=== PATIENT | female | born 1930 | race Hispanic/Latino ===

== ENCOUNTER 2018-02-14 07:47 | Day surgery (SDC) | payer MEDICARE ==
[2018-02-06 13:10] VITALS: BMI 28.3
[2018-02-14 08:25] LABS: BASO # 0.02 K/mm3 (0.0-2.0); BASO % 0.6 % (0.0-3.0); EOS # 0.2 (0.0-0.7); EOS % 5.2 % (1.5-5.0); GRAN # 2.18 (1.4-6.5); GRAN % 63.6 % (50.0-68.0); HEMOGLOBIN 11.8 g/dL (12.0-16.0); LYMPH # 0.7 (1.2-3.4); MEAN CELL VOLUME 95.7 fl (80.0-105.0); MEAN CORPUSCULAR HEMOGLOBIN 31.8 pg (25.0-35.0); MEAN CORPUSCULAR HGB CONC 33.2 g/dl (31.0-37.0); MEAN PLATELET VOLUME 8.2 fl (7.0-11.0); MONO # 0.3 (0.1-0.6); MONO % 9.6 % (1.0-6.0); RBC 3.71 10^6/uL (3.5-6.1); RED CELL DISTRIBUTION WIDTH 14.2 % (11.5-14.5); WHITE BLOOD COUNT 3.4 10^3/ul (4.5-11.0)
[2018-02-14 08:34] LABS: INR 1.09 (0.93-1.08); PARTIAL THROMBOPLASTIN TIME 28.1 Seconds (25.1-36.5); PROTHROMBIN TIME 12.5 SECONDS (9.4-12.5)
[2018-02-14] MEDS ORDERED: Propofol 10 mg/ml Inj (20 ML) ONE (09:11)
[2018-02-14] MEDS ORDERED: Sodium Chloride 0.9% 1,000 ML IV SCH (10:15)
[2018-02-14 10:50] VITALS: RESP 16
[2018-02-14 11:50] VITALS: BP 145/96; PULSE 65; TEMP 97.3; O2SAT 99
== END 2018-02-14 11:46 | disposition home or self-care (01) ==
LOC: ENDO 07:47
PROVIDERS: ATTEND Internal Medicine Gastroenterology
DX: C15.3 Malignant neoplasm of upper third of esophagus (principal); T18.128A Food in esophagus causing other injury, initial encounter; K29.70 Gastritis, unspecified, without bleeding; K22.8 Other specified diseases of esophagus
CPT/HCPCS: 36415; 43239; 43247; 85025; 85610; 85730; 88305; 88312; J2704; J7030; J7040

== ENCOUNTER 2018-03-28 10:16 | Day surgery (SDC) | payer MEDICARE ==
[2018-03-26 10:56] VITALS: BMI 24.7
[2018-03-28 11:03] LABS: BASO # 0.02 K/mm3 (0.0-2.0); BASO % 0.4 % (0.0-3.0); EOS # 0.1 (0.0-0.7); EOS % 2.2 % (1.5-5.0); GRAN # 3.75 (1.4-6.5); GRAN % 74.3 % (50.0-68.0); HEMOGLOBIN 12.8 g/dL (12.0-16.0); LYMPH # 0.8 (1.2-3.4); LYMPH % 15.8 % (22.0-35.0); MEAN CELL VOLUME 93.5 fl (80.0-105.0); MEAN CORPUSCULAR HEMOGLOBIN 31.8 pg (25.0-35.0); MEAN PLATELET VOLUME 8.2 fl (7.0-11.0); MONO # 0.4 (0.1-0.6); MONO % 7.3 % (1.0-6.0); RBC 4.03 10^6/uL (3.5-6.1); RED CELL DISTRIBUTION WIDTH 13.8 % (11.5-14.5); WHITE BLOOD COUNT 5.1 10^3/ul (4.5-11.0)
[2018-03-28 11:20] LABS: INR 1.48; PROTHROMBIN TIME 17.2 SECONDS (9.4-12.5)
[2018-03-28 11:23] LABS: PARTIAL THROMBOPLASTIN TIME 30.6 Seconds (25.1-36.5)
[2018-03-28] MEDS ORDERED: Propofol 10 mg/ml Inj (20 ML) ONE (13:00)
[2018-03-28] MEDS ORDERED: Phenylephrine 10 mg/ml Inj ONE (13:43)
[2018-03-28] MEDS ORDERED: ePHEDrine 50 mg/ml Inj ONE (14:00)
[2018-03-28] MEDS ORDERED: Sodium Chloride 0.9% 1,000 ML IV SCH (14:30)
[2018-03-28 14:32] VITALS: RESP 16; TEMP 98
[2018-03-28 14:40] VITALS: PULSE 97; O2SAT 95
[2018-03-28 15:34] VITALS: BP 160/97
== END 2018-03-28 15:50 | disposition home or self-care (01) ==
LOC: ENDO 10:16
PROVIDERS: ATTEND Internal Medicine Gastroenterology
DX: C15.4 Malignant neoplasm of middle third of esophagus (principal); K22.70 Barrett's esophagus without dysplasia; K22.8 Other specified diseases of esophagus; K22.2 Esophageal obstruction; T18.128A Food in esophagus causing other injury, initial encounter; K29.70 Gastritis, unspecified, without bleeding; R13.10 Dysphagia, unspecified; I48.91 Unspecified atrial fibrillation; D50.9 Iron deficiency anemia, unspecified; I11.0 Hypertensive heart disease with heart failure; I50.9 Heart failure, unspecified; K22.0 Achalasia of cardia; Z80.41 Family history of malignant neoplasm of ovary
CPT/HCPCS: 36415; 43235; 85025; 85610; 85730; J2001; J2370; J2704; J3010; J7030

== ENCOUNTER 2018-04-04 08:32 | Day surgery (SDC) | payer MEDICARE ==
[2018-04-03 10:53] VITALS: BMI 28.3
[2018-04-04 09:23] LABS: BASO # 0.03 K/mm3 (0.0-2.0); BASO % 0.6 % (0.0-3.0); EOS # 0.1 (0.0-0.7); EOS % 2.2 % (1.5-5.0); GRAN # 3.72 (1.4-6.5); GRAN % 74.8 % (50.0-68.0); LYMPH # 0.6 (1.2-3.4); LYMPH % 12.4 % (22.0-35.0); MEAN CELL VOLUME 92.9 fl (80.0-105.0); MEAN CORPUSCULAR HEMOGLOBIN 31.6 pg (25.0-35.0); MEAN PLATELET VOLUME 8.3 fl (7.0-11.0); MONO # 0.5 (0.1-0.6); RBC 3.8 10^6/uL (3.5-6.1); RED CELL DISTRIBUTION WIDTH 13.9 % (11.5-14.5)
[2018-04-04 09:28] LABS: INR 1.47
[2018-04-04] MEDS ORDERED: Sodium Chloride 0.9% 1,000 ML IV SCH (10:00)
[2018-04-04] MEDS ORDERED: Propofol 10 mg/ml Inj (20 ML) ONE ×2 (10:46→11:58)
[2018-04-04] MEDS ORDERED: Etomidate 20 mg/10ml Inj IV ONE (10:54)
[2018-04-04] MEDS ORDERED: Phenylephrine 10 mg/ml Inj ONE (10:57)
[2018-04-04] MEDS ORDERED: CeFAZolin 1 gm in NS 100ml IVPB ONE (11:49)
[2018-04-05 08:18] VITALS: BP 115/77; PULSE 77; RESP 19; TEMP 97.5; O2SAT 96
--- NOTE | 2018-04-05 14:56 | CP.PCM.CON ---
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 Pt's PEG placement was for palliative reasons and potential need in the future. Past Patient History - Infectious Disease Hx of Infectious Diseases: None - Tetanus Immunizations Tetanus Immunization: Unknown - Past Social History Smoking Status: Former Smoker - CARDIAC Hx Pacemaker: No - PULMONARY Hx Chronic Obstructive Pulmonary Disease (COPD): Yes - NEUROLOGICAL Hx Neurological Disorder: No - HEENT Hx HEENT Problems: No - RENAL Hx Chronic Kidney Disease: No - ENDOCRINE/METABOLIC Hx Diabetes Mellitus Type 2: Yes - HEMATOLOGICAL/ONCOLOGICAL Hx Blood Disorders: Yes Other/Comment: PE - INTEGUMENTARY Hx Dermatological Problems: Yes (psoriasis) - MUSCULOSKELETAL/RHEUMATOLOGICAL Hx Musculoskeletal Disorders: Yes - GASTROINTESTINAL Hx Gastrointestinal Disorders: Yes HX Swallowing Problems: Yes Other/Comment: isabelle esophagus, echalasia - GENITOURINARY/GYNECOLOGICAL Hx Genitourinary Disorders: No - PSYCHIATRIC Hx Emotional Abuse: No Hx Physical Abuse: No - SURGICAL HISTORY Hx Surgeries: No - ANESTHESIA Hx Anesthesia Reactions: No Hx Malignant Hyperthermia: No Meds Allergies/Adverse Reactions: Allergies Allergy/AdvReac Type Severity Reaction Status Date / Time No Known Allergies Allergy Verified 08/15/16 02:07 - Medications Medications: Current Medications Acetaminophen (Tylenol 325mg Tab) 650 mg PO Q4H PRN PRN Reason: Pain, moderate (4-7) Last Admin: 04/05/18 12:55 Dose: 650 mg Results - Vital Signs Recent Vital Signs: Last Vital Signs Temp 97.5 F L 04/05/18 08:17 Pulse 77 04/05/18 08:17 Resp 19 04/05/18 08:17 BP 115/77 04/05/18 08:17 Pulse Ox 96 04/05/18 08:17 - Labs Result Diagrams: 04/04/18 09:00
== END 2018-04-05 15:50 | disposition home or self-care (01) ==
LOC: ENDO 08:32 → 3RSO 15:40 → ENDO 04-05 15:50
PROVIDERS: ATTEND Internal Medicine Gastroenterology
DX: C15.9 Malignant neoplasm of esophagus, unspecified (principal); K21.9 Gastro-esophageal reflux disease without esophagitis; I11.0 Hypertensive heart disease with heart failure; I50.9 Heart failure, unspecified; I48.91 Unspecified atrial fibrillation
CPT/HCPCS: 36415; 43246; 85025; 85610; 91030; J0690; J2370; J2704; J3010; J7040

== ENCOUNTER 2018-05-26 03:39 | Inpatient (IN) | payer MEDICARE ==
[2018-05-26 03:40] VITALS: BMI 28.3
--- NOTE | 2018-05-26 04:25 | ED PDOC ---
Arrival/HPI - General Chief Complaint: GI Problem Time Seen by Provider: 05/26/18 03:41 Historian: Patient, Family - Critical Care Critical Care Minutes: 60 minutes - History of Present Illness Narrative History of Present Illness (Text): 05/26/18 04:21 88 year old female, whose past medical history includes A-fib on Coumadin, CHF, diabetes, hypothyroidism, hypertension, achalasia, malignant neoplasma of esophagus on chemotherapy and radiation, presents to the emergency department complaining of vomiting blood for the past 1.5 hours. Patient denies any fever, chills, chest pain, shortness of breath, abdominal pain, diarrhea, urinary symptoms, back pain, neck pain, headache, dizziness, or any other complaints. PMD: Dr. Vincent Lindsay Oncologist: Dr. Coello GI: Dr. Brown Time/Duration: Other (1.5 hours) Symptom Onset: Sudden Symptom Course: Unchanged Activities at Onset: Light Context: Home Past Medical History - Provider Review Nursing Documentation Reviewed: Yes - Infectious Disease Hx of Infectious Diseases: None - Tetanus Immunization Tetanus Immunization: Unknown - Cardiac Hx Cardiac Disorders: Yes Hx Congestive Heart Failure: Yes Hx Pacemaker: No - Pulmonary Hx Respiratory Disorders: Yes Hx Chronic Obstructive Pulmonary Disease (COPD): Yes - Neurological Hx Neurological Disorder: No - HEENT Hx HEENT Disorder: No - Renal Hx Renal Disorder: No - Endocrine/Metabolic Hx Endocrine Disorders: Yes Hx Diabetes Mellitus Type 2: Yes - Hematological/Oncological Hx Blood Disorders: Yes Other/Comment: PE - Integumentary Hx Dermatological Disorder: Yes (psoriasis) - Musculoskeletal/Rheumatological Hx Musculoskeletal Disorders: Yes - Gastrointestinal Hx Gastrointestinal Disorders: Yes HX Swallowing Problems: Yes Other/Comment: isabelle esophagus, echalasia - Genitourinary/Gynecological Hx Genitourinary Disorders: No - Psychiatric Hx Emotional Abuse: No Hx Physical Abuse: No Hx Substance Use: No - Surgical History Hx Cholecystectomy: Yes Hx Musculoskeletal Surgery: Yes (hip replacement) Hx Orthopedic Surgery: Yes (Left Hip) Other/Comment: left hip surgery 2005 - Anesthesia Hx Anesthesia Reactions: No Hx Malignant Hyperthermia: No - Suicidal Assessment Feels Threatened In Home Enviroment: No Family/Social History - Physician Review Nursing Documentation Reviewed: Yes Family/Social History: No Known Family HX Smoking Status: Former Smoker Hx Alcohol Use: Yes (GLASS OF WINE DAILY) Hx Substance Use: No Hx Substance Use Treatment: No Allergies/Home Meds Allergies/Adverse Reactions: Allergies No Known Allergies Allergy (Verified 08/15/16 02:07) Home Medications: Home Meds Medication Instructions Recorded Confirmed Warfarin [Coumadin] 5 mg PO DAILY 05/10/13 05/26/18 Metoprolol Tartrate [Lopressor] 12.5 mg PO DAILY 10/12/15 05/26/18 Furosemide [Lasix] 20 mg PO MWF 08/10/16 05/26/18 Ergocalciferol (Vitamin D2) 50,000 unit PO QWK 05/26/18 05/26/18 [Drisdol] Pyridoxine HCl (Vitamin B6) 100 mg PO BID 05/26/18 05/26/18 [Vitamin B-6] Review of Systems - Physician Review All systems were reviewed & negative as marked: Yes - Review of Systems Constitutional: absent: Fevers, Other (Chills) Respiratory: absent: SOB Cardiovascular: absent: Chest Pain Gastrointestinal: Nausea, Vomiting, Hematemesis. absent: Abdominal Pain, Diarrhea Genitourinary Female: absent: Dysuria, Frequency, Hematuria Musculoskeletal: absent: Back Pain, Neck Pain Neurological: absent: Headache, Dizziness Physical Exam - Physical Exam Narrative Physical Exam (Text): Gen: VS reviewed, alert, well developed, well nourished, nontoxic, mild distress. Patient currently intermittently vomiting small amounts of bright red blood. ENT: normal pharynx. Eye: EOMI, PERRL. Neck: no JVD, supple, no adenopathy. CV: Rapid heart rate, irregular irregular rhythm, no rubs, no murmur, no mary ps, S1, S2, pulses equal and strong. Pulm: no distress, clear to auscultation, no wheeze, no rhonchi, breath sounds equal, no rales. Abd: soft, nontender, no guarding, no rebound, no rigidity, normal bowel sounds. Ext: no edema. Skin: good color, no rash, no cyanosis. Psych: responds appropriately to questions, normal affect. Neuro: oriented x 3, CN2-12 intact grossly, motor intact, sensation intact. Vital Signs Reviewed: Yes Vital Signs Temp Pulse Resp BP 05/26/18 03:50 97.5 F L 83 24 105/42 L Temperature: Afebrile Blood Pressure: Hypotensive Pulse: Regular Respiratory Rate: Normal Medical Decision Making ED Course and Treatment: 05/26/18 04:30 Impression: 88 year old female presents complaining of vomiting bleed for the past 1.5 hours. Plan: -- Labs -- VBG -- EKG -- Chest X-ray -- Protonix Inj, IV Fluids, Zofran Inj -- Reassess and disposition Prior Visits: Notes and results from previous visits were reviewed. Patient was last seen in the emergency department on Progress Notes: 05/26/18 05:19 Patient witnessed to have a large bloody bowel movement. 05/26/18 05:[address] Lindsay, patient to be admitted for acute bleeding with Coumadin coagulopathy. Patient has hematemasis and now has bloody stools. With the life threatening bleeding I feel it is best to reverse coagulopathy. 05/26/18 05:33 icu admission accepted by Dr. Mariusz Nixon, at this time I am awaiting call back from Dr. Brown, patient's GI. Admit resident is also aware of the case at as requested by Dr. Nixon. 05/26/18 05:40 05/26/18 06:[address] brown, GI, knows the patient very well and states that at this time there is no role for endoscopy or NGT as the patieint has a large gastric lesion/ulcer and recommends surgical consult. Case discussed with surgical garment fitter (Dr. Tracy as per Dr. Lindsay), will see patient in consultation. - Critical Care Critical Care Minutes: 60 minutes - Lab Interpretations I have reviewed the lab results: Yes - RAD Interpretation Narrative RAD Interpretations (Text): 05/26/18 05:39 cxr my reea: cardiomegaly, no focal infiltrate, no tpx Radiology Orders: 05/26/18 04:16 CHEST PORTABLE [RAD] Stat - EKG Interpretation EKG Interpretation (Text): 05/26/18 05:05 0502: atrial fibrillation at 95 bpm, nml qrs, nml axis, nonspecific t wave abn Interpreted by ED Physician: Yes Type: 12 lead EKG - Medication Orders Current Medication Orders: Pantoprazole Sodium (Protonix 40mg Ivpb) 40 mg in 100 mls @ 20 mls/hr IVPB .Q5H [facility] Ondansetron HCl (Zofran Inj) 4 mg IVP STAT STA Stop: 05/26/18 04:17 Pantoprazole Sodium (Protonix Inj) 80 mg IVP STAT STA Stop: 05/26/18 04:17 - Scribe Statement The provider has reviewed the documentation as recorded by the Jose Guadalupe Quesada Provider Scribe Attestation: All medical record entries made by the Vandanaibvibha were at my direction and personally dictated by me. I have reviewed the chart and agree that the record accurately reflects my personal performance of the history, physical exam, medical decision making, and the department course for this patient. I have also personally directed, reviewed, and agree with the discharge instructions and disposition. Disposition/Present on Arrival - Present on Arrival Any Indicators Present on Arrival: No History of DVT/PE: No History of Uncontrolled Diabetes: No Urinary Catheter: No History of Decub. Ulcer: No History Surgical Site Infection Following: None - Disposition Have Diagnosis and Disposition been Completed?: Yes Diagnosis: GI bleed, Bleeding on Coumadin Disposition: HOSPITALIZED Disposition Time: 05:40 Patient Plan: ICU Patient Problems: Current Active Problems Problem Status Onset Bleeding on Coumadin Acute GI bleed Acute Condition: GUARDED
[2018-05-26] MEDS: Pantoprazole 40mg/100mL NS 40 MG/100 ML BAG IVPB SCH ×4 (04:40→20:30)
[2018-05-26] MEDS: Sodium Chloride 0.9% 1,000 ML IV SCH ×2 (04:43→18:53)
[2018-05-26 04:44] LABS: VENOUS BLOOD GAS BASE EXCESS -0.2 mmol/L (0.0-2.0); VENOUS BLOOD GAS PO2 48 mm/Hg (30-55); VENOUS BLOOD PH 7.33 (7.32-7.43)
[2018-05-26 04:55] LABS: BASO # 0.02 K/mm3 (0.0-2.0); BASO % 0.3 % (0.0-3.0); EOS # 0.1 (0.0-0.7); EOS % 1.4 % (1.5-5.0); GRAN # 5.37 (1.4-6.5); GRAN % 80.7 % (50.0-68.0); LYMPH # 0.3 (1.2-3.4); MEAN CELL VOLUME 93.4 fl (80.0-105.0); MEAN CORPUSCULAR HEMOGLOBIN 31.3 pg (25.0-35.0); MEAN CORPUSCULAR HGB CONC 33.5 g/dl (31.0-37.0); MEAN PLATELET VOLUME 8.3 fl (7.0-11.0); MONO # 0.8 (0.1-0.6); MONO % 12.6 % (1.0-6.0); PLATELET COUNT 246 10^3/uL (120.0-450.0); RBC 3.51 10^6/uL (3.5-6.1); RED CELL DISTRIBUTION WIDTH 16.7 % (11.5-14.5); WHITE BLOOD COUNT 6.7 10^3/ul (4.5-11.0)
[2018-05-26 05:15] LABS: PARTIAL THROMBOPLASTIN TIME 42.9 Seconds (25.1-36.5)
[2018-05-26] MEDS ORDERED: Phytonadione 10 MG in Sodium Chloride 0.9% 50 ML IV ONE (05:19)
[2018-05-26 05:23] LABS: INR 6.02; PROTHROMBIN TIME 71.2 SECONDS (9.4-12.5)
--- NOTE | 2018-05-26 06:27 | CP.PCM.CON ---
History of Present Illness - History of Present Illness History of Present Illness: Gera Woods PGY2 ICU Consult Note for Dr. Nixon Ms. Shearer is an 88-year-old female with a PMH of recently diagnosed squamous cell carcinoma of the esophagus (03/2018), CHF, achalasia and A. fib on Coumadin who presents with coughing up blood for 4 hours. In the ED, the patient was noted to have a bloody bowel movement. The daughter is bedside and provides a majority of the history since the patient is uncomfortable when she speaks due to the persistent coughing of blood. The patient was diagnosed with esophageal squamous cell carcinoma in 03/2018 and was started on chemotherapy w/ Dr. Coello and radiation therapy w/ Dr. Shah. She also used to see Dr. Bryson for her afib management but hasn't seen him in > 1 yr. She is now presenting with supratherapeutic INR and active coughing up of blood. She denies any history of gi bleeding. Patient denies any recent illness, chest pain, shortness of pain or recent changes in her coumadin dosage. She only admits to fatigue. 12-pt ROS was reviewed and is otherwise unremarkable. PMD: Angélica PMH: as above PSH: cholecystectomy, L hip ORIF Meds: as per MAR, reviewed Allergies: NKDA SHx: former tobacco user, occasional ETOH, denies drug use FHx: sister: ovarian CA Review of Systems - Review of Systems All systems: reviewed and no additional remarkable complaints except (as per HPI) Past Patient History - Infectious Disease Hx of Infectious Diseases: None - Tetanus Immunizations Tetanus Immunization: Unknown - Past Medical History & Family History Past Medical History?: Yes - Past Social History Smoking Status: Former Smoker Alcohol: Occasional Drugs: Denies - CARDIAC Hx Cardiac Disorders: Yes Hx Congestive Heart Failure: Yes Hx Pacemaker: No - PULMONARY Hx Respiratory Disorders: Yes Hx Chronic Obstructive Pulmonary Disease (COPD): Yes - NEUROLOGICAL Hx Neurological Disorder: No - HEENT Hx HEENT Problems: No - RENAL Hx Chronic Kidney Disease: No - ENDOCRINE/METABOLIC Hx Endocrine Disorders: Yes Hx Diabetes Mellitus Type 2: Yes - HEMATOLOGICAL/ONCOLOGICAL Hx Blood Disorders: Yes Other/Comment: PE - INTEGUMENTARY Hx Dermatological Problems: Yes (psoriasis) - MUSCULOSKELETAL/RHEUMATOLOGICAL Hx Musculoskeletal Disorders: Yes - GASTROINTESTINAL Hx Gastrointestinal Disorders: Yes HX Swallowing Problems: Yes Other/Comment: isabelle esophagus, echalasia - GENITOURINARY/GYNECOLOGICAL Hx Genitourinary Disorders: No - PSYCHIATRIC Hx Emotional Abuse: No Hx Physical Abuse: No Hx Substance Use: No - SURGICAL HISTORY Hx Cholecystectomy: Yes Hx Musculoskeletal Surgery: Yes (hip replacement) Hx Orthopedic Surgery: Yes (Left Hip) Other/Comment: left hip surgery 2005 - ANESTHESIA Hx Anesthesia Reactions: No Hx Malignant Hyperthermia: No Meds Allergies/Adverse Reactions: Allergies Allergy/AdvReac Type Severity Reaction Status Date / Time No Known Allergies Allergy Verified 08/15/16 02:07 - Medications Medications: Current Medications Pantoprazole Sodium (Protonix 40mg Ivpb) 40 mg in 100 mls @ 20 mls/hr IVPB .Q5H [facility] Last Admin: 05/26/18 04:40 Dose: 20 mls/hr Sodium Chloride (Sodium Chloride 0.9%) 1,000 mls @ 75 mls/hr IV .[id number] [facility] Last Admin: 05/26/18 04:43 Dose: 75 mls/hr Metoprolol Tartrate (Lopressor) 12.5 mg PO DAILY [facility] Physical Exam - Constitutional Appears: Well, Non-toxic, No Acute Distress - Head Exam Head Exam: NORMAL INSPECTION - Eye Exam Eye Exam: Normal appearance Additional comments: pale conjuctivitis - ENT Exam Additional comments: coughing up fresh red blood - Neck Exam Neck exam: Positive for: Normal Inspection - Respiratory Exam Respiratory Exam: NORMAL BREATHING PATTERN. absent: Rales, Rhonchi, Wheezes - Cardiovascular Exam Cardiovascular Exam: Irregular Rhythm, +S1, +S2, Systolic Murmur (severe) - GI/Abdominal Exam GI & Abdominal Exam: Normal Bowel Sounds, Soft, Tenderness (epigastroc). absent: Distended - Rectal Exam Rectal Exam: Bloody Stool - Extremities Exam Extremities exam: Positive for: full ROM. Negative for: pedal edema - Neurological Exam Neurological exam: Alert, CN II-XII Intact, Oriented x3 - Psychiatric Exam Psychiatric exam: Normal Mood - Skin Skin Exam: Pallor Results - Vital Signs Recent Vital Signs: Last Vital Signs Temp 97.5 F L 05/26/18 03:50 Pulse 110 H 05/26/18 05:23 Resp 24 05/26/18 05:23 BP 114/89 05/26/18 05:23 Pulse Ox 94 L 05/26/18 05:23 - Labs Result Diagrams: 05/26/18 04:35 Labs: Laboratory Results - last 24 hr 05/26/18 05/26/18 05/26/18 04:35 04:35 04:35 WBC 6.7 D RBC 3.51 Hgb 11.0 L Hct 32.8 L MCV 93.4 MCH 31.3 MCHC 33.5 RDW 16.7 H Plt Count 246 MPV 8.3 Gran % 80.7 H Lymph % (Auto) 5.0 L [place] % (Auto) 12.6 H Eos % (Auto) 1.4 L Baso % (Auto) 0.3 Gran # 5.37 Lymph # (Auto) 0.3 L [place] # (Auto) 0.8 H Eos # (Auto) 0.1 Baso # (Auto) 0.02 PT 71.2 H INR 6.02 H* APTT 42.9 H pO2 48 VBG pH 7.33 VBG pCO2 50.0 VBG HCO3 26.4 VBG Total CO2 27.9 VBG O2 Sat (Calc) 83.9 H VBG Base Excess -0.2 L VBG Potassium 3.8 Sodium 133.0 Chloride 99.0 Glucose 122 H Lactate 1.6 FiO2 21.0 Venous Blood Potassium 3.8 Assessment & Plan - Assessment and Plan (Free Text) Assessment: 88-year-old female with a PMH of recently diagnosed squamous cell carcinoma of the esophagus (03/2018), CHF, achalasia and A. fib on Coumadin who presents with coughing up blood and had a large bloody bowel movement. INR is supratherap eutic. She was started on PTX gtt, and given vitamin K. She was then consented for FFP. Patient is hemodynamically stable. Will be monitored in ICU. Plan: 1. Acute GI bleed, in setting of malignancy - NPO - PTX gtt - vit K to reverse supratherapeutic INR - transfuse FFP per EM - GI consulted - transfer to ICU for close monitoring 2. Hx Squamous cell carcinoma of esophagus - Heme/Onc consulted, recs appreciated 3. Hx Afib - holding Coumadin - cont lopressor via g tube - currently rate controlled, cont to monitor 4. PPX - PTX - holding all blood thinners Case was reviewed and discusse with attending, Dr. Tiffani Woods PGY2
[2018-05-26 06:38] LABS: BAND 8 % (0-2); NEUTROPHIL 71 % (50.0-70.0)
[2018-05-26 06:39] LABS: ANISOCYTOSIS SLIGHT; BASOPHIL 2 % (0.0-1.0); EOSINOPHIL 2 % (0.0-3.0); LYMPHOCYTE 6 % (22.0-35.0); MONOCYTE 11 % (1.0-6.0); PLATELET ESTIMATE NORMAL (NORMAL)
[2018-05-26 07:31] LABS: ALBUMIN 3.2 g/dL (3.0-4.8); CALCIUM 8.4 mg/dL (8.4-10.5)
[2018-05-26 08:40] LABS: HEMOGLOBIN 9.3 g/dL (12.0-16.0); MEAN CELL VOLUME 92.8 fl (80.0-105.0); MEAN CORPUSCULAR HEMOGLOBIN 31.7 pg (25.0-35.0); MEAN CORPUSCULAR HGB CONC 34.2 g/dl (31.0-37.0); MEAN PLATELET VOLUME 7.7 fl (7.0-11.0); RBC 2.93 10^6/uL (3.5-6.1); RED CELL DISTRIBUTION WIDTH 16.3 % (11.5-14.5); WHITE BLOOD COUNT 6.1 10^3/ul (4.5-11.0)
--- NOTE | 2018-05-26 09:21 | RAD ---
Date of service: 05/26/2018 HISTORY: chf COMPARISON: 08/22/2016 FINDINGS: LUNGS: No active pulmonary disease. PLEURA: No pleural effusion or pneumothorax. Abnormal contour of left hemidiaphragm may reflect a small hernia but is unchanged compared to prior examination. CARDIOVASCULAR: Normal. OSSEOUS STRUCTURES: No significant abnormalities. VISUALIZED UPPER ABDOMEN: Normal. OTHER FINDINGS: None. IMPRESSION: No active disease.
--- NOTE | 2018-05-26 11:03 | CP.PCM.CON ---
History of Present Illness - History of Present Illness History of Present Illness: General Surgery Consult Note for Dr. Tracy Patient is an 88 year old female with a PMH of recently diagnosed squamous cell carcinoma of the esophagus (03/2018), CHF, achalasia, and atrial fibrillation (on Coumadin) presenting with hemoptysis that started last night. Patient was also noted to have a bloody bowel movement in the ED this morning. Patient was diagnosed with esophageal squamous cell carcinoma in 03/2018 is currently on chemotherapy and radiation therapy. She is also presenting with supra-thera peutic INR level. She denies any history of GI bleeding. Patient further denies any recent illness, fevers, chills, chest pain, shortness of breath, abdominal pain, or recent changes in her Coumadin dosage. 12-pt ROS was reviewed and is otherwise unremarkable. PMD: Dr. Lindsay Oncologist: Dr. Coello, Dr. Shah PMH: squamous cell carcinoma of the esophagus (03/2018), CHF, achalasia, and atrial fibrillation on Coumadin PSH: cholecystectomy, L hip ORIF Allergies: NKDA SHx: former tobacco user, occasional ETOH, denies drug use FHx: sister: ovarian CA Past Patient History - Infectious Disease Hx of Infectious Diseases: None - Tetanus Immunizations Tetanus Immunization: Unknown - Past Medical History & Family History Past Medical History?: Yes - Past Social History Smoking Status: Former Smoker Alcohol: Occasional Drugs: Denies - CARDIAC Hx Cardiac Disorders: Yes Hx Congestive Heart Failure: Yes Hx Pacemaker: No - PULMONARY Hx Respiratory Disorders: Yes Hx Chronic Obstructive Pulmonary Disease (COPD): Yes - NEUROLOGICAL Hx Neurological Disorder: No - HEENT Hx HEENT Problems: No - RENAL Hx Chronic Kidney Disease: No - ENDOCRINE/METABOLIC Hx Endocrine Disorders: Yes Hx Diabetes Mellitus Type 2: Yes - HEMATOLOGICAL/ONCOLOGICAL Hx Blood Disorders: Yes Other/Comment: PE - INTEGUMENTARY Hx Dermatological Problems: Yes (psoriasis) - MUSCULOSKELETAL/RHEUMATOLOGICAL Hx Musculoskeletal Disorders: Yes - GASTROINTESTINAL Hx Gastrointestinal Disorders: Yes HX Swallowing Problems: Yes Other/Comment: isabelle esophagus, echalasia - GENITOURINARY/GYNECOLOGICAL Hx Genitourinary Disorders: No - PSYCHIATRIC Hx Emotional Abuse: No Hx Physical Abuse: No Hx Substance Use: No - SURGICAL HISTORY Hx Cholecystectomy: Yes Hx Musculoskeletal Surgery: Yes (hip replacement) Hx Orthopedic Surgery: Yes (Left Hip) Other/Comment: left hip surgery 2005 - ANESTHESIA Hx Anesthesia Reactions: No Hx Malignant Hyperthermia: No Meds Allergies/Adverse Reactions: Allergies Allergy/AdvReac Type Severity Reaction Status Date / Time No Known Allergies Allergy Verified 08/15/16 02:07 - Medications Medications: Current Medications Pantoprazole Sodium (Protonix 40mg Ivpb) 40 mg in 100 mls @ 20 mls/hr IVPB .Q5H [facility] Last Admin: 05/26/18 04:40 Dose: 20 mls/hr Sodium Chloride (Sodium Chloride 0.9%) 1,000 mls @ 75 mls/hr IV .[id number] [facility] Last Admin: 05/26/18 04:43 Dose: 75 mls/hr Physical Exam - Constitutional Appears: Well, Non-toxic, No Acute Distress - Head Exam Head Exam: ATRAUMATIC, NORMOCEPHALIC - ENT Exam ENT Exam: Mucous Membranes Dry - Neck Exam Neck exam: Positive for: Normal Inspection - Respiratory Exam Respiratory Exam: NORMAL BREATHING PATTERN. absent: Accessory Muscle Use, Respiratory Distress - Cardiovascular Exam Cardiovascular Exam: RRR - GI/Abdominal Exam GI & Abdominal Exam: Soft. absent: Distended, Guarding, Tenderness - Extremities Exam Extremities exam: Positive for: normal inspection. Negative for: calf tenderness, pedal edema - Neurological Exam Neurological exam: Alert, CN II-XII Intact, Oriented x3 - Psychiatric Exam Psychiatric exam: Normal Affect, Normal Mood - Skin Skin Exam: Dry, Intact, Pallor Results - Vital Signs Recent Vital Signs: Last Vital Signs Temp 98 F 05/26/18 09:45 Pulse 106 H 05/26/18 09:45 Resp 18 05/26/18 09:45 BP 102/63 05/26/18 09:45 Pulse Ox 99 05/26/18 09:45 - Labs Result Diagrams: 05/26/18 08:36 05/26/18 06:40 Labs: Laboratory Results - last 24 hr 05/26/18 05/26/18 05/26/18 04:35 04:35 04:35 WBC 6.7 D RBC 3.51 Hgb 11.0 L Hct 32.8 L MCV 93.4 MCH 31.3 MCHC 33.5 RDW 16.7 H Plt Count 246 MPV 8.3 Gran % 80.7 H Lymph % (Auto) 5.0 L [place] % (Auto) 12.6 H Eos % (Auto) 1.4 L Baso % (Auto) 0.3 Gran # 5.37 Lymph # (Auto) 0.3 L [place] # (Auto) 0.8 H Eos # (Auto) 0.1 Baso # (Auto) 0.02 Neutrophils % (Manual) 71 H Band Neutrophils % 8 H Lymphocytes % (Manual) 6 L Monocytes % (Manual) 11 H Eosinophils % (Manual) 2 Basophils % (Manual) 2 H Platelet Evaluation Normal Anisocytosis (manual) Slight PT 71.2 H INR 6.02 H* APTT 42.9 H pO2 48 VBG pH 7.33 VBG pCO2 50.0 VBG HCO3 26.4 VBG Total CO2 27.9 VBG O2 Sat (Calc) 83.9 H VBG Base Excess -0.2 L VBG Potassium 3.8 Sodium 133.0 Chloride 99.0 Glucose 122 H Lactate 1.6 FiO2 21.0 Potassium Carbon Dioxide Anion Gap BUN Creatinine Est GFR ( Amer) Est GFR (Non-Af Amer) Random Glucose Calcium Phosphorus Magnesium Total Bilirubin AST ALT Alkaline Phosphatase Total Protein Albumin Globulin Albumin/Globulin Ratio Venous Blood Potassium 3.8 Blood Type Antibody Screen Crossmatch BBK History Checked 05/26/18 05/26/18 05/26/18 06:40 06:40 08:36 WBC 6.1 RBC 2.93 L Hgb 9.3 L Hct 27.2 L MCV 92.8 MCH 31.7 MCHC 34.2 RDW 16.3 H Plt Count 210 MPV 7.7 Gran % Lymph % (Auto) [place] % (Auto) Eos % (Auto) Baso % (Auto) Gran # Lymph # (Auto) [place] # (Auto) Eos # (Auto) Baso # (Auto) Neutrophils % (Manual) Band Neutrophils % Lymphocytes % (Manual) Monocytes % (Manual) Eosinophils % (Manual) Basophils % (Manual) Platelet Evaluation Anisocytosis (manual) PT INR APTT pO2 VBG pH VBG pCO2 VBG HCO3 VBG Total CO2 VBG O2 Sat (Calc) VBG Base Excess VBG Potassium Sodium 134 Chloride 100 Glucose Lactate FiO2 Potassium 3.9 Carbon Dioxide 26 Anion Gap 12 BUN 33 H Creatinine 1.2 Est GFR ( Amer) 51 Est GFR (Non-Af Amer) 42 Random Glucose 134 H Calcium 8.4 Phosphorus 2.8 Magnesium 1.7 Total Bilirubin 0.5 AST 24 ALT 17 Alkaline Phosphatase 73 Total Protein 6.3 Albumin 3.2 Globulin 3.1 Albumin/Globulin Ratio 1.0 L Venous Blood Potassium Blood Type Antibody Screen Crossmatch BBK History Checked 05/26/18 09:15 WBC RBC Hgb Hct MCV MCH MCHC RDW Plt Count MPV Gran % Lymph % (Auto) [place] % (Auto) Eos % (Auto) Baso % (Auto) Gran # Lymph # (Auto) [place] # (Auto) Eos # (Auto) Baso # (Auto) Neutrophils % (Manual) Band Neutrophils % Lymphocytes % (Manual) Monocytes % (Manual) Eosinophils % (Manual) Basophils % (Manual) Platelet Evaluation Anisocytosis (manual) PT INR APTT pO2 VBG pH VBG pCO2 VBG HCO3 VBG Total CO2 VBG O2 Sat (Calc) VBG Base Excess VBG Potassium Sodium Chloride Glucose Lactate FiO2 Potassium Carbon Dioxide Anion Gap BUN Creatinine Est GFR ( Amer) Est GFR (Non-Af Amer) Random Glucose Calcium Phosphorus Magnesium Total Bilirubin AST ALT Alkaline Phosphatase Total Protein Albumin Globulin Albumin/Globulin Ratio Venous Blood Potassium Blood Type A POSITIVE Antibody Screen Negative Crossmatch See Detail BBK History Checked Patient has bt Assessment & Plan - Assessment and Plan (Free Text) Assessment: Patient is an 88 year old female with newly diagnosed squamous cell carcinoma of the esophagus on chemotherapy and radiation therapy presenting with hemoptysis. She was also found to have supra-therapeutic INR level. Plan: - No acute surgical management at this time - Continue medical management as per primary and ICU teams - Will continue to follow Case discussed with Dr. Tracy. Barrie Avina DO PGY-1
--- NOTE | 2018-05-26 11:08 | CARD ---
APPROVED REPORT Date of service: 05/26/2018 EKG Measurement Heart [id number] <Conclusion> Atrial fibrillation with premature ventricular or aberrantly conducted complexes prolonged QT Cannot rule out septal infarct, age undetermined NSTT wave abnormality Abnormal ECG
--- NOTE | 2018-05-26 12:43 | CP.PCM.CON ---
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 She states shortly after midnight she began to throw up bright red blood. She also noticed a burning sensation around her midsternal area. She states that her last BM a day prior was brown, but since being in the ED, she reports have 1 dark red bowel movement. She denies any EtOH or NSAID use. She last took coumadin on 05/25/18. On ROS, she admitted to feeling fatigue and light headed. She denied any melena, abd pain, fevers or chills. 12 point ROS negative other than stated above MHx: See above SurgHx: cholecystectomy, L hip ORIF Endo: EGD 04/04/18 with Barrets C0M1, 2 cm Ulcer in upper esoph, Dilated Esophagus, s/p PEG Meds: Reviewed in MAR FamHx: sister with ovarian CA SocHx: Denied EtOH, former tob All: NKDA Past Patient History - Infectious Disease Hx of Infectious Diseases: None - Tetanus Immunizations Tetanus Immunization: Unknown - Past Medical History & Family History Past Medical History?: Yes - Past Social History Smoking Status: Former Smoker Alcohol: Occasional Drugs: Denies - CARDIAC Hx Cardiac Disorders: Yes Hx Congestive Heart Failure: Yes Hx Pacemaker: No - PULMONARY Hx Respiratory Disorders: Yes Hx Chronic Obstructive Pulmonary Disease (COPD): Yes - NEUROLOGICAL Hx Neurological Disorder: No - HEENT Hx HEENT Problems: No - RENAL Hx Chronic Kidney Disease: No - ENDOCRINE/METABOLIC Hx Endocrine Disorders: Yes Hx Diabetes Mellitus Type 2: Yes - HEMATOLOGICAL/ONCOLOGICAL Hx Blood Disorders: Yes Other/Comment: PE - INTEGUMENTARY Hx Dermatological Problems: Yes (psoriasis) - MUSCULOSKELETAL/RHEUMATOLOGICAL Hx Musculoskeletal Disorders: Yes - GASTROINTESTINAL Hx Gastrointestinal Disorders: Yes HX Swallowing Problems: Yes Other/Comment: isabelle esophagus, echalasia - GENITOURINARY/GYNECOLOGICAL Hx Genitourinary Disorders: No - PSYCHIATRIC Hx Emotional Abuse: No Hx Physical Abuse: No Hx Substance Use: No - SURGICAL HISTORY Hx Cholecystectomy: Yes Hx Musculoskeletal Surgery: Yes (hip replacement) Hx Orthopedic Surgery: Yes (Left Hip) Other/Comment: left hip surgery 2005 - ANESTHESIA Hx Anesthesia Reactions: No Hx Malignant Hyperthermia: No Meds Allergies/Adverse Reactions: Allergies Allergy/AdvReac Type Severity Reaction Status Date / Time No Known Allergies Allergy Verified 08/15/16 02:07 - Medications Medications: Current Medications Pantoprazole Sodium (Protonix 40mg Ivpb) 40 mg in 100 mls @ 20 mls/hr IVPB .Q5H [facility] Last Admin: 05/26/18 10:58 Dose: 20 mls/hr Sodium Chloride (Sodium Chloride 0.9%) 1,000 mls @ 75 mls/hr IV .[id number] [facility] Last Admin: 05/26/18 04:43 Dose: 75 mls/hr Physical Exam - Constitutional Appears: Non-toxic, No Acute Distress - Head Exam Head Exam: ATRAUMATIC, NORMAL INSPECTION - Eye Exam Eye Exam: EOMI. absent: Conjunctival injection, Scleral icterus - ENT Exam ENT Exam: Mucous Membranes Moist, Normal Exam. absent: Mucous Membranes Dry Additional comments: spitting up bright red blood - Respiratory Exam Respiratory Exam: Clear to Auscultation Bilateral, NORMAL BREATHING PATTERN - Cardiovascular Exam Cardiovascular Exam: Tachycardia, REGULAR RHYTHM - GI/Abdominal Exam GI & Abdominal Exam: Normal Bowel Sounds, Soft. absent: Bruit, Diminished Bowel Sounds, Distended, Firm, Guarding, Hernia, Mass, Organomegaly, Pulsatile Mass, Rebound, Rigid, Tenderness Additional comments: +PEG in place w/o signs of erythema nor drainage - Rectal Exam Rectal Exam: Deferred - Neurological Exam Neurological exam: Alert, Oriented x3 - Psychiatric Exam Psychiatric exam: Normal Affect, Normal Mood - Skin Skin Exam: Dry, Warm Results - Vital Signs Recent Vital Signs: Last Vital Signs Temp 98 F 05/26/18 09:45 Pulse 106 H 05/26/18 09:45 Resp 18 05/26/18 09:45 BP 102/63 05/26/18 09:45 Pulse Ox 99 05/26/18 09:45 - Labs Result Diagrams: 05/26/18 08:36 05/26/18 06:40 Labs: Laboratory Results - last 24 hr 05/26/18 05/26/18 05/26/18 04:35 04:35 04:35 WBC 6.7 D RBC 3.51 Hgb 11.0 L Hct 32.8 L MCV 93.4 MCH 31.3 MCHC 33.5 RDW 16.7 H Plt Count 246 MPV 8.3 Gran % 80.7 H Lymph % (Auto) 5.0 L [place] % (Auto) 12.6 H Eos % (Auto) 1.4 L Baso % (Auto) 0.3 Gran # 5.37 Lymph # (Auto) 0.3 L [place] # (Auto) 0.8 H Eos # (Auto) 0.1 Baso # (Auto) 0.02 Neutrophils % (Manual) 71 H Band Neutrophils % 8 H Lymphocytes % (Manual) 6 L Monocytes % (Manual) 11 H Eosinophils % (Manual) 2 Basophils % (Manual) 2 H Platelet Evaluation Normal Anisocytosis (manual) Slight PT 71.2 H INR 6.02 H* APTT 42.9 H pO2 48 VBG pH 7.33 VBG pCO2 50.0 VBG HCO3 26.4 VBG Total CO2 27.9 VBG O2 Sat (Calc) 83.9 H VBG Base Excess -0.2 L VBG Potassium 3.8 Sodium 133.0 Chloride 99.0 Glucose 122 H Lactate 1.6 FiO2 21.0 Potassium Carbon Dioxide Anion Gap BUN Creatinine Est GFR ( Amer) Est GFR (Non-Af Amer) Random Glucose Calcium Phosphorus Magnesium Total Bilirubin AST ALT Alkaline Phosphatase Total Protein Albumin Globulin Albumin/Globulin Ratio Venous Blood Potassium 3.8 Blood Type Antibody Screen Crossmatch BBK History Checked 05/26/18 05/26/18 05/26/18 06:40 06:40 08:36 WBC 6.1 RBC 2.93 L Hgb 9.3 L Hct 27.2 L MCV 92.8 MCH 31.7 MCHC 34.2 RDW 16.3 H Plt Count 210 MPV 7.7 Gran % Lymph % (Auto) [place] % (Auto) Eos % (Auto) Baso % (Auto) Gran # Lymph # (Auto) [place] # (Auto) Eos # (Auto) Baso # (Auto) Neutrophils % (Manual) Band Neutrophils % Lymphocytes % (Manual) Monocytes % (Manual) Eosinophils % (Manual) Basophils % (Manual) Platelet Evaluation Anisocytosis (manual) PT INR APTT pO2 VBG pH VBG pCO2 VBG HCO3 VBG Total CO2 VBG O2 Sat (Calc) VBG Base Excess VBG Potassium Sodium 134 Chloride 100 Glucose Lactate FiO2 Potassium 3.9 Carbon Dioxide 26 Anion Gap 12 BUN 33 H Creatinine 1.2 Est GFR ( Amer) 51 Est GFR (Non-Af Amer) 42 Random Glucose 134 H Calcium 8.4 Phosphorus 2.8 Magnesium 1.7 Total Bilirubin 0.5 AST 24 ALT 17 Alkaline Phosphatase 73 Total Protein 6.3 Albumin 3.2 Globulin 3.1 Albumin/Globulin Ratio 1.0 L Venous Blood Potassium Blood Type Antibody Screen Crossmatch BBK History Checked 05/26/18 09:15 WBC RBC Hgb Hct MCV MCH MCHC RDW Plt Count MPV Gran % Lymph % (Auto) [place] % (Auto) Eos % (Auto) Baso % (Auto) Gran # Lymph # (Auto) [place] # (Auto) Eos # (Auto) Baso # (Auto) Neutrophils % (Manual) Band Neutrophils % Lymphocytes % (Manual) Monocytes % (Manual) Eosinophils % (Manual) Basophils % (Manual) Platelet Evaluation Anisocytosis (manual) PT INR APTT pO2 VBG pH VBG pCO2 VBG HCO3 VBG Total CO2 VBG O2 Sat (Calc) VBG Base Excess VBG Potassium Sodium Chloride Glucose Lactate FiO2 Potassium Carbon Dioxide Anion Gap BUN Creatinine Est GFR ( Amer) Est GFR (Non-Af Amer) Random Glucose Calcium Phosphorus Magnesium Total Bilirubin AST ALT Alkaline Phosphatase Total Protein Albumin Globulin Albumin/Globulin Ratio Venous Blood Potassium Blood Type A POSITIVE Antibody Screen Negative Crossmatch See Detail BBK History Checked Patient has bt Assessment & Plan - Assessment and Plan (Free Text) Assessment: 88 yo WF with SCC on chemo + XRT, Afib on AC presenting with hematemesis. # Hematemesis: Most likely related to known underlying SCC currently on XRT predispositing to irritation and injury to the area along with supratherapeutic INR. 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 # Supratherapeutic INR: 6 on presentation. On medication due to pAF. In setting of active GI bleed. Plan: - PPI gtt - Correct coagulopathy with FFP, IV Vit K - Hold coumadin - Monitor H&H and INR - 2 large bore IVs - Volume resuscitate - Type and screen - Recommend Onc and Cardiology consults --- Risk of AC > benefits given GI malignancy undergoing treatment? - NPO - Hold off on endoscopy at this time as likely cause of bleed not amenable to intervention Thank you for the consult. Will cont to follow. Pt seen and examined with Dr. Brown <Elba Brown V - Last Filed: 05/26/18 22:47> Meds - Medications Medications: Current Medications Pantoprazole Sodium (Protonix 40mg Ivpb) 40 mg in 100 mls @ 20 mls/hr IVPB .Q5H [facility] Last Admin: 05/26/18 20:30 Dose: 20 mls/hr Sodium Chloride (Sodium Chloride 0.9%) 1,000 mls @ 75 mls/hr IV .[id number] [facility] Last Admin: 05/26/18 18:53 Dose: 75 mls/hr Results - Vital Signs Recent Vital Signs: Last Vital Signs Temp 98.7 F 05/26/18 19:00 Pulse 82 05/26/18 20:30 Resp 25 H 05/26/18 20:30 BP 100/67 05/26/18 20:00 Pulse Ox 100 05/26/18 20:30 - Labs Result Diagrams: 05/26/18 21:35 05/26/18 06:40 Labs: Laboratory Results - last 24 hr 05/26/18 05/26/18 05/26/18 04:35 04:35 04:35 WBC 6.7 D RBC 3.51 Hgb 11.0 L Hct 32.8 L MCV 93.4 MCH 31.3 MCHC 33.5 RDW 16.7 H Plt Count 246 MPV 8.3 Gran % 80.7 H Lymph % (Auto) 5.0 L [place] % (Auto) 12.6 H Eos % (Auto) 1.4 L Baso % (Auto) 0.3 Gran # 5.37 Lymph # (Auto) 0.3 L [place] # (Auto) 0.8 H Eos # (Auto) 0.1 Baso # (Auto) 0.02 Neutrophils % (Manual) 71 H Band Neutrophils % 8 H Lymphocytes % (Manual) 6 L Monocytes % (Manual) 11 H Eosinophils % (Manual) 2 Basophils % (Manual) 2 H Platelet Evaluation Normal Anisocytosis (manual) Slight PT 71.2 H INR 6.02 H* APTT 42.9 H pO2 48 VBG pH 7.33 VBG pCO2 50.0 VBG HCO3 26.4 VBG Total CO2 27.9 VBG O2 Sat (Calc) 83.9 H VBG Base Excess -0.2 L VBG Potassium 3.8 Sodium 133.0 Chloride 99.0 Glucose 122 H Lactate 1.6 FiO2 21.0 Potassium Carbon Dioxide Anion Gap BUN Creatinine Est GFR ( Amer) Est GFR (Non-Af Amer) Random Glucose Calcium Phosphorus Magnesium Total Bilirubin AST ALT Alkaline Phosphatase Total Protein Albumin Globulin Albumin/Globulin Ratio Venous Blood Potassium 3.8 Blood Type Antibody Screen Crossmatch Tx React Basic Work-up Clerical Work Check Pre-Trans Blood Type Pre-Trans Vis Hemolysis Pre-Trans Antibody Scrn Post-Trans Blood Type Post-Tx Visible Hemolys Post-Trans Antibody Scrn Post-Trans LULA Poly BBK History Checked 05/26/18 05/26/18 05/26/18 06:40 06:40 08:36 WBC 6.1 RBC 2.93 L Hgb 9.3 L Hct 27.2 L MCV 92.8 MCH 31.7 MCHC 34.2 RDW 16.3 H Plt Count 210 MPV 7.7 Gran % Lymph % (Auto) [place] % (Auto) Eos % (Auto) Baso % (Auto) Gran # Lymph # (Auto) [place] # (Auto) Eos # (Auto) Baso # (Auto) Neutrophils % (Manual) Band Neutrophils % Lymphocytes % (Manual) Monocytes % (Manual) Eosinophils % (Manual) Basophils % (Manual) Platelet Evaluation Anisocytosis (manual) PT INR APTT pO2 VBG pH VBG pCO2 VBG HCO3 VBG Total CO2 VBG O2 Sat (Calc) VBG Base Excess VBG Potassium Sodium 134 Chloride 100 Glucose Lactate FiO2 Potassium 3.9 Carbon Dioxide 26 Anion Gap 12 BUN 33 H Creatinine 1.2 Est GFR ( Amer) 51 Est GFR (Non-Af Amer) 42 Random Glucose 134 H Calcium 8.4 Phosphorus 2.8 Magnesium 1.7 Total Bilirubin 0.5 AST 24 ALT 17 Alkaline Phosphatase 73 Total Protein 6.3 Albumin 3.2 Globulin 3.1 Albumin/Globulin Ratio 1.0 L Venous Blood Potassium Blood Type Antibody Screen Crossmatch Tx React Basic Work-up Clerical Work Check Pre-Trans Blood Type Pre-Trans Vis Hemolysis Pre-Trans Antibody Scrn Post-Trans Blood Type Post-Tx Visible Hemolys Post-Trans Antibody Scrn Post-Trans LULA Poly BBK History Checked 05/26/18 05/26/18 05/26/18 09:15 13:00 16:55 WBC 4.0 L D 4.3 L RBC 2.94 L 3.29 L Hgb 9.2 L 10.3 L Hct 27.3 L 30.3 L MCV 92.9 92.1 MCH 31.3 31.3 MCHC 33.7 34.0 RDW 16.5 H 16.1 H Plt Count 199 189 MPV 8.0 8.0 Gran % Lymph % (Auto) [place] % (Auto) Eos % (Auto) Baso % (Auto) Gran # Lymph # (Auto) [place] # (Auto) Eos # (Auto) Baso # (Auto) Neutrophils % (Manual) Band Neutrophils % Lymphocytes % (Manual) Monocytes % (Manual) Eosinophils % (Manual) Basophils % (Manual) Platelet Evaluation Anisocytosis (manual) PT INR APTT pO2 VBG pH VBG pCO2 VBG HCO3 VBG Total CO2 VBG O2 Sat (Calc) VBG Base Excess VBG Potassium Sodium Chloride Glucose Lactate FiO2 Potassium Carbon Dioxide Anion Gap BUN Creatinine Est GFR ( Amer) Est GFR (Non-Af Amer) Random Glucose Calcium Phosphorus Magnesium Total Bilirubin AST ALT Alkaline Phosphatase Total Protein Albumin Globulin Albumin/Globulin Ratio Venous Blood Potassium Blood Type A POSITIVE Antibody Screen Negative Crossmatch See Detail Tx React Basic Work-up Clerical Work Check Pre-Trans Blood Type Pre-Trans Vis Hemolysis Pre-Trans Antibody Scrn Post-Trans Blood Type Post-Tx Visible Hemolys Post-Trans Antibody Scrn Post-Trans LULA Poly BBK History Checked Patient has bt 05/26/18 05/26/18 05/26/18 16:55 16:55 21:35 WBC 3.5 L RBC 3.18 L Hgb 10.0 L Hct 29.3 L MCV 92.1 MCH 31.4 MCHC 34.1 RDW 16.3 H Plt Count 189 MPV 7.8 Gran % Lymph % (Auto) [place] % (Auto) Eos % (Auto) Baso % (Auto) Gran # Lymph # (Auto) [place] # (Auto) Eos # (Auto) Baso # (Auto) Neutrophils % (Manual) Band Neutrophils % Lymphocytes % (Manual) Monocytes % (Manual) Eosinophils % (Manual) Basophils % (Manual) Platelet Evaluation Anisocytosis (manual) PT 16.5 H INR 1.44 APTT 28.7 pO2 VBG pH VBG pCO2 VBG HCO3 VBG Total CO2 VBG O2 Sat (Calc) VBG Base Excess VBG Potassium Sodium Chloride Glucose Lactate FiO2 Potassium Carbon Dioxide Anion Gap BUN Creatinine Est GFR ( Amer) Est GFR (Non-Af Amer) Random Glucose Calcium Phosphorus Magnesium Total Bilirubin AST ALT Alkaline Phosphatase Total Protein Albumin Globulin Albumin/Globulin Ratio Venous Blood Potassium Blood Type Antibody Screen Crossmatch Tx React Basic Work-up Compatible Clerical Work Check No discrepancy Pre-Trans Blood Type A POSITIVE Pre-Trans Vis Hemolysis No hemolysis Pre-Trans Antibody Scrn Negative Post-Trans Blood Type A POSITIVE Post-Tx Visible Hemolys No hemolysis Post-Trans Antibody Scrn Negative Post-Trans LULA Poly Negative BBK History Checked 05/26/18 21:35 WBC RBC Hgb Hct MCV MCH MCHC RDW Plt Count MPV Gran % Lymph % (Auto) [place] % (Auto) Eos % (Auto) Baso % (Auto) Gran # Lymph # (Auto) [place] # (Auto) Eos # (Auto) Baso # (Auto) Neutrophils % (Manual) Band Neutrophils % Lymphocytes % (Manual) Monocytes % (Manual) Eosinophils % (Manual) Basophils % (Manual) Platelet Evaluation Anisocytosis (manual) PT 15.7 H INR 1.37 APTT 27.1 pO2 VBG pH VBG pCO2 VBG HCO3 VBG Total CO2 VBG O2 Sat (Calc) VBG Base Excess VBG Potassium Sodium Chloride Glucose Lactate FiO2 Potassium Carbon Dioxide Anion Gap BUN Creatinine Est GFR ( Amer) Est GFR (Non-Af Amer) Random Glucose Calcium Phosphorus Magnesium Total Bilirubin AST ALT Alkaline Phosphatase Total Protein Albumin Globulin Albumin/Globulin Ratio Venous Blood Potassium Blood Type Antibody Screen Crossmatch Tx React Basic Work-up Clerical Work Check Pre-Trans Blood Type Pre-Trans Vis Hemolysis Pre-Trans Antibody Scrn Post-Trans Blood Type Post-Tx Visible Hemolys Post-Trans Antibody Scrn Post-Trans LULA Poly BBK History Checked Attending/Attestation - Attestation I have personally seen and examined this patient.: Yes I have fully participated in the care of the patient.: Yes I have reviewed all pertinent clinical information: Yes Notes (Text): This is an addendum to GI consult report dictated by the GI Fellow.The patient was seen and examined earlier. Medical records, lab studies, imagings were reviewed. Last 24 hours events reviewed. 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
[2018-05-26 13:05] LABS: HEMOGLOBIN 9.2 g/dL (12.0-16.0); MEAN CELL VOLUME 92.9 fl (80.0-105.0); MEAN CORPUSCULAR HEMOGLOBIN 31.3 pg (25.0-35.0); MEAN CORPUSCULAR HGB CONC 33.7 g/dl (31.0-37.0); RBC 2.94 10^6/uL (3.5-6.1); RED CELL DISTRIBUTION WIDTH 16.5 % (11.5-14.5)
--- NOTE | 2018-05-26 14:00 | CP.PCM.PN ---
Subjective - Date & Time of Evaluation Date of Evaluation: 05/26/18 Time of Evaluation: 11:55 - Subjective Subjective: Ms Shearer is known to our department. 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 She was admitted today with hematemesis that began around 2am. She stated that she had been coughing quite a bit overnight. She also reported one episode of dark stool. On admission to [facility], she was found to have a supratherapeutic INR. When we saw her and her family, she stated that the hemoptysis was subsiding. In light of the INR levels and hemoptysis, we have held her radiation today. We will check in on her daily to ascertain the optimal time to resume treatment.. Objective - Vital Signs/Intake and Output Vital Signs (last 24 hours): Temp Pulse Resp BP Pulse Ox 98.6 F 97 H 28 H 112/66 99 05/26/18 13:53 05/26/18 13:53 05/26/18 13:53 05/26/18 13:53 05/26/18 09:45 Intake and Output: 05/26/18 05/26/18 06:59 18:59 Intake Total 0 Balance 0 - Medications Medications: Current Medications Pantoprazole Sodium (Protonix 40mg Ivpb) 40 mg in 100 mls @ 20 mls/hr IVPB .Q5H [facility] Last Admin: 05/26/18 10:58 Dose: 20 mls/hr Sodium Chloride (Sodium Chloride 0.9%) 1,000 mls @ 75 mls/hr IV .[id number] [facility] Last Admin: 05/26/18 04:43 Dose: 75 mls/hr - Labs Labs: 05/26/18 13:00 05/26/18 06:40 PT 71.2 SECONDS (9.4-12.5) H 05/26/18 04:35 INR 6.02 H* 05/26/18 04:35 APTT 42.9 Seconds (25.1-36.5) H 05/26/18 04:35
--- NOTE | 2018-05-26 15:19 | CP.CCUPN ---
<Jim Turner - Last Filed: 05/26/18 15:11> CCU Subjective - Physician Review Subjective (Free Text): 05/26/18 15:11 Jim Turner DO PGY1 - Internal medicine Reservation Sales Agent - ICU Progress Note Patient seen and examined this morning shortly after transfer into ICU. Daughter was at bedside. Patient voiced she had previously been dizzy however denies any chest pain, shortness of breath, abd pain, n/v/d/c Remainder of 12 system ROS was negative at this time. Consent for transfusion was obtained. CCU Objective - Vital Signs / Intake & Output Vital Signs (Last 4 hours): Vital Signs Temp Pulse Resp BP 05/26/18 14:38 98.7 F 89 20 130/84 05/26/18 13:53 98.6 F 97 H 28 H 112/66 05/26/18 13:31 98.4 F 93 H 23 113/73 Intake and Output (Last 8hrs): Intake & Output 05/26/18 05/26/18 05/26/18 06:59 14:59 22:59 Intake Total 0 Balance 0 Weight 63.503 kg Intake: Blood Product 0 Red Blood Cells Cp2d As3 0 Lr Unit [id number] - Physical Exam Head: Positive for: Atraumatic, Normocephalic Extroacular Muscles: Positive for: EOMI Conjunctiva: Positive for: Normal Mouth: Positive for: Moist Mucous Membranes Respiratory/Chest: Positive for: Wheezes (LLL, RLL) Cardiovascular: Positive for: Murmurs (Systolic Grade 4 aortic ), Other (Irregular Rate, Irregular Rhythm ) Abdomen: Positive for: Tenderness, Distention, Normal Bowel Sounds Upper Extremity: Negative for: Cyanosis, Edema Lower Extremity: Positive for: Normal Inspection. Negative for: Edema Neurological: Positive for: GCS=15, CN II-XII Intact Skin: Positive for: Warm, Dry, Rashes - Medications Active Medications: Active Medications Generic Name Dose Route Start Last Admin Trade Name Freq PRN Reason Stop Dose Admin Pantoprazole Sodium 40 mg in 100 mls @ 20 mls/hr 05/26/18 04:30 05/26/18 10:58 Protonix 40mg Ivpb IVPB 20 mls/hr .Q5H SUNNY Administration Sodium Chloride 1,000 mls @ 75 mls/hr 05/26/18 04:30 05/26/18 04:43 Sodium Chloride 0.9% IV 75 mls/hr .[id number] SUNNY Administration - Patient Studies Lab Studies: Lab Studies 05/26/18 05/26/18 05/26/18 Range/Units 13:00 09:15 08:36 WBC 4.0 L D 6.1 (4.5-11.0) 10^3/ul RBC 2.94 L 2.93 L (3.5-6.1) 10^6/uL Hgb 9.2 L 9.3 L (12.0-16.0) g/dL Hct 27.3 L 27.2 L (36.0-48.0) % MCV 92.9 92.8 (80.0-105.0) fl MCH 31.3 31.7 (25.0-35.0) pg MCHC 33.7 34.2 (31.0-37.0) g/dl RDW 16.5 H 16.3 H (11.5-14.5) % Plt Count 199 210 (120.0-450.0) 10^3/uL MPV 8.0 7.7 (7.0-11.0) fl Gran % (50.0-68.0) % Lymph % (Auto) (22.0-35.0) % Mclennan % (Auto) (1.0-6.0) % Eos % (Auto) (1.5-5.0) % Baso % (Auto) (0.0-3.0) % Gran # (1.4-6.5) Lymph # (Auto) (1.2-3.4) Mclennan # (Auto) (0.1-0.6) Eos # (Auto) (0.0-0.7) Baso # (Auto) (0.0-2.0) K/mm3 Neutrophils % (Manual) (50.0-70.0) % Band Neutrophils % (0-2) % Lymphocytes % (Manual) (22.0-35.0) % Monocytes % (Manual) (1.0-6.0) % Eosinophils % (Manual) (0.0-3.0) % Basophils % (Manual) (0.0-1.0) % Platelet Evaluation (NORMAL) Anisocytosis (manual) PT (9.4-12.5) SECONDS INR APTT (25.1-36.5) Seconds pO2 (30-55) mm/Hg VBG pH (7.32-7.43) VBG pCO2 (40-60) VBG HCO3 (21-28) mmol/l VBG Total CO2 (22-28) mmol.L VBG O2 Sat (Calc) (40-65) % VBG Base Excess (0.0-2.0) mmol/L VBG Potassium (3.6-5.2) mmol/L Sodium (132-148) mmol/L Chloride (98-107) mmol/L Glucose (65-105) mg/dl Lactate (0.7-2.1) mmol/L FiO2 % Potassium (3.6-5.0) mmol/L Carbon Dioxide (21-33) mmol/L Anion Gap (10-20) BUN (7-21) mg/dL Creatinine (0.7-1.2) mg/dl Est GFR ( Amer) Est GFR (Non-Af Amer) Random Glucose (70-110) mg/dL Calcium (8.4-10.5) mg/dL Phosphorus (2.5-4.5) mg/dL Magnesium (1.7-2.2) mg/dL Total Bilirubin (0.2-1.3) mg/dL AST (14-36) U/L ALT (7-56) U/L Alkaline Phosphatase (38-126) U/L Total Protein (5.8-8.3) g/dL Albumin (3.0-4.8) g/dL Globulin gm/dL Albumin/Globulin Ratio (1.1-1.8) Venous Blood Potassium (3.6-5.2) mmol/L Blood Type A POSITIVE Antibody Screen Negative Crossmatch See Detail BBK History Checked Patient has bt 05/26/18 05/26/18 05/26/18 Range/Units 06:40 06:40 04:35 WBC (4.5-11.0) 10^3/ul RBC (3.5-6.1) 10^6/uL Hgb (12.0-16.0) g/dL Hct (36.0-48.0) % MCV (80.0-105.0) fl MCH (25.0-35.0) pg MCHC (31.0-37.0) g/dl RDW (11.5-14.5) % Plt Count (120.0-450.0) 10^3/uL MPV (7.0-11.0) fl Gran % (50.0-68.0) % Lymph % (Auto) (22.0-35.0) % Mclennan % (Auto) (1.0-6.0) % Eos % (Auto) (1.5-5.0) % Baso % (Auto) (0.0-3.0) % Gran # (1.4-6.5) Lymph # (Auto) (1.2-3.4) Mclennan # (Auto) (0.1-0.6) Eos # (Auto) (0.0-0.7) Baso # (Auto) (0.0-2.0) K/mm3 Neutrophils % (Manual) (50.0-70.0) % Band Neutrophils % (0-2) % Lymphocytes % (Manual) (22.0-35.0) % Monocytes % (Manual) (1.0-6.0) % Eosinophils % (Manual) (0.0-3.0) % Basophils % (Manual) (0.0-1.0) % Platelet Evaluation (NORMAL) Anisocytosis (manual) PT (9.4-12.5) SECONDS INR APTT (25.1-36.5) Seconds pO2 48 (30-55) mm/Hg VBG pH 7.33 (7.32-7.43) VBG pCO2 50.0 (40-60) VBG HCO3 26.4 (21-28) mmol/l VBG Total CO2 27.9 (22-28) mmol.L VBG O2 Sat (Calc) 83.9 H (40-65) % VBG Base Excess -0.2 L (0.0-2.0) mmol/L VBG Potassium 3.8 (3.6-5.2) mmol/L Sodium 134 133.0 (132-148) mmol/L Chloride 100 99.0 (98-107) mmol/L Glucose 122 H (65-105) mg/dl Lactate 1.6 (0.7-2.1) mmol/L FiO2 21.0 % Potassium 3.9 (3.6-5.0) mmol/L Carbon Dioxide 26 (21-33) mmol/L Anion Gap 12 (10-20) BUN 33 H (7-21) mg/dL Creatinine 1.2 (0.7-1.2) mg/dl Est GFR ( Amer) 51 Est GFR (Non-Af Amer) 42 Random Glucose 134 H (70-110) mg/dL Calcium 8.4 (8.4-10.5) mg/dL Phosphorus 2.8 (2.5-4.5) mg/dL Magnesium 1.7 (1.7-2.2) mg/dL Total Bilirubin 0.5 (0.2-1.3) mg/dL AST 24 (14-36) U/L ALT 17 (7-56) U/L Alkaline Phosphatase 73 (38-126) U/L Total Protein 6.3 (5.8-8.3) g/dL Albumin 3.2 (3.0-4.8) g/dL Globulin 3.1 gm/dL Albumin/Globulin Ratio 1.0 L (1.1-1.8) Venous Blood Potassium 3.8 (3.6-5.2) mmol/L Blood Type Antibody Screen Crossmatch BBK History Checked 05/26/18 05/26/18 Range/Units 04:35 04:35 WBC 6.7 D (4.5-11.0) 10^3/ul RBC 3.51 (3.5-6.1) 10^6/uL Hgb 11.0 L (12.0-16.0) g/dL Hct 32.8 L (36.0-48.0) % MCV 93.4 (80.0-105.0) fl MCH 31.3 (25.0-35.0) pg MCHC 33.5 (31.0-37.0) g/dl RDW 16.7 H (11.5-14.5) % Plt Count 246 (120.0-450.0) 10^3/uL MPV 8.3 (7.0-11.0) fl Gran % 80.7 H (50.0-68.0) % Lymph % (Auto) 5.0 L (22.0-35.0) % Mclennan % (Auto) 12.6 H (1.0-6.0) % Eos % (Auto) 1.4 L (1.5-5.0) % Baso % (Auto) 0.3 (0.0-3.0) % Gran # 5.37 (1.4-6.5) Lymph # (Auto) 0.3 L (1.2-3.4) Mclennan # (Auto) 0.8 H (0.1-0.6) Eos # (Auto) 0.1 (0.0-0.7) Baso # (Auto) 0.02 (0.0-2.0) K/mm3 Neutrophils % (Manual) 71 H (50.0-70.0) % Band Neutrophils % 8 H (0-2) % Lymphocytes % (Manual) 6 L (22.0-35.0) % Monocytes % (Manual) 11 H (1.0-6.0) % Eosinophils % (Manual) 2 (0.0-3.0) % Basophils % (Manual) 2 H (0.0-1.0) % Platelet Evaluation Normal (NORMAL) Anisocytosis (manual) Slight PT 71.2 H (9.4-12.5) SECONDS INR 6.02 H* APTT 42.9 H (25.1-36.5) Seconds pO2 (30-55) mm/Hg VBG pH (7.32-7.43) VBG pCO2 (40-60) VBG HCO3 (21-28) mmol/l VBG Total CO2 (22-28) mmol.L VBG O2 Sat (Calc) (40-65) % VBG Base Excess (0.0-2.0) mmol/L VBG Potassium (3.6-5.2) mmol/L Sodium (132-148) mmol/L Chloride (98-107) mmol/L Glucose (65-105) mg/dl Lactate (0.7-2.1) mmol/L FiO2 % Potassium (3.6-5.0) mmol/L Carbon Dioxide (21-33) mmol/L Anion Gap (10-20) BUN (7-21) mg/dL Creatinine (0.7-1.2) mg/dl Est GFR ( Amer) Est GFR (Non-Af Amer) Random Glucose (70-110) mg/dL Calcium (8.4-10.5) mg/dL Phosphorus (2.5-4.5) mg/dL Magnesium (1.7-2.2) mg/dL Total Bilirubin (0.2-1.3) mg/dL AST (14-36) U/L ALT (7-56) U/L Alkaline Phosphatase (38-126) U/L Total Protein (5.8-8.3) g/dL Albumin (3.0-4.8) g/dL Globulin gm/dL Albumin/Globulin Ratio (1.1-1.8) Venous Blood Potassium (3.6-5.2) mmol/L Blood Type Antibody Screen Crossmatch BBK History Checked Laboratory Results - last 24 hr 05/26/18 05/26/18 05/26/18 04:35 04:35 04:35 WBC 6.7 D RBC 3.51 Hgb 11.0 L Hct 32.8 L MCV 93.4 MCH 31.3 MCHC 33.5 RDW 16.7 H Plt Count 246 MPV 8.3 Gran % 80.7 H Lymph % (Auto) 5.0 L Mclennan % (Auto) 12.6 H Eos % (Auto) 1.4 L Baso % (Auto) 0.3 Gran # 5.37 Lymph # (Auto) 0.3 L Mclennan # (Auto) 0.8 H Eos # (Auto) 0.1 Baso # (Auto) 0.02 Neutrophils % (Manual) 71 H Band Neutrophils % 8 H Lymphocytes % (Manual) 6 L Monocytes % (Manual) 11 H Eosinophils % (Manual) 2 Basophils % (Manual) 2 H Platelet Evaluation Normal Anisocytosis (manual) Slight PT 71.2 H INR 6.02 H* APTT 42.9 H pO2 48 VBG pH 7.33 VBG pCO2 50.0 VBG HCO3 26.4 VBG Total CO2 27.9 VBG O2 Sat (Calc) 83.9 H VBG Base Excess -0.2 L VBG Potassium 3.8 Sodium 133.0 Chloride 99.0 Glucose 122 H Lactate 1.6 FiO2 21.0 Potassium Carbon Dioxide Anion Gap BUN Creatinine Est GFR ( Amer) Est GFR (Non-Af Amer) Random Glucose Calcium Phosphorus Magnesium Total Bilirubin AST ALT Alkaline Phosphatase Total Protein Albumin Globulin Albumin/Globulin Ratio Venous Blood Potassium 3.8 Blood Type Antibody Screen Crossmatch BBK History Checked 05/26/18 05/26/18 05/26/18 06:40 06:40 08:36 WBC 6.1 RBC 2.93 L Hgb 9.3 L Hct 27.2 L MCV 92.8 MCH 31.7 MCHC 34.2 RDW 16.3 H Plt Count 210 MPV 7.7 Gran % Lymph % (Auto) Mclennan % (Auto) Eos % (Auto) Baso % (Auto) Gran # Lymph # (Auto) Mclennan # (Auto) Eos # (Auto) Baso # (Auto) Neutrophils % (Manual) Band Neutrophils % Lymphocytes % (Manual) Monocytes % (Manual) Eosinophils % (Manual) Basophils % (Manual) Platelet Evaluation Anisocytosis (manual) PT INR APTT pO2 VBG pH VBG pCO2 VBG HCO3 VBG Total CO2 VBG O2 Sat (Calc) VBG Base Excess VBG Potassium Sodium 134 Chloride 100 Glucose Lactate FiO2 Potassium 3.9 Carbon Dioxide 26 Anion Gap 12 BUN 33 H Creatinine 1.2 Est GFR ( Amer) 51 Est GFR (Non-Af Amer) 42 Random Glucose 134 H Calcium 8.4 Phosphorus 2.8 Magnesium 1.7 Total Bilirubin 0.5 AST 24 ALT 17 Alkaline Phosphatase 73 Total Protein 6.3 Albumin 3.2 Globulin 3.1 Albumin/Globulin Ratio 1.0 L Venous Blood Potassium Blood Type Antibody Screen Crossmatch BBK History Checked 05/26/18 05/26/18 09:15 13:00 WBC 4.0 L D RBC 2.94 L Hgb 9.2 L Hct 27.3 L MCV 92.9 MCH 31.3 MCHC 33.7 RDW 16.5 H Plt Count 199 MPV 8.0 Gran % Lymph % (Auto) Mclennan % (Auto) Eos % (Auto) Baso % (Auto) Gran # Lymph # (Auto) Mclennan # (Auto) Eos # (Auto) Baso # (Auto) Neutrophils % (Manual) Band Neutrophils % Lymphocytes % (Manual) Monocytes % (Manual) Eosinophils % (Manual) Basophils % (Manual) Platelet Evaluation Anisocytosis (manual) PT INR APTT pO2 VBG pH VBG pCO2 VBG HCO3 VBG Total CO2 VBG O2 Sat (Calc) VBG Base Excess VBG Potassium Sodium Chloride Glucose Lactate FiO2 Potassium Carbon Dioxide Anion Gap BUN Creatinine Est GFR ( Amer) Est GFR (Non-Af Amer) Random Glucose Calcium Phosphorus Magnesium Total Bilirubin AST ALT Alkaline Phosphatase Total Protein Albumin Globulin Albumin/Globulin Ratio Venous Blood Potassium Blood Type A POSITIVE Antibody Screen Negative Crossmatch See Detail BBK History Checked Patient has bt EKG/Cardiology Studies: Cardiology / EKG Studies 05/26/18 04:15 EKG [ELECTROCARDIOGRAM] Stat Comment: Reason For Exam: chest pain Review of Systems - Review of Systems All systems: reviewed and no additional remarkable complaints except Review of Systems: As per HPI Critical Care Progress Note - Nutrition Nutrition: Nutrition Category Date Time Status NPO Diet [DIET] Diets 05/26/18 Breakfast Ordered Assessment/Plan - Assessment and Plan (Free Text) Assessment: 88F w/ PMH 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 Patient was found to have a Hb of 11 on admission followed by a 2 point Hb drop within 4 hours. PLAN: Neuro: AAO3 No FND Moving all extremities past midline Reorient as needed Pulmonary: Satting well on room air O2 NC PRN Maintain Sat >95% Cardio: Hx Afib on coumadin Irreg rate; Irreg rhythm Will hold coumadin at this time Will hold home lopressor at this time Judacious fluid use given possible hx of CHF; Echo 01/2018 EF Maintain Map >65 HR 93; Maintain below 120 GI: Most likely GI bleed given bloody vomitus and feeling of "something stuck in thr oat" Will have to rule out ulceration BUN elevated NPO at this time C/w Protonix drip C/w IVF @ 75CC hour Monitor for s/s fluid overload Heme: Hb dropped from 11 to 9 in four hours; however has remained at 9 since early this morning Patient will received 2U PRBC, 2U FFP Currently s/p Vit K Maintain 2 large bore IV CBC Q4 PT/PTT Q4 *During transfuion patient developed fever w/ Tmax 101.4 We will hold transfusion; complete transfusion reaction lab set at this time. /Nephro: Cr 1.2 Monitor urine out put [facility] BUN/Cr No dysuria/hematuria voiced at this time Patient was seen examined discussed w/ attending Dr. Tiffani Turner DO PGY1 Internal medicine Reservation Sales Agent - Date & Time Date: 05/26/18 Time: 16:30 <Yuri Nixon - Last Filed: 05/26/18 18:18> CCU Objective - Vital Signs / Intake & Output Vital Signs (Last 4 hours): Vital Signs Temp Pulse Resp BP 05/26/18 14:38 98.7 F 89 20 130/84 Intake and Output (Last 8hrs): Intake & Output 05/26/18 05/26/18 05/26/18 06:59 14:59 22:59 Intake Total 0 225 Balance 0 225 Weight 63.503 kg 63.503 kg Intake: Blood Product 0 225 Red Blood Cells Cp2d As3 0 225 Lr Unit [id number] - Medications Active Medications: Active Medications Generic Name Dose Route Start Last Admin Trade Name Freq PRN Reason Stop Dose Admin Pantoprazole Sodium 40 mg in 100 mls @ 20 mls/hr 05/26/18 04:30 05/26/18 15:42 Protonix 40mg Ivpb IVPB 20 mls/hr .Q5H SUNNY Administration Sodium Chloride 1,000 mls @ 75 mls/hr 05/26/18 04:30 05/26/18 04:43 Sodium Chloride 0.9% IV 75 mls/hr .[id number] SUNNY Administration - Patient Studies Lab Studies: Lab Studies 05/26/18 05/26/18 05/26/18 Range/Units 16:55 16:55 16:55 WBC 4.3 L (4.5-11.0) 10^3/ul RBC 3.29 L (3.5-6.1) 10^6/uL Hgb 10.3 L (12.0-16.0) g/dL Hct 30.3 L (36.0-48.0) % MCV 92.1 (80.0-105.0) fl MCH 31.3 (25.0-35.0) pg MCHC 34.0 (31.0-37.0) g/dl RDW 16.1 H (11.5-14.5) % Plt Count 189 (120.0-450.0) 10^3/uL MPV 8.0 (7.0-11.0) fl Gran % (50.0-68.0) % Lymph % (Auto) (22.0-35.0) % Mclennan % (Auto) (1.0-6.0) % Eos % (Auto) (1.5-5.0) % Baso % (Auto) (0.0-3.0) % Gran # (1.4-6.5) Lymph # (Auto) (1.2-3.4) Mclennan # (Auto) (0.1-0.6) Eos # (Auto) (0.0-0.7) Baso # (Auto) (0.0-2.0) K/mm3 Neutrophils % (Manual) (50.0-70.0) % Band Neutrophils % (0-2) % Lymphocytes % (Manual) (22.0-35.0) % Monocytes % (Manual) (1.0-6.0) % Eosinophils % (Manual) (0.0-3.0) % Basophils % (Manual) (0.0-1.0) % Platelet Evaluation (NORMAL) Anisocytosis (manual) PT 16.5 H (9.4-12.5) SECONDS INR 1.44 APTT 28.7 (25.1-36.5) Seconds pO2 (30-55) mm/Hg VBG pH (7.32-7.43) VBG pCO2 (40-60) VBG HCO3 (21-28) mmol/l VBG Total CO2 (22-28) mmol.L VBG O2 Sat (Calc) (40-65) % VBG Base Excess (0.0-2.0) mmol/L VBG Potassium (3.6-5.2) mmol/L Sodium (132-148) mmol/L Chloride (98-107) mmol/L Glucose (65-105) mg/dl Lactate (0.7-2.1) mmol/L FiO2 % Potassium (3.6-5.0) mmol/L Carbon Dioxide (21-33) mmol/L Anion Gap (10-20) BUN (7-21) mg/dL Creatinine (0.7-1.2) mg/dl Est GFR ( Amer) Est GFR (Non-Af Amer) Random Glucose (70-110) mg/dL Calcium (8.4-10.5) mg/dL Phosphorus (2.5-4.5) mg/dL Magnesium (1.7-2.2) mg/dL Total Bilirubin (0.2-1.3) mg/dL AST (14-36) U/L ALT (7-56) U/L Alkaline Phosphatase (38-126) U/L Total Protein (5.8-8.3) g/dL Albumin (3.0-4.8) g/dL Globulin gm/dL Albumin/Globulin Ratio (1.1-1.8) Venous Blood Potassium (3.6-5.2) mmol/L Blood Type Antibody Screen Crossmatch Tx React Basic Work-up Compatible (COMPATIBLE) Clerical Work Check No discrepancy Pre-Trans Blood Type A POSITIVE Pre-Trans Vis Hemolysis No hemolysis Pre-Trans Antibody Scrn Negative Post-Trans Blood Type A POSITIVE Post-Tx Visible Hemolys No hemolysis Post-Trans Antibody Scrn Negative Post-Trans LULA Poly Negative (NEGATIVE) BBK History Checked 05/26/18 05/26/18 05/26/18 Range/Units 13:00 09:15 08:36 WBC 4.0 L D 6.1 (4.5-11.0) 10^3/ul RBC 2.94 L 2.93 L (3.5-6.1) 10^6/uL Hgb 9.2 L 9.3 L (12.0-16.0) g/dL Hct 27.3 L 27.2 L (36.0-48.0) % MCV 92.9 92.8 (80.0-105.0) fl MCH 31.3 31.7 (25.0-35.0) pg MCHC 33.7 34.2 (31.0-37.0) g/dl RDW 16.5 H 16.3 H (11.5-14.5) % Plt Count 199 210 (120.0-450.0) 10^3/uL MPV 8.0 7.7 (7.0-11.0) fl Gran % (50.0-68.0) % Lymph % (Auto) (22.0-35.0) % Mclennan % (Auto) (1.0-6.0) % Eos % (Auto) (1.5-5.0) % Baso % (Auto) (0.0-3.0) % Gran # (1.4-6.5) Lymph # (Auto) (1.2-3.4) Mclennan # (Auto) (0.1-0.6) Eos # (Auto) (0.0-0.7) Baso # (Auto) (0.0-2.0) K/mm3 Neutrophils % (Manual) (50.0-70.0) % Band Neutrophils % (0-2) % Lymphocytes % (Manual) (22.0-35.0) % Monocytes % (Manual) (1.0-6.0) % Eosinophils % (Manual) (0.0-3.0) % Basophils % (Manual) (0.0-1.0) % Platelet Evaluation (NORMAL) Anisocytosis (manual) PT (9.4-12.5) SECONDS INR APTT (25.1-36.5) Seconds pO2 (30-55) mm/Hg VBG pH (7.32-7.43) VBG pCO2 (40-60) VBG HCO3 (21-28) mmol/l VBG Total CO2 (22-28) mmol.L VBG O2 Sat (Calc) (40-65) % VBG Base Excess (0.0-2.0) mmol/L VBG Potassium (3.6-5.2) mmol/L Sodium (132-148) mmol/L Chloride (98-107) mmol/L Glucose (65-105) mg/dl Lactate (0.7-2.1) mmol/L FiO2 % Potassium (3.6-5.0) mmol/L Carbon Dioxide (21-33) mmol/L Anion Gap (10-20) BUN (7-21) mg/dL Creatinine (0.7-1.2) mg/dl Est GFR ( Amer) Est GFR (Non-Af Amer) Random Glucose (70-110) mg/dL Calcium (8.4-10.5) mg/dL Phosphorus (2.5-4.5) mg/dL Magnesium (1.7-2.2) mg/dL Total Bilirubin (0.2-1.3) mg/dL AST (14-36) U/L ALT (7-56) U/L Alkaline Phosphatase (38-126) U/L Total Protein (5.8-8.3) g/dL Albumin (3.0-4.8) g/dL Globulin gm/dL Albumin/Globulin Ratio (1.1-1.8) Venous Blood Potassium (3.6-5.2) mmol/L Blood Type A POSITIVE Antibody Screen Negative Crossmatch See Detail Tx React Basic Work-up (COMPATIBLE) Clerical Work Check Pre-Trans Blood Type Pre-Trans Vis Hemolysis Pre-Trans Antibody Scrn Post-Trans Blood Type Post-Tx Visible Hemolys Post-Trans Antibody Scrn Post-Trans LULA Poly (NEGATIVE) BBK History Checked Patient has bt 05/26/18 05/26/18 05/26/18 Range/Units 06:40 06:40 04:35 WBC (4.5-11.0) 10^3/ul RBC (3.5-6.1) 10^6/uL Hgb (12.0-16.0) g/dL Hct (36.0-48.0) % MCV (80.0-105.0) fl MCH (25.0-35.0) pg MCHC (31.0-37.0) g/dl RDW (11.5-14.5) % Plt Count (120.0-450.0) 10^3/uL MPV (7.0-11.0) fl Gran % (50.0-68.0) % Lymph % (Auto) (22.0-35.0) % Mclennan % (Auto) (1.0-6.0) % Eos % (Auto) (1.5-5.0) % Baso % (Auto) (0.0-3.0) % Gran # (1.4-6.5) Lymph # (Auto) (1.2-3.4) Mclennan # (Auto) (0.1-0.6) Eos # (Auto) (0.0-0.7) Baso # (Auto) (0.0-2.0) K/mm3 Neutrophils % (Manual) (50.0-70.0) % Band Neutrophils % (0-2) % Lymphocytes % (Manual) (22.0-35.0) % Monocytes % (Manual) (1.0-6.0) % Eosinophils % (Manual) (0.0-3.0) % Basophils % (Manual) (0.0-1.0) % Platelet Evaluation (NORMAL) Anisocytosis (manual) PT (9.4-12.5) SECONDS INR APTT (25.1-36.5) Seconds pO2 48 (30-55) mm/Hg VBG pH 7.33 (7.32-7.43) VBG pCO2 50.0 (40-60) VBG HCO3 26.4 (21-28) mmol/l VBG Total CO2 27.9 (22-28) mmol.L VBG O2 Sat (Calc) 83.9 H (40-65) % VBG Base Excess -0.2 L (0.0-2.0) mmol/L VBG Potassium 3.8 (3.6-5.2) mmol/L Sodium 134 133.0 (132-148) mmol/L Chloride 100 99.0 (98-107) mmol/L Glucose 122 H (65-105) mg/dl Lactate 1.6 (0.7-2.1) mmol/L FiO2 21.0 % Potassium 3.9 (3.6-5.0) mmol/L Carbon Dioxide 26 (21-33) mmol/L Anion Gap 12 (10-20) BUN 33 H (7-21) mg/dL Creatinine 1.2 (0.7-1.2) mg/dl Est GFR ( Amer) 51 Est GFR (Non-Af Amer) 42 Random Glucose 134 H (70-110) mg/dL Calcium 8.4 (8.4-10.5) mg/dL Phosphorus 2.8 (2.5-4.5) mg/dL Magnesium 1.7 (1.7-2.2) mg/dL Total Bilirubin 0.5 (0.2-1.3) mg/dL AST 24 (14-36) U/L ALT 17 (7-56) U/L Alkaline Phosphatase 73 (38-126) U/L Total Protein 6.3 (5.8-8.3) g/dL Albumin 3.2 (3.0-4.8) g/dL Globulin 3.1 gm/dL Albumin/Globulin Ratio 1.0 L (1.1-1.8) Venous Blood Potassium 3.8 (3.6-5.2) mmol/L Blood Type Antibody Screen Crossmatch Tx React Basic Work-up (COMPATIBLE) Clerical Work Check Pre-Trans Blood Type Pre-Trans Vis Hemolysis Pre-Trans Antibody Scrn Post-Trans Blood Type Post-Tx Visible Hemolys Post-Trans Antibody Scrn Post-Trans LULA Poly (NEGATIVE) BBK History Checked 05/26/18 05/26/18 Range/Units 04:35 04:35 WBC 6.7 D (4.5-11.0) 10^3/ul RBC 3.51 (3.5-6.1) 10^6/uL Hgb 11.0 L (12.0-16.0) g/dL Hct 32.8 L (36.0-48.0) % MCV 93.4 (80.0-105.0) fl MCH 31.3 (25.0-35.0) pg MCHC 33.5 (31.0-37.0) g/dl RDW 16.7 H (11.5-14.5) % Plt Count 246 (120.0-450.0) 10^3/uL MPV 8.3 (7.0-11.0) fl Gran % 80.7 H (50.0-68.0) % Lymph % (Auto) 5.0 L (22.0-35.0) % Mclennan % (Auto) 12.6 H (1.0-6.0) % Eos % (Auto) 1.4 L (1.5-5.0) % Baso % (Auto) 0.3 (0.0-3.0) % Gran # 5.37 (1.4-6.5) Lymph # (Auto) 0.3 L (1.2-3.4) Mclennan # (Auto) 0.8 H (0.1-0.6) Eos # (Auto) 0.1 (0.0-0.7) Baso # (Auto) 0.02 (0.0-2.0) K/mm3 Neutrophils % (Manual) 71 H (50.0-70.0) % Band Neutrophils % 8 H (0-2) % Lymphocytes % (Manual) 6 L (22.0-35.0) % Monocytes % (Manual) 11 H (1.0-6.0) % Eosinophils % (Manual) 2 (0.0-3.0) % Basophils % (Manual) 2 H (0.0-1.0) % Platelet Evaluation Normal (NORMAL) Anisocytosis (manual) Slight PT 71.2 H (9.4-12.5) SECONDS INR 6.02 H* APTT 42.9 H (25.1-36.5) Seconds pO2 (30-55) mm/Hg VBG pH (7.32-7.43) VBG pCO2 (40-60) VBG HCO3 (21-28) mmol/l VBG Total CO2 (22-28) mmol.L VBG O2 Sat (Calc) (40-65) % VBG Base Excess (0.0-2.0) mmol/L VBG Potassium (3.6-5.2) mmol/L Sodium (132-148) mmol/L Chloride (98-107) mmol/L Glucose (65-105) mg/dl Lactate (0.7-2.1) mmol/L FiO2 % Potassium (3.6-5.0) mmol/L Carbon Dioxide (21-33) mmol/L Anion Gap (10-20) BUN (7-21) mg/dL Creatinine (0.7-1.2) mg/dl Est GFR ( Amer) Est GFR (Non-Af Amer) Random Glucose (70-110) mg/dL Calcium (8.4-10.5) mg/dL Phosphorus (2.5-4.5) mg/dL Magnesium (1.7-2.2) mg/dL Total Bilirubin (0.2-1.3) mg/dL AST (14-36) U/L ALT (7-56) U/L Alkaline Phosphatase (38-126) U/L Total Protein (5.8-8.3) g/dL Albumin (3.0-4.8) g/dL Globulin gm/dL Albumin/Globulin Ratio (1.1-1.8) Venous Blood Potassium (3.6-5.2) mmol/L Blood Type Antibody Screen Crossmatch Tx React Basic Work-up (COMPATIBLE) Clerical Work Check Pre-Trans Blood Type Pre-Trans Vis Hemolysis Pre-Trans Antibody Scrn Post-Trans Blood Type Post-Tx Visible Hemolys Post-Trans Antibody Scrn Post-Trans LULA Poly (NEGATIVE) BBK History Checked Laboratory Results - last 24 hr 05/26/18 05/26/18 05/26/18 04:35 04:35 04:35 WBC 6.7 D RBC 3.51 Hgb 11.0 L Hct 32.8 L MCV 93.4 MCH 31.3 MCHC 33.5 RDW 16.7 H Plt Count 246 MPV 8.3 Gran % 80.7 H Lymph % (Auto) 5.0 L Mclennan % (Auto) 12.6 H Eos % (Auto) 1.4 L Baso % (Auto) 0.3 Gran # 5.37 Lymph # (Auto) 0.3 L Mclennan # (Auto) 0.8 H Eos # (Auto) 0.1 Baso # (Auto) 0.02 Neutrophils % (Manual) 71 H Band Neutrophils % 8 H Lymphocytes % (Manual) 6 L Monocytes % (Manual) 11 H Eosinophils % (Manual) 2 Basophils % (Manual) 2 H Platelet Evaluation Normal Anisocytosis (manual) Slight PT 71.2 H INR 6.02 H* APTT 42.9 H pO2 48 VBG pH 7.33 VBG pCO2 50.0 VBG HCO3 26.4 VBG Total CO2 27.9 VBG O2 Sat (Calc) 83.9 H VBG Base Excess -0.2 L VBG Potassium 3.8 Sodium 133.0 Chloride 99.0 Glucose 122 H Lactate 1.6 FiO2 21.0 Potassium Carbon Dioxide Anion Gap BUN Creatinine Est GFR ( Amer) Est GFR (Non-Af Amer) Random Glucose Calcium Phosphorus Magnesium Total Bilirubin AST ALT Alkaline Phosphatase Total Protein Albumin Globulin Albumin/Globulin Ratio Venous Blood Potassium 3.8 Blood Type Antibody Screen Crossmatch Tx React Basic Work-up Clerical Work Check Pre-Trans Blood Type Pre-Trans Vis Hemolysis Pre-Trans Antibody Scrn Post-Trans Blood Type Post-Tx Visible Hemolys Post-Trans Antibody Scrn Post-Trans LULA Poly BBK History Checked 05/26/18 05/26/18 05/26/18 06:40 06:40 08:36 WBC 6.1 RBC 2.93 L Hgb 9.3 L Hct 27.2 L MCV 92.8 MCH 31.7 MCHC 34.2 RDW 16.3 H Plt Count 210 MPV 7.7 Gran % Lymph % (Auto) Mclennan % (Auto) Eos % (Auto) Baso % (Auto) Gran # Lymph # (Auto) Mclennan # (Auto) Eos # (Auto) Baso # (Auto) Neutrophils % (Manual) Band Neutrophils % Lymphocytes % (Manual) Monocytes % (Manual) Eosinophils % (Manual) Basophils % (Manual) Platelet Evaluation Anisocytosis (manual) PT INR APTT pO2 VBG pH VBG pCO2 VBG HCO3 VBG Total CO2 VBG O2 Sat (Calc) VBG Base Excess VBG Potassium Sodium 134 Chloride 100 Glucose Lactate FiO2 Potassium 3.9 Carbon Dioxide 26 Anion Gap 12 BUN 33 H Creatinine 1.2 Est GFR ( Amer) 51 Est GFR (Non-Af Amer) 42 Random Glucose 134 H Calcium 8.4 Phosphorus 2.8 Magnesium 1.7 Total Bilirubin 0.5 AST 24 ALT 17 Alkaline Phosphatase 73 Total Protein 6.3 Albumin 3.2 Globulin 3.1 Albumin/Globulin Ratio 1.0 L Venous Blood Potassium Blood Type Antibody Screen Crossmatch Tx React Basic Work-up Clerical Work Check Pre-Trans Blood Type Pre-Trans Vis Hemolysis Pre-Trans Antibody Scrn Post-Trans Blood Type Post-Tx Visible Hemolys Post-Trans Antibody Scrn Post-Trans LULA Poly BBK History Checked 05/26/18 05/26/18 05/26/18 09:15 13:00 16:55 WBC 4.0 L D 4.3 L RBC 2.94 L 3.29 L Hgb 9.2 L 10.3 L Hct 27.3 L 30.3 L MCV 92.9 92.1 MCH 31.3 31.3 MCHC 33.7 34.0 RDW 16.5 H 16.1 H Plt Count 199 189 MPV 8.0 8.0 Gran % Lymph % (Auto) Mclennan % (Auto) Eos % (Auto) Baso % (Auto) Gran # Lymph # (Auto) Mclennan # (Auto) Eos # (Auto) Baso # (Auto) Neutrophils % (Manual) Band Neutrophils % Lymphocytes % (Manual) Monocytes % (Manual) Eosinophils % (Manual) Basophils % (Manual) Platelet Evaluation Anisocytosis (manual) PT INR APTT pO2 VBG pH VBG pCO2 VBG HCO3 VBG Total CO2 VBG O2 Sat (Calc) VBG Base Excess VBG Potassium Sodium Chloride Glucose Lactate FiO2 Potassium Carbon Dioxide Anion Gap BUN Creatinine Est GFR ( Amer) Est GFR (Non-Af Amer) Random Glucose Calcium Phosphorus Magnesium Total Bilirubin AST ALT Alkaline Phosphatase Total Protein Albumin Globulin Albumin/Globulin Ratio Venous Blood Potassium Blood Type A POSITIVE Antibody Screen Negative Crossmatch See Detail Tx React Basic Work-up Clerical Work Check Pre-Trans Blood Type Pre-Trans Vis Hemolysis Pre-Trans Antibody Scrn Post-Trans Blood Type Post-Tx Visible Hemolys Post-Trans Antibody Scrn Post-Trans LULA Poly BBK History Checked Patient has bt 05/26/18 05/26/18 16:55 16:55 WBC RBC Hgb Hct MCV MCH MCHC RDW Plt Count MPV Gran % Lymph % (Auto) Mclennan % (Auto) Eos % (Auto) Baso % (Auto) Gran # Lymph # (Auto) Mclennan # (Auto) Eos # (Auto) Baso # (Auto) Neutrophils % (Manual) Band Neutrophils % Lymphocytes % (Manual) Monocytes % (Manual) Eosinophils % (Manual) Basophils % (Manual) Platelet Evaluation Anisocytosis (manual) PT 16.5 H INR 1.44 APTT 28.7 pO2 VBG pH VBG pCO2 VBG HCO3 VBG Total CO2 VBG O2 Sat (Calc) VBG Base Excess VBG Potassium Sodium Chloride Glucose Lactate FiO2 Potassium Carbon Dioxide Anion Gap BUN Creatinine Est GFR ( Amer) Est GFR (Non-Af Amer) Random Glucose Calcium Phosphorus Magnesium Total Bilirubin AST ALT Alkaline Phosphatase Total Protein Albumin Globulin Albumin/Globulin Ratio Venous Blood Potassium Blood Type Antibody Screen Crossmatch Tx React Basic Work-up Compatible Clerical Work Check No discrepancy Pre-Trans Blood Type A POSITIVE Pre-Trans Vis Hemolysis No hemolysis Pre-Trans Antibody Scrn Negative Post-Trans Blood Type A POSITIVE Post-Tx Visible Hemolys No hemolysis Post-Trans Antibody Scrn Negative Post-Trans LULA Poly Negative BBK History Checked EKG/Cardiology Studies: Cardiology / EKG Studies 05/26/18 04:15 EKG [ELECTROCARDIOGRAM] Stat Comment: Reason For Exam: chest pain Critical Care Progress Note - Nutrition Nutrition: Nutrition Category Date Time Status NPO Diet [DIET] Diets 05/26/18 Breakfast Ordered Addendum Addendum: 05/26/18 18:18 ICU Attending Addendum: Patient seen and examined. Case reviewed on round with housestaff. 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
[2018-05-26] MEDS ORDERED: Acetaminophen 160 mg/5 ml UD PO STA ×2 (16:26→16:40)
[2018-05-26 16:57] LABS: HEMOGLOBIN 10.3 g/dL (12.0-16.0); MEAN CELL VOLUME 92.1 fl (80.0-105.0); MEAN CORPUSCULAR HEMOGLOBIN 31.3 pg (25.0-35.0); RBC 3.29 10^6/uL (3.5-6.1); RED CELL DISTRIBUTION WIDTH 16.1 % (11.5-14.5); WHITE BLOOD COUNT 4.3 10^3/ul (4.5-11.0)
[2018-05-26 17:08] LABS: INR 1.44; PARTIAL THROMBOPLASTIN TIME 28.7 Seconds (25.1-36.5); PROTHROMBIN TIME 16.5 SECONDS (9.4-12.5)
[2018-05-26 21:43] LABS: MEAN CELL VOLUME 92.1 fl (80.0-105.0); MEAN CORPUSCULAR HEMOGLOBIN 31.4 pg (25.0-35.0); MEAN CORPUSCULAR HGB CONC 34.1 g/dl (31.0-37.0); MEAN PLATELET VOLUME 7.8 fl (7.0-11.0); RBC 3.18 10^6/uL (3.5-6.1); RED CELL DISTRIBUTION WIDTH 16.3 % (11.5-14.5); WHITE BLOOD COUNT 3.5 10^3/ul (4.5-11.0)
[2018-05-26 21:52] LABS: INR 1.37; PARTIAL THROMBOPLASTIN TIME 27.1 Seconds (25.1-36.5); PROTHROMBIN TIME 15.7 SECONDS (9.4-12.5)
--- NOTE | 2018-05-27 00:52 | CON ---
DATE: 05/26/2018 LOCATION: Patient is in CCU 129, bed 6. REASON FOR CONSULTATION: Atrial fibrillation, GI bleeding, Coumadin toxicity, hypertension. 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 She was getting Coumadin for atrial fibrillation. She is also known case of diabetes mellitus, hypothyroidism, hypertension, achalasia, COPD, aortic stenosis, nonobstructive coronary artery disease, thrombophlebitis, pulmonary embolism, admitted with the history that she was vomiting blood early a.m. at home and also she had black stools this morning and patient felt nausea and she felt also weak. Denies chest pain, palpitation or shortness of breath. PAST MEDICAL HISTORY: Positive for thrombophlebitis, pulmonary embolism, atrial fibrillation, nonobstructive coronary artery disease, cardiac catheterization, atrial fibrillation, CA of esophagus, getting chemo and radiation therapy, COPD, she was also treated for CHF in the past, diabetes mellitus, hypothyroidism, hypertension, achalasia, aortic stenosis. Patient also put on PEG tube but was never used. Patient is able to take by mouth pureed food. PAST SURGICAL HISTORY: Cholecystectomy, left hip replacement in 2004. 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 Patient also had cardiac catheterization in the past. PERSONAL HISTORY: Denies smoking. Denies drinking. ALLERGIES: PATIENT DENIES ANY ALLERGIES. MEDICATIONS: Patient's medication at home consisted of vitamin B6, vitamin D2 50,000 units per week, Lasix 20 Saturday, Saturday and Saturday, warfarin 5 mg daily, Lopressor 12.5 mg daily. REVIEW OF SYSTEMS: All the systems reviewed, positive mentioned in the history, others were negative. PHYSICAL EXAMINATION: VITAL SIGNS: Blood pressure 102/63, respirations 18, pulse 106, temperature 98. HEENT: Head is normocephalic. Eyes: Pupils normal. Conjunctivae slightly pale. NECK: JVP low. LUNGS: Clear. CARDIOVASCULAR: S1, S2. Grade 3/6 ejection systolic murmur. No rub. ABDOMEN: Soft. No tenderness. No organomegaly. Patient has feeding tube, which has been never used. EXTREMITIES: No clubbing, no cyanosis. LABORATORY DATA: WBC 4, hemoglobin 9.2, hematocrit 27.3, platelet 199. Sodium 134, potassium 3.9, BUN 33, creatinine 1.2. Random glucose 134. Phosphorous 2.8, magnesium 1.7. Total protein 6.3, albumin 3.2, ALT 17, alkaline phosphatase 73. Prothrombin time on admission 71.2 with the INR 6.02 and PTT 42.9. Chest x-ray, abnormal contour of left hemidiaphragm and it has not changed as compared to previous x-rays. So there is no active disease. EKG showed atrial fibrillation with premature ventricular or aberrantly conducted complexes, possible old septal infarct, nonspecific ST-T changes. DIAGNOSES: Gastrointestinal bleeding due to Coumadin toxicity with prolonged INR, history of atrial fibrillation, aortic stenosis, history of deep thrombophlebitis and history of pulmonary embolism, history of chronic obstructive pulmonary disease, cancer of the esophagus, getting chemotherapy and radiation therapy, history of congestive heart failure in the past, diabetes mellitus, hypothyroidism, hypertension, achalasia, status post feeding tube but was never used. Patient had echocardiogram on 02/11/2018, which showed left ventricle normal size, mild concentric left ventricular hypertrophy, ejection fraction 55% to 60%, right ventricle [id number] dilated, right ventricle systolic function is normal, moderate aortic regurgitation,. There is [id number] valvular aortic stenosis. Mitral regurgitation is mild. There is moderate tricuspid regurgitation with right ventricular systolic pressure of 46 mmHg, suggestive of mild pulmonary hypertension, [id number] pulmonary valvular regurgitation. PLAN: Patient got 10 mg of IV vitamin K in the emergency room and now 2 units of red blood cells and one unit of FFP has been ordered to be given. Patient is getting IV fluid therapy. Patient getting IV Protonix 40 mg in 100 mL IVP given at 20 mL per hour. Patient will have PT/INR repeat later on in tomorrow morning. At present, patient is n.p.o., so we will continue to monitor the patient for atrial fibrillation, heart rate is stable. If patient need from GI point of view any endoscopy or any procedures, from cardiac point of view, patient can go for it as a moderate risk and we will follow with you. Nicolette Bryson MD [facility] # [id number]
[2018-05-27 01:55] LABS: BASO # 0.01 K/mm3 (0.0-2.0); BASO % 0.4 % (0.0-3.0); EOS # 0.1 (0.0-0.7); EOS % 2.8 % (1.5-5.0); GRAN # 1.92 (1.4-6.5); GRAN % 67.3 % (50.0-68.0); LYMPH # 0.4 (1.2-3.4); LYMPH % 13.7 % (22.0-35.0); MEAN CELL VOLUME 92.7 fl (80.0-105.0); MEAN CORPUSCULAR HEMOGLOBIN 31.7 pg (25.0-35.0); MEAN CORPUSCULAR HGB CONC 34.2 g/dl (31.0-37.0); MONO # 0.5 (0.1-0.6); MONO % 15.8 % (1.0-6.0); RBC 3.15 10^6/uL (3.5-6.1); RED CELL DISTRIBUTION WIDTH 16.5 % (11.5-14.5)
[2018-05-27 02:06] LABS: INR 1.34; PROTHROMBIN TIME 15.4 SECONDS (9.4-12.5)
[2018-05-27 02:07] LABS: WHITE BLOOD COUNT 2.9 10^3/ul (4.5-11.0)
[2018-05-27] MEDS: Pantoprazole 40mg/100mL NS 40 MG/100 ML BAG IVPB SCH ×2 (03:30→09:57)
[2018-05-27 05:56] LABS: BASO # 0.01 K/mm3 (0.0-2.0); BASO % 0.4 % (0.0-3.0); EOS # 0.1 (0.0-0.7); EOS % 2.9 % (1.5-5.0); GRAN # 1.94 (1.4-6.5); GRAN % 69.5 % (50.0-68.0); HEMOGLOBIN 10.1 g/dL (12.0-16.0); LYMPH # 0.5 (1.2-3.4); LYMPH % 18.6 % (22.0-35.0); MEAN CELL VOLUME 92.2 fl (80.0-105.0); MEAN CORPUSCULAR HEMOGLOBIN 31.4 pg (25.0-35.0); MONO # 0.2 (0.1-0.6); MONO % 8.6 % (1.0-6.0); RBC 3.22 10^6/uL (3.5-6.1); RED CELL DISTRIBUTION WIDTH 16.5 % (11.5-14.5)
[2018-05-27 06:00] LABS: INR 1.26; PARTIAL THROMBOPLASTIN TIME 26.5 Seconds (25.1-36.5); PROTHROMBIN TIME 14.6 SECONDS (9.4-12.5)
[2018-05-27 06:02] LABS: ALB/GLOB RATIO 0.9 (1.1-1.8); ALBUMIN 2.6 g/dL (3.0-4.8); ALT/SGPT 18 U/L (7-56); AST/SGOT 25 U/L (14-36); BLOOD UREA NITROGEN 35 mg/dL (7-21); CALCIUM 8.1 mg/dL (8.4-10.5); GFR NON-AFRICAN AMERICAN 59; HDL CHOLESTEROL 41 mg/dL (29-60)
[2018-05-27 06:13] LABS: LDL CHOLESTEROL 46 mg/dL (0-129)
[2018-05-27 06:15] LABS: WHITE BLOOD COUNT 2.8 10^3/ul (4.5-11.0)
[2018-05-27 07:10] LABS: URINE BILIRUBIN NEGATIVE (NEGATIVE); URINE BLOOD LARGE (NEGATIVE); URINE GLUCOSE (UA) NEGATIVE (NEGATIVE); URINE LEUKOCYTE ESTERASE NEGATIVE Leu/uL (NEGATIVE); URINE PROTEIN TRACE mg/dL (<30 mg/dL)
[2018-05-27 07:22] LABS: URINE APPEARANCE CLEAR (CLEAR); URINE COLOR YELLOW (YELLOW)
[2018-05-27 07:27] LABS: URINE BACTERIA MOD (NEG); URINE WBC 0 - 2 /hpf (0-6)
--- NOTE | 2018-05-27 07:52 | CP.CCUPN ---
<Jim Turner - Last Filed: 05/27/18 11:05> CCU Subjective - Physician Review Subjective (Free Text): Jim Turner DO PGY1 - Internal medicine [employer] - ICU Progress Note Patient was seen and examined this morning at bedside; no issues were voiced overnight. No complaints of hematemesis this AM. Patient does report BM however did not clarify if it was bloody. Remainder of 12 system ROS is negative at this time 05/27/18 11:05 CCU Objective - Vital Signs / Intake & Output Vital Signs (Last 4 hours): Vital Signs Pulse Resp BP Pulse Ox 05/27/18 06:20 80 19 99 05/27/18 06:10 83 22 98 05/27/18 06:00 88 20 139/90 100 05/27/18 05:50 86 19 100 05/27/18 05:40 84 21 96 05/27/18 05:30 85 26 H 97 05/27/18 05:20 79 19 100 05/27/18 05:10 85 16 100 05/27/18 05:00 81 27 H 109/63 100 05/27/18 04:50 87 16 100 05/27/18 04:40 88 20 100 05/27/18 04:30 83 20 100 05/27/18 04:20 81 20 100 05/27/18 04:10 74 20 100 05/27/18 04:00 78 19 96/63 L 100 Intake and Output (Last 8hrs): Intake & Output 05/26/18 05/27/18 05/27/18 22:59 06:59 14:59 Intake Total 975 1240 Output Total 300 Balance 975 940 Weight 61.859 kg Intake: IV 750 1140 Right Forearm 750 1140 Oral 0 100 Blood Product 225 Red Blood Cells Cp2d As3 225 Lr Unit [id number] Output: Urine 100 Urine, Voided 100 Urine/Stool Mix 200 Other: # Bowel Movements 3 - Physical Exam Head: Positive for: Atraumatic, Normocephalic Extroacular Muscles: Positive for: EOMI Conjunctiva: Positive for: Normal Mouth: Positive for: Moist Mucous Membranes Respiratory/Chest: Positive for: Wheezes (LLL, RLL) Cardiovascular: Positive for: Murmurs (Sytolic Grade 4 murmur at Aortic + Mitral Posts ), Other (Irregular Rate, Irregular Rhythm ) Abdomen: Positive for: Tenderness, Distention, Normal Bowel Sounds Upper Extremity: Negative for: Cyanosis, Edema Lower Extremity: Positive for: Normal Inspection. Negative for: Edema Neurological: Positive for: GCS=15, CN II-XII Intact Skin: Positive for: Warm, Dry, Rashes Psychiatric: Positive for: Alert, Oriented x 3 - Medications Active Medications: Active Medications Generic Name Dose Route Start Last Admin Trade Name Freq PRN Reason Stop Dose Admin Pantoprazole Sodium 40 mg in 100 mls @ 20 mls/hr 05/26/18 04:30 05/27/18 03:30 Protonix 40mg Ivpb IVPB 20 mls/hr .Q5H SUNNY Administration Sodium Chloride 1,000 mls @ 75 mls/hr 05/26/18 04:30 05/26/18 18:53 Sodium Chloride 0.9% IV 75 mls/hr .[id number] SUNNY Administration Metoprolol Tartrate 12.5 mg 05/27/18 10:00 Lopressor PO DAILY SUNNY - Patient Studies Lab Studies: Lab Studies 05/27/18 05/27/18 05/27/18 Range/Units 06:30 05:10 05:10 WBC 2.8 L* (4.5-11.0) 10^3/ul RBC 3.22 L (3.5-6.1) 10^6/uL Hgb 10.1 L (12.0-16.0) g/dL Hct 29.7 L (36.0-48.0) % MCV 92.2 (80.0-105.0) fl MCH 31.4 (25.0-35.0) pg MCHC 34.0 (31.0-37.0) g/dl RDW 16.5 H (11.5-14.5) % Plt Count 192 (120.0-450.0) 10^3/uL MPV 8.0 (7.0-11.0) fl Gran % 69.5 H (50.0-68.0) % Lymph % (Auto) 18.6 L (22.0-35.0) % [place] % (Auto) 8.6 H (1.0-6.0) % Eos % (Auto) 2.9 (1.5-5.0) % Baso % (Auto) 0.4 (0.0-3.0) % Gran # 1.94 (1.4-6.5) Lymph # (Auto) 0.5 L (1.2-3.4) [place] # (Auto) 0.2 (0.1-0.6) Eos # (Auto) 0.1 (0.0-0.7) Baso # (Auto) 0.01 (0.0-2.0) K/mm3 PT 14.6 H (9.4-12.5) SECONDS INR 1.26 APTT 26.5 (25.1-36.5) Seconds Sodium (132-148) mmol/L Potassium (3.6-5.0) mmol/L Chloride (98-107) mmol/L Carbon Dioxide (21-33) mmol/L Anion Gap (10-20) BUN (7-21) mg/dL Creatinine (0.7-1.2) mg/dl Est GFR ( Amer) Est GFR (Non-Af Amer) Random Glucose (70-110) mg/dL Calcium (8.4-10.5) mg/dL Phosphorus (2.5-4.5) mg/dL Magnesium (1.7-2.2) mg/dL Total Bilirubin (0.2-1.3) mg/dL Pre-Trans Tot Bilirubin (0.2-1.3) mg/dL Post-Trans Total Bili mg/dL AST (14-36) U/L ALT (7-56) U/L Alkaline Phosphatase (38-126) U/L Total Protein (5.8-8.3) g/dL Albumin (3.0-4.8) g/dL Globulin gm/dL Albumin/Globulin Ratio (1.1-1.8) Triglycerides (35-160) mg/dL Cholesterol (130-200) mg/dL LDL Cholesterol Direct (0-129) mg/dL HDL Cholesterol (29-60) mg/dL TSH 3rd Generation (0.46-4.68) mIU/mL Urine Color Yellow (YELLOW) Urine Appearance Clear (CLEAR) Urine pH 6.0 (4.7-8.0) Ur Specific [place] 1.010 (1.005-1.035) Urine Protein Trace H (<30 mg/dL) mg/dL Urine Glucose (UA) Negative (NEGATIVE) mg/dL Urine Ketones Negative (NEGATIVE) mg/dL Urine Blood Large H (NEGATIVE) Urine Nitrate Negative (NEGATIVE) Urine Bilirubin Negative (NEGATIVE) Urine Urobilinogen 1.0 H (<1 E.U./dL) E.U./dL Ur Leukocyte Esterase Negative (NEGATIVE) Marlene/uL Urine RBC 10 - 15 (0-2) /hpf Urine WBC 0 - 2 (0-6) /hpf Ur Epithelial Cells 4 - 5 (0-5) /hpf Urine Bacteria Mod (NEG) Blood Type Antibody Screen Crossmatch Tx React Basic Work-up (COMPATIBLE) Clerical Work Check Pre-Trans Blood Type Pre-Trans Vis Hemolysis Pre-Trans Antibody Scrn Post-Trans Blood Type Post-Tx Visible Hemolys Post-Trans Antibody Scrn Post-Trans LULA Poly (NEGATIVE) BBK History Checked 05/27/18 05/27/18 05/27/18 Range/Units 05:10 05:10 01:45 WBC (4.5-11.0) 10^3/ul RBC (3.5-6.1) 10^6/uL Hgb (12.0-16.0) g/dL Hct (36.0-48.0) % MCV (80.0-105.0) fl MCH (25.0-35.0) pg MCHC (31.0-37.0) g/dl RDW (11.5-14.5) % Plt Count (120.0-450.0) 10^3/uL MPV (7.0-11.0) fl Gran % (50.0-68.0) % Lymph % (Auto) (22.0-35.0) % [place] % (Auto) (1.0-6.0) % Eos % (Auto) (1.5-5.0) % Baso % (Auto) (0.0-3.0) % Gran # (1.4-6.5) Lymph # (Auto) (1.2-3.4) [place] # (Auto) (0.1-0.6) Eos # (Auto) (0.0-0.7) Baso # (Auto) (0.0-2.0) K/mm3 PT (9.4-12.5) SECONDS INR APTT (25.1-36.5) Seconds Sodium 136 (132-148) mmol/L Potassium 4.0 (3.6-5.0) mmol/L Chloride 107 (98-107) mmol/L Carbon Dioxide 25 (21-33) mmol/L Anion Gap 8 L (10-20) BUN 35 H (7-21) mg/dL Creatinine 0.9 (0.7-1.2) mg/dl Est GFR ( Amer) > 60 Est GFR (Non-Af Amer) 59 Random Glucose 89 (70-110) mg/dL Calcium 8.1 L (8.4-10.5) mg/dL Phosphorus 2.5 (2.5-4.5) mg/dL Magnesium 1.8 (1.7-2.2) mg/dL Total Bilirubin 0.8 (0.2-1.3) mg/dL Pre-Trans Tot Bilirubin (0.2-1.3) mg/dL Post-Trans Total Bili 0.8 mg/dL AST 25 (14-36) U/L ALT 18 (7-56) U/L Alkaline Phosphatase 60 (38-126) U/L Total Protein 5.4 L (5.8-8.3) g/dL Albumin 2.6 L (3.0-4.8) g/dL Globulin 2.9 gm/dL Albumin/Globulin Ratio 0.9 L (1.1-1.8) Triglycerides 65 (35-160) mg/dL Cholesterol 119 L (130-200) mg/dL LDL Cholesterol Direct 46 (0-129) mg/dL HDL Cholesterol 41 (29-60) mg/dL TSH 3rd Generation 1.77 (0.46-4.68) mIU/mL Urine Color (YELLOW) Urine Appearance (CLEAR) Urine pH (4.7-8.0) Ur Specific [place] (1.005-1.035) Urine Protein (<30 mg/dL) mg/dL Urine Glucose (UA) (NEGATIVE) mg/dL Urine Ketones (NEGATIVE) mg/dL Urine Blood (NEGATIVE) Urine Nitrate (NEGATIVE) Urine Bilirubin (NEGATIVE) Urine Urobilinogen (<1 E.U./dL) E.U./dL Ur Leukocyte Esterase (NEGATIVE) Marlene/uL Urine RBC (0-2) /hpf Urine WBC (0-6) /hpf Ur Epithelial Cells (0-5) /hpf Urine Bacteria (NEG) Blood Type Antibody Screen Crossmatch Tx React Basic Work-up (COMPATIBLE) Clerical Work Check Pre-Trans Blood Type Pre-Trans Vis Hemolysis Pre-Trans Antibody Scrn Post-Trans Blood Type Post-Tx Visible Hemolys Post-Trans Antibody Scrn Post-Trans LUAL Poly (NEGATIVE) BBK History Checked 05/27/18 05/27/18 05/26/18 Range/Units 01:45 01:45 21:35 WBC 2.9 L* (4.5-11.0) 10^3/ul RBC 3.15 L (3.5-6.1) 10^6/uL Hgb 10.0 L (12.0-16.0) g/dL Hct 29.2 L (36.0-48.0) % MCV 92.7 (80.0-105.0) fl MCH 31.7 (25.0-35.0) pg MCHC 34.2 (31.0-37.0) g/dl RDW 16.5 H (11.5-14.5) % Plt Count 175 (120.0-450.0) 10^3/uL MPV 8.0 (7.0-11.0) fl Gran % 67.3 (50.0-68.0) % Lymph % (Auto) 13.7 L (22.0-35.0) % [place] % (Auto) 15.8 H (1.0-6.0) % Eos % (Auto) 2.8 (1.5-5.0) % Baso % (Auto) 0.4 (0.0-3.0) % Gran # 1.92 (1.4-6.5) Lymph # (Auto) 0.4 L (1.2-3.4) [place] # (Auto) 0.5 (0.1-0.6) Eos # (Auto) 0.1 (0.0-0.7) Baso # (Auto) 0.01 (0.0-2.0) K/mm3 PT 15.4 H 15.7 H (9.4-12.5) SECONDS INR 1.34 1.37 APTT 26.0 27.1 (25.1-36.5) Seconds Sodium (132-148) mmol/L Potassium (3.6-5.0) mmol/L Chloride (98-107) mmol/L Carbon Dioxide (21-33) mmol/L Anion Gap (10-20) BUN (7-21) mg/dL Creatinine (0.7-1.2) mg/dl Est GFR ( Amer) Est GFR (Non-Af Amer) Random Glucose (70-110) mg/dL Calcium (8.4-10.5) mg/dL Phosphorus (2.5-4.5) mg/dL Magnesium (1.7-2.2) mg/dL Total Bilirubin (0.2-1.3) mg/dL Pre-Trans Tot Bilirubin (0.2-1.3) mg/dL Post-Trans Total Bili mg/dL AST (14-36) U/L ALT (7-56) U/L Alkaline Phosphatase (38-126) U/L Total Protein (5.8-8.3) g/dL Albumin (3.0-4.8) g/dL Globulin gm/dL Albumin/Globulin Ratio (1.1-1.8) Triglycerides (35-160) mg/dL Cholesterol (130-200) mg/dL LDL Cholesterol Direct (0-129) mg/dL HDL Cholesterol (29-60) mg/dL TSH 3rd Generation (0.46-4.68) mIU/mL Urine Color (YELLOW) Urine Appearance (CLEAR) Urine pH (4.7-8.0) Ur Specific [place] (1.005-1.035) Urine Protein (<30 mg/dL) mg/dL Urine Glucose (UA) (NEGATIVE) mg/dL Urine Ketones (NEGATIVE) mg/dL Urine Blood (NEGATIVE) Urine Nitrate (NEGATIVE) Urine Bilirubin (NEGATIVE) Urine Urobilinogen (<1 E.U./dL) E.U./dL Ur Leukocyte Esterase (NEGATIVE) Marlene/uL Urine RBC (0-2) /hpf Urine WBC (0-6) /hpf Ur Epithelial Cells (0-5) /hpf Urine Bacteria (NEG) Blood Type Antibody Screen Crossmatch Tx React Basic Work-up (COMPATIBLE) Clerical Work Check Pre-Trans Blood Type Pre-Trans Vis Hemolysis Pre-Trans Antibody Scrn Post-Trans Blood Type Post-Tx Visible Hemolys Post-Trans Antibody Scrn Post-Trans LULA Poly (NEGATIVE) BBK History Checked 05/26/18 05/26/18 05/26/18 Range/Units 21:35 16:55 16:55 WBC 3.5 L (4.5-11.0) 10^3/ul RBC 3.18 L (3.5-6.1) 10^6/uL Hgb 10.0 L (12.0-16.0) g/dL Hct 29.3 L (36.0-48.0) % MCV 92.1 (80.0-105.0) fl MCH 31.4 (25.0-35.0) pg MCHC 34.1 (31.0-37.0) g/dl RDW 16.3 H (11.5-14.5) % Plt Count 189 (120.0-450.0) 10^3/uL MPV 7.8 (7.0-11.0) fl Gran % (50.0-68.0) % Lymph % (Auto) (22.0-35.0) % [place] % (Auto) (1.0-6.0) % Eos % (Auto) (1.5-5.0) % Baso % (Auto) (0.0-3.0) % Gran # (1.4-6.5) Lymph # (Auto) (1.2-3.4) [place] # (Auto) (0.1-0.6) Eos # (Auto) (0.0-0.7) Baso # (Auto) (0.0-2.0) K/mm3 PT (9.4-12.5) SECONDS INR APTT (25.1-36.5) Seconds Sodium (132-148) mmol/L Potassium (3.6-5.0) mmol/L Chloride (98-107) mmol/L Carbon Dioxide (21-33) mmol/L Anion Gap (10-20) BUN (7-21) mg/dL Creatinine (0.7-1.2) mg/dl Est GFR ( Amer) Est GFR (Non-Af Amer) Random Glucose (70-110) mg/dL Calcium (8.4-10.5) mg/dL Phosphorus (2.5-4.5) mg/dL Magnesium (1.7-2.2) mg/dL Total Bilirubin (0.2-1.3) mg/dL Pre-Trans Tot Bilirubin 0.9 (0.2-1.3) mg/dL Post-Trans Total Bili mg/dL AST (14-36) U/L ALT (7-56) U/L Alkaline Phosphatase (38-126) U/L Total Protein (5.8-8.3) g/dL Albumin (3.0-4.8) g/dL Globulin gm/dL Albumin/Globulin Ratio (1.1-1.8) Triglycerides (35-160) mg/dL Cholesterol (130-200) mg/dL LDL Cholesterol Direct (0-129) mg/dL HDL Cholesterol (29-60) mg/dL TSH 3rd Generation (0.46-4.68) mIU/mL Urine Color (YELLOW) Urine Appearance (CLEAR) Urine pH (4.7-8.0) Ur Specific [place] (1.005-1.035) Urine Protein (<30 mg/dL) mg/dL Urine Glucose (UA) (NEGATIVE) mg/dL Urine Ketones (NEGATIVE) mg/dL Urine Blood (NEGATIVE) Urine Nitrate (NEGATIVE) Urine Bilirubin (NEGATIVE) Urine Urobilinogen (<1 E.U./dL) E.U./dL Ur Leukocyte Esterase (NEGATIVE) Marlene/uL Urine RBC (0-2) /hpf Urine WBC (0-6) /hpf Ur Epithelial Cells (0-5) /hpf Urine Bacteria (NEG) Blood Type Antibody Screen Crossmatch Tx React Basic Work-up Compatible (COMPATIBLE) Clerical Work Check No discrepancy Pre-Trans Blood Type A POSITIVE Pre-Trans Vis Hemolysis No hemolysis Pre-Trans Antibody Scrn Negative Post-Trans Blood Type A POSITIVE Post-Tx Visible Hemolys No hemolysis Post-Trans Antibody Scrn Negative Post-Trans LULA Poly Negative (NEGATIVE) BBK History Checked 05/26/18 05/26/18 05/26/18 Range/Units 16:55 16:55 13:00 WBC 4.3 L 4.0 L D (4.5-11.0) 10^3/ul RBC 3.29 L 2.94 L (3.5-6.1) 10^6/uL Hgb 10.3 L 9.2 L (12.0-16.0) g/dL Hct 30.3 L 27.3 L (36.0-48.0) % MCV 92.1 92.9 (80.0-105.0) fl MCH 31.3 31.3 (25.0-35.0) pg MCHC 34.0 33.7 (31.0-37.0) g/dl RDW 16.1 H 16.5 H (11.5-14.5) % Plt Count 189 199 (120.0-450.0) 10^3/uL MPV 8.0 8.0 (7.0-11.0) fl Gran % (50.0-68.0) % Lymph % (Auto) (22.0-35.0) % [place] % (Auto) (1.0-6.0) % Eos % (Auto) (1.5-5.0) % Baso % (Auto) (0.0-3.0) % Gran # (1.4-6.5) Lymph # (Auto) (1.2-3.4) [place] # (Auto) (0.1-0.6) Eos # (Auto) (0.0-0.7) Baso # (Auto) (0.0-2.0) K/mm3 PT 16.5 H (9.4-12.5) SECONDS INR 1.44 APTT 28.7 (25.1-36.5) Seconds Sodium (132-148) mmol/L Potassium (3.6-5.0) mmol/L Chloride (98-107) mmol/L Carbon Dioxide (21-33) mmol/L Anion Gap (10-20) BUN (7-21) mg/dL Creatinine (0.7-1.2) mg/dl Est GFR ( Amer) Est GFR (Non-Af Amer) Random Glucose (70-110) mg/dL Calcium (8.4-10.5) mg/dL Phosphorus (2.5-4.5) mg/dL Magnesium (1.7-2.2) mg/dL Total Bilirubin (0.2-1.3) mg/dL Pre-Trans Tot Bilirubin (0.2-1.3) mg/dL Post-Trans Total Bili mg/dL AST (14-36) U/L ALT (7-56) U/L Alkaline Phosphatase (38-126) U/L Total Protein (5.8-8.3) g/dL Albumin (3.0-4.8) g/dL Globulin gm/dL Albumin/Globulin Ratio (1.1-1.8) Triglycerides (35-160) mg/dL Cholesterol (130-200) mg/dL LDL Cholesterol Direct (0-129) mg/dL HDL Cholesterol (29-60) mg/dL TSH 3rd Generation (0.46-4.68) mIU/mL Urine Color (YELLOW) Urine Appearance (CLEAR) Urine pH (4.7-8.0) Ur Specific [place] (1.005-1.035) Urine Protein (<30 mg/dL) mg/dL Urine Glucose (UA) (NEGATIVE) mg/dL Urine Ketones (NEGATIVE) mg/dL Urine Blood (NEGATIVE) Urine Nitrate (NEGATIVE) Urine Bilirubin (NEGATIVE) Urine Urobilinogen (<1 E.U./dL) E.U./dL Ur Leukocyte Esterase (NEGATIVE) Marlene/uL Urine RBC (0-2) /hpf Urine WBC (0-6) /hpf Ur Epithelial Cells (0-5) /hpf Urine Bacteria (NEG) Blood Type Antibody Screen Crossmatch Tx React Basic Work-up (COMPATIBLE) Clerical Work Check Pre-Trans Blood Type Pre-Trans Vis Hemolysis Pre-Trans Antibody Scrn Post-Trans Blood Type Post-Tx Visible Hemolys Post-Trans Antibody Scrn Post-Trans LULA Poly (NEGATIVE) BBK History Checked 05/26/18 05/26/18 Range/Units 09:15 08:36 WBC 6.1 (4.5-11.0) 10^3/ul RBC 2.93 L (3.5-6.1) 10^6/uL Hgb 9.3 L (12.0-16.0) g/dL Hct 27.2 L (36.0-48.0) % MCV 92.8 (80.0-105.0) fl MCH 31.7 (25.0-35.0) pg MCHC 34.2 (31.0-37.0) g/dl RDW 16.3 H (11.5-14.5) % Plt Count 210 (120.0-450.0) 10^3/uL MPV 7.7 (7.0-11.0) fl Gran % (50.0-68.0) % Lymph % (Auto) (22.0-35.0) % [place] % (Auto) (1.0-6.0) % Eos % (Auto) (1.5-5.0) % Baso % (Auto) (0.0-3.0) % Gran # (1.4-6.5) Lymph # (Auto) (1.2-3.4) [place] # (Auto) (0.1-0.6) Eos # (Auto) (0.0-0.7) Baso # (Auto) (0.0-2.0) K/mm3 PT (9.4-12.5) SECONDS INR APTT (25.1-36.5) Seconds Sodium (132-148) mmol/L Potassium (3.6-5.0) mmol/L Chloride (98-107) mmol/L Carbon Dioxide (21-33) mmol/L Anion Gap (10-20) BUN (7-21) mg/dL Creatinine (0.7-1.2) mg/dl Est GFR ( Amer) Est GFR (Non-Af Amer) Random Glucose (70-110) mg/dL Calcium (8.4-10.5) mg/dL Phosphorus (2.5-4.5) mg/dL Magnesium (1.7-2.2) mg/dL Total Bilirubin (0.2-1.3) mg/dL Pre-Trans Tot Bilirubin (0.2-1.3) mg/dL Post-Trans Total Bili mg/dL AST (14-36) U/L ALT (7-56) U/L Alkaline Phosphatase (38-126) U/L Total Protein (5.8-8.3) g/dL Albumin (3.0-4.8) g/dL Globulin gm/dL Albumin/Globulin Ratio (1.1-1.8) Triglycerides (35-160) mg/dL Cholesterol (130-200) mg/dL LDL Cholesterol Direct (0-129) mg/dL HDL Cholesterol (29-60) mg/dL TSH 3rd Generation (0.46-4.68) mIU/mL Urine Color (YELLOW) Urine Appearance (CLEAR) Urine pH (4.7-8.0) Ur Specific [place] (1.005-1.035) Urine Protein (<30 mg/dL) mg/dL Urine Glucose (UA) (NEGATIVE) mg/dL Urine Ketones (NEGATIVE) mg/dL Urine Blood (NEGATIVE) Urine Nitrate (NEGATIVE) Urine Bilirubin (NEGATIVE) Urine Urobilinogen (<1 E.U./dL) E.U./dL Ur Leukocyte Esterase (NEGATIVE) Marlene/uL Urine RBC (0-2) /hpf Urine WBC (0-6) /hpf Ur Epithelial Cells (0-5) /hpf Urine Bacteria (NEG) Blood Type A POSITIVE Antibody Screen Negative Crossmatch See Detail Tx React Basic Work-up (COMPATIBLE) Clerical Work Check Pre-Trans Blood Type Pre-Trans Vis Hemolysis Pre-Trans Antibody Scrn Post-Trans Blood Type Post-Tx Visible Hemolys Post-Trans Antibody Scrn Post-Trans LULA Poly (NEGATIVE) BBK History Checked Patient has bt Laboratory Results - last 24 hr 05/26/18 05/26/18 05/26/18 08:36 09:15 13:00 WBC 6.1 4.0 L D RBC 2.93 L 2.94 L Hgb 9.3 L 9.2 L Hct 27.2 L 27.3 L MCV 92.8 92.9 MCH 31.7 31.3 MCHC 34.2 33.7 RDW 16.3 H 16.5 H Plt Count 210 199 MPV 7.7 8.0 Gran % Lymph % (Auto) [place] % (Auto) Eos % (Auto) Baso % (Auto) Gran # Lymph # (Auto) [place] # (Auto) Eos # (Auto) Baso # (Auto) PT INR APTT Sodium Potassium Chloride Carbon Dioxide Anion Gap BUN Creatinine Est GFR ( Amer) Est GFR (Non-Af Amer) Random Glucose Calcium Phosphorus Magnesium Total Bilirubin Pre-Trans Tot Bilirubin Post-Trans Total Bili AST ALT Alkaline Phosphatase Total Protein Albumin Globulin Albumin/Globulin Ratio Triglycerides Cholesterol LDL Cholesterol Direct HDL Cholesterol TSH 3rd Generation Urine Color Urine Appearance Urine pH Ur Specific [place] Urine Protein Urine Glucose (UA) Urine Ketones Urine Blood Urine Nitrate Urine Bilirubin Urine Urobilinogen Ur Leukocyte Esterase Urine RBC Urine WBC Ur Epithelial Cells Urine Bacteria Blood Type A POSITIVE Antibody Screen Negative Crossmatch See Detail Tx React Basic Work-up Clerical Work Check Pre-Trans Blood Type Pre-Trans Vis Hemolysis Pre-Trans Antibody Scrn Post-Trans Blood Type Post-Tx Visible Hemolys Post-Trans Antibody Scrn Post-Trans LULA Poly BBK History Checked Patient has bt 05/26/18 05/26/1805/26/18 16:55 16:55 16:55 WBC 4.3 L RBC 3.29 L Hgb 10.3 L Hct 30.3 L MCV 92.1 MCH 31.3 MCHC 34.0 RDW 16.1 H Plt Count 189 MPV 8.0 Gran % Lymph % (Auto) [place] % (Auto) Eos % (Auto) Baso % (Auto) Gran # Lymph # (Auto) [place] # (Auto) Eos # (Auto) Baso # (Auto) PT 16.5 H INR 1.44 APTT 28.7 Sodium Potassium Chloride Carbon Dioxide Anion Gap BUN Creatinine Est GFR ( Amer) Est GFR (Non-Af Amer) Random Glucose Calcium Phosphorus Magnesium Total Bilirubin Pre-Trans Tot Bilirubin Post-Trans Total Bili AST ALT Alkaline Phosphatase Total Protein Albumin Globulin Albumin/Globulin Ratio Triglycerides Cholesterol LDL Cholesterol Direct HDL Cholesterol TSH 3rd Generation Urine Color Urine Appearance Urine pH Ur Specific [place] Urine Protein Urine Glucose (UA) Urine Ketones Urine Blood Urine Nitrate Urine Bilirubin Urine Urobilinogen Ur Leukocyte Esterase Urine RBC Urine WBC Ur Epithelial Cells Urine Bacteria Blood Type Antibody Screen Crossmatch Tx React Basic Work-up Compatible Clerical Work Check No discrepancy Pre-Trans Blood Type A POSITIVE Pre-Trans Vis Hemolysis No hemolysis Pre-Trans Antibody Scrn Negative Post-Trans Blood Type A POSITIVE Post-Tx Visible Hemolys No hemolysis Post-Trans Antibody Scrn Negative Post-Trans LULA Poly Negative BBK History Checked 05/26/18 05/26/18 05/26/18 16:55 21:35 21:35 WBC 3.5 L RBC 3.18 L Hgb 10.0 L Hct 29.3 L MCV 92.1 MCH 31.4 MCHC 34.1 RDW 16.3 H Plt Count 189 MPV 7.8 Gran % Lymph % (Auto) [place] % (Auto) Eos % (Auto) Baso % (Auto) Gran # Lymph # (Auto) [place] # (Auto) Eos # (Auto) Baso # (Auto) PT 15.7 H INR 1.37 APTT 27.1 Sodium Potassium Chloride Carbon Dioxide Anion Gap BUN Creatinine Est GFR ( Amer) Est GFR (Non-Af Amer) Random Glucose Calcium Phosphorus Magnesium Total Bilirubin Pre-Trans Tot Bilirubin 0.9 Post-Trans Total Bili AST ALT Alkaline Phosphatase Total Protein Albumin Globulin Albumin/Globulin Ratio Triglycerides Cholesterol LDL Cholesterol Direct HDL Cholesterol TSH 3rd Generation Urine Color Urine Appearance Urine pH Ur Specific [place] Urine Protein Urine Glucose (UA) Urine Ketones Urine Blood Urine Nitrate Urine Bilirubin Urine Urobilinogen Ur Leukocyte Esterase Urine RBC Urine WBC Ur Epithelial Cells Urine Bacteria Blood Type Antibody Screen Crossmatch Tx React Basic Work-up Clerical Work Check Pre-Trans Blood Type Pre-Trans Vis Hemolysis Pre-Trans Antibody Scrn Post-Trans Blood Type Post-Tx Visible Hemolys Post-Trans Antibody Scrn Post-Trans LULA Poly BBK History Checked 05/27/18 05/27/18 05/27/18 01:45 01:45 01:45 WBC 2.9 L* RBC 3.15 L Hgb 10.0 L Hct 29.2 L MCV 92.7 MCH 31.7 MCHC 34.2 RDW 16.5 H Plt Count 175 MPV 8.0 Gran % 67.3 Lymph % (Auto) 13.7 L Winston % (Auto) 15.8 H Eos % (Auto) 2.8 Baso % (Auto) 0.4 Gran # 1.92 Lymph # (Auto) 0.4 L Winston # (Auto) 0.5 Eos # (Auto) 0.1 Baso # (Auto) 0.01 PT 15.4 H INR 1.34 APTT 26.0 Sodium Potassium Chloride Carbon Dioxide Anion Gap BUN Creatinine Est GFR ( Amer) Est GFR (Non-Af Amer) Random Glucose Calcium Phosphorus Magnesium Total Bilirubin Pre-Trans Tot Bilirubin Post-Trans Total Bili 0.8 AST ALT Alkaline Phosphatase Total Protein Albumin Globulin Albumin/Globulin Ratio Triglycerides Cholesterol LDL Cholesterol Direct HDL Cholesterol TSH 3rd Generation Urine Color Urine Appearance Urine pH Ur Specific [place] Urine Protein Urine Glucose (UA) Urine Ketones Urine Blood Urine Nitrate Urine Bilirubin Urine Urobilinogen Ur Leukocyte Esterase Urine RBC Urine WBC Ur Epithelial Cells Urine Bacteria Blood Type Antibody Screen Crossmatch Tx React Basic Work-up Clerical Work Check Pre-Trans Blood Type Pre-Trans Vis Hemolysis Pre-Trans Antibody Scrn Post-Trans Blood Type Post-Tx Visible Hemolys Post-Trans Antibody Scrn Post-Trans LULA Poly BBK History Checked 05/27/18 05/27/18 05/27/18 05:10 05:10 05:10 WBC 2.8 L* RBC 3.22 L Hgb 10.1 L Hct 29.7 L MCV 92.2 MCH 31.4 MCHC 34.0 RDW 16.5 H Plt Count 192 MPV 8.0 Gran % 69.5 H Lymph % (Auto) 18.6 L Winston % (Auto) 8.6 H Eos % (Auto) 2.9 Baso % (Auto) 0.4 Gran # 1.94 Lymph # (Auto) 0.5 L Winston # (Auto) 0.2 Eos # (Auto) 0.1 Baso # (Auto) 0.01 PT INR APTT Sodium 136 Potassium 4.0 Chloride 107 Carbon Dioxide 25 Anion Gap 8 L BUN 35 H Creatinine 0.9 Est GFR ( Amer) > 60 Est GFR (Non-Af Amer) 59 Random Glucose 89 Calcium 8.1 L Phosphorus 2.5 Magnesium 1.8 Total Bilirubin 0.8 Pre-Trans Tot Bilirubin Post-Trans Total Bili AST 25 ALT 18 Alkaline Phosphatase 60 Total Protein 5.4 L Albumin 2.6 L Globulin 2.9 Albumin/Globulin Ratio 0.9 L Triglycerides 65 Cholesterol 119 L LDL Cholesterol Direct 46 HDL Cholesterol 41 TSH 3rd Generation 1.77 Urine Color Urine Appearance Urine pH Ur Specific [place] Urine Protein Urine Glucose (UA) Urine Ketones Urine Blood Urine Nitrate Urine Bilirubin Urine Urobilinogen Ur Leukocyte Esterase Urine RBC Urine WBC Ur Epithelial Cells Urine Bacteria Blood Type Antibody Screen Crossmatch Tx React Basic Work-up Clerical Work Check Pre-Trans Blood Type Pre-Trans Vis Hemolysis Pre-Trans Antibody Scrn Post-Trans Blood Type Post-Tx Visible Hemolys Post-Trans Antibody Scrn Post-Trans LULA Poly BBK History Checked 05/27/18 05/27/18 05:10 06:30 WBC RBC Hgb Hct MCV MCH MCHC RDW Plt Count MPV Gran % Lymph % (Auto) [place] % (Auto) Eos % (Auto) Baso % (Auto) Gran # Lymph # (Auto) Winston # (Auto) Eos # (Auto) Baso # (Auto) PT 14.6 H INR 1.26 APTT 26.5 Sodium Potassium Chloride Carbon Dioxide Anion Gap BUN Creatinine Est GFR ( Amer) Est GFR (Non-Af Amer) Random Glucose Calcium Phosphorus Magnesium Total Bilirubin Pre-Trans Tot Bilirubin Post-Trans Total Bili AST ALT Alkaline Phosphatase Total Protein Albumin Globulin Albumin/Globulin Ratio Triglycerides Cholesterol LDL Cholesterol Direct HDL Cholesterol TSH 3rd Generation Urine Color Yellow Urine Appearance Clear Urine pH 6.0 Ur Specific [place] 1.010 Urine Protein Trace H Urine Glucose (UA) Negative Urine Ketones Negative Urine Blood Large H Urine Nitrate Negative Urine Bilirubin Negative Urine Urobilinogen 1.0 H Ur Leukocyte Esterase Negative Urine RBC 10 - 15 Urine WBC 0 - 2 Ur Epithelial Cells 4 - 5 Urine Bacteria Mod Blood Type Antibody Screen Crossmatch Tx React Basic Work-up Clerical Work Check Pre-Trans Blood Type Pre-Trans Vis Hemolysis Pre-Trans Antibody Scrn Post-Trans Blood Type Post-Tx Visible Hemolys Post-Trans Antibody Scrn Post-Trans LULA Poly BBK History Checked Review of Systems - Review of Systems All systems: reviewed and no additional remarkable complaints except Review of Systems: As per HPI Critical Care Progress Note - Nutrition Nutrition: Nutrition Category Date Time Status NPO Diet [DIET] Diets 05/26/18 Breakfast Ordered Assessment/Plan - Assessment and Plan (Free Text) Assessment: 88F w/ PMH Most significant for 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 Patient was found to have a Hb of 11 on admission followed by a 2 point Hb drop within 4 hours. Patient had minor transfusion reaction in which she became febrile on 05/26 however has been relatively stable since. PLAN: Neuro: AAO3 No FND Moving all extremities past midline Reorient as needed Pulmonary: Satting well on room air O2 NC PRN Maintain Sat >95% Cardio: Hx Afib on coumadin Irreg rate; Irreg rhythm Continue to hold coumadin at thsi time Can resume Lopressor Judacious fluid use given possible hx of CHF; Echo 01/2018 EF 56% Maintain Map >65 GI: Most likely GI bleed given bloody vomitus and feeling of "something stuck in throat" No longer complaining of hemetemesis; did have bloody bowel movement yesterday, Did not comment on quality of BM today C/w NPO at this time C/w Protonix drip C/w IVF @ 75CC hour Monitor for s/s fluid overload GI following appreciate reccs Heme: Hb dropped from 11 to 9 in four hours; on admission Patient received approximately 200cc of PRBC yesterday however developed transfusion reaction (fever) during process. Reaction workup was initiated and resulted negative; however H/H improved to 10. No further complaints of bleed at this time; H/H has remained at 10 since yesterday afternoon Patient has remained HD stable; w/ INR to sub therapeutic levels at this time (1.25) 1U pRBC and 2U FFP continue to remain on standby Maintain 2 large bore IV /Nephro: Cr 0.9 Monitor urine out put Monitor BUN/Cr No dysuria/hematuria voiced at this time Patient was seen examined discussed w/ attending Dr. Tiffani Turner DO PGY1 Internal medicine [employer] - Date & Time Date: 05/27/18 Time: 11:32 <Yuri Nixon - Last Filed: 05/27/18 14:42> CCU Objective - Vital Signs / Intake & Output Intake and Output (Last 8hrs): Intake & Output 05/26/18 05/27/18 05/27/18 22:59 06:59 14:59 Intake Total 975 1240 Output Total 300 Balance 975 940 Weight 61.859 kg Intake: IV 750 1140 Right Forearm 750 1140 Oral 0 100 Blood Product 225 Red Blood Cells Cp2d As3 225 Lr Unit [id number] Output: Urine 100 Urine, Voided 100 Urine/Stool Mix 200 Other: # Bowel Movements 3 - Medications Active Medications: Active Medications Generic Name Dose Route Start Last Admin Trade Name Freq PRN Reason Stop Dose Admin Pantoprazole Sodium 40 mg in 100 mls @ 20 mls/hr 05/26/18 04:30 05/27/18 09:57 Protonix 40mg Ivpb IVPB 20 mls/hr .Q5H SUNNY Administration Sodium Chloride 1,000 mls @ 75 mls/hr 05/26/18 04:30 05/27/18 10:00 Sodium Chloride 0.9% IV 75 mls/hr .[id number] SUNNY Administration - Patient Studies Lab Studies: Lab Studies 05/27/18 05/27/18 05/27/18 Range/Units 11:40 06:30 05:10 WBC 3.3 L (4.5-11.0) 10^3/ul RBC 3.18 L (3.5-6.1) 10^6/uL Hgb 10.0 L (12.0-16.0) g/dL Hct 29.5 L (36.0-48.0) % MCV 92.8 (80.0-105.0) fl MCH 31.4 (25.0-35.0) pg MCHC 33.9 (31.0-37.0) g/dl RDW 16.5 H (11.5-14.5) % Plt Count 196 (120.0-450.0) 10^3/uL MPV 8.0 (7.0-11.0) fl Gran % 75.7 H (50.0-68.0) % Lymph % (Auto) 9.8 L (22.0-35.0) % [place] % (Auto) 11.1 H (1.0-6.0) % Eos % (Auto) 3.1 (1.5-5.0) % Baso % (Auto) 0.3 (0.0-3.0) % Gran # 2.46 (1.4-6.5) Lymph # (Auto) 0.3 L (1.2-3.4) [place] # (Auto) 0.4 (0.1-0.6) Eos # (Auto) 0.1 (0.0-0.7) Baso # (Auto) 0.01 (0.0-2.0) K/mm3 PT 14.6 H (9.4-12.5) SECONDS INR 1.26 APTT 26.5 (25.1-36.5) Seconds Sodium (132-148) mmol/L Potassium (3.6-5.0) mmol/L Chloride (98-107) mmol/L Carbon Dioxide (21-33) mmol/L Anion Gap (10-20) BUN (7-21) mg/dL Creatinine (0.7-1.2) mg/dl Est GFR ( Amer) Est GFR (Non-Af Amer) Random Glucose (70-110) mg/dL Calcium (8.4-10.5) mg/dL Phosphorus (2.5-4.5) mg/dL Magnesium (1.7-2.2) mg/dL Total Bilirubin (0.2-1.3) mg/dL Pre-Trans Tot Bilirubin (0.2-1.3) mg/dL Post-Trans Total Bili mg/dL AST (14-36) U/L ALT (7-56) U/L Alkaline Phosphatase (38-126) U/L Total Protein (5.8-8.3) g/dL Albumin (3.0-4.8) g/dL Globulin gm/dL Albumin/Globulin Ratio (1.1-1.8) Triglycerides (35-160) mg/dL Cholesterol (130-200) mg/dL LDL Cholesterol Direct (0-129) mg/dL HDL Cholesterol (29-60) mg/dL TSH 3rd Generation (0.46-4.68) mIU/mL Urine Color Yellow (YELLOW) Urine Appearance Clear (CLEAR) Urine pH 6.0 (4.7-8.0) Ur Specific [place] 1.010 (1.005-1.035) Urine Protein Trace H (<30 mg/dL) mg/dL Urine Glucose (UA) Negative (NEGATIVE) mg/dL Urine Ketones Negative (NEGATIVE) mg/dL Urine Blood Large H (NEGATIVE) Urine Nitrate Negative (NEGATIVE) Urine Bilirubin Negative (NEGATIVE) Urine Urobilinogen 1.0 H (<1 E.U./dL) E.U./dL Ur Leukocyte Esterase Negative (NEGATIVE) Marlene/uL Urine RBC 10 - 15 (0-2) /hpf Urine WBC 0 - 2 (0-6) /hpf Ur Epithelial Cells 4 - 5 (0-5) /hpf Urine Bacteria Mod (NEG) Crossmatch Tx React Basic Work-up (COMPATIBLE) Clerical Work Check Pre-Trans Blood Type Pre-Trans Vis Hemolysis Pre-Trans Antibody Scrn Post-Trans Blood Type Post-Tx Visible Hemolys Post-Trans Antibody Scrn Post-Trans LULA Poly (NEGATIVE) 05/27/18 05/27/18 05/27/18 Range/Units 05:10 05:10 05:10 WBC 2.8 L* (4.5-11.0) 10^3/ul RBC 3.22 L (3.5-6.1) 10^6/uL Hgb 10.1 L (12.0-16.0) g/dL Hct 29.7 L (36.0-48.0) % MCV 92.2 (80.0-105.0) fl MCH 31.4 (25.0-35.0) pg MCHC 34.0 (31.0-37.0) g/dl RDW 16.5 H (11.5-14.5) % Plt Count 192 (120.0-450.0) 10^3/uL MPV 8.0 (7.0-11.0) fl Gran % 69.5 H (50.0-68.0) % Lymph % (Auto) 18.6 L (22.0-35.0) % [place] % (Auto) 8.6 H (1.0-6.0) % Eos % (Auto) 2.9 (1.5-5.0) % Baso % (Auto) 0.4 (0.0-3.0) % Gran # 1.94 (1.4-6.5) Lymph # (Auto) 0.5 L (1.2-3.4) [place] # (Auto) 0.2 (0.1-0.6) Eos # (Auto) 0.1 (0.0-0.7) Baso # (Auto) 0.01 (0.0-2.0) K/mm3 PT (9.4-12.5) SECONDS INR APTT (25.1-36.5) Seconds Sodium 136 (132-148) mmol/L Potassium 4.0 (3.6-5.0) mmol/L Chloride 107 (98-107) mmol/L Carbon Dioxide 25 (21-33) mmol/L Anion Gap 8 L (10-20) BUN 35 H (7-21) mg/dL Creatinine 0.9 (0.7-1.2) mg/dl Est GFR ( Amer) > 60 Est GFR (Non-Af Amer) 59 Random Glucose 89 (70-110) mg/dL Calcium 8.1 L (8.4-10.5) mg/dL Phosphorus 2.5 (2.5-4.5) mg/dL Magnesium 1.8 (1.7-2.2) mg/dL Total Bilirubin 0.8 (0.2-1.3) mg/dL Pre-Trans Tot Bilirubin (0.2-1.3) mg/dL Post-Trans Total Bili mg/dL AST 25 (14-36) U/L ALT 18 (7-56) U/L Alkaline Phosphatase 60 (38-126) U/L Total Protein 5.4 L (5.8-8.3) g/dL Albumin 2.6 L (3.0-4.8) g/dL Globulin 2.9 gm/dL Albumin/Globulin Ratio 0.9 L (1.1-1.8) Triglycerides 65 (35-160) mg/dL Cholesterol 119 L (130-200) mg/dL LDL Cholesterol Direct 46 (0-129) mg/dL HDL Cholesterol 41 (29-60) mg/dL TSH 3rd Generation 1.77 (0.46-4.68) mIU/mL Urine Color (YELLOW) Urine Appearance (CLEAR) Urine pH (4.7-8.0) Ur Specific [place] (1.005-1.035) Urine Protein (<30 mg/dL) mg/dL Urine Glucose (UA) (NEGATIVE) mg/dL Urine Ketones (NEGATIVE) mg/dL Urine Blood (NEGATIVE) Urine Nitrate (NEGATIVE) Urine Bilirubin (NEGATIVE) Urine Urobilinogen (<1 E.U./dL) E.U./dL Ur Leukocyte Esterase (NEGATIVE) Marlene/uL Urine RBC (0-2) /hpf Urine WBC (0-6) /hpf Ur Epithelial Cells (0-5) /hpf Urine Bacteria (NEG) Crossmatch Tx React Basic Work-up (COMPATIBLE) Clerical Work Check Pre-Trans Blood Type Pre-Trans Vis Hemolysis Pre-Trans Antibody Scrn Post-Trans Blood Type Post-Tx Visible Hemolys Post-Trans Antibody Scrn Post-Trans LULA Poly (NEGATIVE) 05/27/18 05/27/18 05/27/18 Range/Units 01:45 01:45 01:45 WBC 2.9 L* (4.5-11.0) 10^3/ul RBC 3.15 L (3.5-6.1) 10^6/uL Hgb 10.0 L (12.0-16.0) g/dL Hct 29.2 L (36.0-48.0) % MCV 92.7 (80.0-105.0) fl MCH 31.7 (25.0-35.0) pg MCHC 34.2 (31.0-37.0) g/dl RDW 16.5 H (11.5-14.5) % Plt Count 175 (120.0-450.0) 10^3/uL MPV 8.0 (7.0-11.0) fl Gran % 67.3 (50.0-68.0) % Lymph % (Auto) 13.7 L (22.0-35.0) % [place] % (Auto) 15.8 H (1.0-6.0) % Eos % (Auto) 2.8 (1.5-5.0) % Baso % (Auto) 0.4 (0.0-3.0) % Gran # 1.92 (1.4-6.5) Lymph # (Auto) 0.4 L (1.2-3.4) [place] # (Auto) 0.5 (0.1-0.6) Eos # (Auto) 0.1 (0.0-0.7) Baso # (Auto) 0.01 (0.0-2.0) K/mm3 PT 15.4 H (9.4-12.5) SECONDS INR 1.34 APTT 26.0 (25.1-36.5) Seconds Sodium (132-148) mmol/L Potassium (3.6-5.0) mmol/L Chloride (98-107) mmol/L Carbon Dioxide (21-33) mmol/L Anion Gap (10-20) BUN (7-21) mg/dL Creatinine (0.7-1.2) mg/dl Est GFR ( Amer) Est GFR (Non-Af Amer) Random Glucose (70-110) mg/dL Calcium (8.4-10.5) mg/dL Phosphorus (2.5-4.5) mg/dL Magnesium (1.7-2.2) mg/dL Total Bilirubin (0.2-1.3) mg/dL Pre-Trans Tot Bilirubin (0.2-1.3) mg/dL Post-Trans Total Bili 0.8 mg/dL AST (14-36) U/L ALT (7-56) U/L Alkaline Phosphatase (38-126) U/L Total Protein (5.8-8.3) g/dL Albumin (3.0-4.8) g/dL Globulin gm/dL Albumin/Globulin Ratio (1.1-1.8) Triglycerides (35-160) mg/dL Cholesterol (130-200) mg/dL LDL Cholesterol Direct (0-129) mg/dL HDL Cholesterol (29-60) mg/dL TSH 3rd Generation (0.46-4.68) mIU/mL Urine Color (YELLOW) Urine Appearance (CLEAR) Urine pH (4.7-8.0) Ur Specific [place] (1.005-1.035) Urine Protein (<30 mg/dL) mg/dL Urine Glucose (UA) (NEGATIVE) mg/dL Urine Ketones (NEGATIVE) mg/dL Urine Blood (NEGATIVE) Urine Nitrate (NEGATIVE) Urine Bilirubin (NEGATIVE) Urine Urobilinogen (<1 E.U./dL) E.U./dL Ur Leukocyte Esterase (NEGATIVE) Marlene/uL Urine RBC (0-2) /hpf Urine WBC (0-6) /hpf Ur Epithelial Cells (0-5) /hpf Urine Bacteria (NEG) Crossmatch Tx React Basic Work-up (COMPATIBLE) Clerical Work Check Pre-Trans Blood Type Pre-Trans Vis Hemolysis Pre-Trans Antibody Scrn Post-Trans Blood Type Post-Tx Visible Hemolys Post-Trans Antibody Scrn Post-Trans LULA Poly (NEGATIVE) 05/26/18 05/26/18 05/26/18 Range/Units 21:35 21:35 16:55 WBC 3.5 L (4.5-11.0) 10^3/ul RBC 3.18 L (3.5-6.1) 10^6/uL Hgb 10.0 L (12.0-16.0) g/dL Hct 29.3 L (36.0-48.0) % MCV 92.1 (80.0-105.0) fl MCH 31.4 (25.0-35.0) pg MCHC 34.1 (31.0-37.0) g/dl RDW 16.3 H (11.5-14.5) % Plt Count 189 (120.0-450.0) 10^3/uL MPV 7.8 (7.0-11.0) fl Gran % (50.0-68.0) % Lymph % (Auto) (22.0-35.0) % [place] % (Auto) (1.0-6.0) % Eos % (Auto) (1.5-5.0) % Baso % (Auto) (0.0-3.0) % Gran # (1.4-6.5) Lymph # (Auto) (1.2-3.4) [place] # (Auto) (0.1-0.6) Eos # (Auto) (0.0-0.7) Baso # (Auto) (0.0-2.0) K/mm3 PT 15.7 H (9.4-12.5) SECONDS INR 1.37 APTT 27.1 (25.1-36.5) Seconds Sodium (132-148) mmol/L Potassium (3.6-5.0) mmol/L Chloride (98-107) mmol/L Carbon Dioxide (21-33) mmol/L Anion Gap (10-20) BUN (7-21) mg/dL Creatinine (0.7-1.2) mg/dl Est GFR ( Amer) Est GFR (Non-Af Amer) Random Glucose (70-110) mg/dL Calcium (8.4-10.5) mg/dL Phosphorus (2.5-4.5) mg/dL Magnesium (1.7-2.2) mg/dL Total Bilirubin (0.2-1.3) mg/dL Pre-Trans Tot Bilirubin 0.9 (0.2-1.3) mg/dL Post-Trans Total Bili mg/dL AST (14-36) U/L ALT (7-56) U/L Alkaline Phosphatase (38-126) U/L Total Protein (5.8-8.3) g/dL Albumin (3.0-4.8) g/dL Globulin gm/dL Albumin/Globulin Ratio (1.1-1.8) Triglycerides (35-160) mg/dL Cholesterol (130-200) mg/dL LDL Cholesterol Direct (0-129) mg/dL HDL Cholesterol (29-60) mg/dL TSH 3rd Generation (0.46-4.68) mIU/mL Urine Color (YELLOW) Urine Appearance (CLEAR) Urine pH (4.7-8.0) Ur Specific [place] (1.005-1.035) Urine Protein (<30 mg/dL) mg/dL Urine Glucose (UA) (NEGATIVE) mg/dL Urine Ketones (NEGATIVE) mg/dL Urine Blood (NEGATIVE) Urine Nitrate (NEGATIVE) Urine Bilirubin (NEGATIVE) Urine Urobilinogen (<1 E.U./dL) E.U./dL Ur Leukocyte Esterase (NEGATIVE) Marlene/uL Urine RBC (0-2) /hpf Urine WBC (0-6) /hpf Ur Epithelial Cells (0-5) /hpf Urine Bacteria (NEG) Crossmatch Tx React Basic Work-up (COMPATIBLE) Clerical Work Check Pre-Trans Blood Type Pre-Trans Vis Hemolysis Pre-Trans Antibody Scrn Post-Trans Blood Type Post-Tx Visible Hemolys Post-Trans Antibody Scrn Post-Trans LULA Poly (NEGATIVE) 05/26/18 05/26/18 05/26/18 Range/Units 16:55 16:55 16:55 WBC 4.3 L (4.5-11.0) 10^3/ul RBC 3.29 L (3.5-6.1) 10^6/uL Hgb 10.3 L (12.0-16.0) g/dL Hct 30.3 L (36.0-48.0) % MCV 92.1 (80.0-105.0) fl MCH 31.3 (25.0-35.0) pg MCHC 34.0 (31.0-37.0) g/dl RDW 16.1 H (11.5-14.5) % Plt Count 189 (120.0-450.0) 10^3/uL MPV 8.0 (7.0-11.0) fl Gran % (50.0-68.0) % Lymph % (Auto) (22.0-35.0) % [place] % (Auto) (1.0-6.0) % Eos % (Auto) (1.5-5.0) % Baso % (Auto) (0.0-3.0) % Gran # (1.4-6.5) Lymph # (Auto) (1.2-3.4) [place] # (Auto) (0.1-0.6) Eos # (Auto) (0.0-0.7) Baso # (Auto) (0.0-2.0) K/mm3 PT 16.5 H (9.4-12.5) SECONDS INR 1.44 APTT 28.7 (25.1-36.5) Seconds Sodium (132-148) mmol/L Potassium (3.6-5.0) mmol/L Chloride (98-107) mmol/L Carbon Dioxide (21-33) mmol/L Anion Gap (10-20) BUN (7-21) mg/dL Creatinine (0.7-1.2) mg/dl Est GFR ( Amer) Est GFR (Non-Af Amer) Random Glucose (70-110) mg/dL Calcium (8.4-10.5) mg/dL Phosphorus (2.5-4.5) mg/dL Magnesium (1.7-2.2) mg/dL Total Bilirubin (0.2-1.3) mg/dL Pre-Trans Tot Bilirubin (0.2-1.3) mg/dL Post-Trans Total Bili mg/dL AST (14-36) U/L ALT (7-56) U/L Alkaline Phosphatase (38-126) U/L Total Protein (5.8-8.3) g/dL Albumin (3.0-4.8) g/dL Globulin gm/dL Albumin/Globulin Ratio (1.1-1.8) Triglycerides (35-160) mg/dL Cholesterol (130-200) mg/dL LDL Cholesterol Direct (0-129) mg/dL HDL Cholesterol (29-60) mg/dL TSH 3rd Generation (0.46-4.68) mIU/mL Urine Color (YELLOW) Urine Appearance (CLEAR) Urine pH (4.7-8.0) Ur Specific [place] (1.005-1.035) Urine Protein (<30 mg/dL) mg/dL Urine Glucose (UA) (NEGATIVE) mg/dL Urine Ketones (NEGATIVE) mg/dL Urine Blood (NEGATIVE) Urine Nitrate (NEGATIVE) Urine Bilirubin (NEGATIVE) Urine Urobilinogen (<1 E.U./dL) E.U./dL Ur Leukocyte Esterase (NEGATIVE) Marlene/uL Urine RBC (0-2) /hpf Urine WBC (0-6) /hpf Ur Epithelial Cells (0-5) /hpf Urine Bacteria (NEG) Crossmatch Tx React Basic Work-up Compatible (COMPATIBLE) Clerical Work Check No discrepancy Pre-Trans Blood Type A POSITIVE Pre-Trans Vis Hemolysis No hemolysis Pre-Trans Antibody Scrn Negative Post-Trans Blood Type A POSITIVE Post-Tx Visible Hemolys No hemolysis Post-Trans Antibody Scrn Negative Post-Trans LULA Poly Negative (NEGATIVE) 05/26/18 Range/Units 09:15 WBC (4.5-11.0) 10^3/ul RBC (3.5-6.1) 10^6/uL Hgb (12.0-16.0) g/dL Hct (36.0-48.0) % MCV (80.0-105.0) fl MCH (25.0-35.0) pg MCHC (31.0-37.0) g/dl RDW (11.5-14.5) % Plt Count (120.0-450.0) 10^3/uL MPV (7.0-11.0) fl Gran % (50.0-68.0) % Lymph % (Auto) (22.0-35.0) % [place] % (Auto) (1.0-6.0) % Eos % (Auto) (1.5-5.0) % Baso % (Auto) (0.0-3.0) % Gran # (1.4-6.5) Lymph # (Auto) (1.2-3.4) [place] # (Auto) (0.1-0.6) Eos # (Auto) (0.0-0.7) Baso # (Auto) (0.0-2.0) K/mm3 PT (9.4-12.5) SECONDS INR APTT (25.1-36.5) Seconds Sodium (132-148) mmol/L Potassium (3.6-5.0) mmol/L Chloride (98-107) mmol/L Carbon Dioxide (21-33) mmol/L Anion Gap (10-20) BUN (7-21) mg/dL Creatinine (0.7-1.2) mg/dl Est GFR ( Amer) Est GFR (Non-Af Amer) Random Glucose (70-110) mg/dL Calcium (8.4-10.5) mg/dL Phosphorus (2.5-4.5) mg/dL Magnesium (1.7-2.2) mg/dL Total Bilirubin (0.2-1.3) mg/dL Pre-Trans Tot Bilirubin (0.2-1.3) mg/dL Post-Trans Total Bili mg/dL AST (14-36) U/L ALT (7-56) U/L Alkaline Phosphatase (38-126) U/L Total Protein (5.8-8.3) g/dL Albumin (3.0-4.8) g/dL Globulin gm/dL Albumin/Globulin Ratio (1.1-1.8) Triglycerides (35-160) mg/dL Cholesterol (130-200) mg/dL LDL Cholesterol Direct (0-129) mg/dL HDL Cholesterol (29-60) mg/dL TSH 3rd Generation (0.46-4.68) mIU/mL Urine Color (YELLOW) Urine Appearance (CLEAR) Urine pH (4.7-8.0) Ur Specific [place] (1.005-1.035) Urine Protein (<30 mg/dL) mg/dL Urine Glucose (UA) (NEGATIVE) mg/dL Urine Ketones (NEGATIVE) mg/dL Urine Blood (NEGATIVE) Urine Nitrate (NEGATIVE) Urine Bilirubin (NEGATIVE) Urine Urobilinogen (<1 E.U./dL) E.U./dL Ur Leukocyte Esterase (NEGATIVE) Marlene/uL Urine RBC (0-2) /hpf Urine WBC (0-6) /hpf Ur Epithelial Cells (0-5) /hpf Urine Bacteria (NEG) Crossmatch See Detail Tx React Basic Work-up (COMPATIBLE) Clerical Work Check Pre-Trans Blood Type Pre-Trans Vis Hemolysis Pre-Trans Antibody Scrn Post-Trans Blood Type Post-Tx Visible Hemolys Post-Trans Antibody Scrn Post-Trans LULA Poly (NEGATIVE) Laboratory Results - last 24 hr 05/26/18 05/26/18 05/26/18 09:15 16:55 16:55 WBC 4.3 L RBC 3.29 L Hgb 10.3 L Hct 30.3 L MCV 92.1 MCH 31.3 MCHC 34.0 RDW 16.1 H Plt Count 189 MPV 8.0 Gran % Lymph % (Auto) [place] % (Auto) Eos % (Auto) Baso % (Auto) Gran # Lymph # (Auto) [place] # (Auto) Eos # (Auto) Baso # (Auto) PT 16.5 H INR 1.44 APTT 28.7 Sodium Potassium Chloride Carbon Dioxide Anion Gap BUN Creatinine Est GFR ( Amer) Est GFR (Non-Af Amer) Random Glucose Calcium Phosphorus Magnesium Total Bilirubin Pre-Trans Tot Bilirubin Post-Trans Total Bili AST ALT Alkaline Phosphatase Total Protein Albumin Globulin Albumin/Globulin Ratio Triglycerides Cholesterol LDL Cholesterol Direct HDL Cholesterol TSH 3rd Generation Urine Color Urine Appearance Urine pH Ur Specific [place] Urine Protein Urine Glucose (UA) Urine Ketones Urine Blood Urine Nitrate Urine Bilirubin Urine Urobilinogen Ur Leukocyte Esterase Urine RBC Urine WBC Ur Epithelial Cells Urine Bacteria Crossmatch See Detail Tx React Basic Work-up Clerical Work Check Pre-Trans Blood Type Pre-Trans Vis Hemolysis Pre-Trans Antibody Scrn Post-Trans Blood Type Post-Tx Visible Hemolys Post-Trans Antibody Scrn Post-Trans LULA Poly 05/26/18 05/26/18 05/26/18 16:55 16:55 21:35 WBC 3.5 L RBC 3.18 L Hgb 10.0 L Hct 29.3 L MCV 92.1 MCH 31.4 MCHC 34.1 RDW 16.3 H Plt Count 189 MPV 7.8 Gran % Lymph % (Auto) [place] % (Auto) Eos % (Auto) Baso % (Auto) Gran # Lymph # (Auto) [place] # (Auto) Eos # (Auto) Baso # (Auto) PT INR APTT Sodium Potassium Chloride Carbon Dioxide Anion Gap BUN Creatinine Est GFR ( Amer) Est GFR (Non-Af Amer) Random Glucose Calcium Phosphorus Magnesium Total Bilirubin Pre-Trans Tot Bilirubin 0.9 Post-Trans Total Bili AST ALT Alkaline Phosphatase Total Protein Albumin Globulin Albumin/Globulin Ratio Triglycerides Cholesterol LDL Cholesterol Direct HDL Cholesterol TSH 3rd Generation Urine Color Urine Appearance Urine pH Ur Specific [place] Urine Protein Urine Glucose (UA) Urine Ketones Urine Blood Urine Nitrate Urine Bilirubin Urine Urobilinogen Ur Leukocyte Esterase Urine RBC Urine WBC Ur Epithelial Cells Urine Bacteria Crossmatch Tx React Basic Work-up Compatible Clerical Work Check No discrepancy Pre-Trans Blood Type A POSITIVE Pre-Trans Vis Hemolysis No hemolysis Pre-Trans Antibody Scrn Negative Post-Trans Blood Type A POSITIVE Post-Tx Visible Hemolys No hemolysis Post-Trans Antibody Scrn Negative Post-Trans LULA Poly Negative 05/26/18 05/27/18 05/27/18 21:35 01:45 01:45 WBC 2.9 L* RBC 3.15 L Hgb 10.0 L Hct 29.2 L MCV 92.7 MCH 31.7 MCHC 34.2 RDW 16.5 H Plt Count 175 MPV 8.0 Gran % 67.3 Lymph % (Auto) 13.7 L [place] % (Auto) 15.8 H Eos % (Auto) 2.8 Baso % (Auto) 0.4 Gran # 1.92 Lymph # (Auto) 0.4 L [place] # (Auto) 0.5 Eos # (Auto) 0.1 Baso # (Auto) 0.01 PT 15.7 H 15.4 H INR 1.37 1.34 APTT 27.1 26.0 Sodium Potassium Chloride Carbon Dioxide Anion Gap BUN Creatinine Est GFR ( Amer) Est GFR (Non-Af Amer) Random Glucose Calcium Phosphorus Magnesium Total Bilirubin Pre-Trans Tot Bilirubin Post-Trans Total Bili AST ALT Alkaline Phosphatase Total Protein Albumin Globulin Albumin/Globulin Ratio Triglycerides Cholesterol LDL Cholesterol Direct HDL Cholesterol TSH 3rd Generation Urine Color Urine Appearance Urine pH Ur Specific [place] Urine Protein Urine Glucose (UA) Urine Ketones Urine Blood Urine Nitrate Urine Bilirubin Urine Urobilinogen Ur Leukocyte Esterase Urine RBC Urine WBC Ur Epithelial Cells Urine Bacteria Crossmatch Tx React Basic Work-up Clerical Work Check Pre-Trans Blood Type Pre-Trans Vis Hemolysis Pre-Trans Antibody Scrn Post-Trans Blood Type Post-Tx Visible Hemolys Post-Trans Antibody Scrn Post-Trans LULA Poly 05/27/18 05/27/18 05/27/18 01:45 05:10 05:10 WBC RBC Hgb Hct MCV MCH MCHC RDW Plt Count MPV Gran % Lymph % (Auto) [place] % (Auto) Eos % (Auto) Baso % (Auto) Gran # Lymph # (Auto) [place] # (Auto) Eos # (Auto) Baso # (Auto) PT INR APTT Sodium 136 Potassium 4.0 Chloride 107 Carbon Dioxide 25 Anion Gap 8 L BUN 35 H Creatinine 0.9 Est GFR ( Amer) > 60 Est GFR (Non-Af Amer) 59 Random Glucose 89 Calcium 8.1 L Phosphorus 2.5 Magnesium 1.8 Total Bilirubin 0.8 Pre-Trans Tot Bilirubin Post-Trans Total Bili 0.8 AST 25 ALT 18 Alkaline Phosphatase 60 Total Protein 5.4 L Albumin 2.6 L Globulin 2.9 Albumin/Globulin Ratio 0.9 L Triglycerides 65 Cholesterol 119 L LDL Cholesterol Direct 46 HDL Cholesterol 41 TSH 3rd Generation 1.77 Urine Color Urine Appearance Urine pH Ur Specific [place] Urine Protein Urine Glucose (UA) Urine Ketones Urine Blood Urine Nitrate Urine Bilirubin Urine Urobilinogen Ur Leukocyte Esterase Urine RBC Urine WBC Ur Epithelial Cells Urine Bacteria Crossmatch Tx React Basic Work-up Clerical Work Check Pre-Trans Blood Type Pre-Trans Vis Hemolysis Pre-Trans Antibody Scrn Post-Trans Blood Type Post-Tx Visible Hemolys Post-Trans Antibody Scrn Post-Trans LULA Poly 05/27/18 05/27/18 05/27/18 05:10 05:10 06:30 WBC 2.8 L* RBC 3.22 L Hgb 10.1 L Hct 29.7 L MCV 92.2 MCH 31.4 MCHC 34.0 RDW 16.5 H Plt Count 192 MPV 8.0 Gran % 69.5 H Lymph % (Auto) 18.6 L [place] % (Auto) 8.6 H Eos % (Auto) 2.9 Baso % (Auto) 0.4 Gran # 1.94 Lymph # (Auto) 0.5 L [place] # (Auto) 0.2 Eos # (Auto) 0.1 Baso # (Auto) 0.01 PT 14.6 H INR 1.26 APTT 26.5 Sodium Potassium Chloride Carbon Dioxide Anion Gap BUN Creatinine Est GFR ( Amer) Est GFR (Non-Af Amer) Random Glucose Calcium Phosphorus Magnesium Total Bilirubin Pre-Trans Tot Bilirubin Post-Trans Total Bili AST ALT Alkaline Phosphatase Total Protein Albumin Globulin Albumin/Globulin Ratio Triglycerides Cholesterol LDL Cholesterol Direct HDL Cholesterol TSH 3rd Generation Urine Color Yellow Urine Appearance Clear Urine pH 6.0 Ur Specific [place] 1.010 Urine Protein Trace H Urine Glucose (UA) Negative Urine Ketones Negative Urine Blood Large H Urine Nitrate Negative Urine Bilirubin Negative Urine Urobilinogen 1.0 H Ur Leukocyte Esterase Negative Urine RBC 10 - 15 Urine WBC 0 - 2 Ur Epithelial Cells 4 - 5 Urine Bacteria Mod Crossmatch Tx React Basic Work-up Clerical Work Check Pre-Trans Blood Type Pre-Trans Vis Hemolysis Pre-Trans Antibody Scrn Post-Trans Blood Type Post-Tx Visible Hemolys Post-Trans Antibody Scrn Post-Trans LULA Poly 05/27/18 11:40 WBC 3.3 L RBC 3.18 L Hgb 10.0 L Hct 29.5 L MCV 92.8 MCH 31.4 MCHC 33.9 RDW 16.5 H Plt Count 196 MPV 8.0 Gran % 75.7 H Lymph % (Auto) 9.8 L Winston % (Auto) 11.1 H Eos % (Auto) 3.1 Baso % (Auto) 0.3 Gran # 2.46 Lymph # (Auto) 0.3 L [place] # (Auto) 0.4 Eos # (Auto) 0.1 Baso # (Auto) 0.01 PT INR APTT Sodium Potassium Chloride Carbon Dioxide Anion Gap BUN Creatinine Est GFR ( Amer) Est GFR (Non-Af Amer) Random Glucose Calcium Phosphorus Magnesium Total Bilirubin Pre-Trans Tot Bilirubin Post-Trans Total Bili AST ALT Alkaline Phosphatase Total Protein Albumin Globulin Albumin/Globulin Ratio Triglycerides Cholesterol LDL Cholesterol Direct HDL Cholesterol TSH 3rd Generation Urine Color Urine Appearance Urine pH Ur Specific [place] Urine Protein Urine Glucose (UA) Urine Ketones Urine Blood Urine Nitrate Urine Bilirubin Urine Urobilinogen Ur Leukocyte Esterase Urine RBC Urine WBC Ur Epithelial Cells Urine Bacteria Crossmatch Tx React Basic Work-up Clerical Work Check Pre-Trans Blood Type Pre-Trans Vis Hemolysis Pre-Trans Antibody Scrn Post-Trans Blood Type Post-Tx Visible Hemolys Post-Trans Antibody Scrn Post-Trans LULA Poly Critical Care Progress Note - Nutrition Nutrition: Nutrition Category Date Time Status Liquid Diet [DIET] Diets 05/27/18 Breakfast Ordered Addendum Addendum: 05/27/18 14:40 ICU Attending Addendum: Patient seen and examined. Case reviewed on round with housestaff. 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
--- NOTE | 2018-05-27 08:11 | HP ---
HISTORY OF PRESENT ILLNESS: The patient is an 88-year-old female, who presents to the emergency room of the [facility] complaining of emesis x2. The patient says this was of a rather sudden onset. She denies any frequent belching, nausea, diarrhea, chest pain or diaphoresis. PAST MEDICAL HISTORY: The patient's past medical history is positive for achalasia. 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 Coello. She also has a history of atrial fibrillation, congestive heart failure. She is status post cholecystectomy, status post left hip replacement in 2004, a history of congestive heart failure, noninsulin-dependent diabetes mellitus and psoriasis. SOCIAL HISTORY: She is a former smoker. She drinks a glass of wine a day. ALLERGIES: SHE HAS NO KNOWN MEDICAL ALLERGIES. MEDICATIONS AT THE TIME OF ADMISSION: Included warfarin 5 mg daily; metoprolol 12.5 mg daily; Lasix 20 mg Saturday, Saturday and Saturday; ergocalciferol 50,000 units once a week and vitamin B complex twice a day. REVIEW OF SYSTEMS: Otherwise unremarkable. PHYSICAL EXAMINATION: GENERAL: The patient is awake, alert and oriented. HEENT: Examination of the head, eyes, ears, nose and throat and unremarkable. NECK: Supple with no lymphadenopathy. No goiter. LUNGS: Clear to auscultation and percussion. HEART: Irregularly irregular. Systolic murmur is appreciated. ABDOMEN: Soft and nontender with no organomegaly. EXTREMITIES: Free of cyanosis, clubbing or edema. NEUROLOGICAL: She is awake, alert and oriented with no focal neurological signs. VITAL SIGNS: She is afebrile at 97.5 degrees Fahrenheit, blood pressure is 105/42, heart rate is 83. LABORATORY DATA: Her white blood cell count is 6.7, hemoglobin and hematocrit are 11 and 32.8 respectively, platelet count is 246. Sodium is 134, potassium 3.9, blood urea nitrogen 33, creatinine is 1.2, nonfasting glucose is 134. PT/INR is markedly elevated at 6.02. IMPRESSION: The patient is admitted to the Intensive Care Unit with and acute gastrointestinal bleed, hematemesis. Dr. Brown, from gastroenterology is called. He suggested we also call a surgical consult, so therefore a consultation with Dr. Vincent Tracy was requested. We are also consulting Dr. Coello, her oncologist. The patient will be reevaluated in the morning. She is to receive fresh frozen plasma and vitamin K to reverse her coagulopathy. Jaiden Lindsay MD [place]
--- NOTE | 2018-05-27 09:59 | CP.PCM.CON ---
History of Present Illness - History of Present Illness History of Present Illness: Gera Woods PGY2 Heme/Onc Consult Note for Dr. Coello Ms. Shearer is an 88-year-old female with a PMH of recently diagnosed squamous cell carcinoma of the esophagus (03/2018), CHF, achalasia and A. fib on Coumadin who presents with coughing up blood for 4 hours. The patient was diagnosed with esophageal squamous cell carcinoma in 03/2018 and was started on chemotherapy (5- FU) w/ Dr. Coello and radiation therapy w/ Dr. Shah. She presented with supratherapeutic INR and active coughing up of blood; In the ED, the patient was noted to have a bloody bowel movement. Patient was seen and examined at bedside in ICU. There were no acute overnight events. The patient has not had any episodes of bleeding since the time of admission. Per patient, she had a bowel movement yesterday that was nonbloody. Per ICU note, the patient developed fever when transfusing pRBC yesterday and transfusion reaction order set was ordered. She denies abdominal pain, chest pain, shortness of breath and is comfortable. Patient remains NPO, and I discussed with GI concerning advancing her diet to liquid diet if tolerated. 12-pt ROS was reviewed and is otherwise unremarkable. PMD: Angélica PMH: as above PSH: cholecystectomy, L hip ORIF Meds: as per MAR, reviewed Allergies: NKDA SHx: former tobacco user, occasional ETOH, denies drug use FHx: sister: ovarian CA Review of Systems - Review of Systems All systems: reviewed and no additional remarkable complaints except (as per HPI) Past Patient History - Infectious Disease Hx of Infectious Diseases: None - Tetanus Immunizations Tetanus Immunization: Unknown - Past Medical History & Family History Past Medical History?: Yes - Past Social History Smoking Status: Former Smoker Alcohol: Occasional Drugs: Denies - CARDIAC Hx Cardiac Disorders: Yes Hx Congestive Heart Failure: Yes Hx Pacemaker: No - PULMONARY Hx Respiratory Disorders: Yes Hx Chronic Obstructive Pulmonary Disease (COPD): Yes - NEUROLOGICAL Hx Neurological Disorder: No - HEENT Hx HEENT Problems: No - RENAL Hx Chronic Kidney Disease: No - ENDOCRINE/METABOLIC Hx Endocrine Disorders: Yes Hx Diabetes Mellitus Type 2: Yes - HEMATOLOGICAL/ONCOLOGICAL Hx Blood Disorders: Yes Other/Comment: PE - INTEGUMENTARY Hx Dermatological Problems: Yes (psoriasis) - MUSCULOSKELETAL/RHEUMATOLOGICAL Hx Musculoskeletal Disorders: Yes - GASTROINTESTINAL Hx Gastrointestinal Disorders: Yes HX Swallowing Problems: Yes Other/Comment: isabelle esophagus, echalasia - GENITOURINARY/GYNECOLOGICAL Hx Genitourinary Disorders: No - PSYCHIATRIC Hx Emotional Abuse: No Hx Physical Abuse: No Hx Substance Use: No - SURGICAL HISTORY Hx Cholecystectomy: Yes Hx Musculoskeletal Surgery: Yes (hip replacement) Hx Orthopedic Surgery: Yes (Left Hip) Other/Comment: left hip surgery 2005 - ANESTHESIA Hx Anesthesia Reactions: No Hx Malignant Hyperthermia: No Meds Allergies/Adverse Reactions: Allergies Allergy/AdvReac Type Severity Reaction Status Date / Time No Known Allergies Allergy Verified 08/15/16 02:07 - Medications Medications: Current Medications Pantoprazole Sodium (Protonix 40mg Ivpb) 40 mg in 100 mls @ 20 mls/hr IVPB .Q5H [facility] Last Admin: 05/27/18 03:30 Dose: 20 mls/hr Sodium Chloride (Sodium Chloride 0.9%) 1,000 mls @ 75 mls/hr IV .[id number] [facility] Last Admin: 05/26/18 18:53 Dose: 75 mls/hr Metoprolol Tartrate (Lopressor) 12.5 mg PO DAILY [facility] Physical Exam - Constitutional Appears: Well, Non-toxic, No Acute Distress - Head Exam Head Exam: NORMAL INSPECTION - Eye Exam Eye Exam: EOMI, Normal appearance, PERRL - ENT Exam ENT Exam: Mucous Membranes Moist - Respiratory Exam Respiratory Exam: NORMAL BREATHING PATTERN - Cardiovascular Exam Cardiovascular Exam: Irregular Rhythm, Systolic Murmur. absent: Tachycardia, REGULAR RHYTHM - GI/Abdominal Exam GI & Abdominal Exam: Soft. absent: Distended, Tenderness Additional comments: g-tube in place - Extremities Exam Extremities exam: Positive for: full ROM. Negative for: pedal edema - Neurological Exam Neurological exam: Alert, CN II-XII Intact, Oriented x3 - Psychiatric Exam Psychiatric exam: Normal Mood - Skin Skin Exam: Normal Color Results - Vital Signs Recent Vital Signs: Last Vital Signs Temp 98.7 F 05/26/18 19:00 Pulse 80 05/27/18 06:20 Resp 19 05/27/18 06:20 BP 139/90 05/27/18 06:00 Pulse Ox 99 05/27/18 06:20 - Labs Result Diagrams: 05/27/18 11:40 05/27/18 05:10 Labs: Laboratory Results - last 24 hr 05/26/18 05/26/18 05/26/18 09:15 13:00 16:55 WBC 4.0 L D 4.3 L RBC 2.94 L 3.29 L Hgb 9.2 L 10.3 L Hct 27.3 L 30.3 L MCV 92.9 92.1 MCH 31.3 31.3 MCHC 33.7 34.0 RDW 16.5 H 16.1 H Plt Count 199 189 MPV 8.0 8.0 Gran % Lymph % (Auto) Treasure % (Auto) Eos % (Auto) Baso % (Auto) Gran # Lymph # (Auto) Treasure # (Auto) Eos # (Auto) Baso # (Auto) PT INR APTT Sodium Potassium Chloride Carbon Dioxide Anion Gap BUN Creatinine Est GFR ( Amer) Est GFR (Non-Af Amer) Random Glucose Calcium Phosphorus Magnesium Total Bilirubin Pre-Trans Tot Bilirubin Post-Trans Total Bili AST ALT Alkaline Phosphatase Total Protein Albumin Globulin Albumin/Globulin Ratio Triglycerides Cholesterol LDL Cholesterol Direct HDL Cholesterol TSH 3rd Generation Urine Color Urine Appearance Urine pH Ur Specific Roby Urine Protein Urine Glucose (UA) Urine Ketones Urine Blood Urine Nitrate Urine Bilirubin Urine Urobilinogen Ur Leukocyte Esterase Urine RBC Urine WBC Ur Epithelial Cells Urine Bacteria Blood Type A POSITIVE Antibody Screen Negative Crossmatch See Detail Tx React Basic Work-up Clerical Work Check Pre-Trans Blood Type Pre-Trans Vis Hemolysis Pre-Trans Antibody Scrn Post-Trans Blood Type Post-Tx Visible Hemolys Post-Trans Antibody Scrn Post-Trans LULA Poly BBK History Checked Patient has bt 05/26/18 05/26/18 05/26/18 16:55 16:55 16:55 WBC RBC Hgb Hct MCV MCH MCHC RDW Plt Count MPV Gran % Lymph % (Auto) Treasure % (Auto) Eos % (Auto) Baso % (Auto) Gran # Lymph # (Auto) Treasure # (Auto) Eos # (Auto) Baso # (Auto) PT 16.5 H INR 1.44 APTT 28.7 Sodium Potassium Chloride Carbon Dioxide Anion Gap BUN Creatinine Est GFR ( Amer) Est GFR (Non-Af Amer) Random Glucose Calcium Phosphorus Magnesium Total Bilirubin Pre-Trans Tot Bilirubin 0.9 Post-Trans Total Bili AST ALT Alkaline Phosphatase Total Protein Albumin Globulin Albumin/Globulin Ratio Triglycerides Cholesterol LDL Cholesterol Direct HDL Cholesterol TSH 3rd Generation Urine Color Urine Appearance Urine pH Ur Specific Roby Urine Protein Urine Glucose (UA) Urine Ketones Urine Blood Urine Nitrate Urine Bilirubin Urine Urobilinogen Ur Leukocyte Esterase Urine RBC Urine WBC Ur Epithelial Cells Urine Bacteria Blood Type Antibody Screen Crossmatch Tx React Basic Work-up Compatible Clerical Work Check No discrepancy Pre-Trans Blood Type A POSITIVE Pre-Trans Vis Hemolysis No hemolysis Pre-Trans Antibody Scrn Negative Post-Trans Blood Type A POSITIVE Post-Tx Visible Hemolys No hemolysis Post-Trans Antibody Scrn Negative Post-Trans LULA Poly Negative BBK History Checked 05/26/18 05/26/18 05/27/18 21:35 21:35 01:45 WBC 3.5 L 2.9 L* RBC 3.18 L 3.15 L Hgb 10.0 L 10.0 L Hct 29.3 L 29.2 L MCV 92.1 92.7 MCH 31.4 31.7 MCHC 34.1 34.2 RDW 16.3 H 16.5 H Plt Count 189 175 MPV 7.8 8.0 Gran % 67.3 Lymph % (Auto) 13.7 L Treasure % (Auto) 15.8 H Eos % (Auto) 2.8 Baso % (Auto) 0.4 Gran # 1.92 Lymph # (Auto) 0.4 L Treasure # (Auto) 0.5 Eos # (Auto) 0.1 Baso # (Auto) 0.01 PT 15.7 H INR 1.37 APTT 27.1 Sodium Potassium Chloride Carbon Dioxide Anion Gap BUN Creatinine Est GFR ( Amer) Est GFR (Non-Af Amer) Random Glucose Calcium Phosphorus Magnesium Total Bilirubin Pre-Trans Tot Bilirubin Post-Trans Total Bili AST ALT Alkaline Phosphatase Total Protein Albumin Globulin Albumin/Globulin Ratio Triglycerides Cholesterol LDL Cholesterol Direct HDL Cholesterol TSH 3rd Generation Urine Color Urine Appearance Urine pH Ur Specific Roby Urine Protein Urine Glucose (UA) Urine Ketones Urine Blood Urine Nitrate Urine Bilirubin Urine Urobilinogen Ur Leukocyte Esterase Urine RBC Urine WBC Ur Epithelial Cells Urine Bacteria Blood Type Antibody Screen Crossmatch Tx React Basic Work-up Clerical Work Check Pre-Trans Blood Type Pre-Trans Vis Hemolysis Pre-Trans Antibody Scrn Post-Trans Blood Type Post-Tx Visible Hemolys Post-Trans Antibody Scrn Post-Trans LULA Poly BBK History Checked 05/27/18 05/27/18 05/27/18 01:45 01:45 05:10 WBC RBC Hgb Hct MCV MCH MCHC RDW Plt Count MPV Gran % Lymph % (Auto) Treasure % (Auto) Eos % (Auto) Baso % (Auto) Gran # Lymph # (Auto) Treasure # (Auto) Eos # (Auto) Baso # (Auto) PT 15.4 H INR 1.34 APTT 26.0 Sodium 136 Potassium 4.0 Chloride 107 Carbon Dioxide 25 Anion Gap 8 L BUN 35 H Creatinine 0.9 Est GFR ( Amer) > 60 Est GFR (Non-Af Amer) 59 Random Glucose 89 Calcium 8.1 L Phosphorus 2.5 Magnesium 1.8 Total Bilirubin 0.8 Pre-Trans Tot Bilirubin Post-Trans Total Bili 0.8 AST 25 ALT 18 Alkaline Phosphatase 60 Total Protein 5.4 L Albumin 2.6 L Globulin 2.9 Albumin/Globulin Ratio 0.9 L Triglycerides 65 Cholesterol 119 L LDL Cholesterol Direct 46 HDL Cholesterol 41 TSH 3rd Generation Urine Color Urine Appearance Urine pH Ur Specific Roby Urine Protein Urine Glucose (UA) Urine Ketones Urine Blood Urine Nitrate Urine Bilirubin Urine Urobilinogen Ur Leukocyte Esterase Urine RBC Urine WBC Ur Epithelial Cells Urine Bacteria Blood Type Antibody Screen Crossmatch Tx React Basic Work-up Clerical Work Check Pre-Trans Blood Type Pre-Trans Vis Hemolysis Pre-Trans Antibody Scrn Post-Trans Blood Type Post-Tx Visible Hemolys Post-Trans Antibody Scrn Post-Trans LULA Poly BBK History Checked 05/27/18 05/27/18 05/27/18 05:10 05:10 05:10 WBC 2.8 L* RBC 3.22 L Hgb 10.1 L Hct 29.7 L MCV 92.2 MCH 31.4 MCHC 34.0 RDW 16.5 H Plt Count 192 MPV 8.0 Gran % 69.5 H Lymph % (Auto) 18.6 L Treasure % (Auto) 8.6 H Eos % (Auto) 2.9 Baso % (Auto) 0.4 Gran # 1.94 Lymph # (Auto) 0.5 L Treasure # (Auto) 0.2 Eos # (Auto) 0.1 Baso # (Auto) 0.01 PT 14.6 H INR 1.26 APTT 26.5 Sodium Potassium Chloride Carbon Dioxide Anion Gap BUN Creatinine Est GFR ( Amer) Est GFR (Non-Af Amer) Random Glucose Calcium Phosphorus Magnesium Total Bilirubin Pre-Trans Tot Bilirubin Post-Trans Total Bili AST ALT Alkaline Phosphatase Total Protein Albumin Globulin Albumin/Globulin Ratio Triglycerides Cholesterol LDL Cholesterol Direct HDL Cholesterol TSH 3rd Generation 1.77 Urine Color Urine Appearance Urine pH Ur Specific Roby Urine Protein Urine Glucose (UA) Urine Ketones Urine Blood Urine Nitrate Urine Bilirubin Urine Urobilinogen Ur Leukocyte Esterase Urine RBC Urine WBC Ur Epithelial Cells Urine Bacteria Blood Type Antibody Screen Crossmatch Tx React Basic Work-up Clerical Work Check Pre-Trans Blood Type Pre-Trans Vis Hemolysis Pre-Trans Antibody Scrn Post-Trans Blood Type Post-Tx Visible Hemolys Post-Trans Antibody Scrn Post-Trans LULA Poly BBK History Checked 05/27/18 06:30 WBC RBC Hgb Hct MCV MCH MCHC RDW Plt Count MPV Gran % Lymph % (Auto) Treasure % (Auto) Eos % (Auto) Baso % (Auto) Gran # Lymph # (Auto) Treasure # (Auto) Eos # (Auto) Baso # (Auto) PT INR APTT Sodium Potassium Chloride Carbon Dioxide Anion Gap BUN Creatinine Est GFR ( Amer) Est GFR (Non-Af Amer) Random Glucose Calcium Phosphorus Magnesium Total Bilirubin Pre-Trans Tot Bilirubin Post-Trans Total Bili AST ALT Alkaline Phosphatase Total Protein Albumin Globulin Albumin/Globulin Ratio Triglycerides Cholesterol LDL Cholesterol Direct HDL Cholesterol TSH 3rd Generation Urine Color Yellow Urine Appearance Clear Urine pH 6.0 Ur Specific Roby 1.010 Urine Protein Trace H Urine Glucose (UA) Negative Urine Ketones Negative Urine Blood Large H Urine Nitrate Negative Urine Bilirubin Negative Urine Urobilinogen 1.0 H Ur Leukocyte Esterase Negative Urine RBC 10 - 15 Urine WBC 0 - 2 Ur Epithelial Cells 4 - 5 Urine Bacteria Mod Blood Type Antibody Screen Crossmatch Tx React Basic Work-up Clerical Work Check Pre-Trans Blood Type Pre-Trans Vis Hemolysis Pre-Trans Antibody Scrn Post-Trans Blood Type Post-Tx Visible Hemolys Post-Trans Antibody Scrn Post-Trans LULA Poly BBK History Checked Assessment & Plan - Assessment and Plan (Free Text) Assessment: 88-year-old female with a PMH of recently diagnosed squamous cell carcinoma of the esophagus (03/2018), CHF, achalasia and A. fib on Coumadin who presents with GI bleed, likely due to her malignancy, found to have supratherapeutic INR. Patient was started on PTX gtt and given vitamin K and responded well, and has not had episodes of bleeding and INR level decreased. Her Coumadin has been held. Plan: cont PTX gtt GI following, recs appreciated NPO, advance diet as tolerated (pt is on pureed diet at home) per GI If transfusing blood products, please pre-medicate with Benadryl 25mg PO, Tylenol 650mg PO, and Solu-corted 50mg IVP will cont chemo ever other week to avoid medication interaction with Coumadin Coumadin should be dosed for goal INR 1.6-1.8 to avoid bleeding XRT per Dr. Shah Further recs per Dr. Coello Case was reviewed and discussed with attending, Dr. Oumou Woods PGY2
[2018-05-27] MEDS: Sodium Chloride 0.9% 1,000 ML IV SCH ×2 (10:00→21:40)
--- NOTE | 2018-05-27 10:07 | CP.PCM.PN ---
<Lenard Fischer - Last Filed: 05/27/18 17:36> Subjective - Date & Time of Evaluation Date of Evaluation: 05/27/18 Time of Evaluation: 07:25 - Subjective Subjective: PGY-4 GI Fellow Prog Note Pt lying in bed when seen this AM. States no further hematemesis since yesterday AM. States she is having BMs but is not sure what they look like. Denies abd pain and is eager to eat. 5 point ROS negative other than stated above Objective - Vital Signs/Intake and Output Vital Signs (last 24 hours): Temp Pulse Resp BP Pulse Ox 98.7 F 86 19 139/84 99 05/26/18 19:00 05/27/18 09:56 05/27/18 06:20 05/27/18 09:56 05/27/18 06:20 Intake and Output: 05/27/18 05/27/18 06:59 18:59 Intake Total 1240 Output Total 300 Balance 940 - Medications Medications: Current Medications Pantoprazole Sodium (Protonix 40mg Ivpb) 40 mg in 100 mls @ 20 mls/hr IVPB .Q5H [facility] Last Admin: 05/27/18 09:57 Dose: 20 mls/hr Sodium Chloride (Sodium Chloride 0.9%) 1,000 mls @ 75 mls/hr IV .[id number] [facility] Last Admin: 05/27/18 10:00 Dose: 75 mls/hr Metoprolol Tartrate (Lopressor) 12.5 mg PO DAILY [facility] Last Admin: 05/27/18 09:56 Dose: 12.5 mg - Labs Labs: 05/27/18 05:10 05/27/18 05:10 PT 14.6 SECONDS (9.4-12.5) H 05/27/18 05:10 INR 1.26 05/27/18 05:10 APTT 26.5 Seconds (25.1-36.5) 05/27/18 05:10 - Constitutional Appears: Well, Non-toxic, No Acute Distress - Head Exam Head Exam: ATRAUMATIC, NORMAL INSPECTION - Eye Exam Eye Exam: EOMI. absent: Conjunctival injection, Scleral icterus - ENT Exam ENT Exam: Mucous Membranes Dry, Normal External Ear Exam. absent: Mucous M embranes Moist - Respiratory Exam Respiratory Exam: NORMAL BREATHING PATTERN. absent: Accessory Muscle Use - Cardiovascular Exam Cardiovascular Exam: REGULAR RHYTHM, RRR - GI/Abdominal Exam GI & Abdominal Exam: Normal Bowel Sounds. absent: Bruit, Distended, Firm, Guarding, Rigid, Soft, Tenderness, Hernia, Hyperactive Bowel Sounds, Hypoactive Bowel Sounds, Mass, Organomegaly, Pulsatile Mass, Rebound Additional comments: +PEG in place Assessment and Plan - Assessment and Plan (Free Text) Assessment: 88 yo WF with SCC on chemo + XRT, Afib on AC presenting with hematemesis. # Hematemesis: Improved. Most likely related to known underlying SCC currently on XRT predispositing to irritation and injury to the area along with supratherapeutic INR. 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 # Supratherapeutic INR: Resolved. 6 on presentation. On coumadin due to pAF. Active GI bleed upon presentation. Plan: - PPI gtt -> IV BID - Coagulopathy improved with FFP, IV Vit K - Monitor H&H and INR - 2 large bore IVs - Type and screen - Appreciate Onc and Cardiology consults --- Risk of AC > benefits given GI malignancy undergoing treatment? - Clear Liq diet today, puree tomorrow if no signs of bleeding - Hold off on endoscopy at this time Thank you for the consult. Will cont to follow. Pt seen and examined with Dr. Brown <Elba Brown V - Last Filed: 05/28/18 00:18> Objective - Vital Signs/Intake and Output Vital Signs (last 24 hours): Temp Pulse Resp BP Pulse Ox 98.7 F 89 32 H 99/65 L 99 05/26/18 19:00 05/27/18 16:52 05/27/18 16:46 05/27/18 16:00 05/27/18 06:20 Intake and Output: 05/27/18 05/28/18 18:59 06:59 Intake Total 2100 Output Total 1150 Balance 950 - Medications Medications: Current Medications Sodium Chloride (Sodium Chloride 0.9%) 1,000 mls @ 75 mls/hr IV .[id number] [facility] Last Admin: 05/27/18 21:40 Dose: 75 mls/hr Pantoprazole Sodium (Protonix Inj) 40 mg IVP Q12 SUNNY - Labs Labs: 05/27/18 11:40 10/02/18 05:10 PT 14.6 SECONDS (9.4-12.5) H 05/27/18 05:10 INR 1.26 05/27/18 05:10 APTT 26.5 Seconds (25.1-36.5) 05/27/18 05:10 Attending/Attestation - Attestation I have personally seen and examined this patient.: Yes I have fully participated in the care of the patient.: Yes I have reviewed all pertinent clinical information, including history, physical exam and plan: Yes Notes (Text): This is an addendum to GI progress report dictated by the GI Fellow.The patient was seen and examined earlier. Medical records, lab studies, imagings were reviewed. Last 24 hours events reviewed. Agreed with the above treatment plan as outlined in GI Fellow 's notes with the addition of the following No further episodes of bleeding HCT remains stable History of esophageal squamous cell carcinoma On chemo radiation therapy Coagulopathy Family prefers conservative management at present time Discussed with PCP 05/28/18 00:18
[2018-05-27 11:55] LABS: BASO # 0.01 K/mm3 (0.0-2.0); BASO % 0.3 % (0.0-3.0); EOS # 0.1 (0.0-0.7); EOS % 3.1 % (1.5-5.0); GRAN # 2.46 (1.4-6.5); GRAN % 75.7 % (50.0-68.0); LYMPH # 0.3 (1.2-3.4); LYMPH % 9.8 % (22.0-35.0); MEAN CELL VOLUME 92.8 fl (80.0-105.0); MEAN CORPUSCULAR HEMOGLOBIN 31.4 pg (25.0-35.0); MEAN CORPUSCULAR HGB CONC 33.9 g/dl (31.0-37.0); MONO # 0.4 (0.1-0.6); MONO % 11.1 % (1.0-6.0); RBC 3.18 10^6/uL (3.5-6.1); RED CELL DISTRIBUTION WIDTH 16.5 % (11.5-14.5); WHITE BLOOD COUNT 3.3 10^3/ul (4.5-11.0)
--- NOTE | 2018-05-27 13:35 | PN ---
DATE: 05/27/2018 REASON FOR THE CONSULTATION AND FOLLOWYUP: Atrial fibrillation, GI bleed, Coumadin toxicity, admitting INR 6.02, cardiac evaluation. SUBJECTIVE: The patient denies any chest pain, shortness of breath or any palpitations. No further episode of vomiting blood noted. PHYSICAL EXAMINATION: VITAL SIGNS: Temperature afebrile, heart rate 80, blood pressure 139/90. HEENT: PERRLA. Extraocular muscles intact. NECK: Supple. No carotid bruit or thyromegaly. CHEST: Clear to auscultation. HEART: S1, S2 regular. ABDOMEN: Soft. EXTREMITIES: Clubbing and cyanosis negative. LABORATORY DATA: Blood workup as follows: WBC 2.8, hemoglobin 10.1, hematocrit 29.7, platelet count 197. Chemistry shows sodium 139, potassium 4, chloride 107, carbon dioxide 25, anion gap of 8, BUN 35, creatinine 0.9, calcium 8.5, phosphorus 2.5, magnesium 1.8, total protein 5.4, albumin 2.6, TSH 1.77. IMPRESSION: An 88-year-old female with past medical history significant for atrial fibrillation, history of cancer of esophagus, getting chemo, chronic obstructive pulmonary disease, history of congestive heart failure, history of aortic stenosis, past history significant for chronic atrial fibrillation, admitted yesterday with gastrointestinal bleed as well as Coumadin toxicity, admitting iron was 6.02, now the patient is fairly stable. No further episode of bleeding noted. History of deep venous thrombosis, history of pulmonary embolism in the past, history of past diabetes mellitus, hypothyroidism, hypertension. The patient's last echo date 02/11/2018 shows the left ventricle size is normal, mild concentric left ventricular hypertrophy, ejection fraction 55 to 60%, right ventricle mild to moderately dilated, right ventricular systolic function is normal, moderate aortic regurgitation, [id number] valvular aortic stenosis, mild mitral regurgitation, moderate tricuspid regurgitation, [id number] pulmonary insufficiency, right ventricular systolic pressure of 45 consistent with mild pulmonary hypertension. RECOMMENDATIONS: The patient can go to endoscopy if needed, a colonoscopy if needed. Repeat INR was 1.26, once it is done endoscopy and the patient found to be no active bleeding, we will resume back Coumadin if no active bleeding. For the time being, continue low-dose beta tripp, continue gentle diuretics, on hold because the patient is getting IV fluids. Further recommendations will be made as the patient's condition and hospital course. We will follow with you. Nicolette Cox MD
--- NOTE | 2018-05-27 23:12 | PN ---
DATE: 05/27/2018 SUBJECTIVE: The patient was seen this Saturday in the intensive care, coronary care bed 6. She is sitting out of bed in a chair comfortable and in good spirits. Happy that her diet has just been increased to clear liquids. There was no plan for endoscopy to be performed. There has been no further bleeding or hematemesis. The patient's questions revolve around her continued radiation therapy and/or chemotherapy due next Saturday, 8 days from today. PHYSICAL EXAMINATION GENERAL: The patient appears well and in good spirits. LUNGS: Show good aeration right and left. HEART: Regular, not tachycardic. EXTREMITIES: Show no edema. PLAN: We will check with Oncology and Radiation Therapy. The patient will be able to leave the unit. Advance to a clear liquid diet and then further as tolerated. Later in the day, the case was discussed with GI, Dr. Brown. We will increase the diet and watch for further signs of bleeding. Follow serial H and H. Vincent Lindsay MD
[2018-05-28 07:07] LABS: BASO # 0.01 K/mm3 (0.0-2.0); BASO % 0.4 % (0.0-3.0); EOS # 0.1 (0.0-0.7); GRAN # 1.78 (1.4-6.5); GRAN % 66.6 % (50.0-68.0); HEMOGLOBIN 9.5 g/dL (12.0-16.0); LYMPH # 0.4 (1.2-3.4); LYMPH % 13.5 % (22.0-35.0); MEAN CELL VOLUME 93.8 fl (80.0-105.0); MEAN CORPUSCULAR HGB CONC 33.1 g/dl (31.0-37.0); MEAN PLATELET VOLUME 7.9 fl (7.0-11.0); MONO # 0.4 (0.1-0.6); MONO % 16.5 % (1.0-6.0); RBC 3.06 10^6/uL (3.5-6.1); RED CELL DISTRIBUTION WIDTH 16.7 % (11.5-14.5)
--- NOTE | 2018-05-28 07:22 | CP.PCM.PN ---
<Lenard Fischer - Last Filed: 05/28/18 09:53> Subjective - Date & Time of Evaluation Date of Evaluation: 05/28/18 Time of Evaluation: 06:50 - Subjective Subjective: PGY-4 GI Fellow Prog Note Pt lying in bed when seen this AM. States feels tired but no further hematemesis nor any abd pain. States she is moving bowels has not seen them. 5 point ROS negative other than stated above Objective - Vital Signs/Intake and Output Vital Signs (last 24 hours): Temp Pulse Resp BP Pulse Ox 98.7 F 89 32 H 99/65 L 99 05/26/18 19:00 05/27/18 16:52 05/27/18 16:46 05/27/18 16:00 05/27/18 06:20 Intake and Output: 05/28/18 05/28/18 06:59 18:59 Intake Total 900 Output Total 650 Balance 250 - Medications Medications: Current Medications Sodium Chloride (Sodium Chloride 0.9%) 1,000 mls @ 75 mls/hr IV .[id number] [facility] Last Admin: 05/27/18 21:40 Dose: 75 mls/hr Pantoprazole Sodium (Protonix Inj) 40 mg IVP Q12 [facility] - Labs Labs: 05/27/18 11:40 05/27/18 05:10 PT 14.6 SECONDS (9.4-12.5) H 05/27/18 05:10 INR 1.26 05/27/18 05:10 APTT 26.5 Seconds (25.1-36.5) 05/27/18 05:10 - Constitutional Appears: Well, Non-toxic - Head Exam Head Exam: ATRAUMATIC, NORMAL INSPECTION - Eye Exam Eye Exam: EOMI. absent: Conjunctival injection, Scleral icterus - ENT Exam ENT Exam: Mucous Membranes Moist. absent: Mucous Membranes Dry, Normal External Ear Exam - Respiratory Exam Respiratory Exam: Clear to Ausculation Bilateral, NORMAL BREATHING PATTERN. absent: Accessory Muscle Use - Cardiovascular Exam Cardiovascular Exam: REGULAR RHYTHM, RRR - GI/Abdominal Exam GI & Abdominal Exam: Soft, Normal Bowel Sounds. 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 # Hematemesis: Resolved. Most likely related to known underlying SCC currently on XRT predisposing to irritation and injury to the area along with supratherapeutic INR. 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 # Supratherapeutic INR: Resolved. 6 on presentation. On coumadin due to pAF. Active GI bleed upon presentation. Coagulopathy improved with FFP, IV Vit K. Plan: - PPI IV BID to PO or via PEG - Monitor H&H and INR - Appreciate Onc and Cardiology consults --- Risk of AC > benefits given GI malignancy undergoing treatment? - Puree diet today - Hold off on endoscopy at this time Thank you for the consult. Will cont to follow. Pt seen and examined with Dr. Brown <Elba Brown V - Last Filed: 05/28/18 23:34> Objective - Vital Signs/Intake and Output Vital Signs (last 24 hours): Temp Pulse Resp BP Pulse Ox 98.2 F 84 18 141/93 H 93 L 05/28/18 06:00 05/28/18 12:19 05/28/18 12:19 05/28/18 12:19 05/28/18 12:19 Intake and Output: 05/28/18 05/29/18 18:59 06:59 Intake Total 1600 Output Total 200 Balance 1400 - Medications Medications: Current Medications Atorvastatin Calcium (Lipitor) 40 mg PO DIN [facility] Last Admin: 05/28/18 17:17 Dose: 40 mg Sodium Chloride (Sodium Chloride 0.9%) 1,000 mls @ 75 mls/hr IV .[id number] [facility] Last Admin: 05/28/18 12:47 Dose: 75 mls/hr Levetiracetam 250 mg/ Sodium (Chloride) 102.5 mls @ 460 mls/hr IV Q12 [facility] Pantoprazole Sodium (Protonix Inj) 40 mg IVP Q12 [facility] Last Admin: 05/28/18 10:00 Dose: Not Given - Labs Labs: 05/28/18 06:15 05/28/18 06:15 PT 14.6 SECONDS (9.4-12.5) H 05/27/18 05:10 INR 1.26 10/02/18 05:10 APTT 26.5 Seconds (25.1-36.5) 05/27/18 05:10 Attending/Attestation - Attestation I have personally seen and examined this patient.: Yes I have fully participated in the care of the patient.: Yes I have reviewed all pertinent clinical information, including history, physical exam and plan: Yes Notes (Text): This is an addendum to GI progress report dictated by the GI Fellow.The patient was seen and examined earlier. Medical records, lab studies, imagings were reviewed. Last 24 hours events reviewed. Agreed with the above treatment plan as outlined in GI Fellow 's notes with the addition of the following Patient was started on pured diet no further episodes of bleeding Unfortunately patient developed acute CVA Follow-up closely clinical status Discussed with PCP earlier 05/28/18 23:33
[2018-05-28 07:23] LABS: ALB/GLOB RATIO 0.9 (1.1-1.8); ALBUMIN 2.3 g/dL (3.0-4.8); ALT/SGPT 23 U/L (7-56); AST/SGOT 24 U/L (14-36); BLOOD UREA NITROGEN 23 mg/dL (7-21); CALCIUM 7.7 mg/dL (8.4-10.5); GFR NON-AFRICAN AMERICAN > 60
[2018-05-28 07:26] LABS: WHITE BLOOD COUNT 2.7 10^3/ul (4.5-11.0)
--- NOTE | 2018-05-28 07:28 | CP.PCM.PN ---
Subjective - Date & Time of Evaluation Date of Evaluation: 05/28/18 Time of Evaluation: 06:25 - Subjective Subjective: Awake, lying in bed,no distress,denies chest pain Reason for consultation and follow up: Cardiac evaluation of atrial fibrillation,coumadin toxicity, admitting INR 6.02, admitted for hematemesis Seen and examined by me and Objective - Vital Signs/Intake and Output Vital Signs (last 24 hours): Temp Pulse Resp BP Pulse Ox 98.7 F 89 32 H 99/65 L 99 05/26/18 19:00 05/27/18 16:52 05/27/18 16:46 05/27/18 16:00 05/27/18 06:20 Intake and Output: 05/28/18 05/28/18 06:59 18:59 Intake Total 900 Output Total 650 Balance 250 - Medications Medications: Current Medications Sodium Chloride (Sodium Chloride 0.9%) 1,000 mls @ 75 mls/hr IV .[id number] [facility] Last Admin: 05/27/18 21:40 Dose: 75 mls/hr Pantoprazole Sodium (Protonix Inj) 40 mg IVP Q12 [facility] - Labs Labs: 05/27/18 11:40 05/28/18 06:15 PT 14.6 SECONDS (9.4-12.5) H 05/27/18 05:10 INR 1.26 05/27/18 05:10 APTT 26.5 Seconds (25.1-36.5) 05/27/18 05:10 - Constitutional Appears: Non-toxic, No Acute Distress - Head Exam Head Exam: NORMAL INSPECTION, NORMOCEPHALIC - Eye Exam Eye Exam: Normal appearance - ENT Exam ENT Exam: Mucous Membranes Moist - Respiratory Exam Respiratory Exam: Decreased Breath Sounds, Clear to Ausculation Bilateral, NORMAL BREATHING PATTERN - Cardiovascular Exam Cardiovascular Exam: Irregular Rhythm, +S1, +S2 Additional comments: 80'-90's/min - GI/Abdominal Exam GI & Abdominal Exam: Soft, Normal Bowel Sounds - Extremities Exam Extremities Exam: Normal Capillary Refill, Normal Inspection - Neurological Exam Neurological Exam: Alert, Awake, Oriented x3 - Psychiatric Exam Psychiatric exam: Normal Affect, Normal Mood - Skin Skin Exam: Intact, Normal Color, Warm Assessment and Plan - Assessment and Plan (Free Text) Assessment: A 88 year old female who came in to the ER due to GI bleeding and Coumadin tox icity (INR 6.02). history of chronic atrial fibrillation, COPD, CHF, aortic stenosis, cancer of esophagus having chemotherapy, history of DVT and pulmonary embolism,diabetes mellitus, hypertension, hypothyroisdism, She was given FFP and PRBC. stabilized. Coumadin on hold. GI on consult. Plan: Denies chest pain Heart rate controlled Blood pressure controlled Stable cardiac status H/H 9.5/28.7, no signs of bleeding GI on consult Continue IV hydration Continue current treatment Continue current medications Chart reviewed Will follow up Plan and treatment discussed with Dr. Cox
--- NOTE | 2018-05-28 11:29 | CP.PCM.PN ---
Subjective - Date & Time of Evaluation Date of Evaluation: 05/28/18 Time of Evaluation: 09:45 - Subjective Subjective: Gera Woods PGY2 Heme/Onc Progress Note for Dr. Coello Patient was seen and examined at bedside. She states that she is tolerating her diet and had not had episodes of hematemesis or episodes of bloody stools since time of admission. She is stable and tolerating her liquid diet. She denies fevers/chills, nausea/vomiting, chest pain. Objective - Vital Signs/Intake and Output Vital Signs (last 24 hours): Temp Pulse Resp BP Pulse Ox 98.2 F 77 20 127/83 99 05/28/18 06:00 05/28/18 06:00 05/28/18 06:00 05/28/18 06:00 05/28/18 06:00 Intake and Output: 05/28/18 05/28/18 06:59 18:59 Intake Total 900 Output Total 650 Balance 250 - Medications Medications: Current Medications Sodium Chloride (Sodium Chloride 0.9%) 1,000 mls @ 75 mls/hr IV .[id number] [facility] Last Admin: 05/27/18 21:40 Dose: 75 mls/hr Pantoprazole Sodium (Protonix Inj) 40 mg IVP Q12 [facility] Last Admin: 05/28/18 09:20 Dose: 40 mg - Labs Labs: 05/28/18 06:15 05/28/18 06:15 PT 14.6 SECONDS (9.4-12.5) H 05/27/18 05:10 INR 1.26 05/27/18 05:10 APTT 26.5 Seconds (25.1-36.5) 05/27/18 05:10 - Additional Findings Additional findings: - Constitutional Appears: Well, Non-toxic, No Acute Distress - Head Exam Head Exam: NORMAL INSPECTION - Eye Exam Eye Exam: EOMI, Normal appearance, PERRL - ENT Exam ENT Exam: Mucous Membranes Moist - Respiratory Exam Respiratory Exam: NORMAL BREATHING PATTERN - Cardiovascular Exam Cardiovascular Exam: Irregular Rhythm, Systolic Murmur. absent: Tachycardia, REGULAR RHYTHM - GI/Abdominal Exam GI & Abdominal Exam: Soft. absent: Distended, Tenderness Additional comments: g-tube in place - Extremities Exam Extremities exam: Positive for: full ROM. 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 fib on Coumadin who presents with GI bleed, likely due to her malignancy, found to have supratherapeutic INR. Patient was started on PTX gtt and given vitamin K and responded well, and has not had episodes of bleeding and INR level decreased. Her Coumadin has been held. Plan: cont PTX gtt GI following, recs appreciated Advanced diet to pureed If transfusing blood products, please pre-medicate with Benadryl 25mg PO, Tylenol 650mg PO, and Solu-corted 100mg IVP will cont chemo every other week to avoid medication interaction with Coumadin Consider starting DOAC vs Coumadin per cardio recs Coumadin should be dosed for goal INR 1.6-1.8 to avoid bleeding XRT per Dr. Shah Further recs per Dr. Coello Case was reviewed and discussed with attending, Dr. Oumou Woods PGY2
--- NOTE | 2018-05-28 12:03 | CP.PCM.CON ---
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 Patient was found to have supratherapeutic INR 6.02, given Vitamin K, bleeding controlled. Patient was doing better, until now, when patient was noted to be aphasic. Patient was last seen normal 5 minutes ago. Patient alert, awake, follows simple commands with left arm. Unable to respond to questions. NIHSS score 26. ROS limited due to patient's acute condition. PMH: as above PSH: cholecystectomy, L hip ORIF Meds: as per OCT, reviewed Allergies: NKDA SHx: former tobacco user, occasional ETOH, denies drug use FHx: sister: ovarian CA PMD: Angélica Oncologist: Dr. Coello Radiation Oncology: Dr Shah GI: Dr. Brown Review of Systems - Review of Systems Systems not reviewed;Unavailable: Acuity of Condition Past Patient History - Infectious Disease Hx of Infectious Diseases: None - Tetanus Immunizations Tetanus Immunization: Unknown - Past Medical History & Family History Past Medical History?: Yes - Past Social History Smoking Status: Former Smoker Alcohol: Occasional Drugs: Denies - CARDIAC Hx Cardiac Disorders: Yes Hx Congestive Heart Failure: Yes Hx Pacemaker: No - PULMONARY Hx Respiratory Disorders: Yes Hx Chronic Obstructive Pulmonary Disease (COPD): Yes - NEUROLOGICAL Hx Neurological Disorder: No - HEENT Hx HEENT Problems: No - RENAL Hx Chronic Kidney Disease: No - ENDOCRINE/METABOLIC Hx Endocrine Disorders: Yes Hx Diabetes Mellitus Type 2: Yes - HEMATOLOGICAL/ONCOLOGICAL Hx Blood Disorders: Yes Other/Comment: PE - INTEGUMENTARY Hx Dermatological Problems: Yes (psoriasis) - MUSCULOSKELETAL/RHEUMATOLOGICAL Hx Musculoskeletal Disorders: Yes - GASTROINTESTINAL Hx Gastrointestinal Disorders: Yes HX Swallowing Problems: Yes Other/Comment: isabelle esophagus, echalasia - GENITOURINARY/GYNECOLOGICAL Hx Genitourinary Disorders: No - PSYCHIATRIC Hx Emotional Abuse: No Hx Physical Abuse: No Hx Substance Use: No - SURGICAL HISTORY Hx Cholecystectomy: Yes Hx Musculoskeletal Surgery: Yes (hip replacement) Hx Orthopedic Surgery: Yes (Left Hip) Other/Comment: left hip surgery 2005 - ANESTHESIA Hx Anesthesia Reactions: No Hx Malignant Hyperthermia: No Meds Allergies/Adverse Reactions: Allergies Allergy/AdvReac Type Severity Reaction Status Date / Time No Known Allergies Allergy Verified 08/15/16 02:07 - Medications Medications: Current Medications Sodium Chloride (Sodium Chloride 0.9%) 1,000 mls @ 75 mls/hr IV .[id number] [facility] Last Admin: 05/27/18 21:40 Dose: 75 mls/hr Pantoprazole Sodium (Protonix Inj) 40 mg IVP Q12 [facility] Last Admin: 05/28/18 09:20 Dose: 40 mg Physical Exam - Constitutional Appears: Non-toxic, Chronically Ill - Head Exam Head Exam: ATRAUMATIC, NORMOCEPHALIC - Eye Exam Eye Exam: PERRL. absent: EOMI, Periorbital swelling, Scleral icterus Pupil Exam: PERRL. absent: Fixed, Irregular, Miosis, Unequal - ENT Exam ENT Exam: Mucous Membranes Moist - Respiratory Exam Respiratory Exam: Clear to Auscultation Bilateral, NORMAL BREATHING PATTERN. absent: Rales, Rhonchi, Wheezes - Cardiovascular Exam Cardiovascular Exam: +S1, +S2. absent: Systolic Murmur - GI/Abdominal Exam GI & Abdominal Exam: Normal Bowel Sounds, Soft. absent: Mass, Rebound, Tenderness - Extremities Exam Extremities exam: Positive for: normal inspection. Negative for: calf tenderness, pedal edema - Neurological Exam Neurological exam: Altered Additional comments: NIHSS score 26. Patient awake, follows simple command with left arm like lifts it up, + mechanical technologist. No movement of right arm, right leg, left leg. right sided neglect. - Skin Skin Exam: Normal Color, Warm Results - Vital Signs Recent Vital Signs: Last Vital Signs Temp 98.2 F 05/28/18 06:00 Pulse 77 05/28/18 06:00 Resp 20 05/28/18 06:00 BP 127/83 05/28/18 06:00 Pulse Ox 99 05/28/18 06:00 - Labs Result Diagrams: 05/28/18 06:15 05/28/18 06:15 Labs: Laboratory Results - last 24 hr 05/26/18 05/26/18 05/28/18 16:25 16:55 06:15 WBC RBC Hgb Hct MCV MCH MCHC RDW Plt Count MPV Gran % Lymph % (Auto) [place] % (Auto) Eos % (Auto) Baso % (Auto) Gran # Lymph # (Auto) [place] # (Auto) Eos # (Auto) Baso # (Auto) Sodium 135 Potassium 4.1 Chloride 107 Carbon Dioxide 24 Anion Gap 9 L BUN 23 H Creatinine 0.8 Est GFR ( Amer) > 60 Est GFR (Non-Af Amer) > 60 Random Glucose 86 Calcium 7.7 L Phosphorus 2.6 Magnesium 1.8 Total Bilirubin 0.5 AST 24 ALT 23 Alkaline Phosphatase 58 Total Protein 4.9 L Albumin 2.3 L Globulin 2.6 Albumin/Globulin Ratio 0.9 L Tx React Basic Work-up Cancelled Reaction Clerical Check No discrepancy Clerical Work Check Cancelled Pre-Trans Blood Type A POSITIVE Cancelled Pre-Trans Bld Appearanc No hemolysis Pre-Trans Vis Hemolysis Cancelled Pre-Trans Antibody Scrn Cancelled Pre-Trans LULA Negative Post-Trans Blood Type A POSITIVE Cancelled Post-Trans Spec Appear No hemolysis Post-Tx Visible Hemolys Cancelled Post-Trans Antibody Scrn Cancelled Post-Trans LULA Negative Post-Trans LULA Poly Cancelled Pathologist Comment BBK Cancelled 05/28/18 06:15 WBC 2.7 L* RBC 3.06 L Hgb 9.5 L Hct 28.7 L MCV 93.8 MCH 31.0 MCHC 33.1 RDW 16.7 H Plt Count 184 MPV 7.9 Gran % 66.6 Lymph % (Auto) 13.5 L [place] % (Auto) 16.5 H Eos % (Auto) 3.0 Baso % (Auto) 0.4 Gran # 1.78 Lymph # (Auto) 0.4 L [place] # (Auto) 0.4 Eos # (Auto) 0.1 Baso # (Auto) 0.01 Sodium Potassium Chloride Carbon Dioxide Anion Gap BUN Creatinine Est GFR ( Amer) Est GFR (Non-Af Amer) Random Glucose Calcium Phosphorus Magnesium Total Bilirubin AST ALT Alkaline Phosphatase Total Protein Albumin Globulin Albumin/Globulin Ratio Tx React Basic Work-up Reaction Clerical Check Clerical Work Check Pre-Trans Blood Type Pre-Trans Bld Appearanc Pre-Trans Vis Hemolysis Pre-Trans Antibody Scrn Pre-Trans LULA Post-Trans Blood Type Post-Trans Spec Appear Post-Tx Visible Hemolys Post-Trans Antibody Scrn Post-Trans LULA Post-Trans LULA Poly Pathologist Comment BBK Assessment & Plan - Assessment and Plan (Free Text) Assessment: 88 year old female with PMH afib (on Coumadin at home), 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 Bleeding controlled with Vitamin K. Her Coumadin was being held currently. 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 - will start Keppra 250 mg IV BID - Head CT negative. - MRI brain, CTA head/neck f/u results - EEG ordered. - Neuro checks, aspiration precautions Case discussed with Dr Teague. NIHSS Scale ([place]) Time Performed: 11:46 - How Severe is the Stoke Baseline Level of Consciousness: 0=Alert LOC to Questions: 2=Neither correct LOC to commands: 1=Obeys one correctly Best Gaze: 0=Normal Visual: 1=Partial hemianopia Facial: 1=Minor asymmetry Motor Arm - Left: 0=No drift Motor Arm - Right: 4=No movement Motor Leg - Left: 4=No movement Motor Leg - Right: 4=No movement Limb Ataxia: 2=Present both Sensory: 1=Mild to moderate loss Best Language: 3=Mute Dysarthia: 2=Severe, near unintelligible or worse Extinction & Inattention (Neglect): 1=Partial neglect (mild rafael-attention) Score: 26 Risk Level: Severe Stroke Risk <Ruben Teague - Last Filed: 05/29/18 13:54> Meds - Medications Medications: Current Medications Atorvastatin Calcium (Lipitor) 40 mg PO DIN [facility] Last Admin: 05/28/18 17:17 Dose: 40 mg Hydralazine HCl (Apresoline) 10 mg IVP Q6 PRN PRN Reason: hypertension Last Admin: 05/29/18 12:24 Dose: 10 mg Levetiracetam 250 mg/ Sodium (Chloride) 102.5 mls @ 460 mls/hr IV Q12 [facility] Last Admin: 05/29/18 10:45 Dose: 460 mls/hr Pantoprazole Sodium (Protonix Inj) 40 mg IVP Q12 [facility] Last Admin: 05/29/18 09:14 Dose: 40 mg Results - Vital Signs Recent Vital Signs: Last Vital Signs Temp 97.8 F 05/29/18 06:00 Pulse 95 H 05/29/18 12:24 Resp 20 05/29/18 06:00 BP 150/103 H 05/29/18 12:24 Pulse Ox 100 05/29/18 06:00 - Labs Result Diagrams: 05/29/18 08:30 05/29/18 07:30 Labs: Laboratory Results - last 24 hr 05/26/18 05/28/18 05/28/18 09:15 06:15 11:43 WBC RBC Hgb Hct MCV MCH MCHC RDW Plt Count MPV Gran % Lymph % (Auto) [place] % (Auto) Eos % (Auto) Baso % (Auto) Gran # Lymph # (Auto) [place] # (Auto) Eos # (Auto) Baso # (Auto) Sodium Potassium Chloride Carbon Dioxide Anion Gap BUN Creatinine Est GFR ( Amer) Est GFR (Non-Af Amer) POC Glucose (mg/dL) 95 Random Glucose Calcium Phosphorus Magnesium Total Bilirubin AST ALT Alkaline Phosphatase Total Protein Albumin Globulin Albumin/Globulin Ratio Triglycerides 60 Cholesterol 113 L LDL Cholesterol Direct 52 HDL Cholesterol 35 Crossmatch See Detail 05/29/18 05/29/18 07:30 08:30 WBC 3.9 L D RBC 3.17 L Hgb 9.8 L Hct 29.7 L MCV 93.7 MCH 30.9 MCHC 33.0 RDW 16.5 H Plt Count 166 MPV 8.1 Gran % 72.7 H Lymph % (Auto) 16.2 L [place] % (Auto) 10.3 H Eos % (Auto) 0.5 L Baso % (Auto) 0.3 Gran # 2.84 Lymph # (Auto) 0.6 L [place] # (Auto) 0.4 Eos # (Auto) 0.0 Baso # (Auto) 0.01 Sodium 133 Potassium 3.8 Chloride 110 H Carbon Dioxide 16 L Anion Gap 11 BUN 15 Creatinine 0.7 Est GFR ( Amer) > 60 Est GFR (Non-Af Amer) > 60 POC Glucose (mg/dL) Random Glucose 98 Calcium 7.8 L Phosphorus 2.8 Magnesium 1.8 Total Bilirubin 0.5 AST 23 ALT 19 Alkaline Phosphatase 58 Total Protein 5.0 L Albumin 2.3 L Globulin 2.7 Albumin/Globulin Ratio 0.9 L Triglycerides Cholesterol LDL Cholesterol Direct HDL Cholesterol Crossmatch Assessment & Plan - Assessment and Plan (Free Text) Plan: All medical record entries made by the Resident were at my direction and personally dictated by me. I have reviewed the chart and agree that the record accurately reflects my personal performance of the history, physical exam, medical decision making, and the department course for this patient. I have also personally directed, reviewed, and agree with the discharge instructions and disposition. Patient seen and examined with resident. Agree with assessment, examination and plan. In brief, Miss Shearer was seen at bedside. NIHSS: 26/30 and she had an acute stroke left mca. She was not a TPA candidate, and we gave her aspirin rectally. Thank you Dr. teague Neurology
--- NOTE | 2018-05-28 12:04 | PN ---
DATE: 05/28/2018 REASON FOR THE CONSULTATION AND FOLLOWUP: Atrial fibrillation, GI bleed, Coumadin toxicity, admitting INR was 6.02, status post PEG and nonfunctioning esophagus. SUBJECTIVE: The patient admitted with GI bleed, INR 6.02. The patient did not go for endoscopy, so far the H and H remained stable after initial drop. We will monitor H and H. If H and H remains stable, then we can consider restarting Coumadin if it cleared from the GI. For now, we will leave it as it is. Discussed with the patient or if the patient is high risk for bleed, then we will hold off Coumadin. Initially the patient came with the Coumadin toxicity, history of DVT, history of PE, history of atrial fibrillation, status post packed RBC transfusion, so far the Coumadin is on hold, monitor H and H. We will repeat the blood workup tomorrow. Nicolette Cox MD
[2018-05-28] MEDS ORDERED: levETIRAcetam 1000mg/100ml NS 100 ML IV ONE (12:07)
--- NOTE | 2018-05-28 12:15 | CT ---
Date of service: 05/28/2018 PROCEDURE: CT HEAD WITHOUT CONTRAST. HISTORY: Right-sided weakness and difficulty speaking COMPARISON: 06/11/2014 TECHNIQUE: Axial computed tomography images were obtained through the head/brain without intravenous contrast. Supplemental Coronal and Sagittal projections created and reviewed. Radiation dose: Total exam DLP = 842.59 mGy-cm. This CT exam was performed using one or more of the following dose reduction techniques: Automated exposure control, adjustment of the mA and/or kV according to patient size, and/or use of iterative reconstruction technique. FINDINGS: HEMORRHAGE: No intracranial hemorrhage. BRAIN: No mass effect or edema. Cortical and cerebellar atrophy, periventricular small vessel disease. VENTRICLES: Unremarkable. No hydrocephalus. CALVARIUM: Unremarkable. PARANASAL SINUSES: Unremarkable as visualized. No significant inflammatory changes. MASTOID AIR CELLS: Unremarkable as visualized. No inflammatory changes. OTHER FINDINGS: None. IMPRESSION: No acute intracranial abnormalities. No significant findings to account for the clinical presentation. No significant interval change compared to the prior examination(s). Code stroke protocol: Study completed 12:02 Radiologist notified 12:07 Results conveyed verbally at 12:11 Interpretation finalized and available for review 12:13.
[2018-05-28] MEDS: Sodium Chloride 0.9% 1,000 ML IV SCH (12:47)
--- NOTE | 2018-05-28 13:09 | PN ---
DATE: 05/28/2018 SUBJECTIVE: The patient is an 88-year-old female with a history of achalasia recently diagnosed with squamous cell carcinoma of the esophagus. She also has a history of atrial fibrillation and congestive heart failure. She is status post cholecystectomy, status post left hip replacement, history of congestive heart failure, try-uvirrqg-rgukscoiw diabetes mellitus and psoriasis. She was admitted to the [facility] on 05/26/2018 after suffering a few bouts of hematemesis. During the hospital stay, she is evaluated by Dr. Brown, her textile conversion manager, Dr. Vincent Tracy, the general surgeon as well as Dr. Coello, her oncologist. Today, the patient is receiving radiation therapy. Her morning labs show the white blood cell count to be depressed at 2.7, hemoglobin and hematocrit are 9.5 and 28.7 respectively, platelet count is 184. PT/INR was markedly elevated at 6 when the patient was admitted. She received vitamin K and fresh frozen plasma. This morning her PT/INR is 1.26. Her sodium is 135, potassium 4.1, blood urea nitrogen 23, creatinine is 0.8. She was found to have A+ve type of blood. At this time, we are continuing to follow the patient closely to be reevaluated in the morning. She has had no further hematemesis since she was hospitalized. Jaiden Lindsay MD
--- NOTE | 2018-05-28 13:27 | PCM.RRT ---
<Nolan Mcguire - Last Filed: 05/28/18 13:29> SHIPFITTER Nurse Assessment - Situation Date: 05/28/18 Time SHIPFITTER was called: 11:40 SHIPFITTER Responder Arrival Time: 11:43 SHIPFITTER Location:: [address] [place] [address] Room Number: 370-1 SHIPFITTER Reason for Call: Change in Mental Status SHIPFITTER Called By: RN - IV IV Inserted during SHIPFITTER?: No - Respiratory Oxygen Delivery Method: Nasal Cannula @L/min Oxygen Flow Rate: 2 Received Nebulizer Treatments:: No Was the Patient Ventilated with Bag/Mask 100% O2?: No Secretions Suctioned?: No Was the Patient Intubated?: No Was the Patient Placed on a Ventilator?: No - Diagnostic Test Ordered EKG: Yes Chest X-Ray: No CT Scan: Yes Other Diagnostic Test Ordered: CODE STROKE AT 1145 CALLED - Stat Labs Ordered SHIPFITTER Stat Labs Ordered: TROPONIN CPR started during SHIPFITTER?: No - Vital Signs Vital Sign: Rapid Response Vital Sign Blood Pressure 170/103 Pulse Rate 107 Respiratory Rate 20 Temperature 98.7 F Oxygen Saturation 92 - Finger Stick Blood Glucose Finger Stick Blood Glucose: 95 - Time SHIPFITTER Ended Time SHIPFITTER Ended: 11:52 - Vital Signs at end of SHIPFITTER Vital Signs at end of SHIPFITTER: Rapid Response End Vital Sign Blood Pressure 162/102 Pulse Rate 68 Respiratory Rate 20 Temperature 98.7 F O2 Sat by Pulse Oximetry 96 - Recommendations Notifications: Attending Physician, Consultations, Family or Designated Caregiver - Respiratory Oxygen Delivery Method: Nasal Cannula @L/min Oxygen Flow Rate: 2 - Constitutional Appears: Non-toxic, No Acute Distress - Head Head Exam: ATRAUMATIC, NORMAL INSPECTION, NORMOCEPHALIC - Eyes Eye Exam: EOMI, Normal appearance, PERRL - Respiratory Exam Respiratory Exam: Clear to Ausculation Bilateral, NORMAL BREATHING PATTERN - Cardiovascular Exam Cardiovascular Exam: Irregular Rhythm Additional comments: Afib - GI/Abdominal Exam GI & Abdominal Exam: Soft. absent: Tenderness - Neurological Exam Neurological Exam: Alert, Awake. absent: CN II-XII Intact, Oriented x3 - Extremities Exam Extremities Exam: absent: Full ROM, Pedal Edema, Tenderness Plan - Assessment of Findings&Treatment Plan SHIPFITTER was called by nursing staff because patient was not talking verbally as she was prior in the day. Vitals were obtained, BP was 170/103 GR was 63. Patient was assessed, right sided facial droop was noticed and code stroke called immediately. Patient was awake ad alert but unable to speak and answer queations appropriately. NIHSS stroke scale was 12. EKG was done showing Afib which was unchanged from prior EKG. Trops were ordered as well. Neurologist Dr. Aguilar was contacted and IV Keppra 1000mg was given after Head CT was done. Primary physician was notified along with family. Further recs as per primary Dr. Lindsay who was present at bedside after the rapid response. <Slim Damico - Last Filed: 05/29/18 14:34> SHIPFITTER Nurse Assessment - Vital Signs Vital Sign: Rapid Response Vital Sign Blood Pressure 170/103 Pulse Rate 107 Respiratory Rate 20 Temperature 98.7 F Oxygen Saturation 92 - Vital Signs at end of SHIPFITTER Vital Signs at end of SHIPFITTER: Rapid Response End Vital Sign Blood Pressure 162/102 Pulse Rate 68 Respiratory Rate 20 Temperature 98.7 F O2 Sat by Pulse Oximetry 96 Attending/Attestation - Attestation I have personally seen and examined this patient.: Yes I have fully participated in the care of the patient.: Yes I have reviewed all pertinent clinical information, including history, physical exam and plan: Yes Notes (Text): 05/29/18 14:31 Attending note; Patient seen and examined during rapid response. Rapid response was called because patient was not responding. Currently patient is aphasic. Right facial droop noted. Not moving extremities. Patient is having a blank stare. Code stroke called immediately. Vitals stable stable. BP is mildly elevated. EKG showed A. fib which is chronic. Patient will be transferred to CT scan stat. Case discussed with PMD in detail. PMD by the bedside. Case discussed with radiation oncologist in detail. Case discussed with neurologist Dr. Aguilar. Follow-up CT results. Follow-up with neurologist closely. Started on Keppra. further care per PMD and other consultants. 05/29/18 14:34
--- NOTE | 2018-05-28 15:20 | PN ---
DATE: 05/28/2018 SUBJECTIVE: The patient was seen and examined at bedside. 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 This is also acute, a new finding for her which happened right after she returned from radiation therapy today. PHYSICAL EXAMINATION: VITAL SIGNS: Temperature 98.2, heart rate 84, blood pressure 141/93, respiratory rate 18, oxygen saturation 93% on 2 L nasal cannula. ENT: Head and neck atraumatic. LUNGS: Clear to auscultation bilaterally. HEART: Regular rate and rhythm. S1 and S2 normal. ABDOMEN: Soft, nontender and nondistended. MUSCULOSKELETAL: No C/C/E. NEUROLOGIC: There is a dense hemiplegia on the right upper and lower extremities with right visual neglect. SKIN: Moist. PSYCH: The patient is poorly communicative. She is, however, able to protect airways at present time. LABORATORY DATA: WBC 2.7, hemoglobin 9.5, platelet count 184. Sodium 135, potassium 4.1, chloride 107, carbon dioxide 24, BUN 23, creatinine 0.8, glucose 86. INR 1.26, PTT 26.5. MEDICATIONS: Keppra, Protonix, normal saline 75 mL/hour. 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 The patient regained her clinical stability and was transferred out to third floor. 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 The patient is not a candidate for tissue plasminogen activator due to recent massive upper gastrointestinal bleed as per Neurology service. She is, however, able to protect airways at present time. We will continue target euvolemia, euglycemia, normothermia and oxygen saturation more than 90%. Head of bed elevated and aspiration precaution. The patient does have gastric tube in place. We will allow auto hypertension according to [place]. She will receive aspirin within 24 hours. I will touch base with family about advance directive status. We will continue with deep venous thrombosis, gastrointestinal prophylaxis. Please call ICU for re-evaluation if clinically deteriorates, unable to protect airways, or becomes hemodynamically or respiratory unstable ccm time 40 min French Ortiz MD MTDGuille
--- NOTE | 2018-05-28 16:33 | CARD ---
APPROVED REPORT Date of service: 05/28/2018 EKG Measurement Heart [id number] <Conclusion> Atrial fibrillation Nonspecific ST and T wave abnormality, probably digitalis effect Abnormal ECG
--- NOTE | 2018-05-28 16:43 | MRI ---
Date of service: 05/28/2018 PROCEDURE: MRI BRAIN WITHOUT CONTRAST HISTORY: r/o cva COMPARISON: CT of the head earlier today TECHNIQUE: Multiplanar, multisequence MR images of the brain were obtained without intravenous contrast enhancement. FINDINGS: HEMORRHAGE: None DWI: There is an acute infarct of the left basal ganglia involving the putamen as well as the caudate nucleus. This extends into the carrion radiata. Images 12 through 17 series 3 BRAIN PARENCHYMA: No mass effect or edema. Severe chronic microvascular changes are seen in the periventricular white matter and basal ganglia bilaterally VENTRICLES: Unremarkable. No hydrocephalus. CRANIUM: Unremarkable. ORBITS: Grossly unremarkable. PARANASAL SINUSES/MASTOIDS: Clear VASCULAR SYSTEM: Skull base flow voids intact. OTHER FINDINGS: None. IMPRESSION: There is an acute infarct of the left basal ganglia involving the putamen as well as the caudate nucleus. This extends into the carrion radiata.
[2018-05-28 16:58] LABS: HDL CHOLESTEROL 35 mg/dL (29-60)
[2018-05-28 17:09] LABS: LDL CHOLESTEROL 52 mg/dL (0-129)
--- NOTE | 2018-05-29 07:20 | CP.PCM.PN ---
Subjective - Date & Time of Evaluation Date of Evaluation: 05/29/18 Time of Evaluation: 06:55 - Subjective Subjective: easily awaken, lying in bed,no distress,denies chest pain Reason for consultation and follow up: Cardiac evaluation of atrial fibrilla tion,coumadin toxicity, admitting INR 6.02, admitted for hematemesis Seen and examined by me and Objective - Vital Signs/Intake and Output Vital Signs (last 24 hours): Temp Pulse Resp BP Pulse Ox 98.2 F 81 18 141/93 H 93 L 05/28/18 06:00 05/29/18 06:00 05/28/18 12:19 05/28/18 12:19 05/28/18 12:19 - Medications Medications: Current Medications Atorvastatin Calcium (Lipitor) 40 mg PO DIN [facility] Last Admin: 05/28/18 17:17 Dose: 40 mg Sodium Chloride (Sodium Chloride 0.9%) 1,000 mls @ 75 mls/hr IV .[id number] [facility] Last Admin: 05/28/18 12:47 Dose: 75 mls/hr Levetiracetam 250 mg/ Sodium (Chloride) 102.5 mls @ 460 mls/hr IV Q12 [facility] Last Admin: 05/28/18 23:44 Dose: 460 mls/hr Pantoprazole Sodium (Protonix Inj) 40 mg IVP Q12 [facility] Last Admin: 05/28/18 23:45 Dose: 40 mg - Labs Labs: 05/28/18 06:15 05/28/18 06:15 PT 14.6 SECONDS (9.4-12.5) H 05/27/18 05:10 INR 1.26 05/27/18 05:10 APTT 26.5 Seconds (25.1-36.5) 05/27/18 05:10 - Constitutional Appears: Non-toxic, No Acute Distress - Head Exam Head Exam: NORMAL INSPECTION, NORMOCEPHALIC - Eye Exam Eye Exam: Normal appearance - ENT Exam ENT Exam: Mucous Membranes Dry - Respiratory Exam Respiratory Exam: Decreased Breath Sounds, Clear to Ausculation Bilateral, NORM AL BREATHING PATTERN - Cardiovascular Exam Cardiovascular Exam: Irregular Rhythm, +S1, +S2 Additional comments: Telemetry atrial fibrillation - GI/Abdominal Exam GI & Abdominal Exam: Soft, Normal Bowel Sounds Additional comments: PEG with tube feeding - Extremities Exam Extremities Exam: Normal Capillary Refill Additional comments: right sided weakness - Neurological Exam Neurological Exam: Alert, Awake Additional comments: follows verbal commands - Psychiatric Exam Psychiatric exam: Normal Affect, Normal Mood - Skin Skin Exam: Dry, Normal Color, Warm Assessment and Plan - Assessment and Plan (Free Text) Assessment: A 88 year old female who came in to the ER due to GI bleeding and Coumadin toxicity (INR 6.02). history of chronic atrial fibrillation, COPD, CHF, aortic stenosis, cancer of esophagus having chemotherapy, history of DVT and pulmonary embolism,diabetes mellitus, hypertension, hypothyroisdism, She was given FFP and PRBC. stabilized. Coumadin on hold. GI on consult. 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 CT of head negative for bleeding. 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 Neuro on consult. Started on Keppra. Not candidate for TPA due to recent GI bleeding. Plan: Uncontrolled blood pressure PRN Hydralazine Will start Lopressor Denies chest pain Heart rate controlled Neuro on consult GI on consult Continue IV hydration On Lipitor 40 mg daily,Protonix 40 mg daily, Keppra 250 mg IV every 12 hours Continue current treatment Continue current medications Chart reviewed Will follow up Plan and treatment discussed with Dr. Cox
--- NOTE | 2018-05-29 07:23 | CP.PCM.PN ---
<Lenard Fischer - Last Filed: 05/29/18 10:18> Subjective - Date & Time of Evaluation Date of Evaluation: 05/29/18 Time of Evaluation: 09:30 - Subjective Subjective: PGY-4 GI Fellow Prog Note Pt lying in bed, daughter at bedside when seen this AM. Non verbal after stroke, but no signs of bleeding noted. Pt understandably frustrated. Unable to obtain full ROS due to clinical condition Objective - Vital Signs/Intake and Output Vital Signs (last 24 hours): Temp Pulse Resp BP Pulse Ox 98.2 F 81 18 141/93 H 93 L 05/28/18 06:00 05/29/18 06:00 05/28/18 12:19 05/28/18 12:19 05/28/18 12:19 - Medications Medications: Current Medications Atorvastatin Calcium (Lipitor) 40 mg PO DIN [facility] Last Admin: 05/28/18 17:17 Dose: 40 mg Sodium Chloride (Sodium Chloride 0.9%) 1,000 mls @ 75 mls/hr IV .[id number] [facility] Last Admin: 05/28/18 12:47 Dose: 75 mls/hr Levetiracetam 250 mg/ Sodium (Chloride) 102.5 mls @ 460 mls/hr IV Q12 [facility] Last Admin: 05/28/18 23:44 Dose: 460 mls/hr Pantoprazole Sodium (Protonix Inj) 40 mg IVP Q12 [facility] Last Admin: 05/28/18 23:45 Dose: 40 mg - Labs Labs: 05/28/18 06:15 05/28/18 06:15 PT 14.6 SECONDS (9.4-12.5) H 05/27/18 05:10 INR 1.26 05/27/18 05:10 APTT 26.5 Seconds (25.1-36.5) 05/27/18 05:10 - Constitutional Appears: Non-toxic, No Acute Distress, Other (alert, but frustrated and non- verbal) - Head Exam Head Exam: ATRAUMATIC, NORMAL INSPECTION - Eye Exam Eye Exam: absent: Conjunctival injection, Scleral icterus - ENT Exam ENT Exam: Mucous Membranes Dry, Normal External Ear Exam. absent: Mucous Membranes Moist - Respiratory Exam Respiratory Exam: NORMAL BREATHING PATTERN. absent: Accessory Muscle Use - GI/Abdominal Exam GI & Abdominal Exam: Soft, Normal Bowel Sounds. absent: Bruit, Distended, Firm, Guarding, Rigid, Tenderness, Mass, Rebound Additional comments: + PEG in place w/o signs of infection nor drainage Assessment and Plan - Assessment and Plan (Free Text) Assessment: 88 yo WF with SCC on chemo + XRT, Afib on AC presenting with hematemesis. # Hematemesis: Resolved. Most likely related to known underlying SCC currently on XRT predisposing to irritation and injury to the area along with supratherapeutic INR. 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 # Supratherapeutic INR: Resolved. 6 on presentation. On coumadin due to pAF. Active GI bleed upon presentation. Coagulopathy improved with FFP, IV Vit K. 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 Plan: - Discussed risk/benefit of resuming anticoagulation with daughter, agree to cautiously resume anticoagulation - Recommend low dose/no bolus heparin drip with bridge to warfarin as pt clearly high risk for thromboembolic disease - PPI IV BID - Monitor H&H and INR - Appreciate Onc and Cardiology consults - Hold off on endoscopy at this time Thank you for the consult. Will cont to follow. Pt seen and examined with Dr. Brown <Elba Brown V - Last Filed: 05/29/18 23:46> Objective - Vital Signs/Intake and Output Vital Signs (last 24 hours): Temp Pulse Resp BP Pulse Ox 97.6 F 92 H 20 128/97 H 98 05/29/18 16:40 05/29/18 18:00 05/29/18 16:40 05/29/18 17:22 05/29/18 16:40 - Medications Medications: Current Medications Atorvastatin Calcium (Lipitor) 40 mg PO DIN [facility] Last Admin: 05/29/18 17:23 Dose: 40 mg Hydralazine HCl (Apresoline) 10 mg IVP Q6 PRN PRN Reason: hypertension Last Admin: 05/29/18 12:24 Dose: 10 mg Levetiracetam 250 mg/ Sodium (Chloride) 102.5 mls @ 460 mls/hr IV Q12 [facility] Last Admin: 05/29/18 22:05 Dose: 460 mls/hr Pantoprazole Sodium (Protonix Inj) 40 mg IVP Q12 [facility] Last Admin: 05/29/18 22:06 Dose: 40 mg - Labs Labs: 05/29/18 08:30 05/29/18 07:30 PT 14.6 SECONDS (9.4-12.5) H 05/27/18 05:10 INR 1.26 05/27/18 05:10 APTT 26.5 Seconds (25.1-36.5) 05/27/18 05:10 Attending/Attestation - Attestation I have personally seen and examined this patient.: Yes I have fully participated in the care of the patient.: Yes I have reviewed all pertinent clinical information, including history, physical exam and plan: Yes Notes (Text): This is an addendum to GI progress report dictated by the GI Fellow.The patient was seen and examined earlier. Medical records, lab studies, imagings were reviewed. Last 24 hours events reviewed. Agreed with the above treatment plan as outlined in GI Fellow 's notes with the addition of the following Unfortunately this patient developed stroke No further episodes of vomiting blood or melena On examination patient has a right hemiplegia The likely cause of hematemesis in this patient is probably the ulcerated esophageal cancer Patient now tolerating liquid diet hb stable Will advance the diet to full liquid diet today and tomorrow will advance to puree diet if doing well in AM Continue oncological and neurological evaluation in followup 05/29/18 23:40
--- NOTE | 2018-05-29 07:41 | CP.PCM.PN ---
Subjective - Date & Time of Evaluation Date of Evaluation: 05/29/18 Time of Evaluation: 07:11 - Subjective Subjective: Gera Woods PGY2 Heme/Onc Progress Note for Dr. Coello Patient was seen and examined at bedside. Yesterday, CONTINUOUS IMPROVEMENT LEAD was called due to the patient becoming altered and aphasic. MRI brain showed acute ischemic infarct of left basal ganglia. The patient was transferred to remote telemetry floor, and remains aphasic and altered at this time, which is significantly different from her baseline yesterday. She is not following commands. Objective - Vital Signs/Intake and Output Vital Signs (last 24 hours): Temp Pulse Resp BP Pulse Ox 98.2 F 81 18 141/93 H 93 L 05/28/18 06:00 05/29/18 06:00 05/28/18 12:19 05/28/18 12:19 05/28/18 12:19 - Medications Medications: Current Medications Atorvastatin Calcium (Lipitor) 40 mg PO DIN [facility] Last Admin: 05/28/18 17:17 Dose: 40 mg Sodium Chloride (Sodium Chloride 0.9%) 1,000 mls @ 75 mls/hr IV .[id number] [facility] Last Admin: 05/28/18 12:47 Dose: 75 mls/hr Levetiracetam 250 mg/ Sodium (Chloride) 102.5 mls @ 460 mls/hr IV Q12 [facility] Last Admin: 05/28/18 23:44 Dose: 460 mls/hr Pantoprazole Sodium (Protonix Inj) 40 mg IVP Q12 [facility] Last Admin: 05/28/18 23:45 Dose: 40 mg - Labs Labs: 05/28/18 06:15 05/28/18 06:15 PT 14.6 SECONDS (9.4-12.5) H 05/27/18 05:10 INR 1.26 05/27/18 05:10 APTT 26.5 Seconds (25.1-36.5) 05/27/18 05:10 - Constitutional Appears: Non-toxic, No Acute Distress, Confused, Chronically Ill, Other (right sided facial droop, with mucus drooling out of her mouth) - Head Exam Head Exam: NORMAL INSPECTION - Eye Exam Eye Exam: Normal appearance, PERRL Additional comments: left eye is shut with surrounding rheum - ENT Exam ENT Exam: Mucous Membranes Moist - Respiratory Exam Respiratory Exam: NORMAL BREATHING PATTERN. absent: Rhonchi, Wheezes, Respiratory Distress - Cardiovascular Exam Cardiovascular Exam: Irregular Rhythm, +S1, +S2, Murmur - GI/Abdominal Exam GI & Abdominal Exam: Soft. 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 fib on Coumadin who presents with GI bleed, likely due to her malignancy, found to have supratherapeutic INR. Patient was started on PTX gtt and given vitamin K and responded well, and has not had episodes of bleeding and INR level decreased. Her Coumadin has been held. Patient suffered acute ischemic stroke in L basal ganglia and CONTINUOUS IMPROVEMENT LEAD was called. Patient was given ASA RC. Plan: cont PTX q12 GI following, recs appreciated NPO due to CVA; but can receive tube feeds through g tube Discussed with Cardio, recommend restarting Coumadin Discussed with GI, recommend restarting Coumadin with low dose heparin bridging w/o bolus Discussed with neuro, recommend against Coumadin today due to high risk of intracranial bleeding, recommend ASA today and restarting Coumadin tomorrow Coumadin should be dosed for goal INR 1.6-1.8 to avoid bleeding If transfusing blood products, please pre-medicate with Benadryl 25mg PO, Tylenol 650mg PO, and Solu-corted 100mg IVP will cont chemo every other week to avoid medication interaction with Coumadin XRT per Dr. Shah Further recs per Dr. Coello Case was reviewed and discussed with attending, Dr. Oumou Woods PGY2
[2018-05-29 07:54] LABS: ALB/GLOB RATIO 0.9 (1.1-1.8); ALBUMIN 2.3 g/dL (3.0-4.8); ALT/SGPT 19 U/L (7-56); AST/SGOT 23 U/L (14-36); BLOOD UREA NITROGEN 15 mg/dL (7-21); CALCIUM 7.8 mg/dL (8.4-10.5); GFR NON-AFRICAN AMERICAN > 60
[2018-05-29 08:47] LABS: BASO # 0.01 K/mm3 (0.0-2.0); BASO % 0.3 % (0.0-3.0); EOS % 0.5 % (1.5-5.0); GRAN # 2.84 (1.4-6.5); GRAN % 72.7 % (50.0-68.0); HEMOGLOBIN 9.8 g/dL (12.0-16.0); LYMPH # 0.6 (1.2-3.4); LYMPH % 16.2 % (22.0-35.0); MEAN CELL VOLUME 93.7 fl (80.0-105.0); MEAN CORPUSCULAR HEMOGLOBIN 30.9 pg (25.0-35.0); MEAN PLATELET VOLUME 8.1 fl (7.0-11.0); MONO # 0.4 (0.1-0.6); MONO % 10.3 % (1.0-6.0); RBC 3.17 10^6/uL (3.5-6.1); RED CELL DISTRIBUTION WIDTH 16.5 % (11.5-14.5); WHITE BLOOD COUNT 3.9 10^3/ul (4.5-11.0)
--- NOTE | 2018-05-29 13:29 | CT ---
PROCEDURE: CTA HEAD AND NECK WITH CONTRAST HISTORY: stroke protocol COMPARISON: None available. TECHNIQUE: Initial noncontrast head CT was performed. Subsequently, CT angiogram of the head and neck were performed after the intravenous administration of 80 mL of Omnipaque 350. Contiguous 1.5mm thick images were obtained in the axial plane of the neck. 2-D coronal and sagittal MPR images were obtained. Imaging postprocessing was performed with 3-D images also obtained. A delayed contrast head CT was also obtained. This CT exam was performed using one or more of the following dose reduction techniques: Automated exposure control, adjustment of the mA and/or kV according to patient size, and/or use of iterative reconstruction technique. Contrast dose: 150 mL Omnipaque 350 Radiation dose: Total exam DLP = 590.61 mGy-cm. FINDINGS: HEAD: Right: The intracranial internal carotid artery, and anterior and middle cerebral arteries are widely patent. The A1 segment is hypoplastic, an anatomic variant. Left: There is occlusion of the distal M1 segment with attenuation of the M2 branches and sylvian branches. The intracranial internal carotid artery and middle cerebral arteries are widely patent. Posterior circulation: The visualized intracranial vertebral arteries, basilar artery and posterior cerebral arteries are widely patent. There is asymmetric narrowing of the right posterior cerebral artery which may be an anatomic variant or related to underlying atherosclerosis. There is no endoluminal filling defect to suggest thrombus. There is no intracranial saccular aneurysm. NECK: There is a 2 vessel aortic arch with common origin of the innominate and left common carotid arteries. There is no stenosis at the origins of the great vessels at the level of the aortic arch. There are advanced calcified atherosclerotic plaques in both proximal internal carotid artery is without evidence for significant luminal narrowing. Right Carotid: On the right, the common carotid, internal carotid and external carotid arteries are widely patent. There is no hemodynamically significant stenosis in the internal carotid artery by NASCET criteria. Left Carotid: On the left, the common carotid, internal carotid and external carotid arteries are widely patent.There is no hemodynamically significant stenosis in the internal carotid arteries. There is no hemodynamically significant stenosis in the internal carotid artery by NASCET criteria. The vertebral arteries are widely patent. The right vertebral artery is hypoplastic, an anatomic variant. The visualized soft tissues of the neck are normal. Moderate pleural effusions, larger on the left. There is severe dilatation of the esophagus with fluid and debris in the lumen. IMPRESSION: 1. 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 2. No evidence of hemodynamically significant stenosis in the internal carotid arteries. 3. Patent bilateral vertebral arteries. 4. Moderate bilateral pleural effusions, larger on the left and severe dilatation of the visualized esophagus with fluid and debris within the lumen. A preliminary report was provided by [facility].
--- NOTE | 2018-05-29 13:45 | CP.PCM.PN ---
Subjective - Date & Time of Evaluation Date of Evaluation: 05/29/18 Time of Evaluation: 13:44 - Subjective Subjective: Patient evalauted bedside after being called by nursing staff. Patient laying in bed, opens eyes to name does not follow commands. Unable to obtain ROS due to mental status. Objective - Vital Signs/Intake and Output Vital Signs (last 24 hours): Temp Pulse Resp BP Pulse Ox 97.8 F 95 H 20 150/103 H 100 05/29/18 06:00 05/29/18 12:24 05/29/18 06:00 05/29/18 12:24 05/29/18 06:00 Intake and Output: 05/29/18 05/29/18 06:59 18:59 Intake Total 1000 Balance 1000 - Medications Medications: Current Medications Atorvastatin Calcium (Lipitor) 40 mg PO DIN [facility] Last Admin: 05/28/18 17:17 Dose: 40 mg Hydralazine HCl (Apresoline) 10 mg IVP Q6 PRN PRN Reason: hypertension Last Admin: 05/29/18 12:24 Dose: 10 mg Levetiracetam 250 mg/ Sodium (Chloride) 102.5 mls @ 460 mls/hr IV Q12 [facility] Last Admin: 05/29/18 10:45 Dose: 460 mls/hr Pantoprazole Sodium (Protonix Inj) 40 mg IVP Q12 [facility] Last Admin: 05/29/18 09:14 Dose: 40 mg - Labs Labs: 05/29/18 08:30 05/29/18 07:30 PT 14.6 SECONDS (9.4-12.5) H 05/27/18 05:10 INR 1.26 05/27/18 05:10 APTT 26.5 Seconds (25.1-36.5) 05/27/18 05:10 - Constitutional Appears: No Acute Distress - Head Exam Head Exam: ATRAUMATIC, NORMAL INSPECTION, NORMOCEPHALIC - Eye Exam Eye Exam: EOMI, Normal appearance - ENT Exam ENT Exam: Mucous Membranes Moist - Respiratory Exam Respiratory Exam: Wheezes, NORMAL BREATHING PATTERN - Cardiovascular Exam Cardiovascular Exam: Irregular Rhythm - GI/Abdominal Exam GI & Abdominal Exam: Soft. absent: Tenderness - Extremities Exam Extremities Exam: Pedal Edema - Neurological Exam Neurological Exam: Alert, Awake. absent: Oriented x3 Assessment and Plan - Assessment and Plan (Free Text) Assessment: 88 Year old female examined because nursing staff was concerned about mental status. Patient opened eyes to being called. Did not follow commands, patient was suctioned and mucus removed. head of bed elevated 45degrees and patient made NPO. Reached out to primary, awaiting call back. Reached out to neurology. Plan: -NPO -elevate head of bed -D/C fluids -Chest xray stat -suction as needed -continue to monitor respiratory and mental status -further recs as per primary and neurology
--- NOTE | 2018-05-29 14:55 | RAD ---
Date of service: 05/29/2018 HISTORY: R/O ASPIRATION COMPARISON: 05/26/2018 FINDINGS: LUNGS: New patchy bibasilar infiltrates left greater than right PLEURA: No significant pleural effusion identified, no pneumothorax apparent. CARDIOVASCULAR: Moderate cardiomegaly OSSEOUS STRUCTURES: No significant abnormalities. VISUALIZED UPPER ABDOMEN: Normal. OTHER FINDINGS: None. IMPRESSION: New patchy bibasilar infiltrates left greater than right
--- NOTE | 2018-05-29 18:35 | CT ---
Date of service: 05/29/2018 PROCEDURE: CT HEAD WITHOUT CONTRAST. HISTORY: status post stroke, change in mental status COMPARISON: Head CT and brain MRI 05/28/2018. TECHNIQUE: Axial computed tomography images were obtained through the head/brain without intravenous contrast. Radiation dose: Total exam DLP = 838.39 mGy-cm. This CT exam was performed using one or more of the following dose reduction techniques: Automated exposure control, adjustment of the mA and/or kV according to patient size, and/or use of iterative reconstruction technique. FINDINGS: HEMORRHAGE: No intracranial hemorrhage. BRAIN: A left middle cerebral artery infarct in evolution is appreciated in left basal ganglia and left frontal lobe as identified in brain MRI 05/28/2018. Findings are now appreciable by CT No interval intracranial hemorrhage is identified and only limited local mass-effect is beginning to efface sulci at the affected left frontal distribution. Diffuse cerebral atrophy chronic microangiopathy are reiterated the posterior fossa contents stable including the brainstem. VENTRICLES: Unremarkable. No hydrocephalus. CALVARIUM: Unremarkable. PARANASAL SINUSES: Unremarkable as visualized. No significant inflammatory changes. MASTOID AIR CELLS: Unremarkable as visualized. No inflammatory changes. OTHER FINDINGS: None. IMPRESSION: Left MCA infarct in evolution parallel to the MR findings 05/28/2018. Continued clinical and potential imaging follow-up are advised. No acute intracranial hemorrhage or global mass effect. Limited local mass-effect is developing at the left frontal lobe. Age-related neuro degenerative changes reiterated.
--- NOTE | 2018-05-29 23:42 | PN ---
DATE: 05/29/2018 REASON FOR CONSULTATION AND FOLLOWUP: Cardiac evaluation, history of atrial fibrillation, admitted with Coumadin toxicity, INR 6.82, also hematemesis, GI bleed, off Coumadin, history of esophageal cancer, possibly status post acute CVA, basal ganglia infarct in the putamen and caudate nucleus extending to the carrion radiata and not a candidate for tPA because of recent GI bleed. RECOMMENDATION: INR today is 1.26. We will wait for Neurology to restart Coumadin. For now, manage conservatively. Overall patient's condition is critical. Prognosis is extremely guarded. We will follow with you. Hematology recently rotating with Dr. Coello asked me about restarting Coumadin, who says since he has had acute CVA, risk of rebleeding is much higher, so discuss with Neurology before starting Coumadin. We will follow with you. Thank you, Dr. Lindsay, for providing us the opportunity in taking care of the patient, Alicia Shearer. Nicolette Cox MD
[2018-05-30 06:10] LABS: BASO # 0.01 K/mm3 (0.0-2.0); BASO % 0.3 % (0.0-3.0); EOS # 0.1 (0.0-0.7); EOS % 1.4 % (1.5-5.0); GRAN # 2.65 (1.4-6.5); GRAN % 72.6 % (50.0-68.0); HEMOGLOBIN 9.8 g/dL (12.0-16.0); LYMPH # 0.5 (1.2-3.4); LYMPH % 12.3 % (22.0-35.0); MEAN CELL VOLUME 93.6 fl (80.0-105.0); MEAN CORPUSCULAR HEMOGLOBIN 31.2 pg (25.0-35.0); MEAN CORPUSCULAR HGB CONC 33.3 g/dl (31.0-37.0); MEAN PLATELET VOLUME 8.3 fl (7.0-11.0); MONO # 0.5 (0.1-0.6); MONO % 13.4 % (1.0-6.0); RBC 3.14 10^6/uL (3.5-6.1); RED CELL DISTRIBUTION WIDTH 16.8 % (11.5-14.5); WHITE BLOOD COUNT 3.7 10^3/ul (4.5-11.0)
--- NOTE | 2018-05-30 06:51 | CP.PCM.PN ---
Subjective - Date & Time of Evaluation Date of Evaluation: 05/30/18 Time of Evaluation: 06:15 - Subjective Subjective: lethargic, lying in bed, no distress Reason for consultation and follow up: Cardiac evaluation of atrial fibrillation,coumadin toxicity, admitting INR 6.02, admitted for hematemesis Seen and examined by me and Objective - Vital Signs/Intake and Output Vital Signs (last 24 hours): Temp Pulse Resp BP Pulse Ox 98.9 F 91 H 18 127/82 99 05/29/18 22:00 05/30/18 06:00 05/30/18 02:00 05/30/18 02:00 05/30/18 02:00 - Medications Medications: Current Medications Atorvastatin Calcium (Lipitor) 40 mg PO DIN [facility] Last Admin: 05/29/18 17:23 Dose: 40 mg Hydralazine HCl (Apresoline) 10 mg IVP Q6 PRN PRN Reason: hypertension Last Admin: 05/29/18 12:24 Dose: 10 mg Levetiracetam 250 mg/ Sodium (Chloride) 102.5 mls @ 460 mls/hr IV Q12 [facility] Last Admin: 05/29/18 22:05 Dose: 460 mls/hr Pantoprazole Sodium (Protonix Inj) 40 mg IVP Q12 [facility] Last Admin: 05/29/18 22:06 Dose: 40 mg - Labs Labs: 05/30/18 05:30 05/29/18 07:30 PT 14.6 SECONDS (9.4-12.5) H 05/27/18 05:10 INR 1.26 05/27/18 05:10 APTT 26.5 Seconds (25.1-36.5) 05/27/18 05:10 - Constitutional Appears: Non-toxic, No Acute Distress - ENT Exam ENT Exam: Mucous Membranes Dry - Respiratory Exam Respiratory Exam: Decreased Breath Sounds, Clear to Ausculation Bilateral, NORMAL BREATHING PATTERN - Cardiovascular Exam Cardiovascular Exam: Irregular Rhythm, +S1, +S2 Additional comments: Telemetry-atrial fib-80's - GI/Abdominal Exam GI & Abdominal Exam: Soft, Normal Bowel Sounds Additional comments: PEG - Extremities Exam Additional comments: right sided weakness - Neurological Exam Additional comments: lethargic but arousable - Psychiatric Exam Psychiatric exam: Flat Affect - Skin Skin Exam: Intact, Normal Color, Warm Assessment and Plan - Assessment and Plan (Free Text) Assessment: A 88 year old female who came in to the ER due to GI bleeding and Coumadin toxicity (INR 6.02). history of chronic atrial fibrillation, COPD, CHF, aortic stenosis, cancer of esophagus having chemotherapy, history of DVT and pulmonary embolism,diabetes mellitus, hypertension, hypothyroisdism, She was given FFP and PRBC. stabilized. Coumadin on hold. GI on consult. chart reviewed, post SOLOIST DANCER yesterday due to right sided weakness and aphasia. CT of head negative for bleeding. 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 Neuro on consult. Started on Keppra. Not candidate for TPA due to recent GI bleeding. Plan: No distress Controlled blood pressure Heart rate controlled Neuro on consult GI on consult Continue IV hydration On Lipitor 40 mg daily,Protonix 40 mg daily, Keppra 250 mg IV every 12 hours Continue current treatment Continue current medications Chart reviewed Will follow up Plan and treatment discussed with Dr. Cox
[2018-05-30 07:17] LABS: ALB/GLOB RATIO 0.9 (1.1-1.8); ALBUMIN 2.5 g/dL (3.0-4.8); ALT/SGPT 24 U/L (7-56); AST/SGOT 29 U/L (14-36); BLOOD UREA NITROGEN 17 mg/dL (7-21); CALCIUM 8.3 mg/dL (8.4-10.5); GFR NON-AFRICAN AMERICAN > 60
--- NOTE | 2018-05-30 08:49 | CP.PCM.PN ---
<Lenard Fischer - Last Filed: 05/30/18 17:37> Subjective - Date & Time of Evaluation Date of Evaluation: 05/30/18 Time of Evaluation: 07:50 - Subjective Subjective: PGY-4 GI Fellow Prog Note Pt sleeping in bed, daughter at bedside this AM. No reported event overnight. Pt awakes some with tactile stim but otherwise non-verbal limiting history. Unable to obtain ROS due to clinical condition Objective - Vital Signs/Intake and Output Vital Signs (last 24 hours): Temp Pulse Resp BP Pulse Ox 98.9 F 91 H 18 127/82 99 05/29/18 22:00 05/30/18 06:00 05/30/18 02:00 05/30/18 02:00 05/30/18 02:00 - Medications Medications: Current Medications Atorvastatin Calcium (Lipitor) 40 mg PO DIN [facility] Last Admin: 05/29/18 17:23 Dose: 40 mg Hydralazine HCl (Apresoline) 10 mg IVP Q6 PRN PRN Reason: hypertension Last Admin: 05/29/18 12:24 Dose: 10 mg Levetiracetam 250 mg/ Sodium (Chloride) 102.5 mls @ 460 mls/hr IV Q12 [facility] Last Admin: 05/29/18 22:05 Dose: 460 mls/hr Metoprolol Tartrate (Lopressor) 25 mg PO BRKDIN [facility] Pantoprazole Sodium (Protonix Inj) 40 mg IVP Q12 [facility] Last Admin: 05/29/18 22:06 Dose: 40 mg - Labs Labs: 05/30/18 05:30 05/30/18 05:30 PT 14.6 SECONDS (9.4-12.5) H 05/27/18 05:10 INR 1.26 05/27/18 05:10 APTT 26.5 Seconds (25.1-36.5) 05/27/18 05:10 - Constitutional Appears: No Acute Distress, Chronically Ill - Head Exam Head Exam: ATRAUMATIC, NORMAL INSPECTION - Eye Exam Eye Exam: absent: Conjunctival injection, Scleral icterus - ENT Exam ENT Exam: Mucous Membranes Dry, Normal External Ear Exam. absent: Mucous Membranes Moist - Cardiovascular Exam Cardiovascular Exam: REGULAR RHYTHM, Murmur - GI/Abdominal Exam GI & Abdominal Exam: Soft, Normal Bowel Sounds. absent: Bruit, Distended, Firm, Guarding, Rigid, Tenderness, Mass, Organomegaly, Rebound Additional comments: + PEG in place without signs of infection - Neurological Exam Additional comments: R hemiparesis and neglect Assessment and Plan - Assessment and Plan (Free Text) Assessment: 88 yo WF with SCC on chemo + XRT, Afib on AC presenting with hematemesis. # Hematemesis: Resolved. Most likely related to known underlying SCC currently on XRT predisposing to irritation and injury to the area along with supratherapeutic INR. 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 # Supratherapeutic INR: Resolved. 6 on presentation. On coumadin due to pAF. Active GI bleed upon presentation. Coagulopathy improved with FFP, IV Vit K. 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 C/b residual R hemiparesis and speech difficulties Plan: - Ultimately, defer to Neuro regarding timing of AC resumption. When/if resumed, would favor low dose/no bolus heparin drip with bridge to coumadin. - PPI IV Daily - Monitor H&H and INR - Appreciate Onc and Cardiology consults - Hold off on endoscopy at this time Thank you for the consult. Will cont to follow. Pt seen and examined with Dr. Brown <Elba Brown V - Last Filed: 05/30/18 20:50> Objective - Vital Signs/Intake and Output Vital Signs (last 24 hours): Temp Pulse Resp BP Pulse Ox 99.2 F 84 20 111/71 98 05/30/18 17:03 05/30/18 18:37 05/30/18 17:03 05/30/18 18:37 05/30/18 17:03 - Medications Medications: Current Medications Atorvastatin Calcium (Lipitor) 40 mg PO DIN [facility] Last Admin: 05/30/18 18:37 Dose: 40 mg Furosemide (Lasix) 20 mg IVP DAILY [facility] Last Admin: 05/30/18 12:43 Dose: 20 mg Hydralazine HCl (Apresoline) 10 mg IVP Q6 PRN PRN Reason: hypertension Last Admin: 05/29/18 12:24 Dose: 10 mg Levetiracetam 250 mg/ Sodium (Chloride) 102.5 mls @ 460 mls/hr IV Q12 [facility] Last Admin: 05/30/18 09:50 Dose: 460 mls/hr Metoprolol Tartrate (Lopressor) 25 mg PO BRKDIN [facility] Last Admin: 05/30/18 18:37 Dose: 25 mg Pantoprazole Sodium (Protonix Inj) 40 mg IVP DAILY [facility] - Labs Labs: 05/30/18 05:30 05/30/18 05:30 PT 23.7 SECONDS (9.4-12.5) H 05/30/18 11:00 INR 2.03 05/30/18 11:00 APTT 26.5 Seconds (25.1-36.5) 05/27/18 05:10 Attending/Attestation - Attestation I have personally seen and examined this patient.: Yes I have fully participated in the care of the patient.: Yes I have reviewed all pertinent clinical information, including history, physical exam and plan: Yes Notes (Text): This is an addendum to GI progress report dictated by the GI Fellow.The patient was seen and examined earlier. Medical records, lab studies, imagings were reviewed. Last 24 hours events reviewed. Agreed with the above treatment plan as outlined in GI Fellow 's notes with the addition of the following GI perspective is ok to start anticoagulation with close monitoring of PTT Will refer to neuro regarding the timing The most likely cause of the GI bleeding is from the esophageal ulcerated cancer lesion sp RT chemo no plan for EGD Discussed with the patient's family who was at bedside 05/30/18 20:48
--- NOTE | 2018-05-30 09:04 | CP.PCM.PN ---
<Gera Woods - Last Filed: 05/30/18 20:23> Subjective - Date & Time of Evaluation Date of Evaluation: 05/30/18 Time of Evaluation: 07:15 - Subjective Subjective: Gera Woods PGY2 Heme/Onc Progress Note for Dr. Coello Patient was seen and examined at bedside. There were no acute overnight events. The patient remains altered with no noticeable improvements since stroke. Follow-up CT head was done yesterday in the evening showed no intracranial hemorrhage or acute changes since MRI showed left MCA infarct. Patient continues to receive tube feeds, and is currently in A. fib with no anticoagu lation. Discussed with neurology, who recommend remaining off anticoagulation for 1 week to prevent intracranial hemorrhage and a CT head at that time prior to starting anticoagulation. Objective - Vital Signs/Intake and Output Vital Signs (last 24 hours): Temp Pulse Resp BP Pulse Ox 98.9 F 91 H 18 127/82 99 05/29/18 22:00 05/30/18 06:00 05/30/18 02:00 05/30/18 02:00 05/30/18 02:00 - Medications Medications: Current Medications Atorvastatin Calcium (Lipitor) 40 mg PO DIN [facility] Last Admin: 05/29/18 17:23 Dose: 40 mg Hydralazine HCl (Apresoline) 10 mg IVP Q6 PRN PRN Reason: hypertension Last Admin: 05/29/18 12:24 Dose: 10 mg Levetiracetam 250 mg/ Sodium (Chloride) 102.5 mls @ 460 mls/hr IV Q12 [facility] Last Admin: 05/29/18 22:05 Dose: 460 mls/hr Metoprolol Tartrate (Lopressor) 25 mg PO BRKDIN [facility] Pantoprazole Sodium (Protonix Inj) 40 mg IVP Q12 [facility] Last Admin: 05/29/18 22:06 Dose: 40 mg - Labs Labs: 05/30/18 05:30 05/30/18 05:30 PT 14.6 SECONDS (9.4-12.5) H 05/27/18 05:10 INR 1.26 05/27/18 05:10 APTT 26.5 Seconds (25.1-36.5) 05/27/18 05:10 - Additional Findings Additional findings: - Constitutional Appears: Non-toxic, No Acute Distress, Confused, Chronically Ill, Other (arousable to stimuli) - Head Exam Head Exam: NORMAL INSPECTION - Eye Exam Eye Exam: Normal appearance, PERRL Additional comments: opens eyes spontaneously, but has rafael-neglect - ENT Exam ENT Exam: Mucous Membranes Moist - Respiratory Exam Respiratory Exam: NORMAL BREATHING PATTERN. absent: Rhonchi, Wheezes, Respiratory Distress - Cardiovascular Exam Cardiovascular Exam: Irregular Rhythm, +S1, +S2, Murmur - GI/Abdominal Exam GI & Abdominal Exam: Soft. 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 fib on Coumadin who presents with GI bleed, likely due to her malignancy, found to have supratherapeutic INR. Patient was started on PTX gtt and given vitamin K and responded well, and has not had episodes of bleeding and INR level decreased. Her Coumadin was held. Patient suffered acute ischemic L MCA stroke in L basal ganglia and LOADING CHECKER was samia led. Patient continues to be in Afib but is off anticoagulation due to high risk of intracranial hemorrhage. Plan: cont PTX q12 GI following, recs appreciated NPO due to CVA; but can receive tube feeds through g tube Discussed with Cardio, GI and neuro regarding restarting anti-coagulation; Neuro recommending [address] week off [address]agulation then [address] head prior to starting to make sure there's no hemorrhagic conversion Coumadin should be dosed for goal INR 1.6-1.8 to avoid bleeding If transfusing blood products, please pre-medicate with Benadryl 25mg PO, Tylenol 650mg PO, and Solu-corted 100mg IVP Currently, no plans for chemorx XRT per Dr. Shah Further recs per Dr. Coello Case was reviewed and discussed with attending, Dr. Oumou Woods PGY2 <Calos Coello P - Last Filed: 05/31/18 12:09> Objective - Vital Signs/Intake and Output Vital Signs (last 24 hours): Temp Pulse Resp BP Pulse Ox 98.7 F 82 22 90/54 L 98 05/31/18 08:12 05/31/18 10:38 05/31/18 08:12 05/31/18 10:42 05/31/18 08:12 Intake and Output: 05/31/18 05/31/18 06:59 18:59 Intake Total 760 Balance 760 - Medications Medications: Current Medications Atorvastatin Calcium (Lipitor) 40 mg PO DIN [facility] Last Admin: 05/30/18 18:37 Dose: 40 mg Bacitracin (Bacitracin) 1 ea TOP Q12H [facility] Stop: 06/07/18 22:00 Furosemide (Lasix) 20 mg IVP DAILY [facility] Last Admin: 05/31/18 10:42 Dose: Not Given Hydralazine HCl (Apresoline) 10 mg IVP Q6 PRN PRN Reason: hypertension Last Admin: 05/29/18 12:24 Dose: 10 mg Levetiracetam 250 mg/ Sodium (Chloride) 102.5 mls @ 460 mls/hr IV Q12 [facility] Last Admin: 05/31/18 10:36 Dose: 460 mls/hr Azithromycin (Zithromax 500mg In Ns) 500 mg in 250 mls @ 167 mls/hr IVPB 1100 [facility]; Protocol Ceftriaxone Sodium (Rocephin 1 Gram Ivpb) 1 gm in 100 mls @ 100 mls/hr IVPB DAILY [facility]; Protocol Stop: 06/05/18 08:00 Last Admin: 05/31/18 10:41 Dose: 100 mls/hr Metoprolol Tartrate (Lopressor) 25 mg PO BRKDIN [facility] Last Admin: 05/31/18 10:38 Dose: Not Given Pantoprazole Sodium (Protonix Inj) 40 mg IVP DAILY [facility] Last Admin: 05/31/18 10:38 Dose: 40 mg - Labs Labs: 05/31/18 06:00 05/31/18 06:00 PT 23.7 SECONDS (9.4-12.5) H 05/30/18 11:00 INR 2.03 05/30/18 11:00 APTT 26.5 Seconds (25.1-36.5) 05/27/18 05:10 Attending/Attestation - Attestation I have personally seen and examined this patient.: Yes I have fully participated in the care of the patient.: Yes I have reviewed all pertinent clinical information, including history, physical exam and plan: Yes
--- NOTE | 2018-05-30 11:18 | CP.PCM.PN ---
<Silva Lane - Last Filed: 05/30/18 15:41> Subjective - Date & Time of Evaluation Date of Evaluation: 05/30/18 Time of Evaluation: 11:16 - Subjective Subjective: Silva Lane, PGY2, Neurology Progress Note for Dr Perez: Patient seen and examined at bedside. No acute events overnight. Patient remains aphasic, moving left upper extremity, follows simple command with left arm (squeezes hand). Patient sleeping at time of my exam, does not open eyes to command or spontaneously. ROS limited as patient is aphasic. Objective - Vital Signs/Intake and Output Vital Signs (last 24 hours): Temp Pulse Resp BP Pulse Ox 98.2 F 88 18 119/70 99 05/30/18 06:00 05/30/18 09:54 05/30/18 06:00 05/30/18 09:54 05/30/18 06:00 - Medications Medications: Current Medications Atorvastatin Calcium (Lipitor) 40 mg PO DIN [facility] Last Admin: 05/29/18 17:23 Dose: 40 mg Hydralazine HCl (Apresoline) 10 mg IVP Q6 PRN PRN Reason: hypertension Last Admin: 05/29/18 12:24 Dose: 10 mg Levetiracetam 250 mg/ Sodium (Chloride) 102.5 mls @ 460 mls/hr IV Q12 [facility] Last Admin: 05/30/18 09:50 Dose: 460 mls/hr Metoprolol Tartrate (Lopressor) 25 mg PO BRKDIN [facility] Last Admin: 05/30/18 09:54 Dose: 25 mg Pantoprazole Sodium (Protonix Inj) 40 mg IVP Q12 [facility] Last Admin: 05/30/18 09:51 Dose: 40 mg - Labs Labs: 05/30/18 05:30 05/30/18 05:30 PT 14.6 SECONDS (9.4-12.5) H 05/27/18 05:10 INR 1.26 05/27/18 05:10 APTT 26.5 Seconds (25.1-36.5) 05/27/18 05:10 - Additional Findings Additional findings: - Constitutional Appears: Non-toxic, Chronically Ill - Head Exam Head Exam: ATRAUMATIC, NORMOCEPHALIC - Eye Exam Eye Exam: PERRL. absent: EOMI, Periorbital swelling, Scleral icterus Pupil Exam: PERRL. absent: Fixed, Irregular, Miosis, Unequal - ENT Exam ENT Exam: Mucous Membranes Moist - Respiratory Exam Respiratory Exam: Clear to Auscultation Bilateral, NORMAL BREATHING PATTERN. absent: Rales, Rhonchi, Wheezes - Cardiovascular Exam Cardiovascular Exam: +S1, +S2. absent: Systolic Murmur - GI/Abdominal Exam GI & Abdominal Exam: Normal Bowel Sounds, Soft. absent: Mass, Rebound, Tenderness - Extremities Exam Extremities exam: Positive for: normal inspection. 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 No movement of right arm, right leg, left leg. Does not open eyes. 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 Bleeding controlled with Vitamin K. 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 - Continue with Keppra 250 mg IV BID - Head CT showed left MCA infarct. no ICH or global mass effect. - MRI brain showed acute infarct in left basal ganglia involving putamen, caudate nucleus, extends into carrion radiata. - F/u EEG results. - As for resuming anticoagulation for afib: obtain head CT after 72 hours of stroke, and 1 week of stroke. If no hemorrhagic conversion of large stroke, then patient can resume anticoagulation. - Neuro checks, aspiration precautions Discussed case with Dr Perez. <Carlos Manuel Perez - Last Filed: 05/31/18 11:50> Objective - Vital Signs/Intake and Output Vital Signs (last 24 hours): Temp Pulse Resp BP Pulse Ox 98.7 F 82 22 90/54 L 98 05/31/18 08:12 05/31/18 10:38 05/31/18 08:12 05/31/18 10:42 05/31/18 08:12 Intake and Output: 05/31/18 05/31/18 06:59 18:59 Intake Total 760 Balance 760 - Medications Medications: Current Medications Atorvastatin Calcium (Lipitor) 40 mg PO DIN [facility] Last Admin: 05/30/18 18:37 Dose: 40 mg Bacitracin (Bacitracin) 1 ea TOP Q12H [facility] Stop: 06/07/18 22:00 Furosemide (Lasix) 20 mg IVP DAILY [facility] Last Admin: 05/31/18 10:42 Dose: Not Given Hydralazine HCl (Apresoline) 10 mg IVP Q6 PRN PRN Reason: hypertension Last Admin: 05/29/18 12:24 Dose: 10 mg Levetiracetam 250 mg/ Sodium (Chloride) 102.5 mls @ 460 mls/hr IV Q12 [facility] Last Admin: 05/31/18 10:36 Dose: 460 mls/hr Azithromycin (Zithromax 500mg In Ns) 500 mg in 250 mls @ 167 mls/hr IVPB 1100 [facility]; Protocol Ceftriaxone Sodium (Rocephin 1 Gram Ivpb) 1 gm in 100 mls @ 100 mls/hr IVPB DAILY [facility]; Protocol Stop: 06/05/18 08:00 Last Admin: 05/31/18 10:41 Dose: 100 mls/hr Metoprolol Tartrate (Lopressor) 25 mg PO BRKDIN [facility] Last Admin: 05/31/18 10:38 Dose: Not Given Pantoprazole Sodium (Protonix Inj) 40 mg IVP DAILY [facility] Last Admin: 05/31/18 10:38 Dose: 40 mg - Labs Labs: 05/31/18 06:00 05/31/18 06:00 PT 23.7 SECONDS (9.4-12.5) H 05/30/18 11:00 INR 2.03 05/30/18 11:00 APTT 26.5 Seconds (25.1-36.5) 05/27/18 05:10 Attending/Attestation - Attestation I have personally seen and examined this patient.: Yes I have fully participated in the care of the patient.: Yes I have reviewed all pertinent clinical information, including history, physical exam and plan: Yes Notes (Text): 05/31/18 11:48 I agree with the assessment and plan. The patient had a large stroke and is at risk for hemorrhagic conversion if anticoagulation is started too early. I recommend repeating non-contrast CT head 72 hours after stroke to be certain there is no hemorrhage. Then, in one week, repeat another scan, or sooner if symptoms worsen. IF there is no hemorrhagic conversion in one week, then anticoagulation may be considered. At that point, I would consider Eliquis, which shows lower risk of ICH compared with other anticoagulation, but I will defer to cardiology.
[2018-05-30 11:54] LABS: INR 2.03; PROTHROMBIN TIME 23.7 SECONDS (9.4-12.5)
--- NOTE | 2018-05-30 14:59 | PN ---
DATE: 05/30/2018 DAILY PROGRESS NOTE The patient is an 88-year-old female with a history of achalasia, recently diagnosed with squamous cell carcinoma of the esophagus. She also had a history of atrial fibrillation and congestive heart failure. She is status post cholecystectomy, status post left hip replacement, history of aia-vmboazp-zitmhzuod diabetes mellitus and psoriasis who was admitted to [facility] on 05/26/2018 after suffering a few bouts of hematemesis. She is being followed by Dr. Brown, her managing consultant and Dr. Vincent Tracy, the surgeon. The patient had no more hematemesis during her hospital stay. Her hemoglobin and hematocrit remained relatively stable. The patient went for radiation therapy as per her oncologist Dr. Coello. When the patient was admitted, she received vitamin K and fresh frozen plasma as her PT/INR was markedly elevated at 6. She had been on warfarin for her atrial fibrillation. When the patient returned from a radiation therapy 2 days ago where she had been awake, alert, oriented and talking well, soon after being put back into bed, she suffered a cerebrovascular accident. She was no longer talking. Her right upper extremity was flaccid. Code stroke was called. Because of the patient's recent hematemesis, t-PA could not be used. The patient was kept on the Remote Telemetry floor for observation and further evaluation. CAT scans and MRIs done since then showed she suffered a left basal ganglia infarct involving the putamen caudate nucleus and extending to the carrion radiata. This is the distribution of the left mid cerebral artery. When seen today, the patient is resting comfortably. She is arousable. She does open her eyes and moves her head to verbal and tactile stimuli. However, she does not respond to questions. 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 We will be getting chest PT for the patient and will be starting on the intravenous Lasix 20 mg once a day for pulmonary congestion. Chest x-ray done yesterday shows bibasilar infiltrates. EKG shows the patient remains in atrial fibrillation. We will continue to follow the patient closely. Jaiden Lindsay MD
[2018-05-31 06:46] LABS: BASO # 0.01 K/mm3 (0.0-2.0); BASO % 0.3 % (0.0-3.0); EOS # 0.1 (0.0-0.7); EOS % 1.3 % (1.5-5.0); GRAN # 2.83 (1.4-6.5); GRAN % 75.7 % (50.0-68.0); HEMOGLOBIN 9.5 g/dL (12.0-16.0); LYMPH # 0.5 (1.2-3.4); LYMPH % 12.3 % (22.0-35.0); MEAN CELL VOLUME 93.3 fl (80.0-105.0); MEAN CORPUSCULAR HEMOGLOBIN 31.8 pg (25.0-35.0); MEAN CORPUSCULAR HGB CONC 34.1 g/dl (31.0-37.0); MEAN PLATELET VOLUME 8.2 fl (7.0-11.0); MONO # 0.4 (0.1-0.6); MONO % 10.4 % (1.0-6.0); RBC 2.99 10^6/uL (3.5-6.1); RED CELL DISTRIBUTION WIDTH 16.7 % (11.5-14.5); WHITE BLOOD COUNT 3.7 10^3/ul (4.5-11.0)
[2018-05-31 06:49] LABS: ALB/GLOB RATIO 0.8 (1.1-1.8); ALBUMIN 2.4 g/dL (3.0-4.8); ALT/SGPT 25 U/L (7-56); AST/SGOT 22 U/L (14-36); BLOOD UREA NITROGEN 21 mg/dL (7-21); CALCIUM 7.8 mg/dL (8.4-10.5); GFR NON-AFRICAN AMERICAN > 60
--- NOTE | 2018-05-31 07:52 | CP.PCM.PN ---
Subjective - Date & Time of Evaluation Date of Evaluation: 05/31/18 Time of Evaluation: 06:35 - Subjective Subjective: Awake, lying in bed, no distress Reason for consultation and follow up: Cardiac evaluation of atrial fibrillation,coumadin toxicity, admitting INR 6.02, admitted for hematemesis Seen and examined by me and Objective - Vital Signs/Intake and Output Vital Signs (last 24 hours): Temp Pulse Resp BP Pulse Ox 99.2 F 79 20 111/71 98 05/30/18 17:03 05/31/18 06:00 05/30/18 17:03 05/30/18 18:37 05/30/18 17:03 - Medications Medications: Current Medications Atorvastatin Calcium (Lipitor) 40 mg PO DIN [facility] Last Admin: 05/30/18 18:37 Dose: 40 mg Furosemide (Lasix) 20 mg IVP DAILY [facility] Last Admin: 05/30/18 12:43 Dose: 20 mg Hydralazine HCl (Apresoline) 10 mg IVP Q6 PRN PRN Reason: hypertension Last Admin: 05/29/18 12:24 Dose: 10 mg Levetiracetam 250 mg/ Sodium (Chloride) 102.5 mls @ 460 mls/hr IV Q12 [facility] Last Admin: 05/30/18 22:33 Dose: 460 mls/hr Metoprolol Tartrate (Lopressor) 25 mg PO BRKDIN [facility] Last Admin: 05/30/18 18:37 Dose: 25 mg Pantoprazole Sodium (Protonix Inj) 40 mg IVP DAILY [facility] - Labs Labs: 05/31/18 06:00 05/31/18 06:00 PT 23.7 SECONDS (9.4-12.5) H 05/30/18 11:00 INR 2.03 05/30/18 11:00 APTT 26.5 Seconds (25.1-36.5) 05/27/18 05:10 - Constitutional Appears: Non-toxic, No Acute Distress - Eye Exam Pupil Exam: NORMAL ACCOMODATION - ENT Exam ENT Exam: Mucous Membranes Dry - Respiratory Exam Respiratory Exam: Decreased Breath Sounds, Rhonchi, NORMAL BREATHING PATTERN - Cardiovascular Exam Cardiovascular Exam: Irregular Rhythm, +S1, +S2 Additional comments: Telemetry Atrial fibrillation 80's - GI/Abdominal Exam GI & Abdominal Exam: Soft, Normal Bowel Sounds Additional comments: PEG with tube feeding - Extremities Exam Additional comments: right sided weakness - Neurological Exam Additional comments: Lethargic,responds to simple commands with left arm aphasic - Skin Skin Exam: Dry, Normal Color, Warm Assessment and Plan - Assessment and Plan (Free Text) Assessment: A 88 year old female who came in to the ER due to GI bleeding and Coumadin toxicity (INR 6.02). history of chronic atrial fibrillation, COPD, CHF, aortic stenosis, cancer of esophagus having chemotherapy, history of DVT and pulmonary embolism,diabetes mellitus, hypertension, hypothyroisdism, She was given FFP and PRBC. stabilized. Coumadin on hold. GI on consult. 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 CT of head negative for bleeding. 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 Neuro on consult. Started on Keppra. Not candidate for TPA due to recent GI bleeding. Chest X ray-Bilateral infiltrates.Will start Rocephin and Zithromax. Plan: Lethargic but arousable,aphasic,follows simple commands Coughing cream colored sputum,orally suctioned Chest X ray- bibasalar infiltrates, Will start Zithromax and Rocephin No distress Controlled blood pressure Heart rate controlled, atrial fibrillation Neuro on consult GI on consult Anticoagulation (Coumadin) per Neuro due to recent GI bleeding Continue tube feeding, aspiration precaution On Lipitor 40 mg daily,Protonix 40 mg daily, Keppra 250 mg IV every 12 hours Continue current treatment Continue current medications Chart reviewed Will follow up Plan and treatment discussed with Dr. Cox
[2018-05-31] MEDS: cefTRIAXone 1 gm 1 GM/100 ML BAG IVPB SCH (10:41)
[2018-05-31] MEDS ORDERED: Bacitracin 500 Units/gm Oint Foilpak UD TOP ONE (11:03)
--- NOTE | 2018-05-31 13:41 | CP.PCM.PN ---
<Hi Rose - Last Filed: 05/31/18 13:35> Subjective - Date & Time of Evaluation Date of Evaluation: 05/31/18 Time of Evaluation: 13:35 - Subjective Subjective: Family and nurse are in room with patient. No signs of GI bleeding at this time. PEG tube is functional and well cared for. Tolerating tube feeds. Objective - Vital Signs/Intake and Output Vital Signs (last 24 hours): Temp Pulse Resp BP Pulse Ox 98.7 F 82 22 125/74 98 05/31/18 08:12 05/31/18 10:38 05/31/18 08:12 05/31/18 13:22 05/31/18 08:12 Intake and Output: 05/31/18 05/31/18 06:59 18:59 Intake Total 760 Balance 760 - Medications Medications: Current Medications Atorvastatin Calcium (Lipitor) 40 mg PO DIN [facility] Last Admin: 05/30/18 18:37 Dose: 40 mg Bacitracin (Bacitracin) 1 ea TOP Q12H [facility] Stop: 06/07/18 22:00 Furosemide (Lasix) 20 mg IVP DAILY [facility] Last Admin: 05/31/18 13:22 Dose: 20 mg Hydralazine HCl (Apresoline) 10 mg IVP Q6 PRN PRN Reason: hypertension Last Admin: 05/29/18 12:24 Dose: 10 mg Levetiracetam 250 mg/ Sodium (Chloride) 102.5 mls @ 460 mls/hr IV Q12 [facility] Last Admin: 05/31/18 10:36 Dose: 460 mls/hr Azithromycin (Zithromax 500mg In Ns) 500 mg in 250 mls @ 167 mls/hr IVPB 1100 [facility]; Protocol Ceftriaxone Sodium (Rocephin 1 Gram Ivpb) 1 gm in 100 mls @ 100 mls/hr IVPB DAILY [facility]; Protocol Stop: 06/05/18 08:00 Last Admin: 05/31/18 10:41 Dose: 100 mls/hr Metoprolol Tartrate (Lopressor) 25 mg PO BRKDIN [facility] Last Admin: 05/31/18 10:38 Dose: Not Given Pantoprazole Sodium (Protonix Inj) 40 mg IVP DAILY [facility] Last Admin: 05/31/18 10:38 Dose: 40 mg - Labs Labs: 05/31/18 06:00 05/31/18 06:00 PT 23.7 SECONDS (9.4-12.5) H 05/30/18 11:00 INR 2.03 05/30/18 11:00 APTT 26.5 Seconds (25.1-36.5) 05/27/18 05:10 - Constitutional Appears: Non-toxic, No Acute Distress - Head Exam Head Exam: NORMAL INSPECTION - Eye Exam Eye Exam: Normal appearance - ENT Exam ENT Exam: Mucous Membranes Moist - Respiratory Exam Respiratory Exam: Clear to Ausculation Bilateral, NORMAL BREATHING PATTERN - Cardiovascular Exam Cardiovascular Exam: Irregular Rhythm, +S1, +S2 - GI/Abdominal Exam GI & Abdominal Exam: Soft, Normal Bowel Sounds. absent: Tenderness Additional comments: PEG in place. No ulceration present. - Extremities Exam Extremities Exam: Normal Inspection - Neurological Exam Neurological Exam: absent: Awake, Oriented x3 - Psychiatric Exam Psychiatric exam: absent: Flat Affect - Skin Skin Exam: Dry, Intact Assessment and Plan - Assessment and Plan (Free Text) Assessment: 88 yo WF with SCC on chemo + XRT, Afib on AC presenting with hematemesis. # Hematemesis: Resolved. Most likely related to known underlying SCC currently on XRT predisposing to irritation and injury to the area along with supratherapeutic INR. 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 # Supratherapeutic INR: Resolved. 6 on presentation. On coumadin due to pAF. Active GI bleed upon presentation. Coagulopathy improved with FFP, IV Vit K. 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 C/b residual R hemiparesis and speech difficulties Plan: - Defer timing of anticoagulation to neuro. - PPI IV Daily - Monitor H&H and INR - Appreciate Onc and Cardiology consults - Hold off on endoscopy at this time <Elba Brown V - Last Filed: 05/31/18 20:46> Objective - Vital Signs/Intake and Output Vital Signs (last 24 hours): Temp Pulse Resp BP Pulse Ox 99.9 F H 83 19 95/64 L 100 05/31/18 19:05 05/31/18 18:00 05/31/18 18:00 05/31/18 18:00 05/31/18 18:00 Intake and Output: 05/31/18 06/01/18 18:59 06:59 Intake Total 340 Output Total 0 Balance 340 - Medications Medications: Current Medications Acetaminophen (Tylenol 650mg/20.3ml Solution Ud) 650 mg GT Q6H PRN PRN Reason: FEVER >100.4F Last Admin: 05/31/18 18:05 Dose: 650 mg Atorvastatin Calcium (Lipitor) 40 mg PO DIN [facility] Last Admin: 05/31/18 17:07 Dose: 40 mg Bacitracin (Bacitracin) 1 ea TOP Q12H [facility] Stop: 06/07/18 22:00 Last Admin: 05/31/18 17:08 Dose: 1 ea Furosemide (Lasix) 20 mg IVP DAILY [facility] Last Admin: 05/31/18 13:22 Dose: 20 mg Hydralazine HCl (Apresoline) 10 mg IVP Q6 PRN PRN Reason: hypertension Last Admin: 05/29/18 12:24 Dose: 10 mg Levetiracetam 250 mg/ Sodium (Chloride) 102.5 mls @ 460 mls/hr IV Q12 [facility] Last Admin: 05/31/18 10:36 Dose: 460 mls/hr Azithromycin (Zithromax 500mg In Ns) 500 mg in 250 mls @ 167 mls/hr IVPB 1100 [facility]; Protocol Last Admin: 05/31/18 16:55 Dose: 167 mls/hr Ceftriaxone Sodium (Rocephin 1 Gram Ivpb) 1 gm in 100 mls @ 100 mls/hr IVPB DAILY [facility]; Protocol Stop: 06/05/18 08:00 Last Admin: 05/31/18 10:41 Dose: 100 mls/hr Metoprolol Tartrate (Lopressor) 25 mg PO BRKDIN [facility] Last Admin: 05/31/18 17:08 Dose: 25 mg Pantoprazole Sodium (Protonix Inj) 40 mg IVP DAILY [facility] Last Admin: 05/31/18 10:38 Dose: 40 mg - Labs Labs: 05/31/18 06:00 05/31/18 06:00 PT 23.7 SECONDS (9.4-12.5) H 05/30/18 11:00 INR 2.03 05/30/18 11:00 APTT 26.5 Seconds (25.1-36.5) 05/27/18 05:10 Attending/Attestation - Attestation I have personally seen and examined this patient.: Yes I have fully participated in the care of the patient.: Yes I have reviewed all pertinent clinical information, including history, physical exam and plan: Yes Notes (Text): This is an addendum to GI progress report dictated by the GI Fellow.The patient was seen and examined earlier. Medical records, lab studies, imagings were reviewed. Last 24 hours events reviewed. Agreed with the above treatment plan as outlined in GI Fellow 's notes with the addition of the following No further episodes of bleeding HCT stable G Tube feeding resumed Anticoagulation as per neurology 05/31/18 20:45
--- NOTE | 2018-05-31 15:14 | CP.PCM.PN ---
Addendum entered and electronically signed by Shakeel Marie DO 05/31/18 15:20: Pulsox repeated with 2L 02 and bilateral pulsox >97% Canceled ABG/CXR Original Note: Subjective - Date & Time of Evaluation Date of Evaluation: 05/31/18 Time of Evaluation: 15:08 - Subjective Subjective: General Surgery Note for Dr. Tracy This 88F was seen and examined. Her right arm has been immobile since Saturday due to a CVA. Yesterday her RUE became swollen. Today her right hand was cool and the pads of her fingers appeared cyanotic. Patient is unable to give a subjective. Patient has palpable radial pulse and a dopplerable ulnar and palmar arch on the right side. Pulse ox on her right UE digits 81 pulsox on her left UE digits 78. Objective - Vital Signs/Intake and Output Vital Signs (last 24 hours): Temp Pulse Resp BP Pulse Ox 98.7 F 82 22 125/74 98 05/31/18 08:12 05/31/18 10:38 05/31/18 08:12 05/31/18 13:22 05/31/18 08:12 Intake and Output: 05/31/18 05/31/18 06:59 18:59 Intake Total 760 Balance 760 - Medications Medications: Current Medications Atorvastatin Calcium (Lipitor) 40 mg PO DIN [facility] Last Admin: 05/30/18 18:37 Dose: 40 mg Bacitracin (Bacitracin) 1 ea TOP Q12H [facility] Stop: 06/07/18 22:00 Furosemide (Lasix) 20 mg IVP DAILY [facility] Last Admin: 05/31/18 13:22 Dose: 20 mg Hydralazine HCl (Apresoline) 10 mg IVP Q6 PRN PRN Reason: hypertension Last Admin: 05/29/18 12:24 Dose: 10 mg Levetiracetam 250 mg/ Sodium (Chloride) 102.5 mls @ 460 mls/hr IV Q12 [facility] Last Admin: 05/31/18 10:36 Dose: 460 mls/hr Azithromycin (Zithromax 500mg In Ns) 500 mg in 250 mls @ 167 mls/hr IVPB 1100 [facility]; Protocol Ceftriaxone Sodium (Rocephin 1 Gram Ivpb) 1 gm in 100 mls @ 100 mls/hr IVPB DAILY [facility]; Protocol Stop: 06/05/18 08:00 Last Admin: 05/31/18 10:41 Dose: 100 mls/hr Metoprolol Tartrate (Lopressor) 25 mg PO BRKDIN [facility] Last Admin: 05/31/18 10:38 Dose: Not Given Pantoprazole Sodium (Protonix Inj) 40 mg IVP DAILY [facility] Last Admin: 05/31/18 10:38 Dose: 40 mg - Labs Labs: 05/31/18 06:00 05/31/18 06:00 PT 23.7 SECONDS (9.4-12.5) H 05/30/18 11:00 INR 2.03 05/30/18 11:00 APTT 26.5 Seconds (25.1-36.5) 05/27/18 05:10 - Constitutional Appears: No Acute Distress, Chronically Ill - Respiratory Exam Respiratory Exam: Rhonchi - Cardiovascular Exam Cardiovascular Exam: +S1, +S2 - Extremities Exam Additional comments: RUE swelling - Skin Additional comments: RUE digits appear cyanotic, cap refill 3 seconds Assessment and Plan - Assessment and Plan (Free Text) Assessment: 88F with swollen RUE Currently pulsox 78-80% calling respiratory Palpable pulses bilaterally, dopplerable palmar arch, unlikely ischemic F/U RUE US ABG CXR Will inform primary Will continue to follow Further Recs per Dr. Demarcus Marie PGY
[2018-05-31] MEDS: Azithromycin 500MG/NS 250ml 500 MG/250 ML BAG IVPB SCH (16:55)
[2018-05-31] MEDS: Bacitracin 500 Units/gm Oint Foilpak UD TOP SCH ×2 (17:08→23:03)
[2018-05-31] MEDS ORDERED: Acetaminophen 650mg/20.3ml solution UD GT PRN (17:39)
[2018-06-01 06:56] LABS: BASO # 0.01 K/mm3 (0.0-2.0); BASO % 0.3 % (0.0-3.0); EOS # 0.1 (0.0-0.7); GRAN # 2.22 (1.4-6.5); GRAN % 72.8 % (50.0-68.0); HEMOGLOBIN 8.3 g/dL (12.0-16.0); LYMPH # 0.5 (1.2-3.4); LYMPH % 15.1 % (22.0-35.0); MEAN CORPUSCULAR HEMOGLOBIN 27.6 pg (25.0-35.0); MEAN CORPUSCULAR HGB CONC 29.6 g/dl (31.0-37.0); MEAN PLATELET VOLUME 9.5 fl (7.0-11.0); MONO # 0.3 (0.1-0.6); MONO % 9.8 % (1.0-6.0); RBC 3.01 10^6/uL (3.5-6.1); RED CELL DISTRIBUTION WIDTH 16.4 % (11.5-14.5); WHITE BLOOD COUNT 3.1 10^3/ul (4.5-11.0)
--- NOTE | 2018-06-01 07:55 | CP.PCM.PN ---
Subjective - Date & Time of Evaluation Date of Evaluation: 06/01/18 Time of Evaluation: 07:52 - Subjective Subjective: General Surgery Progress Note for Dr. Tracy This 88F was seen and evaluated this AM at bedside no acute events overnight. Her RUE is warmer today still with palpable pulses and appropriate capliary refill. Patient is unable to provide subjective. Objective - Vital Signs/Intake and Output Vital Signs (last 24 hours): Temp Pulse Resp BP Pulse Ox 99.9 F H 78 19 95/64 L 100 05/31/18 19:05 06/01/18 06:00 05/31/18 18:00 05/31/18 18:00 05/31/18 18:00 Intake and Output: 06/01/18 06/01/18 06:59 18:59 Intake Total 860 Output Total 0 Balance 860 - Medications Medications: Current Medications Acetaminophen (Tylenol 650mg/20.3ml Solution Ud) 650 mg GT Q6H PRN PRN Reason: FEVER >100.4F Last Admin: 05/31/18 18:05 Dose: 650 mg Atorvastatin Calcium (Lipitor) 40 mg PO DIN [facility] Last Admin: 05/31/18 17:07 Dose: 40 mg Bacitracin (Bacitracin) 1 ea TOP Q12H [facility] Stop: 06/07/18 22:00 Last Admin: 05/31/18 23:03 Dose: 1 ea Furosemide (Lasix) 20 mg IVP DAILY [facility] Last Admin: 05/31/18 13:22 Dose: 20 mg Hydralazine HCl (Apresoline) 10 mg IVP Q6 PRN PRN Reason: hypertension Last Admin: 05/29/18 12:24 Dose: 10 mg Levetiracetam 250 mg/ Sodium (Chloride) 102.5 mls @ 460 mls/hr IV Q12 [facility] Last Admin: 05/31/18 21:58 Dose: 460 mls/hr Azithromycin (Zithromax 500mg In Ns) 500 mg in 250 mls @ 167 mls/hr IVPB 1100 [facility]; Protocol Last Admin: 05/31/18 16:55 Dose: 167 mls/hr Ceftriaxone Sodium (Rocephin 1 Gram Ivpb) 1 gm in 100 mls @ 100 mls/hr IVPB D A[facility]; Protocol Stop: 06/05/18 08:00 Last Admin: 05/31/18 10:41 Dose: 100 mls/hr Metoprolol Tartrate (Lopressor) 25 mg PO BRKDIN [facility] Last Admin: 05/31/18 17:08 Dose: 25 mg Pantoprazole Sodium (Protonix Inj) 40 mg IVP DAILY [facility] Last Admin: 05/31/18 10:38 Dose: 40 mg - Labs Labs: 06/01/18 05:00 05/31/18 06:00 PT 23.7 SECONDS (9.4-12.5) H 05/30/18 11:00 INR 2.03 05/30/18 11:00 APTT 26.5 Seconds (25.1-36.5) 05/27/18 05:10 - Constitutional Appears: Non-toxic, No Acute Distress - ENT Exam ENT Exam: Mucous Membranes Moist - Respiratory Exam Respiratory Exam: NORMAL BREATHING PATTERN - Cardiovascular Exam Cardiovascular Exam: +S1, +S2 - GI/Abdominal Exam GI & Abdominal Exam: Soft - Extremities Exam Additional comments: RUE swollen without signs of malperfusion - Neurological Exam Neurological Exam: Alert, Awake Neuro motor strength exam: Right Upper Extremity: 0 - Skin Skin Exam: Dry, Intact Assessment and Plan - Assessment and Plan (Free Text) Assessment: 88F with swollen RUE Recommend limb elevation Continue tube feeds Further Recs per Dr. Demarcus Marie PGY
--- NOTE | 2018-06-01 08:36 | CP.PCM.PN ---
Subjective - Date & Time of Evaluation Date of Evaluation: 06/01/18 Time of Evaluation: 06:35 - Subjective Subjective: open eyes to name calling, lying in bed, no distress Reason for consultation and follow up: Cardiac evaluation of atrial fibrillation,coumadin toxicity, admitting INR 6.02, admitted for hematemesis Seen and examined by me and Objective - Vital Signs/Intake and Output Vital Signs (last 24 hours): Temp Pulse Resp BP Pulse Ox 97.6 F 84 20 111/80 98 06/01/18 08:16 06/01/18 08:16 06/01/18 08:16 06/01/18 08:16 06/01/18 08:16 Intake and Output: 06/01/18 06/01/18 06:59 18:59 Intake Total 860 Output Total 0 Balance 860 - Medications Medications: Current Medications Acetaminophen (Tylenol 650mg/20.3ml Solution Ud) 650 mg GT Q6H PRN PRN Reason: FEVER >100.4F Last Admin: 05/31/18 18:05 Dose: 650 mg Atorvastatin Calcium (Lipitor) 40 mg PO DIN [facility] Last Admin: 05/31/18 17:07 Dose: 40 mg Bacitracin (Bacitracin) 1 ea TOP Q12H [facility] Stop: 06/07/18 22:00 Last Admin: 05/31/18 23:03 Dose: 1 ea Furosemide (Lasix) 20 mg IVP DAILY [facility] Last Admin: 05/31/18 13:22 Dose: 20 mg Hydralazine HCl (Apresoline) 10 mg IVP Q6 PRN PRN Reason: hypertension Last Admin: 05/29/18 12:24 Dose: 10 mg Levetiracetam 250 mg/ Sodium (Chloride) 102.5 mls @ 460 mls/hr IV Q12 [facility] Last Admin: 05/31/18 21:58 Dose: 460 mls/hr Azithromycin (Zithromax 500mg In Ns) 500 mg in 250 mls @ 167 mls/hr IVPB 1100 [facility]; Protocol Last Admin: 05/31/18 16:55 Dose: 167 mls/hr Ceftriaxone Sodium (Rocephin 1 Gram Ivpb) 1 gm in 100 mls @ 100 mls/hr IVPB DAILY [facility]; Protocol Stop: 06/05/18 08:00 Last Admin: 05/31/18 10:41 Dose: 100 mls/hr Metoprolol Tartrate (Lopressor) 25 mg PO BRKDIN [facility] Last Admin: 05/31/18 17:08 Dose: 25 mg Pantoprazole Sodium (Protonix Inj) 40 mg IVP DAILY [facility] Last Admin: 05/31/18 10:38 Dose: 40 mg - Labs Labs: 06/01/18 05:00 05/31/18 06:00 PT 23.7 SECONDS (9.4-12.5) H 05/30/18 11:00 INR 2.03 05/30/18 11:00 APTT 26.5 Seconds (25.1-36.5) 05/27/18 05:10 - Constitutional Appears: Non-toxic, No Acute Distress - Head Exam Head Exam: NORMAL INSPECTION, NORMOCEPHALIC - ENT Exam ENT Exam: Mucous Membranes Dry - Respiratory Exam Respiratory Exam: Decreased Breath Sounds, NORMAL BREATHING PATTERN - Cardiovascular Exam Cardiovascular Exam: Irregular Rhythm, +S1, +S2 Additional comments: Telemetry Atrial fibrillation 70's - GI/Abdominal Exam GI & Abdominal Exam: Soft, Normal Bowel Sounds Additional comments: PEG with tube feeding - Exam Additional comments: incontinent - Extremities Exam Additional comments: right sided weakness right arm swelling - Neurological Exam Additional comments: aphasic, open eyes to name calling - Skin Skin Exam: Dry, Normal Color, Warm Assessment and Plan - Assessment and Plan (Free Text) Assessment: A 88 year old female who came in to the ER due to GI bleeding and Coumadin toxicity (INR 6.02). history of chronic atrial fibrillation, COPD, CHF, aortic stenosis, cancer of esophagus having chemotherapy, history of DVT and pulmonary embolism,diabetes mellitus, hypertension, hypothyroisdism, She was given FFP and PRBC. stabilized. Coumadin on hold. GI on consult. chart reviewed, post EMISSIONS INSPECTOR yesterday due to right sided weakness and aphasia. CT of head negative for bleeding. 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 Neuro on consult. Started on Keppra. Not candidate for TPA due to recent GI bleeding.PEG with tube feeding.right arm swe lling. Plan: No distress,aphasic Controlled blood pressure Heart rate controlled Cardiac status stable Neuro on consult GI on consult Continue IV hydration PEG to tube feeding, tolerating well Right arm swelling, US of arm done pending result On Lipitor 40 mg daily,Protonix 40 mg daily, Keppra 250 mg IV every 12 hours Will defer to Neuro timing of anticoagulation (Atrial fibrillation) Continue current treatment Continue current medications Chart reviewed Will follow up Plan and treatment discussed with Dr. Cox
[2018-06-01 08:47] LABS: ALB/GLOB RATIO 0.9 (1.1-1.8); ALBUMIN 2.5 g/dL (3.0-4.8); ALT/SGPT 19 U/L (7-56); AST/SGOT 36 U/L (14-36); BLOOD UREA NITROGEN 23 mg/dL (7-21); CALCIUM 7.8 mg/dL (8.4-10.5); GFR NON-AFRICAN AMERICAN > 60
[2018-06-01] MEDS: cefTRIAXone 1 gm 1 GM/100 ML BAG IVPB SCH (11:12)
[2018-06-01] MEDS: Bacitracin 500 Units/gm Oint Foilpak UD TOP SCH ×2 (12:34→23:00)
[2018-06-01] MEDS: Azithromycin 500MG/NS 250ml 500 MG/250 ML BAG IVPB SCH (12:34)
--- NOTE | 2018-06-01 13:40 | CP.PCM.PN ---
<Hi Rose - Last Filed: 06/01/18 13:38> Subjective - Date & Time of Evaluation Date of Evaluation: 06/01/18 Time of Evaluation: 13:38 - Subjective Subjective: She is more awake today. Not communicating. Discussed with nursing, patient has not had BMs in several days. Denies signs of GI bleeding. Objective - Vital Signs/Intake and Output Vital Signs (last 24 hours): Temp Pulse Resp BP Pulse Ox 97.6 F 84 20 111/80 98 06/01/18 08:16 06/01/18 10:44 06/01/18 08:16 06/01/18 10:44 06/01/18 08:16 Intake and Output: 06/01/18 06/01/18 06:59 18:59 Intake Total 860 Output Total 0 Balance 860 - Medications Medications: Current Medications Acetaminophen (Tylenol 650mg/20.3ml Solution Ud) 650 mg GT Q6H PRN PRN Reason: FEVER >100.4F Last Admin: 05/31/18 18:05 Dose: 650 mg Atorvastatin Calcium (Lipitor) 40 mg PO DIN [facility] Last Admin: 05/31/18 17:07 Dose: 40 mg Bacitracin (Bacitracin) 1 ea TOP Q12H [facility] Stop: 06/07/18 22:00 Last Admin: 06/01/18 12:34 Dose: 1 ea Furosemide (Lasix) 20 mg IVP DAILY [facility] Last Admin: 06/01/18 10:42 Dose: 20 mg Hydralazine HCl (Apresoline) 10 mg IVP Q6 PRN PRN Reason: hypertension Last Admin: 05/29/18 12:24 Dose: 10 mg Levetiracetam 250 mg/ Sodium (Chloride) 102.5 mls @ 460 mls/hr IV Q12 [facility] Last Admin: 06/01/18 10:39 Dose: 460 mls/hr Azithromycin (Zithromax 500mg In Ns) 500 mg in 250 mls @ 167 mls/hr IVPB 1100 [facility]; Protocol Last Admin: 06/01/18 12:34 Dose: 167 mls/hr Ceftriaxone Sodium (Rocephin 1 Gram Ivpb) 1 gm in 100 mls @ 100 mls/hr IVPB DAILY [facility]; Protocol Stop: 06/05/18 08:00 Last Admin: 06/01/18 11:12 Dose: 100 mls/hr Metoprolol Tartrate (Lopressor) 25 mg PO BRKDIN [facility] Last Admin: 06/01/18 10:44 Dose: 25 mg Pantoprazole Sodium (Protonix Inj) 40 mg IVP DAILY [facility] Last Admin: 06/01/18 10:45 Dose: 40 mg - Labs Labs: 06/01/18 05:00 06/01/18 05:00 PT 23.7 SECONDS (9.4-12.5) H 05/30/18 11:00 INR 2.03 05/30/18 11:00 APTT 26.5 Seconds (25.1-36.5) 05/27/18 05:10 - Constitutional Appears: Non-toxic, No Acute Distress - Head Exam Head Exam: NORMAL INSPECTION - Cardiovascular Exam Cardiovascular Exam: Irregular Rhythm, +S1, +S2 - GI/Abdominal Exam GI & Abdominal Exam: Soft, Normal Bowel Sounds. 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 # Hematemesis: Resolved. Most likely related to known underlying SCC currently on XRT predisposing to irritation and injury to the area along with supratherapeutic INR. 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 # Supratherapeutic INR: Resolved. 6 on presentation. On coumadin due to pAF. Active GI bleed upon presentation. Coagulopathy improved with FFP, IV Vit K. 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 - PPI IV Daily - Monitor H&H and INR - Appreciate Onc and Cardiology consults - Hold off on endoscopy at this time - Stool softeners BID <Kevin,Kovil V - Last Filed: 06/01/18 21:17> Objective - Vital Signs/Intake and Output Vital Signs (last 24 hours): Temp Pulse Resp BP Pulse Ox 98.4 F 79 19 117/75 92 L 06/01/18 17:44 06/01/18 18:00 06/01/18 17:44 06/01/18 17:44 06/01/18 17:44 Intake and Output: 06/01/18 06/02/18 18:59 06:59 Intake Total 760 Balance 760 - Medications Medications: Current Medications Acetaminophen (Tylenol 650mg/20.3ml Solution Ud) 650 mg GT Q6H PRN PRN Reason: FEVER >100.4F Last Admin: 05/31/18 18:05 Dose: 650 mg Atorvastatin Calcium (Lipitor) 40 mg PO DIN [facility] Last Admin: 06/01/18 17:06 Dose: 40 mg Bacitracin (Bacitracin) 1 ea TOP Q12H [facility] Stop: 06/07/18 22:00 Last Admin: 06/01/18 12:34 Dose: 1 ea Docusate Sodium (Colace Liquid) 100 mg PO BID [facility] Last Admin: 06/01/18 17:06 Dose: 100 mg Furosemide (Lasix) 20 mg IVP DAILY [facility] Last Admin: 06/01/18 10:42 Dose: 20 mg Hydralazine HCl (Apresoline) 10 mg IVP Q6 PRN PRN Reason: hypertension Last Admin: 05/29/18 12:24 Dose: 10 mg Levetiracetam 250 mg/ Sodium (Chloride) 102.5 mls @ 460 mls/hr IV Q12 [facility] Last Admin: 06/01/18 10:39 Dose: 460 mls/hr Azithromycin (Zithromax 500mg In Ns) 500 mg in 250 mls @ 167 mls/hr IVPB 1100 [facility]; Protocol Last Admin: 06/01/18 12:34 Dose: 167 mls/hr Ceftriaxone Sodium (Rocephin 1 Gram Ivpb) 1 gm in 100 mls @ 100 mls/hr IVPB DAILY [facility]; Protocol Stop: 06/05/18 08:00 Last Admin: 06/01/18 11:12 Dose: 100 mls/hr Metoprolol Tartrate (Lopressor) 25 mg PO BRKDIN [facility] Last Admin: 06/01/18 17:06 Dose: 25 mg Pantoprazole Sodium (Protonix Inj) 40 mg IVP DAILY [facility] Last Admin: 06/01/18 10:45 Dose: 40 mg - Labs Labs: 06/01/18 13:55 06/01/18 05:00 PT 23.7 SECONDS (9.4-12.5) H 05/30/18 11:00 INR 2.03 05/30/18 11:00 APTT 26.5 Seconds (25.1-36.5) 05/27/18 05:10 Attending/Attestation - Attestation I have personally seen and examined this patient.: Yes I have fully participated in the care of the patient.: Yes I have reviewed all pertinent clinical information, including history, physical exam and plan: Yes Notes (Text): This is an addendum to GI progress report dictated by the GI Fellow.The patient was seen and examined earlier. Medical records, lab studies, imagings were reviewed. Last 24 hours events reviewed. Agreed with the above treatment plan as outlined in GI Fellow 's notes with the addition of the following Tolerating the diet No further episodes of bleeding Timing of restarting anticoagulation as per neuro Will followup hb On pantoprazole Followup Hb Slowly increase GT feeding 06/01/18 21:15
[2018-06-01 14:07] LABS: HEMOGLOBIN 9.1 g/dL (12.0-16.0); MEAN CELL VOLUME 96.4 fl (80.0-105.0); MEAN CORPUSCULAR HEMOGLOBIN 32.5 pg (25.0-35.0); RBC 2.8 10^6/uL (3.5-6.1); WHITE BLOOD COUNT 4.3 10^3/ul (4.5-11.0)
[2018-06-01 14:08] LABS: BASO # 0.02 K/mm3 (0.0-2.0); BASO % 0.5 % (0.0-3.0); EOS # 0.1 (0.0-0.7); EOS % 1.6 % (1.5-5.0); GRAN # 3.14 (1.4-6.5); GRAN % 72.4 % (50.0-68.0); LYMPH # 0.8 (1.2-3.4); LYMPH % 17.6 % (22.0-35.0); MEAN CORPUSCULAR HGB CONC 33.7 g/dl (31.0-37.0); MEAN PLATELET VOLUME 8.5 fl (7.0-11.0); MONO # 0.3 (0.1-0.6); MONO % 7.9 % (1.0-6.0); RED CELL DISTRIBUTION WIDTH 16.6 % (11.5-14.5)
--- NOTE | 2018-06-01 20:05 | US ---
Date of service: 05/31/2018 PROCEDURE: HISTORY: Right hand and arm swelling and coolness COMPARISON: TECHNIQUE: FINDINGS: The right wrist-brachial index is normal, 1.11. The left wrist-brachial index is mildly abnormal, 0.88 The segmental pressures and PVR waveforms are normal on the right. The left upper arm PVR waveform is normal. The left forearm and wrist waveforms are severely blunted. No significant segmental gradients are seen. This could represent a left brachial occlusion. IMPRESSION: Possible left brachial occlusion. The differential includes embolus.
--- NOTE | 2018-06-01 20:06 | US ---
PROCEDURE: Right upper extremity venous US CLINICAL HISTORY: Arm pain and swelling Evaluate for deep venous thrombosis. PHYSICIAN(S): Rajesh Smith M.D FINDINGS: The visualized rightinternal jugular vein is sonographically normal and compressible. No evidence of obstruction or thrombus is seen. The visualized segments of the right subclavian vein are patent with normal waveforms. No sonographic evidence of obstruction or thrombosis is seen. The visualized deep venous system of the proximal right upper extremity is sonographically normal and compressible. IMPRESSION: 1. No sonographic evidence for deep venous thrombosis in the visualized segments of the right upper extremity.
--- NOTE | 2018-06-01 20:54 | CP.PCM.PN ---
Subjective - Date & Time of Evaluation Date of Evaluation: 06/01/18 Time of Evaluation: 20:54 - Subjective Subjective: # 22 angiocath was inserted in right forearm. Objective - Vital Signs/Intake and Output Vital Signs (last 24 hours): Temp Pulse Resp BP Pulse Ox 98.4 F 79 19 117/75 92 L 06/01/18 17:44 06/01/18 18:00 06/01/18 17:44 06/01/18 17:44 06/01/18 17:44 Intake and Output: 06/01/18 06/02/18 18:59 06:59 Intake Total 760 Balance 760 - Medications Medications: Current Medications Acetaminophen (Tylenol 650mg/20.3ml Solution Ud) 650 mg GT Q6H PRN PRN Reason: FEVER >100.4F Last Admin: 05/31/18 18:05 Dose: 650 mg Atorvastatin Calcium (Lipitor) 40 mg PO DIN [facility] Last Admin: 06/01/18 17:06 Dose: 40 mg Bacitracin (Bacitracin) 1 ea TOP Q12H [facility] Stop: 06/07/18 22:00 Last Admin: 06/01/18 12:34 Dose: 1 ea Docusate Sodium (Colace Liquid) 100 mg PO BID [facility] Last Admin: 06/01/18 17:06 Dose: 100 mg Furosemide (Lasix) 20 mg IVP DAILY [facility] Last Admin: 06/01/18 10:42 Dose: 20 mg Hydralazine HCl (Apresoline) 10 mg IVP Q6 PRN PRN Reason: hypertension Last Admin: 05/29/18 12:24 Dose: 10 mg Levetiracetam 250 mg/ Sodium (Chloride) 102.5 mls @ 460 mls/hr IV Q12 [facility] Last Admin: 06/01/18 10:39 Dose: 460 mls/hr Azithromycin (Zithromax 500mg In Ns) 500 mg in 250 mls @ 167 mls/hr IVPB 1100 [facility]; Protocol Last Admin: 06/01/18 12:34 Dose: 167 mls/hr Ceftriaxone Sodium (Rocephin 1 Gram Ivpb) 1 gm in 100 mls @ 100 mls/hr IVPB DAILY [facility]; Protocol Stop: 06/05/18 08:00 Last Admin: 06/01/18 11:12 Dose: 100 mls/hr Metoprolol Tartrate (Lopressor) 25 mg PO BRKDIN [facility] Last Admin: 06/01/18 17:06 Dose: 25 mg Pantoprazole Sodium (Protonix Inj) 40 mg IVP DAILY [facility] Last Admin: 06/01/18 10:45 Dose: 40 mg - Labs Labs: 06/01/18 13:55 06/01/18 05:00 PT 23.7 SECONDS (9.4-12.5) H 05/30/18 11:00 INR 2.03 05/30/18 11:00 APTT 26.5 Seconds (25.1-36.5) 05/27/18 05:10
--- NOTE | 2018-06-02 07:48 | CP.PCM.PN ---
Subjective - Date & Time of Evaluation Date of Evaluation: 06/02/18 Time of Evaluation: 06:40 - Subjective Subjective: No distress,open eyes to name calling, lying in bed Reason for consultation and follow up: Cardiac evaluation of atrial fibrillation,coumadin toxicity, admitting INR 6.02, admitted for hematemesis Seen and examined by me and Objective - Vital Signs/Intake and Output Vital Signs (last 24 hours): Temp Pulse Resp BP Pulse Ox 98.4 F 79 19 117/75 92 L 06/01/18 17:44 06/01/18 18:00 06/01/18 17:44 06/01/18 17:44 06/01/18 17:44 - Medications Medications: Current Medications Acetaminophen (Tylenol 650mg/20.3ml Solution Ud) 650 mg GT Q6H PRN PRN Reason: FEVER >100.4F Last Admin: 05/31/18 18:05 Dose: 650 mg Atorvastatin Calcium (Lipitor) 40 mg PO DIN [facility] Last Admin: 06/01/18 17:06 Dose: 40 mg Bacitracin (Bacitracin) 1 ea TOP Q12H [facility] Stop: 06/07/18 22:00 Last Admin: 06/01/18 23:00 Dose: 1 ea Docusate Sodium (Colace Liquid) 100 mg PO BID [facility] Last Admin: 06/01/18 17:06 Dose: 100 mg Furosemide (Lasix) 20 mg IVP DAILY [facility] Last Admin: 06/01/18 10:42 Dose: 20 mg Hydralazine HCl (Apresoline) 10 mg IVP Q6 PRN PRN Reason: hypertension Last Admin: 05/29/18 12:24 Dose: 10 mg Levetiracetam 250 mg/ Sodium (Chloride) 102.5 mls @ 460 mls/hr IV Q12 [facility] Last Admin: 06/01/18 22:57 Dose: 460 mls/hr Azithromycin (Zithromax 500mg In Ns) 500 mg in 250 mls @ 167 mls/hr IVPB 1100 [facility]; Protocol Last Admin: 06/01/18 12:34 Dose: 167 mls/hr Ceftriaxone Sodium (Rocephin 1 Gram Ivpb) 1 gm in 100 mls @ 100 mls/hr IVPB DAILY [facility]; Protocol Stop: 06/05/18 08:00 Last Admin: 06/01/18 11:12 Dose: 100 mls/hr Metoprolol Tartrate (Lopressor) 25 mg PO BRKDIN [facility] Last Admin: 06/01/18 17:06 Dose: 25 mg Pantoprazole Sodium (Protonix Inj) 40 mg IVP DAILY [facility] Last Admin: 06/01/18 10:45 Dose: 40 mg - Labs Labs: 06/01/18 13:55 06/01/18 05:00 PT 23.7 SECONDS (9.4-12.5) H 05/30/18 11:00 INR 2.03 05/30/18 11:00 APTT 26.5 Seconds (25.1-36.5) 05/27/18 05:10 - Constitutional Appears: Non-toxic, No Acute Distress - ENT Exam ENT Exam: Mucous Membranes Dry - Respiratory Exam Respiratory Exam: Decreased Breath Sounds, Clear to Ausculation Bilateral, NORMAL BREATHING PATTERN - Cardiovascular Exam Cardiovascular Exam: Irregular Rhythm, +S1, +S2 Additional comments: Trelemetry afib 70's - GI/Abdominal Exam GI & Abdominal Exam: Soft, Normal Bowel Sounds Additional comments: PEG tube feeding - Extremities Exam Additional comments: right sided weakness right arm swelling elevated with 1 pillow - Neurological Exam Additional comments: lethargic but arousable - Psychiatric Exam Psychiatric exam: Flat Affect - Skin Skin Exam: Dry, Normal Color, Warm Assessment and Plan - Assessment and Plan (Free Text) Assessment: A 88 year old female who came in to the ER due to GI bleeding and Coumadin toxicity (INR 6.02). history of chronic atrial fibrillation, COPD, CHF, aortic stenosis, cancer of esophagus having chemotherapy, history of DVT and pulmonary embolism,diabetes mellitus, hypertension, hypothyroisdism, She was given FFP and PRBC. stabilized. Coumadin on hold. GI on consult. 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 CT of head negative for bleeding. 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 Neuro on consult. Started on Keppra. Not candidate for TPA due to recent GI bleeding.PEG with tube feeding.right arm swelling negative for DVT. Plan: No distress,right arm swelling elevated with 1 pillow Controlled blood pressure Heart rate controlled Atrial fibrillation Cardiac status stable Neuro on consult GI on consult PEG to tube feeding, tolerating well Right arm swelling, US of arm negative for DVT On Lipitor 40 mg daily,Protonix 40 mg daily, Keppra 250 mg IV every 12 hours Will defer to Neuro timing of anticoagulation (Atrial fibrillation) Continue IV antibiotics as ordered Continue current treatment Continue current medications Chart reviewed Will follow up Plan and treatment discussed with Dr. Cox
--- NOTE | 2018-06-02 08:13 | PN ---
DATE: 05/30/2018 LOCATION: The patient is in room 363, bed 1. Jody Waller already dictated to the progress note, so this is an addendum to that note. The patient was admitted. The anticoagulation was held because of GI bleeding and increased pro-time. Now, the patient developed CVA with AFib and right-sided weakness. The patient still is aphasic and there is no respiratory distress. The patient is lying flat in bed without any cardiac symptoms. The patient's clinically cardiac status is stable and the patient is still not started anticoagulation which was left up to neurologist and glassware maker, both have been following the patient. From our point, clinically, cardiac status is stable, otherwise heart rate is under control, no evidence of any chest pain, no respiratory distress. The patient has been given hydralazine IV p.r.n., furosemide IV 20 daily, metoprolol 25 b.i.d., Protonix IV 40 mg every 12 hour. We will continue to follow. Anticoagulation should be started when is okay with Neurology and Hematology. We will follow. Nicolette Bryson MD
--- NOTE | 2018-06-02 08:27 | PN ---
DATE: 05/31/2018 This note is in addition to the nurse practitioner dictated this morning. The patient's daughter is at bedside, trying to feed her. Swallowing evaluation was done and the patient can swallow. The patient initially was admitted with Coumadin toxicity and GI bleed. The patient developed stroke with aphasia, history of DVT, history of PE. Suggested to start Coumadin. Discussed with Dr. Coello's resident taking care to restart Coumadin, once it was cleared by Neurology. As Neurology recommended 1 week off anticoagulation and CT head prior to starting to make sure there is no hemorrhage, though the patient would be high risk for recurrent thromboembolic complication, but the risk and benefit ratio, possible is more in favor of holding as there is no clear answer at this point, like I mentioned there is high risk of thromboembolic and recurrent stroke, but at the same time if early starting her anticoagulation, high risk for intracerebellar bleed. Possibly, this high elevated level is secondary to chemotherapy this patient got for carcinoma of the esophagus. Overall, the patient's condition is critical. Long-term prognosis is guarded. Discussed with the daughter. We will follow with you. Continue other meds through the NG tube with p.r.n. hydralazine. Nicolette Cox MD
--- NOTE | 2018-06-02 08:31 | CP.PCM.PN ---
<Lenard Fischer - Last Filed: 06/02/18 12:29> Subjective - Date & Time of Evaluation Date of Evaluation: 06/02/18 Time of Evaluation: 07:35 - Subjective Subjective: PGY-4 GI Fellow Prog Note Pt sleeping in bed when seen this AM. Awoke to light tactile stimulation. Otherwise non-verbal. Unable to obtain ROS due to clinical condition. Objective - Vital Signs/Intake and Output Vital Signs (last 24 hours): Temp Pulse Resp BP Pulse Ox 99.2 F 76 20 99/72 L 98 06/02/18 08:15 06/02/18 08:15 06/02/18 08:15 06/02/18 08:15 06/02/18 08:15 Intake and Output: 06/02/18 06/02/18 06:59 18:59 Intake Total 360 Balance 360 - Medications Medications: Current Medications Acetaminophen (Tylenol 650mg/20.3ml Solution Ud) 650 mg GT Q6H PRN PRN Reason: FEVER >100.4F Last Admin: 05/31/18 18:05 Dose: 650 mg Atorvastatin Calcium (Lipitor) 40 mg PO DIN [facility] Last Admin: 06/01/18 17:06 Dose: 40 mg Bacitracin (Bacitracin) 1 ea TOP Q12H [facility] Stop: 06/07/18 22:00 Last Admin: 06/01/18 23:00 Dose: 1 ea Docusate Sodium (Colace Liquid) 100 mg PO BID [facility] Last Admin: 06/01/18 17:06 Dose: 100 mg Furosemide (Lasix) 20 mg IVP DAILY [facility] Last Admin: 06/01/18 10:42 Dose: 20 mg Hydralazine HCl (Apresoline) 10 mg IVP Q6 PRN PRN Reason: hypertension Last Admin: 05/29/18 12:24 Dose: 10 mg Levetiracetam 250 mg/ Sodium (Chloride) 102.5 mls @ 460 mls/hr IV Q12 [facility] Last Admin: 06/01/18 22:57 Dose: 460 mls/hr Azithromycin (Zithromax 500mg In Ns) 500 mg in 250 mls @ 167 mls/hr IVPB 1100 [facility]; Protocol Last Admin: 06/01/18 12:34 Dose: 167 mls/hr Ceftriaxone Sodium (Rocephin 1 Gram Ivpb) 1 gm in 100 mls @ 100 mls/hr IVPB DAILY [facility]; Protocol Stop: 06/05/18 08:00 Last Admin: 06/01/18 11:12 Dose: 100 mls/hr Metoprolol Tartrate (Lopressor) 25 mg PO BRKDIN [facility] Last Admin: 06/01/18 17:06 Dose: 25 mg Pantoprazole Sodium (Protonix Inj) 40 mg IVP DAILY [facility] Last Admin: 06/01/18 10:45 Dose: 40 mg - Labs Labs: 06/01/18 13:55 06/01/18 05:00 PT 23.7 SECONDS (9.4-12.5) H 05/30/18 11:00 INR 2.03 05/30/18 11:00 APTT 26.5 Seconds (25.1-36.5) 05/27/18 05:10 - Constitutional Appears: No Acute Distress, Chronically Ill - ENT Exam ENT Exam: Mucous Membranes Dry. absent: Mucous Membranes Moist, Normal External Ear Exam - Respiratory Exam Respiratory Exam: absent: Accessory Muscle Use, Respiratory Distress - Cardiovascular Exam Cardiovascular Exam: REGULAR RHYTHM, RRR - GI/Abdominal Exam GI & Abdominal Exam: Soft, Normal Bowel Sounds. absent: Bruit, Distended, Firm, Guarding, Rigid, Tenderness, Mass, Organomegaly, Pulsatile Mass, Rebound Additional comments: +PEG in place Assessment and Plan - Assessment and Plan (Free Text) Assessment: 88 yo WF with SCC on chemo + XRT, Afib on AC presenting with hematemesis. # Hematemesis: Resolved. Most likely related to known underlying SCC currently on XRT predisposing to irritation and injury to the area along with supratherapeutic INR. 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 # Supratherapeutic INR: Resolved. 6 on presentation. On coumadin due to pAF. Active GI bleed upon presentation. Coagulopathy improved with FFP, IV Vit K. 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 C/b residual R hemiparesis and speech difficulties #Constipation Plan: - Defer timing of anticoagulation to Neuro - PPI IV Daily - Monitor H&H and INR - Appreciate Onc and Cardiology consults - Hold off on endoscopy at this time - Stool softeners BID Pt seen and examined with Dr. Brown; please see attestation for further recs/changes <Elba Brown V - Last Filed: 06/02/18 19:19> Objective - Vital Signs/Intake and Output Vital Signs (last 24 hours): Temp Pulse Resp BP Pulse Ox 97.7 F 75 18 111/77 97 06/02/18 16:31 06/02/18 17:27 06/02/18 16:31 06/02/18 17:27 06/02/18 16:31 Intake and Output: 06/02/18 06/03/18 18:59 06:59 Intake Total 1400 Balance 1400 - Medications Medications: Current Medications Acetaminophen (Tylenol 650mg/20.3ml Solution Ud) 650 mg GT Q6H PRN PRN Reason: FEVER >100.4F Last Admin: 05/31/18 18:05 Dose: 650 mg Aspirin (Aspirin Chewable) 81 mg PO DAILY [facility] Last Admin: 06/02/18 17:27 Dose: 81 mg Atorvastatin Calcium (Lipitor) 40 mg PO DIN [facility] Last Admin: 06/02/18 17:27 Dose: 40 mg Bacitracin (Bacitracin) 1 ea TOP Q12H [facility] Stop: 06/07/18 22:00 Last Admin: 06/02/18 11:11 Dose: 1 ea Docusate Sodium (Colace Liquid) 100 mg PO BID [facility] Last Admin: 06/02/18 17:27 Dose: 100 mg Furosemide (Lasix) 20 mg IVP DAILY [facility] Last Admin: 06/02/18 10:07 Dose: 20 mg Heparin Sodium (Porcine) (Heparin) 5,000 units SC Q8 [facility]; Protocol Last Admin: 06/02/18 17:31 Dose: 5,000 units Hydralazine HCl (Apresoline) 10 mg IVP Q6 PRN PRN Reason: hypertension Last Admin: 05/29/18 12:24 Dose: 10 mg Levetiracetam 250 mg/ Sodium (Chloride) 102.5 mls @ 460 mls/hr IV Q12 [facility] Last Admin: 06/02/18 10:06 Dose: 460 mls/hr Azithromycin (Zithromax 500mg In Ns) 500 mg in 250 mls @ 167 mls/hr IVPB 1100 [facility]; Protocol Last Admin: 06/02/18 11:12 Dose: 167 mls/hr Ceftriaxone Sodium (Rocephin 1 Gram Ivpb) 1 gm in 100 mls @ 100 mls/hr IVPB DAILY [facility]; Protocol Stop: 06/05/18 08:00 Last Admin: 06/02/18 10:08 Dose: 100 mls/hr Metoprolol Tartrate (Lopressor) 25 mg PO BRKDIN [facility] Last Admin: 06/02/18 17:27 Dose: 25 mg Pantoprazole Sodium (Protonix Inj) 40 mg IVP DAILY [facility] Last Admin: 06/02/18 10:08 Dose: 40 mg - Labs Labs: 06/02/18 09:00 06/02/18 09:00 PT 14.1 SECONDS (9.4-12.5) H 06/02/18 09:00 INR 1.22 06/02/18 09:00 APTT 26.5 Seconds (25.1-36.5) 06/02/18 09:00 Attending/Attestation - Attestation I have personally seen and examined this patient.: Yes I have fully participated in the care of the patient.: Yes I have reviewed all pertinent clinical information, including history, physical exam and plan: Yes Notes (Text): This is an addendum to GI progress report dictated by the GI Fellow.The patient was seen and examined earlier. Medical records, lab studies, imagings were reviewed. Last 24 hours events reviewed. Agreed with the above treatment plan as outlined in GI Fellow 's notes with the addition of the following Tolerating GT feeding Hb stable Continue PPI Restart anticoagulation If needed timing as per neurology 06/02/18 19:18
--- NOTE | 2018-06-02 08:51 | PN ---
DATE: 06/01/2018 LOCATION: The patient is in room 363, bed 1. 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 The patient had upper GI bleeding, which resolved after correction with FFP. The patient subsequently that while on the floor, developed significant impact on the massive stroke with right-sided weakness. The patient is aphasic, but slowly has turned around over the last 48 hours because of acuteness of the event and since the patient has bleeding, she could not get TPA and the patient could not be started Diovan and Coumadin and she has been maintained on aspirin and as per Neurology and Cardiology, . Subjectively, the patient is more awake, not communicating, daughter is at bedside, trying to . In the meantime, the patient is getting G-tube feeding, which she has and all of her medicines have been given with a gastrostomy tube. PHYSICAL EXAMINATION: GENERAL: The patient appears to be nontoxic, in no acute distress. VITAL SIGNS: Stable. T-max of 98.4, pulse of 84, respirations 20, blood pressure is 118/80, pulse ox is 98% on room air. HEENT: Head is normocephalic and atraumatic. Conjunctivae are pale. Sclerae are anicteric. Pupils are equally reactive to light and accommodation. LUNGS: Appears to clear to percussion and auscultation. CARDIOVASCULAR SYSTEM: Reveals irregular rhythm. S1 and S2 are normal. ABDOMEN: Soft and nontender. G-tube was in place with the side appearing to be clean. Bowel sounds are present. No rebound, rigidity, or guarding is noted. EXTREMITIES: Reveals no cyanosis, clubbing, or edema. NEUROLOGIC: The patient is awake and alert, but unable to communicate, hemiplegia. SKIN: Dry and intact. LABORATORY DATA: INR is 2.03 on 05/30/2018. Most recent labs were also reviewed and at this point in time, the patient H and H appear to be stable. White count is 4.3, hemoglobin 9.1, hematocrit 27, platelet count is 211,000. Chemistry revealed sodium of 131 and K of 4.3. LFTs are normal. Total protein 5.3 with an albumin of 2.5. MEDICATIONS: The patient's medications were reviewed. She is on hydralazine 10 mg every 6 hours p.r.n. for hypertension. She is on Colace 100 mg b.i.d., which is Colace. She is on Lasix 20 mg IV daily. She is on Keppra 250 mg IV every 12 hours. She is on atorvastatin 40 mg daily, metoprolol 25 mg daily, pantoprazole 40 mg IV daily, ceftriaxone 1 g IV every 8 hours, Tylenol 650 mg p.r.n., azithromycin 500 mg IV piggyback daily. ASSESSMENT AND PLAN: Detailed discussion with the patient's daughter. I told her about the density of the hemiplegia that is evidence on scan. I told her that since this was an embolic stroke I am hoping the things will improve over the next several weeks. The question at this point in time is what we are going to do for underlying issues of which we were treating her for. I told her that she was almost at the end of the treatment and we hope that too had an impact on her stage II carcinoma. In the meantime, we will left her recover from the left anterior infarct. If it documents both on the CAT scan and the MRI, Physical Therapy and hopefully the patient's condition should improve over the next several weeks. Prognosis is guarded, given the age of the patient and the family is quiet cognizant of all the fact since the patient was so ____ and functional before all these things happen, to be optimistic that she may have some recovery over the next several weeks. Time spent with the patient greater than 35 minutes, out of which more than 50% of time was spent in communicating with the patient's family, discussion with them all the events that have taken place the overall prognosis could be . Calos Coello MD [facility] # [id number]
--- NOTE | 2018-06-02 09:15 | CP.PCM.PN ---
Subjective - Date & Time of Evaluation Date of Evaluation: 06/02/18 Time of Evaluation: 08:54 - Subjective Subjective: Gera Woods PGY2 Heme/Onc Progress Note for Dr. Coello Patient was seen and examined at bedside. There were no acute overnight events. The patient is more awake and following commands today than the past week. her right arm is still flaccid however, she is generally more awake. Nursing notes, labs and VS were reviewed. Objective - Vital Signs/Intake and Output Vital Signs (last 24 hours): Temp Pulse Resp BP Pulse Ox 99.2 F 76 20 99/72 L 98 06/02/18 08:15 06/02/18 08:15 06/02/18 08:15 06/02/18 08:15 06/02/18 08:15 Intake and Output: 06/02/18 06/02/18 06:59 18:59 Intake Total 360 Balance 360 - Medications Medications: Current Medications Acetaminophen (Tylenol 650mg/20.3ml Solution Ud) 650 mg GT Q6H PRN PRN Reason: FEVER >100.4F Last Admin: 05/31/18 18:05 Dose: 650 mg Atorvastatin Calcium (Lipitor) 40 mg PO DIN [facility]NY Last Admin: 06/01/18 17:06 Dose: 40 mg Bacitracin (Bacitracin) 1 ea TOP Q12H [facility] Stop: 06/07/18 22:00 Last Admin: 06/01/18 23:00 Dose: 1 ea Docusate Sodium (Colace Liquid) 100 mg PO BID [facility] Last Admin: 06/01/18 17:06 Dose: 100 mg Furosemide (Lasix) 20 mg IVP DAILY [facility] Last Admin: 06/01/18 10:42 Dose: 20 mg Hydralazine HCl (Apresoline) 10 mg IVP Q6 PRN PRN Reason: hypertension Last Admin: 05/29/18 12:24 Dose: 10 mg Levetiracetam 250 mg/ Sodium (Chloride) 102.5 mls @ 460 mls/hr IV Q12 [facility] Last Admin: 06/01/18 22:57 Dose: 460 mls/hr Azithromycin (Zithromax 500mg In Ns) 500 mg in 250 mls @ 167 mls/hr IVPB 1100 [facility]; Protocol Last Admin: 06/01/18 12:34 Dose: 167 mls/hr Ceftriaxone Sodium (Rocephin 1 Gram Ivpb) 1 gm in 100 mls @ 100 mls/hr IVPB DAILY [facility]; Protocol Stop: 06/05/18 08:00 Last Admin: 06/01/18 11:12 Dose: 100 mls/hr Metoprolol Tartrate (Lopressor) 25 mg PO BRKDIN [facility] Last Admin: 06/01/18 17:06 Dose: 25 mg Pantoprazole Sodium (Protonix Inj) 40 mg IVP DAILY [facility] Last Admin: 06/01/18 10:45 Dose: 40 mg - Labs Labs: 06/01/18 13:55 06/01/18 05:00 PT 23.7 SECONDS (9.4-12.5) H 05/30/18 11:00 INR 2.03 05/30/18 11:00 APTT 26.5 Seconds (25.1-36.5) 05/27/18 05:10 - Additional Findings Additional findings: - Constitutional Appears: Non-toxic, No Acute Distress, Confused, Chronically Ill, Other (arousable to stimuli) - Head Exam Head Exam: NORMAL INSPECTION - Eye Exam Eye Exam: Normal appearance, PERRL Additional comments: opens eyes spontaneously, but has right sided rafael-neglect - ENT Exam ENT Exam: Mucous Membranes Moist - Respiratory Exam Respiratory Exam: NORMAL BREATHING PATTERN. absent: Rhonchi, Wheezes, Respiratory Distress - Cardiovascular Exam Cardiovascular Exam: Irregular Rhythm, +S1, +S2, Murmur - GI/Abdominal Exam GI & Abdominal Exam: Soft. absent: Distended, Tenderness Additional comments: g-tube in place - Extremities Exam Extremities Exam: absent: Full ROM, Pedal Edema - Back Exam Back Exam: NORMAL INSPECTION - Neurological Exam Neurological Exam: Altered, Motor Sensory Deficit (noted to be moving LUE but not RUE; following commands) - Psychiatric Exam Psychiatric exam: Normal Mood - Skin Skin Exam: Normal Color Assessment and Plan - Assessment and Plan (Free Text) Assessment: 88-year-old female with a PMH of recently diagnosed squamous cell carcinoma of the esophagus (03/2018), CHF, achalasia and A. fib on Coumadin who presents with GI bleed, likely due to her malignancy, found to have supratherapeutic INR. Patient was started on PTX gtt and given vitamin K and responded well, and has not had episodes of bleeding and INR level decreased. Her Coumadin was held. Subsequently, patient suffered acute ischemic L MCA stroke in L basal ganglia and [employer] was called. Patient continues to be in Afib but is off anticoagulation due to high risk of intracranial hemorrhage. Plan: Discussed with Cardio, GI and neuro regarding restarting anti-coagulation; Neuro recommending 1 week off anticoagulation then CT head prior to starting to make sure there's no hemorrhagic conversion Coumadin should be dosed for goal INR 1.6-1.8 to avoid bleeding cont PTX daily GI following, recs appreciated NPO due to CVA; but can receive tube feeds through g tube Keppra for seizure prevention Rocephin and zithromax started for bibasilar infiltrate L>R If transfusing blood products, please pre-medicate with Benadryl 25mg PO, Tylen ol 650mg PO, and Solu-cortef 100mg IVP Currently, no plans for chemorx XRT per Dr. Shah Further recs per Dr. Coello Case was reviewed and discussed with attending, Dr. Oumou Woods PGY2
[2018-06-02 09:17] LABS: BASO # 0.02 K/mm3 (0.0-2.0); BASO % 0.5 % (0.0-3.0); EOS # 0.1 (0.0-0.7); EOS % 1.8 % (1.5-5.0); GRAN # 3.28 (1.4-6.5); GRAN % 73.8 % (50.0-68.0); HEMOGLOBIN 9.9 g/dL (12.0-16.0); LYMPH # 0.5 (1.2-3.4); LYMPH % 10.8 % (22.0-35.0); MEAN CELL VOLUME 92.7 fl (80.0-105.0); MEAN CORPUSCULAR HEMOGLOBIN 31.3 pg (25.0-35.0); MEAN CORPUSCULAR HGB CONC 33.8 g/dl (31.0-37.0); MEAN PLATELET VOLUME 8.5 fl (7.0-11.0); MONO # 0.6 (0.1-0.6); MONO % 13.1 % (1.0-6.0); RBC 3.16 10^6/uL (3.5-6.1); RED CELL DISTRIBUTION WIDTH 15.9 % (11.5-14.5); WHITE BLOOD COUNT 4.4 10^3/ul (4.5-11.0)
[2018-06-02 09:26] LABS: INR 1.22; PARTIAL THROMBOPLASTIN TIME 26.5 Seconds (25.1-36.5); PROTHROMBIN TIME 14.1 SECONDS (9.4-12.5)
[2018-06-02 09:45] LABS: ALB/GLOB RATIO 0.9 (1.1-1.8); ALBUMIN 2.6 g/dL (3.0-4.8); ALT/SGPT 21 U/L (7-56); AST/SGOT 35 U/L (14-36); BLOOD UREA NITROGEN 22 mg/dL (7-21); CALCIUM 8.1 mg/dL (8.4-10.5); GFR NON-AFRICAN AMERICAN > 60
--- NOTE | 2018-06-02 10:02 | PN ---
DATE: 06/01/2018 This note is in addition to the note dictated by Jody Waller. SUBJECTIVE: I discussed with the family. I discussed with the . The patient is much awake, alert, but still aphasic. RECOMMENDATIONS: Continue gentle diuretics. Continue beta-tripp through the PEG and as recommended by neurologist to start Coumadin after a week or so, probably early next week, we will start anticoagulation because the patient had a stroke on 05/28/2017, so probably it would be around one week. For now; continue current treatment, continue beta-tripp to control the heart rate. We will follow with you. I discussed in length with patient's daughter. Nicolette Cox MD
[2018-06-02] MEDS: cefTRIAXone 1 gm 1 GM/100 ML BAG IVPB SCH (10:08)
[2018-06-02] MEDS: Bacitracin 500 Units/gm Oint Foilpak UD TOP SCH ×2 (11:11→22:15)
[2018-06-02] MEDS: Azithromycin 500MG/NS 250ml 500 MG/250 ML BAG IVPB SCH (11:12)
--- NOTE | 2018-06-02 16:30 | CP.PCM.PN ---
<Silva Lane - Last Filed: 06/02/18 16:27> Subjective - Date & Time of Evaluation Date of Evaluation: 06/02/18 Time of Evaluation: 16:27 - Subjective Subjective: Silva Lane, PGY2, Neurology Progress Note for Dr Perez: Patient seen and examined at bedside. No acute events overnight. Patient remains aphasic, but alert, awake, opens eyes spontaneously. Patient moves left upper extremity, wiggles left lower extremity toes. ROS limited as patient is aphasic. Objective - Vital Signs/Intake and Output Vital Signs (last 24 hours): Temp Pulse Resp BP Pulse Ox 99.2 F 80 20 112/62 98 06/02/18 08:15 06/02/18 10:07 06/02/18 08:15 06/02/18 10:07 06/02/18 08:15 Intake and Output: 06/02/18 06/02/18 06:59 18:59 Intake Total 360 Balance 360 - Medications Medications: Current Medications Acetaminophen (Tylenol 650mg/20.3ml Solution Ud) 650 mg GT Q6H PRN PRN Reason: FEVER >100.4F Last Admin: 05/31/18 18:05 Dose: 650 mg Aspirin (Aspirin Chewable) 81 mg PO DAILY [facility] Atorvastatin Calcium (Lipitor) 40 mg PO DIN [facility] Last Admin: 06/01/18 17:06 Dose: 40 mg Bacitracin (Bacitracin) 1 ea TOP Q12H [facility] Stop: 06/07/18 22:00 Last Admin: 06/02/18 11:11 Dose: 1 ea Docusate Sodium (Colace Liquid) 100 mg PO BID [facility] Last Admin: 06/02/18 10:07 Dose: 100 mg Furosemide (Lasix) 20 mg IVP DAILY [facility] Last Admin: 06/02/18 10:07 Dose: 20 mg Heparin Sodium (Porcine) (Heparin) 5,000 units SC Q8 [facility]; Protocol Hydralazine HCl (Apresoline) 10 mg IVP Q6 PRN PRN Reason: hypertension Last Admin: 05/29/18 12:24 Dose: 10 mg Levetiracetam 250 mg/ Sodium (Chloride) 102.5 mls @ 460 mls/hr IV Q12 [facility] Last Admin: 06/02/18 10:06 Dose: 460 mls/hr Azithromycin (Zithromax 500mg In Ns) 500 mg in 250 mls @ 167 mls/hr IVPB 1100 [facility]; Protocol Last Admin: 06/02/18 11:12 Dose: 167 mls/hr Ceftriaxone Sodium (Rocephin 1 Gram Ivpb) 1 gm in 100 mls @ 100 mls/hr IVPB DAILY [facility]; Protocol Stop: 06/05/18 08:00 Last Admin: 06/02/18 10:08 Dose: 100 mls/hr Metoprolol Tartrate (Lopressor) 25 mg PO BRKDIN [facility] Last Admin: 06/02/18 10:07 Dose: 25 mg Pantoprazole Sodium (Protonix Inj) 40 mg IVP DAILY [facility] Last Admin: 06/02/18 10:08 Dose: 40 mg - Labs Labs: 06/02/18 09:00 06/02/18 09:00 PT 14.1 SECONDS (9.4-12.5) H 06/02/18 09:00 INR 1.22 06/02/18 09:00 APTT 26.5 Seconds (25.1-36.5) 06/02/18 09:00 - Additional Findings Additional findings: - Constitutional Appears: Non-toxic, Chronically Ill - Head Exam Head Exam: ATRAUMATIC, NORMOCEPHALIC - Eye Exam Eye Exam: PERRL. absent: EOMI, Periorbital swelling, Scleral icterus Pupil Exam: PERRL. absent: Fixed, Irregular, Miosis, Unequal - ENT Exam ENT Exam: Mucous Membranes Moist - Respiratory Exam Respiratory Exam: Clear to Auscultation Bilateral, NORMAL BREATHING PATTERN. absent: Rales, Rhonchi, Wheezes - Cardiovascular Exam Cardiovascular Exam: +S1, +S2. absent: Systolic Murmur - GI/Abdominal Exam GI & Abdominal Exam: Normal Bowel Sounds, Soft. absent: Mass, Rebound, Tenderness - Extremities Exam Extremities exam: Positive for: normal inspection. 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 Can wiggle left lower extremity toes. No movement of right arm, right leg. Opens eyes spontaneously. Somnolent. 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 Bleeding controlled with Vitamin K. Patient then had a large left MCA stroke: - NIHSS score 26 - Not tPA candidate due to recent bleeding episode - Keppra 1000 mg IV given at time of stroke. - Continue with Keppra 250 mg IV BID - Head CT 05/29 showed left MCA infarct. no ICH or global mass effect. - MRI brain showed acute infarct in left basal ganglia involving putamen, caudate nucleus, extends into carrion radiata. - As for resuming anticoagulation for afib: will obtain head CT today and Saturday (likely) to check for hemorrhagic conversion. If none noted, can start AC (likely eliquis due to lower risk of ICH, compared to other AC). - Neuro checks, aspiration precautions. Patient currently on PEG tube feeding. - c/w physical therapy, speech therapy. - ASA 81 mg daily - Highly recommend TOMAS - DVT ppx: heparin sq Discussed case with Dr Perez. <Carlos Manuel Perez - Last Filed: 06/02/18 17:15> Objective - Vital Signs/Intake and Output Vital Signs (last 24 hours): Temp Pulse Resp BP Pulse Ox 97.7 F 74 18 97/54 L 97 06/02/18 16:31 06/02/18 16:31 06/02/18 16:31 06/02/18 16:31 06/02/18 16:31 Intake and Output: 06/02/18 06/02/18 06:59 18:59 Intake Total 360 Balance 360 - Medications Medications: Current Medications Acetaminophen (Tylenol 650mg/20.3ml Solution Ud) 650 mg GT Q6H PRN PRN Reason: FEVER >100.4F Last Admin: 05/31/18 18:05 Dose: 650 mg Aspirin (Aspirin Chewable) 81 mg PO DAILY [facility] Atorvastatin Calcium (Lipitor) 40 mg PO DIN [facility] Last Admin: 06/01/18 17:06 Dose: 40 mg Bacitracin (Bacitracin) 1 ea TOP Q12H [facility] Stop: 06/07/18 22:00 Last Admin: 06/02/18 11:11 Dose: 1 ea Docusate Sodium (Colace Liquid) 100 mg PO BID [facility] Last Admin: 06/02/18 10:07 Dose: 100 mg Furosemide (Lasix) 20 mg IVP DAILY [facility] Last Admin: 06/02/18 10:07 Dose: 20 mg Heparin Sodium (Porcine) (Heparin) 5,000 units SC Q8 [facility]; Protocol Hydralazine HCl (Apresoline) 10 mg IVP Q6 PRN PRN Reason: hypertension Last Admin: 05/29/18 12:24 Dose: 10 mg Levetiracetam 250 mg/ Sodium (Chloride) 102.5 mls @ 460 mls/hr IV Q12 [facility] Last Admin: 06/02/18 10:06 Dose: 460 mls/hr Azithromycin (Zithromax 500mg In Ns) 500 mg in 250 mls @ 167 mls/hr IVPB 1100 [facility]; Protocol Last Admin: 06/02/18 11:12 Dose: 167 mls/hr Ceftriaxone Sodium (Rocephin 1 Gram Ivpb) 1 gm in 100 mls @ 100 mls/hr IVPB DAILY [facility]; Protocol Stop: 06/05/18 08:00 Last Admin: 06/02/18 10:08 Dose: 100 mls/hr Metoprolol Tartrate (Lopressor) 25 mg PO BRKDIN [facility] Last Admin: 06/02/18 10:07 Dose: 25 mg Pantoprazole Sodium (Protonix Inj) 40 mg IVP DAILY [facility] Last Admin: 06/02/18 10:08 Dose: 40 mg - Labs Labs: 06/02/18 09:00 06/02/18 09:00 PT 14.1 SECONDS (9.4-12.5) H 06/02/18 09:00 INR 1.22 06/02/18 09:00 APTT 26.5 Seconds (25.1-36.5) 06/02/18 09:00 Attending/Attestation - Attestation I have personally seen and examined this patient.: Yes I have fully participated in the care of the patient.: Yes I have reviewed all pertinent clinical information, including history, physical exam and plan: Yes Notes (Text): 06/02/18 17:15 I agree with the assessment and plan. We will obtain a repeat non-contrast CT scan of the head to determine if anticoaulation can be started with Eliquis. A TOMAS would be helpful to rule out a cardiac thrombus.
--- NOTE | 2018-06-02 17:02 | CT ---
Date of service: 06/02/2018 PROCEDURE: CT HEAD WITHOUT CONTRAST. HISTORY: r/o hemorrhagic conversion COMPARISON: 05/29/2018 TECHNIQUE: Axial computed tomography images were obtained through the head/brain without intravenous contrast. Radiation dose: Total exam DLP = 844.10 mGy-cm. This CT exam was performed using one or more of the following dose reduction techniques: Automated exposure control, adjustment of the mA and/or kV according to patient size, and/or use of iterative reconstruction technique. FINDINGS: HEMORRHAGE: No intracranial hemorrhage. BRAIN: No intracranial mass. Evolving left MCA territory infarct with increasingly low-attenuation of the left basal ganglia and also of the left frontal cortex. Loss of normal mancilla-white differentiation the left frontal cortex. There mass effect upon the frontal horn of the left lateral ventricle as a result of the subacute left basal ganglia infarct and associated edema. No evidence of associated acute hemorrhage. Moderate patchy and confluent periventricular and deep/subcortical white matter lucency consistent with microvascular ischemic change. VENTRICLES: No hydrocephalus. No midline shift. Mass-effect upon frontal horn left lateral ventricle as above. CALVARIUM: Unremarkable. PARANASAL SINUSES: Unremarkable as visualized. No significant inflammatory changes. MASTOID AIR CELLS: Unremarkable as visualized. No inflammatory changes. OTHER FINDINGS: None. IMPRESSION: Evolving left frontal and left basal ganglia subacute infarct without evidence of hemorrhagic conversion. No evidence of herniation. No midline shift. There is mass effect upon the frontal horn of left lateral ventricle. There is moderate chronic periventricular white matter ischemic change.
--- NOTE | 2018-06-03 06:42 | CP.PCM.PN ---
Subjective - Date & Time of Evaluation Date of Evaluation: 06/03/18 Time of Evaluation: 06:15 - Subjective Subjective: Awake, no verbal response but smiles at you, lying in bed, no distress Reason for consultation and follow up: Cardiac evaluation of atrial fibrillation,coumadin toxicity, admitting INR 6.02, admitted for hematemesis Seen and examined by me and Objective - Vital Signs/Intake and Output Vital Signs (last 24 hours): Temp Pulse Resp BP Pulse Ox 97.7 F 75 18 111/77 97 06/02/18 16:31 06/03/18 06:00 06/02/18 16:31 06/02/18 17:27 06/02/18 16:31 Intake and Output: 06/02/18 06/03/18 18:59 06:59 Intake Total 1400 Balance 1400 - Medications Medications: Current Medications Acetaminophen (Tylenol 650mg/20.3ml Solution Ud) 650 mg GT Q6H PRN PRN Reason: FEVER >100.4F Last Admin: 05/31/18 18:05 Dose: 650 mg Aspirin (Aspirin Chewable) 81 mg PO DAILY [facility] Last Admin: 06/02/18 17:27 Dose: 81 mg Atorvastatin Calcium (Lipitor) 40 mg PO DIN [facility] Last Admin: 06/02/18 17:27 Dose: 40 mg Bacitracin (Bacitracin) 1 ea TOP Q12H [facility] Stop: 06/07/18 22:00 Last Admin: 06/02/18 22:15 Dose: 1 ea Docusate Sodium (Colace Liquid) 100 mg PO BID [facility] Last Admin: 06/02/18 17:27 Dose: 100 mg Furosemide (Lasix) 20 mg IVP DAILY [facility] Last Admin: 06/02/18 10:07 Dose: 20 mg Heparin Sodium (Porcine) (Heparin) 5,000 units SC Q8 [facility]; Protocol Last Admin: 06/03/18 05:14 Dose: 5,000 units Hydralazine HCl (Apresoline) 10 mg IVP Q6 PRN PRN Reason: hypertension Last Admin: 05/29/18 12:24 Dose: 10 mg Levetiracetam 250 mg/ Sodium (Chloride) 102.5 mls @ 460 mls/hr IV Q12 [facility] Last Admin: 06/02/18 22:14 Dose: 460 mls/hr Azithromycin (Zithromax 500mg In Ns) 500 mg in 250 mls @ 167 mls/hr IVPB 1100 [facility]; Protocol Last Admin: 06/02/18 11:12 Dose: 167 mls/hr Ceftriaxone Sodium (Rocephin 1 Gram Ivpb) 1 gm in 100 mls @ 100 mls/hr IVPB DAILY [facility]; Protocol Stop: 06/05/18 08:00 Last Admin: 06/02/18 10:08 Dose: 100 mls/hr Metoprolol Tartrate (Lopressor) 25 mg PO BRKDIN [facility] Last Admin: 06/02/18 17:27 Dose: 25 mg Pantoprazole Sodium (Protonix Inj) 40 mg IVP DAILY [facility] Last Admin: 06/02/18 10:08 Dose: 40 mg - Labs Labs: 06/02/18 09:00 06/02/18 09:00 PT 14.1 SECONDS (9.4-12.5) H 06/02/18 09:00 INR 1.22 06/02/18 09:00 APTT 26.5 Seconds (25.1-36.5) 06/02/18 09:00 - Constitutional Appears: Non-toxic, No Acute Distress - Head Exam Head Exam: NORMAL INSPECTION, NORMOCEPHALIC - ENT Exam ENT Exam: Mucous Membranes Dry - Respiratory Exam Respiratory Exam: Decreased Breath Sounds, Clear to Ausculation Bilateral, NORMAL BREATHING PATTERN - Cardiovascular Exam Cardiovascular Exam: Irregular Rhythm, +S1, +S2 Additional comments: Telemetry 70's Atrial fibrillation - GI/Abdominal Exam GI & Abdominal Exam: Soft, Normal Bowel Sounds Additional comments: PEG tube feeding - Extremities Exam Additional comments: right sided weakness right arm edema, less elevated with pillow - Neurological Exam Neurological Exam: Alert, Awake - Skin Skin Exam: Dry, Normal Color, Warm Assessment and Plan - Assessment and Plan (Free Text) Assessment: A 88 year old female who came in to the ER due to GI bleeding and Coumadin toxicity (INR 6.02). history of chronic atrial fibrillation, COPD, CHF, aortic stenosis, cancer of esophagus having chemotherapy, history of DVT and pulmonary embolism,diabetes mellitus, hypertension, hypothyroisdism, She was given FFP and PRBC. stabilized. Coumadin on hold. GI on consult. 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 CT of head negative for bleeding. 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 Neuro on consult. Started on Keppra. Not candidate for TPA due to recent GI bleeding.PEG with tube feeding.right arm swelling negative for DVT. IV antibiotics for bibasalar infiltrates.Right arm swelling, US of arm negative for DVT. Repeat CT of head, negative for bleeding. Plan: Awake,alert, today watching TV No distress Controlled blood pressure Heart rate controlled Atrial fibrillation Cardiac status stable Right arm swelling elevated with 1 pillow, cold to touch Right arm swelling, US of arm negative for DVT PEG to tube feeding, tolerating well On Lipitor 40 mg daily,Protonix 40 mg daily, Keppra 250 mg IV every 12 hours Neuro input noted. Continue IV antibiotics as ordered Continue current treatment Continue current medications Chart reviewed Will follow up Plan and treatment discussed with Dr. Cox
--- NOTE | 2018-06-03 08:33 | PN ---
DATE: 06/02/2018 REASON FOR CONSULTATION: Acute CVA, history of atrial fibrillation, aphasic. This note is in addition to the note dictated by the nurse practitioner, Jody Waller. Discussed with neurologist. We will wait for one week. We will start anticoagulation. The patient had a stroke on 05/28/2017, so we will start approximately on 06/04/2018. Continue beta-tripp. Discussed with daughter. Heart rate is well controlled. Continue beta-tripp through the PEG. The patient has dysphagia before the stroke, but now he is at high risk for aspiration, so continue 25 mg twice a day, continue atorvastatin, continue DVT prophylaxis. Since the patient is not eating and drinking that much, we will hold Lasix. We will reassess. If a need arise, we will restart and we will start Coumadin from 06/04/2018 at 2 mg. Overall, the patient's condition is critical. [facility] prognosis is extremely guarded. Nicolette Cox MD
--- NOTE | 2018-06-03 08:36 | PN ---
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 She also has a history of atrial fibrillation, congestive heart failure, status post cholecystectomy, status post left hip replacement, noninsulin-dependent diabetes mellitus and psoriasis. She was admitted to [facility] on 05/26/2018 after a few bouts of hematemesis. During her hospital stay, she was followed by her concrete buildings assembler, Dr. Brown; her general surgeon, Dr. Tracy. She had no further bouts of hematemesis during the hospital stay. Her H and H remained stable. She was evaluated by Dr. Coello, her oncologist and went for radiation therapy and returned from radiation. She had received fresh frozen plasma and vitamin K on admission as her PT/INR was markedly elevated at 6. Her warfarin, which the patient had been taking because of her atrial fibrillation has been on hold. When the patient returned from radiation therapy on about 05/28/2018, she suffered a code stroke shortly after being put back to bed. Because of the hematemesis, t-PA could not be administered. Dr. Mcrae was called to evaluate the patient. CAT scan revealed a large cerebrovascular accident in the area of the left mid cerebral artery. The infarct involved the putamen and caudate nucleus and extended to the carrion radiata. The patient is being followed on the medical floor. She showed some signs of improvement over the next few days in that she was able to open her eyes and barely respond to verbal stimuli. Over the weekend, the patient developed swelling of the right upper extremity. Arterial ultrasound showed possible left radial occlusion. Differential diagnosis includes embolus. Venous ultrasound was negative for deep vein thromboses. The patient was evaluated by the surgical instrument mechanic. He showed that the patient continued to have radial pulses. Pulse ox in the fingers of the right hand was adequate. Of note is that the patient's PT/INR had risen to 2. It was in the 1.2, 1.4 area several days earlier. She had not received any Coumadin. It was decided because of the patient's age and comorbidities, she will be followed conservatively. As per Neurology's suggestion, the patient has been started on Keppra prophylactically. Anticoagulation was not recommended by Neurology because of the possibility of bleeding into the infarcted area of the brain. At this point, we are following the patient closely. When seen, her left upper extremity is slightly swollen. As per the nursing staff, the swelling has subsided somewhat. There are no ecchymoses and we are continuing with our current regimen. Jaiden Lindsay MD MTDGuille
[2018-06-03 08:41] LABS: INR 1.19; PROTHROMBIN TIME 13.7 SECONDS (9.4-12.5)
--- NOTE | 2018-06-03 09:38 | CP.PCM.PN ---
Subjective - Date & Time of Evaluation Date of Evaluation: 06/03/18 Time of Evaluation: 09:12 - Subjective Subjective: Gera Woods PGY2 Heme/Onc Progress Note for Dr. Coello Patient was seen and examined at bedside. The patient is awake and alert today and following commands more readily. She remains aphasic. CT head yesterday showed no evidence of hemorrhagic conversion. Per Cardio and Neuro, anticoagulation is held and will be restarted possibly tomorrow. There were no acute overnight events. Patient's right arm is still flaccid however, she is able to move LLE and her right side. Nursing notes, labs and VS were reviewed. Objective - Vital Signs/Intake and Output Vital Signs (last 24 hours): Temp Pulse Resp BP Pulse Ox 98.4 F 86 18 103/73 99 06/03/18 08:39 06/03/18 08:39 06/03/18 08:39 06/03/18 08:39 06/03/18 08:39 - Medications Medications: Current Medications Acetaminophen (Tylenol 650mg/20.3ml Solution Ud) 650 mg GT Q6H PRN PRN Reason: FEVER >100.4F Last Admin: 05/31/18 18:05 Dose: 650 mg Aspirin (Aspirin Chewable) 81 mg PO DAILY [facility] Last Admin: 06/02/18 17:27 Dose: 81 mg Atorvastatin Calcium (Lipitor) 40 mg PO DIN [facility] Last Admin: 06/02/18 17:27 Dose: 40 mg Bacitracin (Bacitracin) 1 ea TOP Q12H [facility] Stop: 06/07/18 22:00 Last Admin: 06/02/18 22:15 Dose: 1 ea Docusate Sodium (Colace Liquid) 100 mg PO BID [facility] Last Admin: 06/02/18 17:27 Dose: 100 mg Furosemide (Lasix) 20 mg IVP DAILY [facility] Last Admin: 06/02/18 10:07 Dose: 20 mg Heparin Sodium (Porcine) (Heparin) 5,000 units SC Q8 [facility]; Protocol Last Admin: 06/03/18 05:14 Dose: 5,000 units Hydralazine HCl (Apresoline) 10 mg IVP Q6 PRN PRN Reason: hypertension Last Admin: 05/29/18 12:24 Dose: 10 mg Levetiracetam 250 mg/ Sodium (Chloride) 102.5 mls @ 460 mls/hr IV Q12 [facility] Last Admin: 06/02/18 22:14 Dose: 460 mls/hr Azithromycin (Zithromax 500mg In Ns) 500 mg in 250 mls @ 167 mls/hr IVPB 1100 [facility]; Protocol Last Admin: 06/02/18 11:12 Dose: 167 mls/hr Ceftriaxone Sodium (Rocephin 1 Gram Ivpb) 1 gm in 100 mls @ 100 mls/hr IVPB DAILY [facility]; Protocol Stop: 06/05/18 08:00 Last Admin: 06/02/18 10:08 Dose: 100 mls/hr Metoprolol Tartrate (Lopressor) 25 mg PO BRKDIN [facility] Last Admin: 06/02/18 17:27 Dose: 25 mg Pantoprazole Sodium (Protonix Inj) 40 mg IVP DAILY [facility] Last Admin: 06/02/18 10:08 Dose: 40 mg - Labs Labs: 06/02/18 09:00 06/02/18 09:00 PT 13.7 SECONDS (9.4-12.5) H 06/03/18 08:00 INR 1.19 06/03/18 08:00 APTT 26.5 Seconds (25.1-36.5) 06/02/18 09:00 - Additional Findings Additional findings: - Constitutional Appears: Non-toxic, No Acute Distress, Confused, Chronically Ill - Head Exam Head Exam: NORMAL INSPECTION Additional comments: less facial droop than earlier exams - Eye Exam Eye Exam: Normal appearance, PERRL Additional comments: opens eyes spontaneously, but has right sided rafael-neglect (improved from prior exams) - ENT Exam ENT Exam: Mucous Membranes Moist - Respiratory Exam Respiratory Exam: NORMAL BREATHING PATTERN. absent: Rhonchi, Wheezes, Respiratory Distress - Cardiovascular Exam Cardiovascular Exam: Irregular Rhythm, +S1, +S2, Murmur - GI/Abdominal Exam GI & Abdominal Exam: Soft. 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 fib on Coumadin who presents with GI bleed, likely due to her malignancy, found to have supratherapeutic INR. Patient was started on PTX gtt and given vitamin K and responded well, and has not had episodes of bleeding and INR level decreased. Her Coumadin was held. Subsequently, patient suffered acute ischemic L MCA stroke in L basal ganglia and DESIGN MAKER was called. Patient continues to be in Afib but is off anticoagulation due to high risk of intracranial hemorrhage. Per Cardio and Neuro, plan to restart possibly tomorrow. Plan: Yesterday's CT was reviewed showing no hemorrhagic conversion Plan to restart anticoagulation per Cardio and Neuro recs Coumadin should be dosed for goal INR 1.6-1.8 to avoid bleeding cont PTX daily GI following, recs appreciated NPO due to CVA; but can receive tube feeds through g tube Keppra for seizure prevention Rocephin and zithromax started for bibasilar infiltrate L>R If transfusing blood products, please pre-medicate with Benadryl 25mg PO, Tylenol 650mg PO, and Solu-cortef 100mg IVP Currently, no plans for chemorx XRT per Dr. Shah PT recommending acute rehab; SW working on placement Further recs per Dr. Coello Case was reviewed and discussed with attending, Dr. Oumou Woods PGY2
[2018-06-03] MEDS: cefTRIAXone 1 gm 1 GM/100 ML BAG IVPB SCH (09:55)
--- NOTE | 2018-06-03 12:37 | CP.PCM.PN ---
Subjective - Date & Time of Evaluation Date of Evaluation: 06/03/18 Time of Evaluation: 12:28 - Subjective Subjective: Silva Lane, PGY2, Neurology Progress Note for Dr Perez: Patient seen and examined at bedside. No acute events overnight. Patient awake, alert, follows simple commands with left arm. Moves left arm only, can wiggle left toes. ROS limited as patient is aphasic. Objective - Vital Signs/Intake and Output Vital Signs (last 24 hours): Temp Pulse Resp BP Pulse Ox 98.4 F 76 18 103/73 99 06/03/18 08:39 06/03/18 09:54 06/03/18 08:39 06/03/18 09:54 06/03/18 08:39 - Medications Medications: Current Medications Acetaminophen (Tylenol 650mg/20.3ml Solution Ud) 650 mg GT Q6H PRN PRN Reason: FEVER >100.4F Last Admin: 05/31/18 18:05 Dose: 650 mg Aspirin (Aspirin Chewable) 81 mg PO DAILY [facility] Last Admin: 06/03/18 09:54 Dose: 81 mg Atorvastatin Calcium (Lipitor) 40 mg PO DIN [facility] Last Admin: 06/02/18 17:27 Dose: 40 mg Bacitracin (Bacitracin) 1 ea TOP Q12H [facility] Stop: 06/07/18 22:00 Last Admin: 06/02/18 22:15 Dose: 1 ea Docusate Sodium (Colace Liquid) 100 mg PO BID [facility] Last Admin: 06/03/18 09:54 Dose: 100 mg Furosemide (Lasix) 20 mg IVP DAILY [facility] Last Admin: 06/02/18 10:07 Dose: 20 mg Heparin Sodium (Porcine) (Heparin) 5,000 units SC Q8 [facility]; Protocol Last Admin: 06/03/18 05:14 Dose: 5,000 units Hydralazine HCl (Apresoline) 10 mg IVP Q6 PRN PRN Reason: hypertension Last Admin: 05/29/18 12:24 Dose: 10 mg Levetiracetam 250 mg/ Sodium (Chloride) 102.5 mls @ 460 mls/hr IV Q12 [facility] Last Admin: 06/02/18 22:14 Dose: 460 mls/hr Metoprolol Tartrate (Lopressor) 25 mg PO BRKDIN [facility] Last Admin: 06/03/18 09:54 Dose: 25 mg Pantoprazole Sodium (Protonix Inj) 40 mg IVP DAILY [facility] Last Admin: 06/03/18 09:54 Dose: 40 mg - Labs Labs: 06/02/18 09:00 06/02/18 09:00 PT 13.7 SECONDS (9.4-12.5) H 06/03/18 08:00 INR 1.19 06/03/18 08:00 APTT 26.5 Seconds (25.1-36.5) 06/02/18 09:00 - Additional Findings Additional findings: - Constitutional Appears: Non-toxic, Chronically Ill - Head Exam Head Exam: ATRAUMATIC, NORMOCEPHALIC - Eye Exam Eye Exam: PERRL. absent: EOMI, Periorbital swelling, Scleral icterus Pupil Exam: PERRL. absent: Fixed, Irregular, Miosis, Unequal - ENT Exam ENT Exam: Mucous Membranes Moist - Respiratory Exam Respiratory Exam: Clear to Auscultation Bilateral, NORMAL BREATHING PATTERN. absent: Rales, Rhonchi, Wheezes - Cardiovascular Exam Cardiovascular Exam: +S1, +S2. absent: Systolic Murmur - GI/Abdominal Exam GI & Abdominal Exam: Normal Bowel Sounds, Soft. absent: Mass, Rebound, Tenderness - Extremities Exam Extremities exam: Positive for: normal inspection. 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 Can wiggle left lower extremity toes. No movement of right arm, right leg. Opens eyes spontaneously. Somnolent. 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 Bleeding controlled with Vitamin K. Patient then had a large left MCA stroke: - NIHSS score 26 - Head CT 06/02 evolving left frontal/left basal ganglia subacute infarct without hemorrhagic conversion. No herniation/midline shift. There is mass effect upon frontal horn of left lateral ventricle. Moderate chronic periventricular white matter changes. - Not tPA candidate due to recent bleeding episode - Keppra 1000 mg IV given at time of stroke. - Continue with Keppra 250 mg IV BID - Head CT 05/29 showed left MCA infarct. no ICH or global mass effect. - MRI brain showed acute infarct in left basal ganglia involving putamen, caudate nucleus, extends into carrion radiata. - Can resume anticoagulation for afib, eliquis 2.5 mg PO BID for now (please maintain at this dosage for 1 month). Repeat Head CT in 1 month, follow up outpatient with Neurology (Dr Perez). - As for resuming anticoagulation for afib: will obtain head CT again tomorrow, will resume AC based on the read. - Neuro checks, aspiration precautions. Patient currently on PEG tube feeding. - c/w physical therapy, speech therapy. - ASA 81 mg daily - DVT ppx: heparin sq Discussed case with Dr Perez.
[2018-06-03] MEDS: Azithromycin 500MG/NS 250ml 500 MG/250 ML BAG IVPB SCH (13:00)
--- NOTE | 2018-06-03 15:21 | CP.PCM.PN ---
<Lenard Fischer - Last Filed: 06/03/18 15:19> Subjective - Date & Time of Evaluation Date of Evaluation: 06/03/18 Time of Evaluation: 07:55 - Subjective Subjective: PGY-4 GI Fellow Prog Note Pt lying in bed when seen this AM. Awoke to voice, but otherwise still not verbal. Unable to obtain ROS due to clinical condition Objective - Vital Signs/Intake and Output Vital Signs (last 24 hours): Temp Pulse Resp BP Pulse Ox 98.4 F 93 H 18 103/73 99 06/03/18 08:39 06/03/18 10:00 06/03/18 08:39 06/03/18 09:54 06/03/18 08:39 - Medications Medications: Current Medications Acetaminophen (Tylenol 650mg/20.3ml Solution Ud) 650 mg GT Q6H PRN PRN Reason: FEVER >100.4F Last Admin: 05/31/18 18:05 Dose: 650 mg Apixaban (Eliquis) 2.5 mg PO BID [facility]; Protocol Aspirin (Aspirin Chewable) 81 mg PO DAILY [facility] Last Admin: 06/03/18 09:54 Dose: 81 mg Atorvastatin Calcium (Lipitor) 40 mg PO DIN [facility] Last Admin: 06/02/18 17:27 Dose: 40 mg Bacitracin (Bacitracin) 1 ea TOP Q12H [facility] Stop: 06/07/18 22:00 Last Admin: 06/02/18 22:15 Dose: 1 ea Docusate Sodium (Colace Liquid) 100 mg PO BID [facility] Last Admin: 06/03/18 09:54 Dose: 100 mg Furosemide (Lasix) 20 mg IVP DAILY [facility] Last Admin: 06/02/18 10:07 Dose: 20 mg Hydralazine HCl (Apresoline) 10 mg IVP Q6 PRN PRN Reason: hypertension Last Admin: 05/29/18 12:24 Dose: 10 mg Levetiracetam 250 mg/ Sodium (Chloride) 102.5 mls @ 460 mls/hr IV Q12 [facility] Last Admin: 06/03/18 09:54 Dose: 460 mls/hr Metoprolol Tartrate (Lopressor) 25 mg PO BRKDIN [facility] Last Admin: 06/03/18 09:54 Dose: 25 mg Pantoprazole Sodium (Protonix Inj) 40 mg IVP DAILY [facility] Last Admin: 06/03/18 09:54 Dose: 40 mg - Labs Labs: 06/02/18 09:00 06/02/18 09:00 PT 13.7 SECONDS (9.4-12.5) H 06/03/18 08:00 INR 1.19 06/03/18 08:00 APTT 26.5 Seconds (25.1-36.5) 06/02/18 09:00 - Constitutional Appears: No Acute Distress, Chronically Ill - Head Exam Head Exam: ATRAUMATIC - ENT Exam ENT Exam: Mucous Membranes Dry, Normal External Ear Exam. absent: Mucous Membranes Moist - Respiratory Exam Respiratory Exam: NORMAL BREATHING PATTERN. absent: Accessory Muscle Use - Cardiovascular Exam Cardiovascular Exam: REGULAR RHYTHM, RRR - GI/Abdominal Exam GI & Abdominal Exam: Soft, Normal Bowel Sounds. 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 # Hematemesis: Resolved. Most likely related to known underlying SCC currently on XRT predisposing to irritation and injury to the area along with supratherapeutic INR. 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 # Supratherapeutic INR: Resolved. 6 on presentation. On coumadin due to pAF. Active GI bleed upon presentation. Coagulopathy improved with FFP, IV Vit K. 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 C/b residual R hemiparesis and speech difficulties #Constipation Plan: - Defer timing of anticoagulation to Neuro - PPI IV Daily - Monitor H&H and INR - Appreciate Onc and Cardiology consults - Hold off on endoscopy at this time - Stool softeners BID Pt seen and examined with Dr. Brown; please see attestation for further recs/changes <Elba Brown V - Last Filed: 06/03/18 22:03> Objective - Vital Signs/Intake and Output Vital Signs (last 24 hours): Temp Pulse Resp BP Pulse Ox 98.0 F 81 19 155/92 H 100 06/03/18 18:00 06/03/18 18:00 06/03/18 18:00 06/03/18 18:00 06/03/18 18:00 Intake and Output: 06/03/18 06/04/18 18:59 06:59 Intake Total 924 Balance 924 - Medications Medications: Current Medications Acetaminophen (Tylenol 650mg/20.3ml Solution Ud) 650 mg GT Q6H PRN PRN Reason: FEVER >100.4F Last Admin: 05/31/18 18:05 Dose: 650 mg Apixaban (Eliquis) 2.5 mg PO BID [facility]; Protocol Last Admin: 06/03/18 17:51 Dose: 2.5 mg Aspirin (Aspirin Chewable) 81 mg PO DAILY [facility] Last Admin: 06/03/18 09:54 Dose: 81 mg Atorvastatin Calcium (Lipitor) 40 mg PO DIN [facility] Last Admin: 06/03/18 17:51 Dose: 40 mg Bacitracin (Bacitracin) 1 ea TOP Q12H [facility] Stop: 06/07/18 22:00 Last Admin: 06/03/18 17:52 Dose: 1 ea Docusate Sodium (Colace Liquid) 100 mg PO BID [facility] Last Admin: 06/03/18 17:51 Dose: 100 mg Furosemide (Lasix) 20 mg IVP DAILY [facility] Last Admin: 06/02/18 10:07 Dose: 20 mg Hydralazine HCl (Apresoline) 10 mg IVP Q6 PRN PRN Reason: hypertension Last Admin: 05/29/18 12:24 Dose: 10 mg Levetiracetam 250 mg/ Sodium (Chloride) 102.5 mls @ 460 mls/hr IV Q12 [facility] Last Admin: 06/03/18 21:37 Dose: 460 mls/hr Metoprolol Tartrate (Lopressor) 25 mg PO BRKDIN [facility] Last Admin: 06/03/18 17:52 Dose: Not Given Pantoprazole Sodium (Protonix Inj) 40 mg IVP DAILY [facility] Last Admin: 06/03/18 09:54 Dose: 40 mg - Labs Labs: 06/02/18 09:00 06/02/18 09:00 PT 13.7 SECONDS (9.4-12.5) H 06/03/18 08:00 INR 1.19 06/03/18 08:00 APTT 26.5 Seconds (25.1-36.5) 06/02/18 09:00 Attending/Attestation - Attestation Notes (Text): This is an addendum to GI progress report dictated by the GI Fellow.The patient was seen and examined earlier. Medical records, lab studies, imagings were reviewed. Last 24 hours events reviewed. Agreed with the above treatment plan as outlined in GI Fellow 's notes with the addition of the following Patient is now started on Eliquis 2.5 mg twice a day Need close monitoring of hemoglobin and hematocrit Patient is tolerating GT feeding 06/03/18 22:01
[2018-06-03] MEDS: Bacitracin 500 Units/gm Oint Foilpak UD TOP SCH (17:52)
[2018-06-03 18:15] VITALS: RESP 19
--- NOTE | 2018-06-03 19:01 | CON ---
DATE: 06/03/2018 TIME: 10:20 a.m. CHIEF COMPLAINT/HISTORY OF PRESENT ILLNESS: This is an 88-year-old female who was admitted for GI bleeding and an elevated INR. 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 She is receiving chemotherapy and radiation therapy. During her hospital stay, while she was off anticoagulation. The patient experienced a left MCA infarct with a fairly significant stroke. I was asked to see the patient concerning her right upper extremity. It was swollen and cool. Venous ultrasound was negative. Upper extremity PVR exam was normal on the right, but suggested a left brachial embolus. Clinically, her right upper extremity is swollen and the hand is cool. She has a palpable right brachial and radial pulse. She has normal capillary refill. The right upper extremity changes are likely related to the recent CVA. Her left upper extremity demonstrates a palpable left brachial pulse and no pulses at the wrist. However, her left hand is well perfused and warm. This possibly represents a left brachial embolus, which is partially recanalized. No intervention is necessary. Hopefully, anticoagulation for atrial fibrillation can be reinitiated in the near future. Rajesh Smith MD MTDGuille
[2018-06-04] MEDS: Bacitracin 500 Units/gm Oint Foilpak UD TOP SCH ×2 (00:38→10:37)
[2018-06-04 06:35] LABS: INR 1.24; PROTHROMBIN TIME 14.3 SECONDS (9.4-12.5)
--- NOTE | 2018-06-04 06:58 | CP.PCM.PN ---
Subjective - Date & Time of Evaluation Date of Evaluation: 06/04/18 Time of Evaluation: 06:30 - Subjective Subjective: Sleeping, open eyes to verbal stimuli, no verbal response,lying in bed, no distress Reason for consultation and follow up: Cardiac evaluation of atrial fibrillation,coumadin toxicity, admitting INR 6.02, admitted for hematemesis Seen and examined by me and Objective - Vital Signs/Intake and Output Vital Signs (last 24 hours): Temp Pulse Resp BP Pulse Ox 98.5 F 80 19 102/60 99 06/04/18 00:00 06/04/18 06:00 06/04/18 00:00 06/04/18 00:00 06/04/18 00:00 Intake and Output: 06/03/18 06/04/18 18:59 06:59 Intake Total 924 Balance 924 - Medications Medications: Current Medications Acetaminophen (Tylenol 650mg/20.3ml Solution Ud) 650 mg GT Q6H PRN PRN Reason: FEVER >100.4F Last Admin: 05/31/18 18:05 Dose: 650 mg Apixaban (Eliquis) 2.5 mg PO BID [facility]; Protocol Last Admin: 06/03/18 17:51 Dose: 2.5 mg Aspirin (Aspirin Chewable) 81 mg PO DAILY [facility] Last Admin: 06/03/18 09:54 Dose: 81 mg Atorvastatin Calcium (Lipitor) 40 mg PO DIN [facility] Last Admin: 06/03/18 17:51 Dose: 40 mg Bacitracin (Bacitracin) 1 ea TOP Q12H [facility] Stop: 06/07/18 22:00 Last Admin: 06/04/18 00:38 Dose: Not Given Docusate Sodium (Colace Liquid) 100 mg PO BID [facility] Last Admin: 06/03/18 17:51 Dose: 100 mg Furosemide (Lasix) 20 mg IVP DAILY [facility] Last Admin: 06/02/18 10:07 Dose: 20 mg Hydralazine HCl (Apresoline) 10 mg IVP Q6 PRN PRN Reason: hypertension Last Admin: 05/29/18 12:24 Dose: 10 mg Levetiracetam 250 mg/ Sodium (Chloride) 102.5 mls @ 460 mls/hr IV Q12 [facility] Last Admin: 06/03/18 21:37 Dose: 460 mls/hr Metoprolol Tartrate (Lopressor) 25 mg PO BRKDIN [facility] Last Admin: 06/03/18 17:52 Dose: Not Given Pantoprazole Sodium (Protonix Inj) 40 mg IVP DAILY [facility] Last Admin: 06/03/18 09:54 Dose: 40 mg - Labs Labs: 06/02/18 09:00 06/02/18 09:00 PT 14.3 SECONDS (9.4-12.5) H 06/04/18 06:00 INR 1.24 06/04/18 06:00 APTT 26.5 Seconds (25.1-36.5) 06/02/18 09:00 - Constitutional Appears: Non-toxic, No Acute Distress - Head Exam Head Exam: NORMAL INSPECTION, NORMOCEPHALIC - ENT Exam ENT Exam: Mucous Membranes Dry - Respiratory Exam Respiratory Exam: Decreased Breath Sounds, Clear to Ausculation Bilateral, NORMAL BREATHING PATTERN - Cardiovascular Exam Cardiovascular Exam: Irregular Rhythm, +S1, +S2 Additional comments: Atrial fibrillation-80's telemetry - GI/Abdominal Exam GI & Abdominal Exam: Soft, Normal Bowel Sounds Additional comments: PEG tube feeding - Extremities Exam Additional comments: right sided weakness right arm less swelling elevated with 1 pillow,warm to touch - Neurological Exam Neurological Exam: Awake - Psychiatric Exam Psychiatric exam: Flat Affect - Skin Skin Exam: Dry, Normal Color, Warm Assessment and Plan - Assessment and Plan (Free Text) Assessment: A 88 year old female who came in to the ER due to GI bleeding and Coumadin toxicity (INR 6.02). history of chronic atrial fibrillation, COPD, CHF, aortic stenosis, cancer of esophagus having chemotherapy, history of DVT and pulmonary embolism,diabetes mellitus, hypertension, hypothyroisdism, She was given FFP and PRBC. stabilized. Coumadin on hold. GI on consult. chart reviewed, post [employer] yesterday due to right sided weakness and aphasia. CT of head negative for bleeding. 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 Neuro on consult. Started on Keppra. Not candidate for TPA due to recent GI bleeding.PEG with tube feeding.right arm swelling negative for DVT. IV antibiotics for bibasalar infiltrates.Right arm swelling, US of arm negative for DVT. Repeat CT of head, negative for bleeding. Plan: No distress Controlled blood pressure Heart rate controlled Atrial fibrillation Started on Eliquis Cardiac status stable Right arm swelling elevated with 1 pillow, warm to touch (negative for DVT) PEG to tube feeding, tolerating well On Lipitor 40 mg daily,Protonix 40 mg daily, Keppra 250 mg IV every 12 hours Started on Eliquis Continue current treatment Continue current medications Chart reviewed Discharge planning,being evaluated for rehab placement Will follow up Plan and treatment discussed with Dr. Cox
[2018-06-04 07:57] VITALS: TEMP 98.3; O2SAT 98
--- NOTE | 2018-06-04 08:55 | PN ---
DATE: 06/03/2018 REASON FOR CONSULTATION: Acute CVA, history of atrial fibrillation, aphasia. This note is addition to note dictated by our nurse practitioner, Jody Waller. Chart reviewed. Recommendation is suggestion to do the TOMAS. No benefit in doing the TOMAS. The patient is going to be started on Eliquis anyway. The patient was admitted with supratherapeutic INR, was on hold and the patient got stroke. So, we will restart low-dose of Coumadin because the line of management is not going to change the treatment of anticoagulation. The patient needs anticoagulation. We will start low dose, 2.5 b.i.d. and we will discontinue DVT prophylaxis from tomorrow morning. This is 1 week after the post CVA and we will discontinue Lovenox after tonight's dose. Thank you, Dr. Lindsay, for providing us the opportunity in taking care of the patient, Alicia Shearer. Nicolette Cox MD
[2018-06-04 10:53] VITALS: BP 110/70; PULSE 81
--- NOTE | 2018-06-04 11:00 | CP.PCM.PN ---
Subjective - Date & Time of Evaluation Date of Evaluation: 06/04/18 Time of Evaluation: 10:00 - Subjective Subjective: Gera Woods PGY2 Heme/Onc Progress Note for Dr. Coello Patient was seen and examined at bedside. The patient is awake and alert today and is following commands. She remains aphasic. Per Cardio and Neuro, ant icoagulation was started yesterday. There were no acute overnight events. Patient's right arm is still flaccid however, she is able to move LLE and her right side. Nursing notes, labs and VS were reviewed. Objective - Vital Signs/Intake and Output Vital Signs (last 24 hours): Temp Pulse Resp BP Pulse Ox 98.3 F 81 19 110/70 98 06/04/18 06:00 06/04/18 10:38 06/04/18 06:00 06/04/18 10:38 06/04/18 06:00 Intake and Output: 06/04/18 06/04/18 06:59 18:59 Intake Total 924 Balance 924 - Medications Medications: Current Medications Acetaminophen (Tylenol 650mg/20.3ml Solution Ud) 650 mg GT Q6H PRN PRN Reason: FEVER >100.4F Last Admin: 05/31/18 18:05 Dose: 650 mg Apixaban (Eliquis) 2.5 mg PO BID [facility]; Protocol Last Admin: 06/04/18 10:39 Dose: 2.5 mg Aspirin (Aspirin Chewable) 81 mg PO DAILY [facility] Last Admin: 06/04/18 10:38 Dose: 81 mg Atorvastatin Calcium (Lipitor) 40 mg PO DIN [facility] Last Admin: 06/03/18 17:51 Dose: 40 mg Bacitracin (Bacitracin) 1 ea TOP Q12H [facility] Stop: 06/07/18 22:00 Last Admin: 06/04/18 10:37 Dose: 1 ea Docusate Sodium (Colace Liquid) 100 mg PO BID [facility] Last Admin: 06/04/18 10:38 Dose: 100 mg Furosemide (Lasix) 20 mg IVP DAILY [facility] Last Admin: 06/02/18 10:07 Dose: 20 mg Hydralazine HCl (Apresoline) 10 mg IVP Q6 PRN PRN Reason: hypertension Last Admin: 05/29/18 12:24 Dose: 10 mg Levetiracetam 250 mg/ Sodium (Chloride) 102.5 mls @ 460 mls/hr IV Q12 [facility] Last Admin: 06/04/18 10:50 Dose: 460 mls/hr Metoprolol Tartrate (Lopressor) 25 mg PO BRKDIN [facility] Last Admin: 06/04/18 10:38 Dose: 25 mg Pantoprazole Sodium (Protonix Inj) 40 mg IVP DAILY [facility] Last Admin: 06/04/18 10:39 Dose: 40 mg - Labs Labs: 06/02/18 09:00 06/02/18 09:00 PT 14.3 SECONDS (9.4-12.5) H 06/04/18 06:00 INR 1.24 06/04/18 06:00 APTT 26.5 Seconds (25.1-36.5) 06/02/18 09:00 - Additional Findings Additional findings: - Constitutional Appears: Non-toxic, No Acute Distress, Confused, Chronically Ill - Head Exam Head Exam: NORMAL INSPECTION Additional comments: less facial droop than earlier exams - Eye Exam Eye Exam: Normal appearance, PERRL Additional comments: opens eyes spontaneously - ENT Exam ENT Exam: Mucous Membranes Moist - Respiratory Exam Respiratory Exam: NORMAL BREATHING PATTERN. absent: Rhonchi, Wheezes, Respiratory Distress - Cardiovascular Exam Cardiovascular Exam: Irregular Rhythm, +S1, +S2, Murmur - GI/Abdominal Exam GI & Abdominal Exam: Soft. 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 fib on Coumadin who presents with GI bleed, likely due to her malignancy, found to have supratherapeutic INR. Patient was started on PTX gtt and given vitamin K and responded well, and has not had episodes of bleeding and INR level decreased. Her Coumadin was held. Subsequently, patient suffered acute ischemic L MCA stroke in L basal ganglia and MANAGER [employer] was called. Patient continues to be in Afib but was off anticoagulation due to high risk of intracranial hemorrhage, but was started on Eliquis yesterday. Plan: CT was reviewed showing no hemorrhagic conversion, and Eliquis was started by Cardio cont PTX daily GI following, recs appreciated NPO due to CVA; but can receive tube feeds through g tube Keppra for seizure prevention Rocephin and zithromax started for bibasilar infiltrate L>R If transfusing blood products, please pre-medicate with Benadryl 25mg PO, Tylenol 650mg PO, and Solu-cortef 100mg IVP Currently, no plans for chemorx XRT per Dr. Shah PT recommending acute rehab; [facility], plan d/c today Further recs per Dr. Coello Case was reviewed and discussed with attending, Dr. Oumou Woods PGY2
[2018-06-04] MEDS ORDERED: Bacitracin 500 Units/gm Oint Foilpak UD TOP SCH (13:10)
--- NOTE | 2018-06-04 14:50 | CP.PCM.PN ---
Subjective - Date & Time of Evaluation Date of Evaluation: 06/04/18 Time of Evaluation: 14:46 - Subjective Subjective: Silva Lane, PGY2, Neurology Progress Note for Dr Perez: Patient seen and examined at bedside. No acute events overnight. Patient awake, alert, follows simple commands with left arm. Moves left arm only, can move left leg slightly. ROS limited as patient is aphasic. Objective - Vital Signs/Intake and Output Vital Signs (last 24 hours): Temp Pulse Resp BP Pulse Ox 98.3 F 81 19 110/70 98 06/04/18 06:00 06/04/18 10:38 06/04/18 06:00 06/04/18 10:38 06/04/18 06:00 Intake and Output: 06/04/18 06/04/18 06:59 18:59 Intake Total 924 Balance 924 - Medications Medications: Current Medications Acetaminophen (Tylenol 650mg/20.3ml Solution Ud) 650 mg GT Q6H PRN PRN Reason: FEVER >100.4F Last Admin: 05/31/18 18:05 Dose: 650 mg Apixaban (Eliquis) 2.5 mg PO BID [facility]; Protocol Last Admin: 06/04/18 10:39 Dose: 2.5 mg Aspirin (Aspirin Chewable) 81 mg PO DAILY [facility] Last Admin: 06/04/18 10:38 Dose: 81 mg Atorvastatin Calcium (Lipitor) 40 mg PO DIN [facility] Last Admin: 06/03/18 17:51 Dose: 40 mg Bacitracin (Bacitracin) 1 ea TOP Q12H [facility] Stop: 06/07/18 22:00 Docusate Sodium (Colace Liquid) 100 mg PO BID [facility] Last Admin: 06/04/18 10:38 Dose: 100 mg Furosemide (Lasix) 20 mg IVP DAILY [facility] Last Admin: 06/02/18 10:07 Dose: 20 mg Hydralazine HCl (Apresoline) 10 mg IVP Q6 PRN PRN Reason: hypertension Last Admin: 05/29/18 12:24 Dose: 10 mg Levetiracetam (Keppra) 250 mg PO BID [facility] Metoprolol Tartrate (Lopressor) 25 mg PO BRKDIN [facility] Last Admin: 06/04/18 10:38 Dose: 25 mg Pantoprazole Sodium (Protonix Inj) 40 mg IVP DAILY [facility] Last Admin: 06/04/18 10:39 Dose: 40 mg - Labs Labs: 06/02/18 09:00 06/02/18 09:00 PT 14.3 SECONDS (9.4-12.5) H 06/04/18 06:00 INR 1.24 06/04/18 06:00 APTT 26.5 Seconds (25.1-36.5) 06/02/18 09:00 - Additional Findings Additional findings: - Constitutional Appears: Non-toxic, Chronically Ill - Head Exam Head Exam: ATRAUMATIC, NORMOCEPHALIC - Eye Exam Eye Exam: PERRL. absent: EOMI, Periorbital swelling, Scleral icterus Pupil Exam: PERRL. absent: Fixed, Irregular, Miosis, Unequal - ENT Exam ENT Exam: Mucous Membranes Moist - Respiratory Exam Respiratory Exam: Clear to Auscultation Bilateral, NORMAL BREATHING PATTERN. absent: Rales, Rhonchi, Wheezes - Cardiovascular Exam Cardiovascular Exam: +S1, +S2. absent: Systolic Murmur - GI/Abdominal Exam GI & Abdominal Exam: Normal Bowel Sounds, Soft. absent: Mass, Rebound, Tendern ess - Extremities Exam Extremities exam: Positive for: normal inspection. Negative for: calf tenderness, pedal edema - Neurological Exam Neurological exam: Altered Additional comments: Patient awake, alert, global aphasia, follows simple command with left arm like lifts it up, + python consultant. Can move left leg, cannot lift it up/no effort against gravity. No movement of right arm, right leg. Opens eyes spontaneously. Somnolent. PERRL Assessment and Plan - Assessment and Plan (Free Text) Assessment: 88 year old female with PMH afib (on Coumadin at home), 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 Bleeding controlled with Vitamin K. Patient then had a large left MCA stroke: - Head CT 06/02 evolving left frontal/left basal ganglia subacute infarct without hemorrhagic conversion. No herniation/midline shift. There is mass effect upon frontal horn of left lateral ventricle. Moderate chronic periventricular white matter changes. - Not tPA candidate due to recent bleeding episode - Keppra 1000 mg IV given at time of stroke. - Can stop Keppra - Head CT 10/4 showed left MCA infarct. no ICH or global mass effect. - MRI brain showed acute infarct in left basal ganglia involving putamen, caudate nucleus, extends into carrion radiata. - Can resume anticoagulation for afib, eliquis 2.5 mg PO BID for now (please maintain at this dosage for 1 month). Repeat Head CT in 1 month, follow up outpatient with Neurology (Dr Perez). - Neuro checks, aspiration precautions. Patient currently on PEG tube feeding. - c/w physical therapy, speech therapy. - ASA 81 mg daily - Thank you for your consult. Discussed case with Dr Perez.
--- NOTE | 2018-06-05 09:11 | PN ---
DATE: 06/04/2018 REASON FOR THE CONSULTATION AND FOLLOWUP: Acute CVA, history of atrial fibrillation, aphasic. This is an 88-year-old female with past medical history significant for atrial fibrillation, esophageal cancer status post PEG, admitted with supratherapeutic INR secondary to possibly interaction with 5FU. The patient developed in the hospital massive stroke with aphasic, started on Eliquis yesterday. Continue atorvastatin, continue beta-tripp until the PEG. No need to do the TOMAS, patient is already on anticoagulation. Because the patient is aphasic, dysphagia, high risk of esophageal perforation, the risks and benefit ratio is not in favor of to do TOMAS, is not going to change in the outcome in the management. The patient needs anticoagulation. This note is an addendum to initial dictated by nurse practitioner, Jody Waller. We will follow with you. Thank you, Dr. Lindsay, for providing us the opportunity in taking care of the patient, Alicia Shearer. Nicolette Cox MD
== END 2018-06-04 15:19 | DRG 377 ==
LOC: ED 03:39 → ERH 05:34 → CCU 09:50 → 3RSO 05-27 21:33 → 3RNO 05-29 20:07
PROVIDERS: ADMIT Internal Medicine; ATTEND Internal Medicine
PROC: 30233N1 Transfusion of Nonautologous Red Blood Cells into Peripheral Vein, Percutaneous Approach (ICD-10-PCS; 2018-05-26)
PROC: DD001ZZ Beam Radiation of Esophagus using Photons 1 - 10 MeV (ICD-10-PCS; principal; 2018-05-28)
PROC: 3E0G76Z Introduction of Nutritional Substance into Upper GI, Via Natural or Artificial Opening (ICD-10-PCS; 2018-05-29)
DX: K92.2 Gastrointestinal hemorrhage, unspecified (principal); D68.32 Hemorrhagic disorder due to extrinsic circulating anticoagulants; C15.3 Malignant neoplasm of upper third of esophagus; T45.515A Adverse effect of anticoagulants, initial encounter; I63.412 Cerebral infarction due to embolism of left middle cerebral artery; R04.2 Hemoptysis; D62 Acute posthemorrhagic anemia; G81.91 Hemiplegia, unspecified affecting right dominant side; R47.01 Aphasia; K92.0 Hematemesis; I25.10 Atherosclerotic heart disease of native coronary artery without angina pectoris; I11.0 Hypertensive heart disease with heart failure; I48.0 Paroxysmal atrial fibrillation; E11.9 Type 2 diabetes mellitus without complications; J44.9 Chronic obstructive pulmonary disease, unspecified; Z79.01 Long term (current) use of anticoagulants; K22.0 Achalasia of cardia; K20.8 Other esophagitis; I48.2 Chronic atrial fibrillation; I50.9 Heart failure, unspecified; E03.9 Hypothyroidism, unspecified; Z96.642 Presence of left artificial hip joint; L40.9 Psoriasis, unspecified; R29.726 NIHSS score 26; T80.92XA Unspecified transfusion reaction, initial encounter; K59.00 Constipation, unspecified; K22.70 Barrett's esophagus without dysplasia; I08.3 Combined rheumatic disorders of mitral, aortic and tricuspid valves; Y84.8 Other medical procedures as the cause of abnormal reaction of the patient, or of later complication, without mention of misadventure at the time of the procedure; Y84.2 Radiological procedure and radiotherapy as the cause of abnormal reaction of the patient, or of later complication, without mention of misadventure at the time of the procedure; Z93.1 Gastrostomy status; Z86.718 Personal history of other venous thrombosis and embolism; Z86.711 Personal history of pulmonary embolism; Z87.891 Personal history of nicotine dependence

== ENCOUNTER 2018-06-13 16:10 | Inpatient (IN) | payer MEDICARE ==
[2018-06-13 16:27] VITALS: BMI 26.6
--- NOTE | 2018-06-13 16:40 | ED PDOC ---
Arrival/HPI - General Chief Complaint: Abnormal Labs Time Seen by Provider: 06/13/18 16:19 Historian: Patient - History of Present Illness Narrative History of Present Illness (Text): 06/13/18 16:30 An 88 year old female, whose past medical history includes gait disorder, dysphagia, aphagia, atrial fibrillation (on Coumadin), diabetes, COPD, systolic heart failure, squamous cell carcinoma of the esophaugus, hypertension, left CVA, CHF, is brought into the emergency department from [facility] in [place] for blood transfusion. Patient [place] [facility] [place] Coello's [place]. Discussed with Dr. Coello who stated that the patients hemoglobin dropped from 9.8 to 7.8 on 06/11 and today (06/13) it was 8.0. At baseline, patient is aphasic, dysphasic, with right hemiparesis. HPI/ ROS limited due to patient's underlying aphasia and dysphasia. PMD: Dr. Lindsay Oncologist: Dr. Coello Time/Duration: Prior to Arrival Symptom Onset: Sudden Symptom Course: Unchanged Activities at Onset: Rest, Light Context: Home Past Medical History - Provider Review Nursing Documentation Reviewed: Yes - Infectious Disease Hx of Infectious Diseases: None - Tetanus Immunization Tetanus Immunization: Unknown - Reproductive Menopause: No - Cardiac Hx Cardiac Disorders: Yes Hx Congestive Heart Failure: Yes - Pulmonary Hx Respiratory Disorders: Yes Hx Chronic Obstructive Pulmonary Disease (COPD): Yes - Neurological Hx Neurological Disorder: No - HEENT Hx HEENT Disorder: No - Renal Hx Renal Disorder: No - Endocrine/Metabolic Hx Diabetes Mellitus Type 2: Yes - Hematological/Oncological Hx Blood Disorders: Yes Other/Comment: PE - Integumentary Hx Dermatological Disorder: Yes (psoriasis) - Musculoskeletal/Rheumatological Hx Musculoskeletal Disorders: Yes - Gastrointestinal Hx Gastrointestinal Disorders: Yes HX Swallowing Problems: Yes Other/Comment: isabelle esophagus, echalasia - Genitourinary/Gynecological Hx Genitourinary Disorders: No - Psychiatric Hx Emotional Abuse: No Hx Physical Abuse: No Hx Substance Use: No - Surgical History Hx Cholecystectomy: Yes Hx Musculoskeletal Surgery: Yes (hip replacement) Hx Orthopedic Surgery: Yes (Left Hip) Other/Comment: left hip surgery 2005 - Anesthesia Hx Anesthesia Reactions: No Hx Malignant Hyperthermia: No - Suicidal Assessment Feels Threatened In Home Enviroment: No Family/Social History - Physician Review Nursing Documentation Reviewed: Yes Family/Social History: No Known Family HX Smoking Status: Former Smoker Hx Alcohol Use: Yes (GLASS OF WINE DAILY) Hx Substance Use: No Hx Substance Use Treatment: No Allergies/Home Meds Allergies/Adverse Reactions: Allergies No Known Allergies Allergy (Verified 08/15/16 02:07) Home Medications: Home Meds Medication Instructions Recorded Confirmed Furosemide [Lasix] 20 mg PO MWF 08/10/16 05/26/18 Ergocalciferol (Vitamin D2) 50,000 unit PO QWK 05/26/18 05/26/18 [Drisdol] Pyridoxine HCl (Vitamin B6) 100 mg PO BID 05/26/18 05/26/18 [Vitamin B-6] Review of Systems - Physician Review All systems were reviewed & negative as marked: Yes - Review of Systems Systems not reviewed;Unavailable: Other (Basline aphasic and dysphasic) Physical Exam Vital Signs Reviewed: Yes Vital Signs Temp Pulse Resp BP Pulse Ox 06/13/18 16:18 98.8 F 89 20 118/81 96 Temperature: Afebrile Blood Pressure: Normal Pulse: Regular Respiratory Rate: Normal Appearance: Positive for: Well-Appearing, Non-Toxic, Comfortable Pain Distress: None Mental Status: Positive for: Alert and Oriented X 3 - Systems Exam Head: Present: Atraumatic, Normocephalic Pupils: Present: PERRL Extroacular Muscles: Present: EOMI Conjunctiva: Present: Normal Mouth: Present: Moist Mucous Membranes Neck: Present: Normal Range of Motion Respiratory/Chest: Present: Clear to Auscultation, Good Air Exchange. No: Respiratory Distress, Accessory Muscle Use Cardiovascular: Present: Murmurs (Murmur noted) Abdomen: Present: Feeding Tubes (GT tube. Clean dry and intact dressing. ). No: Tenderness, Distention, Peritoneal Signs Rectal: Present: Other (Brown stool. Guaiac positive. Female instruction dean present (EMT Saray).) Back: Present: Normal Inspection Upper Extremity: No: Cyanosis, Edema, Neurovascularly Intact (Right sided arm weakness. ) Lower Extremity: No: Edema, Neurovascularly Intact (Right sided leg weakness. ) Neurological: Present: GCS=15, CN II-XII Intact, Speech Normal Skin: Present: Warm, Dry, Normal Color. No: Rashes Psychiatric: Present: Alert, Oriented x 3, Normal Insight, Normal Concentration Medical Decision Making ED Course and Treatment: 06/13/18 16:46 Impression: An 88 year old female is brought into the emergency department from [facility] for blood transfusion. Differential Diagnoses: Anemia secondary to chronic disease or GI bleed. Plan: -- EKG -- Labs -- Blood/ Urine Culture -- Urinalysis -- Tylenol -- Reassess and disposition Prior Visits: Notes and results from previous visits were reviewed. Progress Notes: 06/13/18 16:50 EKG: Ordered, reviewed and independently interpreted the EKG. Rate: 91 BPM Rhythm: Atrial Fibrillation 06/13/18 18:55 Blood transfusion consent obtained by Dawit Guillory who is the son, primary care decision maker. Consent was obtained via the telephone and witness via telephone was Liat ISABEL. Case discussed with Dr. Lindsay who agrees to Telemetry - Lab Interpretations I have reviewed the lab results: Yes - EKG Interpretation Interpreted by ED Physician: Yes Type: 12 lead EKG - Scribe Statement The provider has reviewed the documentation as recorded by the Scribe Irene Evans Provider Scribe Attestation: All medical record entries made by the Scribe were at my direction and personally dictated by me. I have reviewed the chart and agree that the record accurately reflects my personal performance of the history, physical exam, medical decision making, and the department course for this patient. I have also personally directed, reviewed, and agree with the discharge instructions and disposition. Disposition/Present on Arrival - Present on Arrival Any Indicators Present on Arrival: No History of DVT/PE: No History of Uncontrolled Diabetes: No Urinary Catheter: No History of Decub. Ulcer: No History Surgical Site Infection Following: None - Disposition Have Diagnosis and Disposition been Completed?: Yes Diagnosis: GI bleed, Anemia Disposition: HOSPITALIZED Disposition Time: 19:11 Condition: FAIR Forms: [employer] (Czech)
[2018-06-13 18:07] LABS: URINE BILIRUBIN NEGATIVE (NEGATIVE); URINE BLOOD NEGATIVE (NEGATIVE); URINE GLUCOSE (UA) NEGATIVE (NEGATIVE); URINE LEUKOCYTE ESTERASE TRACE Leu/uL (NEGATIVE); URINE PROTEIN 30 mg/dL (<30 mg/dL)
[2018-06-13 18:08] LABS: URINE APPEARANCE CLEAR (CLEAR); URINE COLOR DARK YELLOW (YELLOW)
[2018-06-13 18:18] LABS: BASO # 0.02 K/mm3 (0.0-2.0); BASO % 0.3 % (0.0-3.0); EOS # 0.1 (0.0-0.7); EOS % 0.8 % (1.5-5.0); GRAN # 4.5 (1.4-6.5); GRAN % 75.3 % (50.0-68.0); HEMOGLOBIN 7.9 g/dL (12.0-16.0); LYMPH # 0.7 (1.2-3.4); LYMPH % 11.2 % (22.0-35.0); MEAN CELL VOLUME 95.3 fl (80.0-105.0); MEAN CORPUSCULAR HEMOGLOBIN 30.7 pg (25.0-35.0); MEAN CORPUSCULAR HGB CONC 32.2 g/dl (31.0-37.0); MEAN PLATELET VOLUME 7.8 fl (7.0-11.0); MONO # 0.7 (0.1-0.6); MONO % 12.4 % (1.0-6.0); RBC 2.57 10^6/uL (3.5-6.1); RED CELL DISTRIBUTION WIDTH 16.3 % (11.5-14.5)
[2018-06-13 18:41] LABS: INR 1.19; PARTIAL THROMBOPLASTIN TIME 25.1 Seconds (25.1-36.5); PROTHROMBIN TIME 13.6 SECONDS (9.4-12.5)
[2018-06-13 18:55] LABS: ALB/GLOB RATIO 0.8 (1.1-1.8); ALBUMIN 2.6 g/dL (3.0-4.8); ALT/SGPT 65 U/L (7-56); AST/SGOT 79 U/L (14-36); BLOOD UREA NITROGEN 36 mg/dL (7-21); GFR NON-AFRICAN AMERICAN > 60
--- NOTE | 2018-06-13 22:13 | CARD ---
APPROVED REPORT Date of service: 06/13/2018 EKG Measurement Heart [id number] <Conclusion> Atrial fibrillation Low voltage QRS Septal infarct, age undetermined Abnormal ECG
[2018-06-14] MEDS ORDERED: Acetaminophen 650mg/20.3ml solution UD PO PRN (06:24)
--- NOTE | 2018-06-14 09:48 | RAD ---
Date of service: 06/13/2018 HISTORY: Fever COMPARISON: 05/29/2018. FINDINGS: LUNGS: No active pulmonary disease. PLEURA: No significant pleural effusion identified, no pneumothorax apparent. CARDIOVASCULAR: No atherosclerotic calcification present Cardiomegaly. No evidence of acute, significant cardiovascular disease. OSSEOUS STRUCTURES: No significant abnormalities. VISUALIZED UPPER ABDOMEN: Normal. OTHER FINDINGS: None. IMPRESSION: No active disease. No significant interval change compared to the prior examination(s).
[2018-06-14 09:57] LABS: BASO # 0.02 K/mm3 (0.0-2.0); BASO % 0.3 % (0.0-3.0); EOS % 0.5 % (1.5-5.0); GRAN # 4.89 (1.4-6.5); LYMPH # 0.4 (1.2-3.4); LYMPH % 6.5 % (22.0-35.0); MEAN CELL VOLUME 92.9 fl (80.0-105.0); MEAN CORPUSCULAR HEMOGLOBIN 30.5 pg (25.0-35.0); MEAN CORPUSCULAR HGB CONC 32.8 g/dl (31.0-37.0); MEAN PLATELET VOLUME 7.7 fl (7.0-11.0); MONO # 0.8 (0.1-0.6); MONO % 12.7 % (1.0-6.0); RBC 3.64 10^6/uL (3.5-6.1); RED CELL DISTRIBUTION WIDTH 16.2 % (11.5-14.5); WHITE BLOOD COUNT 6.1 10^3/ul (4.5-11.0)
[2018-06-14 09:59] LABS: ALB/GLOB RATIO 0.8 (1.1-1.8); ALBUMIN 2.7 g/dL (3.0-4.8); ALT/SGPT 65 U/L (7-56); AST/SGOT 65 U/L (14-36); BLOOD UREA NITROGEN 33 mg/dL (7-21); CALCIUM 8.4 mg/dL (8.4-10.5); GFR NON-AFRICAN AMERICAN > 60
[2018-06-14] MEDS ORDERED: Prostat 15 g packet GT SCH (10:00)
[2018-06-14 10:15] LABS: HEMOGLOBIN 11.1 g/dL (12.0-16.0)
[2018-06-14] MEDS: Prostat 15 g packet GT SCH (12:30)
--- NOTE | 2018-06-14 21:46 | CP.PCM.CON ---
History of Present Illness - History of Present Illness History of Present Illness: p Past Patient History - Infectious Disease Hx of Infectious Diseases: None - Tetanus Immunizations Tetanus Immunization: Unknown - Past Medical History & Family History Past Medical History?: Yes - Past Social History Smoking Status: Never Smoked - CARDIAC Hx Circulatory Problems: Yes Hx Congestive Heart Failure: Yes Hx Hypertension: Yes Hx Peripheral Edema: Yes - PULMONARY Hx Chronic Obstructive Pulmonary Disease (COPD): Yes - NEUROLOGICAL HX Cerebrovascular Accident: Yes (L side CVA, R side residual) - HEENT Hx Deafness: Yes (CRAIG) - RENAL Hx Chronic Kidney Disease: No - ENDOCRINE/METABOLIC Hx Diabetes Mellitus Type 2: Yes - HEMATOLOGICAL/ONCOLOGICAL Hx Cancer: Yes (isabelle esophagus, echalasia) - INTEGUMENTARY Hx Psoriasis: Yes - MUSCULOSKELETAL/RHEUMATOLOGICAL Hx Arthritis: Yes (OA) Hx Falls: No Hx Fractures: Yes (Hip Replacement) Hx Osteoarthritis: Yes - GASTROINTESTINAL HX Swallowing Problems: Yes - GENITOURINARY/GYNECOLOGICAL Hx Genitourinary Disorders: No - PSYCHIATRIC Hx Substance Use: No - SURGICAL HISTORY Hx Cholecystectomy: Yes Hx Musculoskeletal Surgery: Yes (hip replacement) Hx Orthopedic Surgery: Yes (Left Hip) Other/Comment: left hip surgery 2004 - ANESTHESIA Hx Anesthesia Reactions: No Hx Malignant Hyperthermia: No Meds Allergies/Adverse Reactions: Allergies Allergy/AdvReac Type Severity Reaction Status Date / Time No Known Allergies Allergy Verified 08/15/16 02:07 - Medications Medications: Current Medications Acetaminophen (Tylenol 650mg/20.3ml Solution Ud) 650 mg PO Q4 PRN PRN Reason: Temperature Amino Acid Protein (Prostat 15 G Packet) 15 gm GT DAILY [facility] Last Admin: 06/14/18 12:30 Dose: 15 gm Metoprolol Tartrate (Lopressor) 25 mg PO BID [facility] Last Admin: 06/14/18 18:17 Dose: 25 mg Pantoprazole Sodium (Protonix Inj) 40 mg IVP DAILY [facility] Last Admin: 06/14/18 10:51 Dose: 40 mg Warfarin Sodium (Coumadin) 2 mg PO 1800 [facility]; Protocol Last Admin: 06/14/18 18:59 Dose: 2 mg Results - Vital Signs Recent Vital Signs: Last Vital Signs Temp 98.3 F 06/14/18 18:00 Pulse 102 H 06/14/18 18:17 Resp 20 06/14/18 18:00 BP 126/86 06/14/18 18:17 Pulse Ox 99 10/20/18 06:00 - Labs Result Diagrams: 06/14/18 09:30 06/14/18 09:30 Labs: Laboratory Results - last 24 hr 06/13/18 06/14/18 06/14/18 18:13 09:30 09:30 WBC 6.1 RBC 3.64 Hgb 11.1 L D Hct 33.8 L MCV 92.9 MCH 30.5 MCHC 32.8 RDW 16.2 H Plt Count 285 MPV 7.7 Gran % 80.0 H Lymph % (Auto) 6.5 L [place] % (Auto) 12.7 H Eos % (Auto) 0.5 L Baso % (Auto) 0.3 Gran # 4.89 Lymph # (Auto) 0.4 L [place] # (Auto) 0.8 H Eos # (Auto) 0.0 Baso # (Auto) 0.02 Sodium 136 Potassium 4.7 Chloride 103 Carbon Dioxide 27 Anion Gap 11 BUN 33 H Creatinine 0.7 Est GFR ( Amer) > 60 Est GFR (Non-Af Amer) > 60 POC Glucose (mg/dL) Random Glucose 84 Calcium 8.4 Total Bilirubin 1.1 AST 65 H ALT 65 H Alkaline Phosphatase 88 Total Protein 6.1 Albumin 2.7 L Globulin 3.4 Albumin/Globulin Ratio 0.8 L Blood Type A POSITIVE Antibody Screen Negative Crossmatch See Detail BBK History Checked Patient has bt 06/14/18 06/14/18 11:26 16:39 WBC RBC Hgb Hct MCV MCH MCHC RDW Plt Count MPV Gran % Lymph % (Auto) [place] % (Auto) Eos % (Auto) Baso % (Auto) Gran # Lymph # (Auto) [place] # (Auto) Eos # (Auto) Baso # (Auto) Sodium Potassium Chloride Carbon Dioxide Anion Gap BUN Creatinine Est GFR ( Amer) Est GFR (Non-Af Amer) POC Glucose (mg/dL) 91 124 H Random Glucose Calcium Total Bilirubin AST ALT Alkaline Phosphatase Total Protein Albumin Globulin Albumin/Globulin Ratio Blood Type Antibody Screen Crossmatch BBK History Checked Assessment & Plan - Assessment and Plan (Free Text) Assessment: p Plan: p - Date & Time Date: 06/14/18 Time: 19:30
[2018-06-15 07:10] LABS: BASO # 0.01 K/mm3 (0.0-2.0); BASO % 0.1 % (0.0-3.0); EOS # 0.1 (0.0-0.7); EOS % 0.7 % (1.5-5.0); GRAN # 5.71 (1.4-6.5); GRAN % 79.5 % (50.0-68.0); HEMOGLOBIN 11.2 g/dL (12.0-16.0); LYMPH # 0.7 (1.2-3.4); MEAN CELL VOLUME 93.5 fl (80.0-105.0); MEAN CORPUSCULAR HEMOGLOBIN 30.5 pg (25.0-35.0); MEAN CORPUSCULAR HGB CONC 32.7 g/dl (31.0-37.0); MONO # 0.8 (0.1-0.6); MONO % 10.7 % (1.0-6.0); PLATELET COUNT 297 10^3/uL (120.0-450.0); RBC 3.67 10^6/uL (3.5-6.1); WHITE BLOOD COUNT 7.2 10^3/ul (4.5-11.0)
[2018-06-15 07:19] LABS: INR 1.14; PROTHROMBIN TIME 13.2 SECONDS (9.4-12.5)
[2018-06-15 07:25] LABS: ALB/GLOB RATIO 0.8 (1.1-1.8); ALBUMIN 2.4 g/dL (3.0-4.8); ALT/SGPT 68 U/L (7-56); AST/SGOT 57 U/L (14-36); BLOOD UREA NITROGEN 38 mg/dL (7-21); CALCIUM 8.1 mg/dL (8.4-10.5); GFR NON-AFRICAN AMERICAN > 60
[2018-06-15 08:44] LABS: ERYTHROCYTE SEDIMENTATION RATE 95 mm/hr (0.0-20.0)
[2018-06-15] MEDS: Prostat 15 g packet GT SCH (13:05)
--- NOTE | 2018-06-15 14:10 | CON ---
DATE OF CONSULTATION: 06/14/2018 LOCATION: The patient is currently in room 267, bed 2. HISTORY OF PRESENT ILLNESS: The patient was admitted through the emergency room yesterday. This is an 88-year-old female, well known to me. 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 As she was on Coumadin and was having GI bleeding, the Coumadin had to be stopped. Her INR was high, which was corrected, and the patient was being monitored in the hospital, and while in the hospital as she was continuing her RT, while the Coumadin was on hold, the patient developed CVA affecting the right side. The patient has right-side hemiparesis along with aphasia, and the patient could not be started on medications right away because of the recent history of bleed. The patient finally eventually had been maintained just on aspirin and then switched over to Coumadin before being discharged to [facility] for aggressive therapy. The patient's past medical history is significant for diabetes, COPD, systolic heart failure, hypertension, CHF and now newly diagnosed left CVA with right-sided weakness. I got a call from the physician at [facility] yesterday about the patient's blood count, which had dropped from 9.7 to 7.8, and the patient's Eliquis had been on hold for more than 48 hours and I just told the physician to send the patient to the ER, so we could continue to monitor, but at least give her 2 units of blood, and if the patient is clinically stable, we would send the patient back to the rehab facility to continue rehabilitation. The patient was in the ER and on Saturday got 2 units of blood and her hemoglobin from 7.8 has gone up to 11, unchanged today. Past medical history is significant for the finding that the patient has significant history of achalasia and was being monitored with periodic dilatation, recently discovered and diagnosed squamous cell carcinoma of the esophagus, for which she was started on RT and also systemic chemotherapy with leucovorin and 5-FU. Admitted to the hospital about few weeks ago with coagulopathy, corrected, then developed CVA while her anticoagulants were on hold and now currently in rehab undergoing intensive physical therapy and while in rehab noted to have a gradual dip in the hemoglobin, which was down to 7.8. Eliquis, which she was getting in the rehab, has been on hold and currently decisions have to be made after the blood is stabilized as to what do we put her on, as far as coagulopathy is concerned, for her atrial fibrillation, so she does not develop another stroke. REVIEW OF SYSTEMS: Limited due to the patient's underlying aphasia and dysphasia. PHYSICAL EXAMINATION: Vital signs are stable as stated in the chart. T-max is 98.4, pulse is 89, respirations 20, blood pressure is 118/81, pulse ox is 96% on room air. The patient is mentally alert, oriented x3, is able to nod her head that she understands what I am saying. Head is normocephalic and atraumatic. Pupils are equally reactive to light and accommodation. Conjunctivae are pale. Sclerae anicteric. Examination of the mouth reveals the patient to be edentulous. No oropharyngeal lesions are noted. Lungs are relatively clear to percussion and auscultation. Examination of the heart reveals systolic ejection murmur lower left sternal border. Abdomen is soft. The patient has a feeding tube, gastrostomy tube. Site appears to be clean and dry, intact dressing. No tenderness, no distention. No rebound, rigidity or guarding is noted. Rectal exam done in the ER showed stool guaiac to be positive. Examination of the back is normal on inspection and palpation. Upper and lower extremities reveal no cyanosis, clubbing or edema. The patient has dense hemiparesis on the right side. The patient is unable to talk, but communicates with her eyes. Skin is warm and dry, normal in color. No significant rashes are noted. Psychiatric, the patient is awake, alert and oriented and is aphasic and unable to communicate by speech, but definitely was able to nod her head. ASSESSMENT AND PLAN: An 88-year-old female with documented stage II carcinoma of the esophagus, squamous cell variety, with coagulopathy, now admitted to the ER and then to the hospital with new onset of anemia. Eliquis is on hold. The patient received 2 units of blood, hemoglobin is up to 11, unchanged. We will check with GI. The patient is clinically stable. Plan will be to start the patient on low-dose Coumadin, watching her very carefully. She had been on Coumadin in the past, trying to keep the INR between 1.7 and 1.8 to have some anticoagulant effect to decrease the risk of strokes, embolic, or otherwise and continue the rehab at [facility]. Overall prognosis is guarded. I have discussed my findings in detail with Dr. Vincent Lindsay. We will reach out to Dr. Brown as well from GI point of view. The patient does not seem to have any active bleeding at this point in time and so that would be the plan for now. We will monitor for one more day before making decision to transfer her back to the rehab. The patient has been started on Coumadin today, check the PT/INR and make further decisions in a.m. Of note, this is a complex patient with multiple comorbid medical issues. Time spent with the patient greater than 80 minutes in correlating all the data, talking to the doctors in [facility] and discussing with the PMD as well. Calos Coello MD
--- NOTE | 2018-06-16 02:20 | PN ---
DATE: 06/15/2018 SUBJECTIVE: The patient was seen this Saturday morning in room 267, bed 2. She is sleeping when I arrived, but awoke to voice and light touch. She recognizes me but has a dense expressive aphasia. Does not speak. Right-side is flaccid. Hemoglobin remains stable this morning. Remainder of physical exam is unremarkable and unchanged. Oncology note appreciated. GI consultation called, notes later appreciated. We will continue low-dose Coumadin. For now, check morning H and H as well as PT/INR and for possible discharge back to [facility] tomorrow. Vincent Lindsay MD MTDD
--- NOTE | 2018-06-16 03:18 | PN ---
DATE: 06/15/2018 SUBJECTIVE: This patient was seen and evaluated earlier. The patient's family was at bedside. The patient is alert. PHYSICAL EXAMINATION: VITAL SIGNS: Temperature is 98.2, blood pressure 140/91, respirations 19, pulse 78. GENERAL: The patient is alert, able to communicate a few words. HEENT: Atraumatic. Facial droop present. NECK: Supple. No masses. HEART: S1 and S2 heard. LUNGS: Bilateral air entry present. ABDOMEN: Soft. EXTREMITIES: No cyanosis. No clubbing. NEUROLOGIC: The patient has right hemiparesis. The patient is nonverbal, trying to communicate. LABORATORY DATA: Hemoglobin 11.2, hematocrit 34.3, WBC 7.2, platelets 297. Chemistry is essentially unremarkable except AST 57, ALT 68. IMPRESSION: This is an 88-year-old patient with esophageal carcinoma, status post radiation and chemotherapy, had gastrointestinal bleeding. The patient was off the anticoagulation, had a cerebrovascular accident, history of paroxysmal atrial fibrillation. The patient was in rehab center, was found to have a decrease in hemoglobin, transferred to the [facility] where received 2 units of packed red blood cells. Repeat hemoglobin has been stable. Hemoglobin and hematocrit were 11.2 and 34.3. The patient is tolerating gastrostomy tube feeding. The patient was on Eliquis before admission. Now, she has been started on Coumadin. RECOMMENDATION: Close followup of the hemoglobin and hematocrit. Has a low-dose PPI. Continue the G-tube feeding and oncological followup. Thank you very much for allowing us to participate in the care of the patient. Elba Brown MD
--- NOTE | 2018-06-16 05:38 | HP ---
CHIEF COMPLAINT: Anemia. HISTORY OF PRESENT ILLNESS: This is an 88-year-old woman, I have known for many years, who is at a rehab facility after an acute stroke. She is noted to be more weak, had heme-positive stools, was sent to her oncologist who did a CBC and found her hemoglobin to be less than 8, and arranged for her admission and transfusion. Past medical history is essentially negative until age 82 when she developed atrial fibrillation and congestive heart failure. She was treated medically and seemed to manage okay. Just before Thanksgiving in 2016, she developed an esophageal foreign body obstruction. Endoscopy was done, but large achalasia was noted. This was treated with proton pump inhibitors. Workup was otherwise negative, and she did well with dilatation and then a liquid diet. There was one or two episodes of an aspiration pneumonia, treated with antibiotics, and then only recently on a followup endoscopy, a suspicious area was noted and biopsied to be an esophageal cancer. She was hospitalized only a month ago. She is getting radiation treatment for the esophageal lesion and stricken with a massive stroke with right-sided paralysis and dense expressive aphasia. She was at the rehab facility where some heme-positive stools were noted, hemoglobin was falling and so now admitted. ALLERGIES: SHE HAS NO ALLERGIES TO MEDICATIONS. SOCIAL HISTORY: Does not smoke. In the past, had an occasional alcohol drink. REVIEW OF SYSTEMS: Not possible because of the dense expressive aphasia. PHYSICAL EXAMINATION: GENERAL: Patient was seen this Saturday morning in room 267, bed 1, and then arrived to the hospital only yesterday evening. She is awake, recognizes me, but with dense expressive aphasia, does not speak. HEENT: Conjunctivae are pink. Mucous membranes are moist. NECK: Supple without masses. HEART: Irregular with atrial fibrillation and murmurs of and MR. LUNGS: Show good aeration in right and left. ABDOMEN: Overweight. EXTREMITIES: Showed no edema. Paralysis on the right side with chronically wet and diaphoretic right hand. LABORATORY DATA: Review of the labs showed admitting hemoglobin below 8. Patient received transfusion overnight. This morning, hemoglobin is up to 11. IMPRESSION: 1. Anemia. 2. Esophageal cancer. 3. Status post recent cerebrovascular accident. 4. Atrial fibrillation. PLAN: Spoke with oncologist, Dr. Coello, late this afternoon. We discussed our options and subsequently the difficult situation. The bleeding is most likely slow and intermittent and probably from her esophageal CA. Although the lesion is relatively small and she has received radiation almost completing her course of radiation, if we do not anticoagulate, given the severity of the stroke, the risk of another stroke is significant, yet concern of the anticoagulants in an anemic patient with a GI lesion is concerning, as is the risk of thrombotic event and deep venous thromboses in a person with malignancy. After a great deal of discussion, we decided that perhaps our best option would be to begin low dose Coumadin and aim for a PT/INR that some may call subtherapeutic, though we will find this optimal given her complications. Keeping INR in the range of 1.3 to 1.6 would be our goal. Hopefully the patient's H and H will remain stable and will be ready to leave to [facility] in 2 or 3 days. Vincent Lindsay MD
[2018-06-16 06:39] LABS: BASO # 0.03 K/mm3 (0.0-2.0); BASO % 0.4 % (0.0-3.0); EOS # 0.1 (0.0-0.7); EOS % 1.7 % (1.5-5.0); GRAN # 5.39 (1.4-6.5); GRAN % 75.9 % (50.0-68.0); HEMOGLOBIN 10.4 g/dL (12.0-16.0); LYMPH # 0.9 (1.2-3.4); MEAN CELL VOLUME 93.9 fl (80.0-105.0); MEAN CORPUSCULAR HEMOGLOBIN 30.2 pg (25.0-35.0); MEAN CORPUSCULAR HGB CONC 32.2 g/dl (31.0-37.0); MEAN PLATELET VOLUME 7.9 fl (7.0-11.0); MONO # 0.7 (0.1-0.6); RBC 3.44 10^6/uL (3.5-6.1); RED CELL DISTRIBUTION WIDTH 15.9 % (11.5-14.5); WHITE BLOOD COUNT 7.1 10^3/ul (4.5-11.0)
[2018-06-16 06:47] LABS: BLOOD UREA NITROGEN 38 mg/dL (7-21); GFR NON-AFRICAN AMERICAN > 60
[2018-06-16 06:50] LABS: INR 1.14; PROTHROMBIN TIME 13.2 SECONDS (9.4-12.5)
--- NOTE | 2018-06-16 07:54 | CON ---
DATE: 06/14/2018 REASON FOR CONSULTATION: Anemia, drop in blood count. HISTORY OF PRESENT ILLNESS: This 88-year-old patient with a history of paroxysmal atrial fibrillation, esophageal carcinoma, status post radiation, chemo, was initially admitted to the [facility] about three weeks ago with GI bleeding. 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 The patient has been restarted on Eliquis, was in the rehab center where she was found to have a drop in hemoglobin of 7.7, transferred to the [facility]. The patient did receive two units of packed RBC. The patient is off the anticoagulation. The patient did not get any Eliquis. GI consult was requested to evaluate for the anticoagulation therapy. No history of any melena documented. No history of vomiting blood documented. Other history of present illness includes as above, history of motility disorder, COPD, CHF. FAMILY HISTORY: Not contributory. SOCIAL HISTORY: Denies smoking, no alcohol now. REVIEW OF SYSTEMS: Positive as above. Other systems reviewed, negative. PHYSICAL EXAMINATION VITAL SIGNS: Temperature 98.3, blood pressure 126/86, respirations 20, O2 saturation 99%. HEENT: Atraumatic. Anicteric. There is a facial droop present. NECK: Supple, no masses. HEART: S1, S2 heard. There is systolic murmur present. LUNGS: Bilateral air entry present, normal vesicular breath sounds. ABDOMEN: Soft. G-tube in place. EXTREMITIES: No cyanosis, no clubbing. NEUROLOGIC: The patient has right hemiparesis with facial nerve involvement with a facial droop. LABORATORY DATA: Hemoglobin 7.9, hematocrit 24.5; when the patient was in the ER, received two units of packed RBC. Today, 06/14, hemoglobin came up to 11.1, hematocrit 33.8. INR is normal at 1.19 in the ER. ASSESSMENT: An 88-year-old patient with esophageal squamous cell carcinoma, status post radiation, chemo, history of paroxysmal atrial fibrillation, admitted with gastrointestinal bleeding. About two weeks ago, had gastrointestinal bleeding. The patient developed stroke off the anticoagulation, was started on Eliquis. Had a drop in blood count, received two units of packed RBC. Hemoglobin is now stable, no documented melena or gastrointestinal bleeding likely. PLAN: Would recommend at this point, 1. Close followup of the hemoglobin and hematocrit. 2. Continue the PPI low dose. 3. Can receive the G-tube feeding. 4. It is reasonable to restart on anticoagulation given the history of CVA off the anticoag. We feel Coumadin could be easily monitored than newer anticoagulation on Eliquis. We will agree with restarting Coumadin. Thank you very much for allowing us to participate in the care of the patient. Elba Brown MD
[2018-06-16] MEDS ORDERED: Levalbuterol 0.63 MG/3 ML Inhal Soln UD IH ONE (08:42)
--- NOTE | 2018-06-16 08:56 | CP.PCM.PN ---
<Sabino Pathak - Last Filed: 06/16/18 08:58> Subjective - Date & Time of Evaluation Date of Evaluation: 06/16/18 Time of Evaluation: 08:52 - Subjective Subjective: PGY-2 GI progress note for Dr Brown. No acute events noted overnight. Patient was seen resting comfortably in bed - she was awake, alert but aphasic. Tube feeds were running without issues. Right leg was flaccid. Appeared to be comfortable. Complete ROS not possible in this aphasic patient. Objective - Vital Signs/Intake and Output Vital Signs (last 24 hours): Temp Pulse Resp BP Pulse Ox 98.6 F 86 19 121/88 97 06/16/18 06:00 06/16/18 06:00 06/16/18 06:00 06/16/18 06:00 06/16/18 06:00 Intake and Output: 06/16/18 06/16/18 06:59 18:59 Intake Total 674 Balance 674 - Medications Medications: Current Medications Acetaminophen (Tylenol 650mg/20.3ml Solution Ud) 650 mg PO Q4 PRN PRN Reason: Temperature Amino Acid Protein (Prostat 15 G Packet) 15 gm GT DAILY [facility] Last Admin: 06/15/18 13:05 Dose: 15 gm Metoprolol Tartrate (Lopressor) 25 mg PO BID [facility] Last Admin: 06/15/18 18:19 Dose: 25 mg Pantoprazole Sodium (Protonix Inj) 40 mg IVP DAILY [facility] Last Admin: 06/15/18 10:42 Dose: 40 mg Warfarin Sodium (Coumadin) 2 mg PO 1800 [facility]; Protocol Last Admin: 06/15/18 18:19 Dose: 2 mg - Labs Labs: 06/16/18 05:50 06/16/18 05:50 PT 13.2 SECONDS (9.4-12.5) H 06/16/18 05:50 INR 1.14 06/16/18 05:50 APTT 25.1 Seconds (25.1-36.5) 06/13/18 18:13 - Constitutional Appears: No Acute Distress - Head Exam Head Exam: ATRAUMATIC Additional comments: facial droop - Eye Exam Eye Exam: EOMI, PERRL - ENT Exam ENT Exam: Mucous Membranes Moist - Cardiovascular Exam Cardiovascular Exam: Irregular Rhythm, Murmur Additional comments: afib with murmurs of and MR - GI/Abdominal Exam GI & Abdominal Exam: Soft Additional comments: G-tube in place - Neurological Exam Neurological Exam: Alert Neuro motor strength exam: Left Upper Extremity: 4, Right Upper Extremity: 0, Left Lower Extremity: 4, Right Lower Extremity: 0 Additional comments: right-sided hemiparesis - Skin Skin Exam: Normal Color, Warm Assessment and Plan - Assessment and Plan (Free Text) Plan: 88 year old female with a PMHx of esophageal carcinoma s/p chemo and radiation, afib on coumadin complicated by GI bleed - coumadin had to be stopped and patient subsequently developed a CVA and now with right-sided hemiparesis was sent to the ER for low hemoglobin: Anemia -s/p 2u pRBCs and now hgb stable at 11 -bleed most likely from her esophageal cancer -primary team and oncology agreed to begin low dose coumadin and aim for PT/INR in rage of 1.3-1.6 - although considered subtherapeutic, this can provide the patient with some protection given she just had a CVA and is at risk for another -agree with primary and oncology on coumadin as it can be easily monitored compared to eliquis -continue PPI low dose -continue g-tube feeding Management as per Dr Brown. If there is a change in recs/plan, I will addendum note accordingly. <Elba Brown V - Last Filed: 06/16/18 23:20> Objective - Vital Signs/Intake and Output Vital Signs (last 24 hours): Temp Pulse Resp BP Pulse Ox 99.4 F 97 H 18 110/58 L 97 06/16/18 19:24 06/16/18 18:00 06/16/18 17:37 06/16/18 17:37 06/16/18 06:00 Intake and Output: 06/16/18 06/17/18 18:59 06:59 Intake Total 100 Balance 100 - Medications Medications: Current Medications Acetaminophen (Tylenol 650mg/20.3ml Solution Ud) 650 mg PO Q4 PRN PRN Reason: Temperature Last Admin: 06/16/18 18:24 Dose: 650 mg Amino Acid Protein (Prostat 15 G Packet) 15 gm GT DAILY [facility] Last Admin: 06/16/18 15:21 Dose: 15 gm Atorvastatin Calcium (Lipitor) 40 mg PEG DIN [facility] Last Admin: 06/16/18 17:40 Dose: 40 mg Docusate Sodium (Colace Liquid) 100 mg PO BID PRN PRN Reason: Constipation Furosemide (Lasix) 20 mg PEG MWF [facility] Last Admin: 06/16/18 15:19 Dose: 20 mg Iron Sucrose 100 mg/ Sodium (Chloride) 105 mls @ 210 mls/hr IVPB ONCE ONE Stop: 06/17/18 10:29 Meropenem (Merrem Iv 1 Gm Premix) 1 gm in 50 mls @ 12.5 mls/hr IVPB Q8 [facility]; Protocol Stop: 06/25/18 19:27 Last Admin: 06/16/18 22:06 Dose: Not Given Linezolid (Zyvox 600mg/300ml D5w) 600 mg in 300 mls @ 200 mls/hr IVPB Q12 [facility]; Protocol Stop: 06/24/18 22:01 Last Admin: 06/16/18 22:12 Dose: 200 mls/hr Levalbuterol HCl (Xopenex) 0.63 mg IH [id number] PRN PRN Reason: Wheezing Metoprolol Tartrate (Lopressor) 25 mg PO BID [facility] Last Admin: 06/16/18 17:40 Dose: 25 mg Nitrofurantoin Macrocrystals (Macrobid) 100 mg PO Q12 [facility]; Protocol Last Admin: 06/16/18 22:12 Dose: 100 mg Pantoprazole Sodium (Protonix Inj) 40 mg IVP DAILY [facility] Last Admin: 06/16/18 11:34 Dose: 40 mg Warfarin Sodium (Coumadin) 2 mg PO 1800 [facility]; Protocol Last Admin: 06/16/18 17:40 Dose: 2 mg - Labs Labs: 06/16/18 05:50 06/16/18 05:50 PT 13.2 SECONDS (9.4-12.5) H 06/16/18 05:50 INR 1.14 06/16/18 05:50 APTT 25.1 Seconds (25.1-36.5) 06/13/18 18:13 Attending/Attestation - Attestation I have personally seen and examined this patient.: Yes I have fully participated in the care of the patient.: Yes I have reviewed all pertinent clinical information, including history, physical exam and plan: Yes Notes (Text): This is an addendum to GI followup report dictated by the [employer]. The patient was seen and evaluated earlier. Medical records, lab studies, imagings were reviewed. Last 24 hours events reviewed. Agreed with the above treatment plan as outlined in [employer] [facility] 's notes with the addition of the following patient is on isolation now for VRE in the urine Family was at bedside at the time of examination Started on low dose Coumadin as per die trimmer History of PAF sp CVA Esophageal cancer sp RT chemo on Bolus feeding Discussed with nursing staff regarding close monitoring of tolerance with bolus feeding Would consider continuous pump feeding if there is any concern about tolerance 06/16/18 23:16
[2018-06-16] MEDS ORDERED: Furosemide 40 mg/5 mL Oral Soln UD PO SCH (10:00)
--- NOTE | 2018-06-16 10:08 | CP.PCM.PN ---
Subjective - Date & Time of Evaluation Date of Evaluation: 06/16/18 Time of Evaluation: 10:06 - Subjective Subjective: Hematology/Oncology Progress Note (Dr. Coello's Service) Patient seen and assessed at bedside. No acute events noted overnight per nursing staff or patient. Patient is noted to be aphasic and complete ROS unavailable at this time. She is, however, awake and alert with appropriate visual tracking and limited communication via nodding. Objective - Vital Signs/Intake and Output Vital Signs (last 24 hours): Temp Pulse Resp BP Pulse Ox 98.6 F 86 19 121/88 97 06/16/18 06:00 06/16/18 06:00 06/16/18 06:00 06/16/18 06:00 06/16/18 06:00 Intake and Output: 06/16/18 06/16/18 06:59 18:59 Intake Total 674 Balance 674 - Medications Medications: Current Medications Acetaminophen (Tylenol 650mg/20.3ml Solution Ud) 650 mg PO Q4 PRN PRN Reason: Temperature Amino Acid Protein (Prostat 15 G Packet) 15 gm GT DAILY [facility] Last Admin: 06/15/18 13:05 Dose: 15 gm Metoprolol Tartrate (Lopressor) 25 mg PO BID [facility] Last Admin: 06/15/18 18:19 Dose: 25 mg Pantoprazole Sodium (Protonix Inj) 40 mg IVP DAILY [facility] Last Admin: 06/15/18 10:42 Dose: 40 mg Warfarin Sodium (Coumadin) 2 mg PO 1800 [facility]; Protocol Last Admin: 06/15/18 18:19 Dose: 2 mg - Labs Labs: 06/16/18 05:50 06/16/18 05:50 PT 13.2 SECONDS (9.4-12.5) H 06/16/18 05:50 INR 1.14 06/16/18 05:50 APTT 25.1 Seconds (25.1-36.5) 06/13/18 18:13 - Constitutional Appears: No Acute Distress - Head Exam Head Exam: ATRAUMATIC, NORMOCEPHALIC - Eye Exam Eye Exam: EOMI, Normal appearance - ENT Exam ENT Exam: Mucous Membranes Moist - Respiratory Exam Respiratory Exam: Clear to Ausculation Bilateral, NORMAL BREATHING PATTERN. absent: Rales, Rhonchi, Wheezes - Cardiovascular Exam Cardiovascular Exam: +S1, +S2, Murmur (II/ systolic ejection) - GI/Abdominal Exam GI & Abdominal Exam: Soft, Normal Bowel Sounds. absent: Tenderness Additional comments: g-tube in place without signs of clinical infection in the surrounding soft tissue - Extremities Exam Extremities Exam: absent: Calf Tenderness - Neurological Exam Neurological Exam: Alert, Awake, Motor Sensory Deficit Neuro motor strength exam: Left Upper Extremity: 4, Right Upper Extremity: 0, Left Lower Extremity: 4, Right Lower Extremity: 0 - Psychiatric Exam Psychiatric exam: Normal Affect, Normal Mood - Skin Skin Exam: Dry, Intact, Normal Color, Warm Assessment and Plan - Assessment and Plan (Free Text) Assessment: 88 year old female with a significant for documented stage II carcinoma of the esophagus currently receiving treatment with RT and chemotherapy (Leucovorin and 5-FU), atrial fibrillation on Coumadin, systolic CHF, HTN, COPD, and 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 Patient was transfused two units of pRBC's and is currently with stable H/H. After GI consultation, patient was cleared to be restarted on Coumadin and we will shoot for INR to be between 1.7 and 1.8. 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 ID was consulted for further recommendations regarding this. Of note, patient noted to have nodded "yes" when asked if she urinated without any difficulties or complaints. Plan: -Hemoglobin/Hematocrit currently stable at 10.4/32.3 s/p two units of pRBC's; W ill continue to monitor with daily CBC's -Continue low dose Coumadin with daily INR checks while inpatient; Can be done at [facility] upon discharge if patient medically cleared for DC -Continue tube feeding as ordered with caloric goals currently being met -Will continue XRT and chemotherapy at [facility] after discharge -ID was consulted for VRE positive urine culture, all recommendations appreciated -Repeat UA and urine culture pending -Further recommendations per Dr. Coello Patient seen and case discussed with attending, Dr. Coello. Sridhar Jeronimo PGY2
[2018-06-16 12:50] LABS: IRON 36 ug/dL (45-180)
[2018-06-16 12:59] LABS: % IRON SATURATION 15 % (20-55); TOTAL IRON BINDING CAPACITY 231 ug/dL (265-497)
[2018-06-16] MEDS ORDERED: Levalbuterol 0.63 MG/3 ML Inhal Soln UD IH PRN (14:09)
[2018-06-16] MEDS: Furosemide 40 mg/5 mL Oral Soln UD PEG SCH (15:19)
[2018-06-16] MEDS: Prostat 15 g packet GT SCH (15:21)
--- NOTE | 2018-06-16 15:21 | RAD ---
Date of service: 06/16/2018 HISTORY: abnormal breath sounds COMPARISON: 06/13/2018 FINDINGS: LUNGS: New multifocal infiltrates. PLEURA: No significant pleural effusion identified, no pneumothorax apparent. CARDIOVASCULAR: No atherosclerotic calcification present Stable cardiomegaly. OSSEOUS STRUCTURES: No significant abnormalities. VISUALIZED UPPER ABDOMEN: Normal. OTHER FINDINGS: None. IMPRESSION: New multifocal infiltrates. Whether this is pulmonary or cardiogenic cannot be determined at the present time.
[2018-06-16 16:29] LABS: FOLATE > 20.0 ng/mL
[2018-06-16] MEDS: Meropenem IV 1 gm in NS 1 GM/50 ML BAG IVPB SCH ×2 (21:27→22:06)
[2018-06-16] MEDS: Linezolid 600 mg in D5W 300 ml 600 MG/300 ML BAG IVPB SCH (22:12)
[2018-06-17 03:07] LABS: PH,URINE 5.5 (4.7-8.0); URINE BILIRUBIN NEGATIVE (NEGATIVE); URINE BLOOD NEGATIVE (NEGATIVE); URINE GLUCOSE (UA) NEGATIVE (NEGATIVE); URINE LEUKOCYTE ESTERASE TRACE Leu/uL (NEGATIVE); URINE PROTEIN NEGATIVE mg/dL (<30 mg/dL)
[2018-06-17 03:13] LABS: URINE APPEARANCE CLEAR (CLEAR); URINE COLOR YELLOW (YELLOW)
[2018-06-17 03:34] LABS: URINE BACTERIA SMALL (NEG); URINE RBC 0 - 2 /hpf (0-2)
[2018-06-17] MEDS: Meropenem IV 1 gm in NS 1 GM/50 ML BAG IVPB SCH ×3 (05:08→21:36)
[2018-06-17 06:22] LABS: BASO # 0.01 K/mm3 (0.0-2.0); BASO % 0.2 % (0.0-3.0); EOS # 0.1 (0.0-0.7); EOS % 1.8 % (1.5-5.0); GRAN % 80.7 % (50.0-68.0); HEMOGLOBIN 10.2 g/dL (12.0-16.0); LYMPH # 0.6 (1.2-3.4); LYMPH % 8.5 % (22.0-35.0); MEAN CELL VOLUME 94.4 fl (80.0-105.0); MEAN CORPUSCULAR HEMOGLOBIN 30.2 pg (25.0-35.0); MEAN PLATELET VOLUME 7.9 fl (7.0-11.0); MONO # 0.6 (0.1-0.6); MONO % 8.8 % (1.0-6.0); PLATELET COUNT 261 10^3/uL (120.0-450.0); RBC 3.38 10^6/uL (3.5-6.1); RED CELL DISTRIBUTION WIDTH 15.6 % (11.5-14.5); WHITE BLOOD COUNT 6.6 10^3/ul (4.5-11.0)
[2018-06-17 06:40] LABS: B-TYPE NATRIURETIC PEPTIDE 8070 pg/mL (0-450)
[2018-06-17 06:42] LABS: INR 1.2; PROTHROMBIN TIME 13.8 SECONDS (9.4-12.5)
[2018-06-17 07:22] LABS: ALB/GLOB RATIO 0.7 (1.1-1.8); ALBUMIN 2.4 g/dL (3.0-4.8); ALT/SGPT 49 U/L (7-56); AST/SGOT 47 U/L (14-36); BLOOD UREA NITROGEN 36 mg/dL (7-21); CALCIUM 7.9 mg/dL (8.4-10.5); GFR NON-AFRICAN AMERICAN > 60
--- NOTE | 2018-06-17 07:40 | CON ---
DATE: 06/16/2018 The patient is seen in room 267, bed 1. CHIEF COMPLAINT: Fever x1 day duration. HISTORY OF PRESENT ILLNESS: This is an 88-year-old female with congestive heart failure, diabetes mellitus, achalasia and GERD. 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 The patient with a history of ESBL Klebsiella urinary tract infection. Review of systems reveals no fevers, no chills, no chest pain. The patient does have a diaper. It is unclear if she has any dysuria or frequency. The patient's daughter was at the bedside. The patient is unable to verbalize. She was admitted with a diagnosis of gastrointestinal bleed, had a cerebrovascular accident, now is having fevers and is found to have VRE. The patient also had an x-ray today which is positive for bilateral infiltrates on admission and then the patient's chest x-ray was negative which was on 06/13/2018, the day of the admission. REVIEW OF SYSTEMS: A 12-point review of systems is performed. PAST MEDICAL HISTORY: Significant for stage 2 esophageal cancer, achalasia, cerebrovascular accident, congestive heart failure, diabetes, hyperthyroidism, GERD, cataract, mitral valve prolapse, atrial fibrillation, history of ESBL Klebsiella urinary tract infection. PAST SURGICAL HISTORY: Significant for cardiac cath, cholecystectomy, and hip surgery. ALLERGIES: THE PATIENT HAS NO KNOWN ALLERGIES. MEDICATIONS: Reveal the patient to be on Apresoline, vitamins, Lopressor, and Lasix. PHYSICAL EXAMINATION GENERAL: The patient is in bed, no acute distress. VITAL SIGNS: Temperature of 100.9, blood pressure is 110/50, respiratory rate of 18, and heart rate of 92. HEENT: Unremarkable. NECK: Supple. LUNGS: Decreased breath sounds. HEART: Normal S1 and S2. ABDOMEN: Soft and nontender. No rebound or guarding. LABORATORY DATA: The patient's white count to be 7.1, hemoglobin of 10, and platelets of 280. Chemistries reveal the BUN of 38, creatinine of 0.7. Urinalysis is noted, 5 to 10 wbc's. Microbiology reveals VRE. Chest x-ray from today reveals new multifocal infiltrates. ASSESSMENT AND PLAN: This is an 88-year-old female with esophageal cancer, achalasia, gastroesophageal reflux disease, cataract, atrial fibrillation presenting with sepsis, healthcare-associated pneumonia which is bilateral with vancomycin-resistant enterococci in urine. We will treat the patient with Zyvox and meropenem, place the patient on precautions, request a methicillin-resistant Staphylococcus aureus screening, nasal screening test, sputum culture, repeat urinalysis, urine culture, and order a procalcitonin, and we will follow with you. Case discussed with PMD. Ambrocio Ballesteros MD
[2018-06-17] MEDS: Prostat 15 g packet GT SCH (10:28)
--- NOTE | 2018-06-17 10:33 | PN ---
DATE: 06/17/2018 PHYSICAL EXAMINATION: HEENT: Examination of HEENT is unremarkable. NECK: Supple. LUNGS: Have decreased breath sounds. HEART: Normal S1 and S2. ABDOMEN: Soft. LABORATORY DATA: Laboratory examination reveals a white count of 6.6, hemoglobin of 10. BUN of 36, creatinine of 0.7. Microbiology is pending. The patient does have VRE in the urine. The blood cultures, initial blood cultures are negative. Urinalysis is unremarkable. The repeat urinalysis was unremarkable. Review of orders reveals the patient to be on meropenem and Zyvox. ASSESSMENT AND PLAN: An 88-year-old female seen earlier this morning in [facility], bed 1 with esophageal cancer, achalasia, gastroesophageal reflux disease, cataract, atrial fibrillation with sepsis, healthcare-associated pneumonia, which is bilateral with VRE vancomycin-resistant Enterococcus in the urine, probably a colonizer and not a pathogen. On day #2 of Zyvox and meropenem. We will check on the repeat cultures and procalcitonin. We will need 4-7 days of antibiotics, today is day #2. Ambrocio Ballesteros MD
--- NOTE | 2018-06-17 11:07 | CP.PCM.PN ---
<Sabino Pathak - Last Filed: 06/17/18 11:01> Subjective - Date & Time of Evaluation Date of Evaluation: 06/17/18 Time of Evaluation: 11:02 - Subjective Subjective: PGY-2 GI progress note for Dr Brown No acute events noted overnight. On contact precautions as urine cx shows VRE. Currently on PEG feeds - tolerating well. Patient was seen resting comfortably in bed - she was awake, alert but aphasic. Right-sided hemiparises and facial droop. Appeared to be comfortable. Complete ROS not possible in this aphasic patient. Objective - Vital Signs/Intake and Output Vital Signs (last 24 hours): Temp Pulse Resp BP Pulse Ox 98 F 78 20 110/73 98 06/17/18 06:00 06/17/18 10:06/17/18 06:00 06/17/18 10:06/17/18 06:00 Intake and Output: 06/17/18 06/17/18 06:59 18:59 Intake Total 300 Output Total 600 Balance 300 -600 - Medications Medications: Current Medications Acetaminophen (Tylenol 650mg/20.3ml Solution Ud) 650 mg PO Q4 PRN PRN Reason: Temperature Last Admin: 06/16/18 18:24 Dose: 650 mg Amino Acid Protein (Prostat 15 G Packet) 15 gm GT DAILY [facility] Last Admin: 06/17/18 10:28 Dose: 15 gm Atorvastatin Calcium (Lipitor) 40 mg PEG DIN [facility] Last Admin: 06/16/18 17:40 Dose: 40 mg Docusate Sodium (Colace Liquid) 100 mg PO BID PRN PRN Reason: Constipation Furosemide (Lasix) 20 mg PEG MWF [facility] Last Admin: 06/16/18 15:19 Dose: 20 mg Meropenem (Merrem Iv 1 Gm Premix) 1 gm in 50 mls @ 12.5 mls/hr IVPB Q8 [facility]; Protocol Stop: 06/25/18 19:27 Last Admin: 06/17/18 05:08 Dose: 12.5 mls/hr Linezolid (Zyvox 600mg/300ml D5w) 600 mg in 300 mls @ 200 mls/hr IVPB Q12 [facility]; Protocol Stop: 06/24/18 22:01 Last Admin: 06/16/18 22:12 Dose: 200 mls/hr Levalbuterol HCl (Xopenex) 0.63 mg IH [id number] PRN PRN Reason: Wheezing Metoprolol Tartrate (Lopressor) 25 mg PO BID [facility] Last Admin: 06/17/18 10:27 Dose: 25 mg Nitrofurantoin Macrocrystals (Macrobid) 100 mg PO Q12 [facility]; Protocol Last Admin: 06/17/18 10:27 Dose: 100 mg Pantoprazole Sodium (Protonix Inj) 40 mg IVP DAILY [facility] Last Admin: 06/17/18 10:26 Dose: 40 mg Warfarin Sodium (Coumadin) 2 mg PO 1800 [facility]; Protocol Last Admin: 06/16/18 17:40 Dose: 2 mg - Labs Labs: 06/17/18 05:45 06/17/18 05:45 PT 13.8 SECONDS (9.4-12.5) H 06/17/18 05:45 INR 1.20 06/17/18 05:45 APTT 25.1 Seconds (25.1-36.5) 06/13/18 18:13 - Additional Findings Additional findings: - Constitutional Appears: No Acute Distress - Head Exam Head Exam: ATRAUMATIC Additional comments: right facial droop - Eye Exam Eye Exam: EOMI, PERRL - ENT Exam ENT Exam: Mucous Membranes Moist - Cardiovascular Exam Cardiovascular Exam: Irregular Rhythm, Murmur Additional comments: afib with murmurs of and MR - GI/Abdominal Exam GI & Abdominal Exam: Soft Additional comments: G-tube in place - Neurological Exam Neurological Exam: Alert Neuro motor strength exam: Left Upper Extremity: 4, Right Upper Extremity: 0, Left Lower Extremity: 4, Right Lower Extremity: 0 Additional comments: right-sided hemiparesis - Skin Skin Exam: Normal Color, Warm Assessment and Plan - Assessment and Plan (Free Text) Plan: 88 year old female with a PMHx of esophageal carcinoma s/p chemo and radiation, afib on coumadin complicated by GI bleed - coumadin had to be stopped and patient subsequently developed a CVA and now with right-sided hemiparesis was sent to the ER for low hemoglobin: Anemia -s/p 2u pRBCs and now hgb stable at 10.2 (7.9 on admission) -bleed most likely from her esophageal cancer -primary team and oncology agreed to begin low dose coumadin and aim for PT/INR in rage of 1.7-1.8 - although considered subtherapeutic, this can provide the patient with some protection given she just had a CVA and is at risk for another -agree with primary and oncology on coumadin as it can be easily monitored com pared to eliquis -continue PPI low dose -continue g-tube feeding * monitor closely of tolerance with bolus feeding * if concern about tolerance with bolus feeding - would consider switching to continuous pump feeding Case discussed with Dr Brown. <Elba Brown V - Last Filed: 06/18/18 21:19> Objective - Vital Signs/Intake and Output Vital Signs (last 24 hours): Temp Pulse Resp BP Pulse Ox 98.6 F 79 20 135/85 98 06/17/18 22:56 06/17/18 22:56 06/17/18 22:56 06/17/18 22:56 06/17/18 22:56 Intake and Output: 06/17/18 06/18/18 18:59 06:59 Intake Total 837 Output Total 900 Balance -63 - Medications Medications: Current Medications Acetaminophen (Tylenol 650mg/20.3ml Solution Ud) 650 mg PO Q4 PRN PRN Reason: Temperature Last Admin: 06/16/18 18:24 Dose: 650 mg Amino Acid Protein (Prostat 15 G Packet) 15 gm GT DAILY [facility] Last Admin: 06/17/18 10:28 Dose: 15 gm Atorvastatin Calcium (Lipitor) 40 mg PEG DIN [facility] Last Admin: 06/17/18 18:36 Dose: 40 mg Docusate Sodium (Colace Liquid) 100 mg PO BID PRN PRN Reason: Constipation Furosemide (Lasix) 20 mg PEG MWF [facility] Last Admin: 06/16/18 15:19 Dose: 20 mg Meropenem (Merrem Iv 1 Gm Premix) 1 gm in 50 mls @ 12.5 mls/hr IVPB Q8 [facility]; Protocol Stop: 06/25/18 19:27 Last Admin: 06/17/18 21:36 Dose: 12.5 mls/hr Linezolid (Zyvox 600mg/300ml D5w) 600 mg in 300 mls @ 200 mls/hr IVPB Q12 [facility]; Protocol Stop: 06/24/18 22:01 Last Admin: 06/17/18 22:37 Dose: 200 mls/hr Levalbuterol HCl (Xopenex) 0.63 mg IH [id number] PRN PRN Reason: Wheezing Metoprolol Tartrate (Lopressor) 25 mg PO BID [facility] Last Admin: 06/17/18 18:36 Dose: 25 mg Pantoprazole Sodium (Protonix Susp) 40 mg PEG DAILY [facility] Warfarin Sodium (Coumadin) 2 mg PO 1800 [facility]; Protocol Last Admin: 06/17/18 18:36 Dose: 2 mg - Labs Labs: 06/17/18 05:45 06/17/18 05:45 PT 13.8 SECONDS (9.4-12.5) H 06/17/18 05:45 INR 1.20 06/17/18 05:45 APTT 25.1 Seconds (25.1-36.5) 06/13/18 18:13 Attending/Attestation - Attestation I have personally seen and examined this patient.: Yes I have fully participated in the care of the patient.: Yes I have reviewed all pertinent clinical information, including history, physical exam and plan: Yes Notes (Text): This is an addendum to GI followup report dictated by the [employer] [facility] [employer] [facility]. The patient was seen and evaluated earlier. Medical records, lab studies, imagings were reviewed. Last 24 hours events reviewed. Agreed with the above treatment plan as outlined in [facility] 's notes with the addition of the following discussed with the family who were at bedside Patient is on isolation for VRE No bleeding per rectum or melena On Coumadin Close follow-up of hemoglobin and transfuse as needed Continue G-tube feeding 06/17/18 23:57
[2018-06-17] MEDS: Linezolid 600 mg in D5W 300 ml 600 MG/300 ML BAG IVPB SCH ×2 (12:02→22:37)
--- NOTE | 2018-06-17 20:24 | CP.PCM.PN ---
Subjective - Date & Time of Evaluation Date of Evaluation: 06/17/18 Time of Evaluation: 20:24 - Subjective Subjective: Hematology/Oncology Progress Note (Dr. Coello's Service) Patient seen and assessed at bedside. No acute events noted overnight per nursing staff or patient. Patient was noted to have VRE positive urine cultures and infiltrates on chest x-ray. She was started on empiric antibiotics by ID. Patient is noted to be aphasic and complete ROS unavailable at this time. She is, however, awake and alert with appropriate visual tracking and limited communication via nodding. Objective - Vital Signs/Intake and Output Vital Signs (last 24 hours): Temp Pulse Resp BP Pulse Ox 98.4 F 93 H 17 107/98 H 98 06/17/18 12:00 06/17/18 12:00 06/17/18 12:00 06/17/18 12:00 06/17/18 06:00 Intake and Output: 06/17/18 06/18/18 18:59 06:59 Intake Total 837 Output Total 900 Balance -63 - Medications Medications: Current Medications Acetaminophen (Tylenol 650mg/20.3ml Solution Ud) 650 mg PO Q4 PRN PRN Reason: Temperature Last Admin: 06/16/18 18:24 Dose: 650 mg Amino Acid Protein (Prostat 15 G Packet) 15 gm GT DAILY [facility] Last Admin: 06/17/18 10:28 Dose: 15 gm Atorvastatin Calcium (Lipitor) 40 mg PEG DIN [facility]NY Last Admin: 06/17/18 18:36 Dose: 40 mg Docusate Sodium (Colace Liquid) 100 mg PO BID PRN PRN Reason: Constipation Furosemide (Lasix) 20 mg PEG MWF [facility] Last Admin: 06/16/18 15:19 Dose: 20 mg Meropenem (Merrem Iv 1 Gm Premix) 1 gm in 50 mls @ 12.5 mls/hr IVPB Q8 [facility]; Protocol Stop: 06/25/18 19:27 Last Admin: 06/17/18 13:37 Dose: 12.5 mls/hr Linezolid (Zyvox 600mg/300ml D5w) 600 mg in 300 mls @ 200 mls/hr IVPB Q12 SUNNY; Protocol Stop: 06/24/18 22:01 Last Admin: 06/17/18 12:02 Dose: 200 mls/hr Levalbuterol HCl (Xopenex) 0.63 mg IH [id number] PRN PRN Reason: Wheezing Metoprolol Tartrate (Lopressor) 25 mg PO BID [facility] Last Admin: 06/17/18 18:36 Dose: 25 mg Pantoprazole Sodium (Protonix Susp) 40 mg PEG DAILY [facility] Warfarin Sodium (Coumadin) 2 mg PO 1800 [facility]NY; Protocol Last Admin: 06/17/18 18:36 Dose: 2 mg - Labs Labs: 06/17/18 05:45 06/17/18 05:45 PT 13.8 SECONDS (9.4-12.5) H 06/17/18 05:45 INR 1.20 06/17/18 05:45 APTT 25.1 Seconds (25.1-36.5) 06/13/18 18:13 - Constitutional Appears: Non-toxic, No Acute Distress - Head Exam Head Exam: ATRAUMATIC, NORMOCEPHALIC - Eye Exam Eye Exam: EOMI, Normal appearance - ENT Exam ENT Exam: Mucous Membranes Moist - Neck Exam Neck Exam: Full ROM - Respiratory Exam Respiratory Exam: Clear to Ausculation Bilateral, NORMAL BREATHING PATTERN - Cardiovascular Exam Cardiovascular Exam: REGULAR RHYTHM, +S1, +S2, Murmur (II/ systolic ejection) - GI/Abdominal Exam GI & Abdominal Exam: Soft, Normal Bowel Sounds. 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 Patient was transfused two units of pRBC's and is currently with stable H/H. After GI consultation, patient was cleared to be restarted on Coumadin and we will shoot for INR to be between 1.7 and 1.8. 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 ID was consulted for further recommendations regarding this as well as infiltrates on chest x-ray. She is currently on Merrem and Zyvox treatment. Plan: -Hemoglobin/Hematocrit currently stable s/p two units of pRBC's; Will continue t o monitor with daily CBC's -Continue low dose Coumadin with daily INR checks while inpatient; Can be done at [facility] upon discharge if patient medically cleared for DC -Continue tube feeding as ordered with caloric goals currently being met -Will continue XRT and chemotherapy at [facility] after discharge -ID was consulted, all recommendations appreciated; Continue Merrem and Zyvox -Repeat urine culture pending -Further recommendations per Dr. Coello Patient seen and case discussed with attending, Dr. Coello. Sridhar Jeronimo PGY2
--- NOTE | 2018-06-18 00:41 | PN ---
DATE: 06/17/2018 SUBJECTIVE: Patient was seen this Saturday in the room 267, bed 1. Patient is sitting comfortably in bed, appears in no acute distress, difficult to communicate because of the dense expressive aphasia and right-sided weakness. PHYSICAL EXAMINATION: GENERAL: Right side is flaccid. There is no speech at all from the patient. LUNGS: Show good aeration right and left. HEART: Irregular, but not tachycardic. EXTREMITIES: Show no edema. Moderately overweight. IMPRESSION: 1. Anemia. 2. Atrial fibrillation. 3. Status post cerebrovascular accident. 4. History of hypertension. 5. Percutaneous endoscopic gastrostomy feeding tube. 6. Aspiration pneumonia, acute. PLAN: Continuing IV antibiotics for acute aspiration per Infectious Disease. Discharge plan will be to go back to [facility] for acute physical therapy rehabilitation. I spoke with patient's daughter Dian today. Patient may be able to leave as early as Saturday or the weekend when cleared by ID. Vincent Lindsay MD MTDGuille
[2018-06-18] MEDS: Meropenem IV 1 gm in NS 1 GM/50 ML BAG IVPB SCH ×3 (06:13→21:21)
[2018-06-18 07:33] LABS: BASO # 0.01 K/mm3 (0.0-2.0); BASO % 0.1 % (0.0-3.0); EOS # 0.1 (0.0-0.7); GRAN # 6.94 (1.4-6.5); GRAN % 82.8 % (50.0-68.0); HEMOGLOBIN 9.9 g/dL (12.0-16.0); LYMPH # 0.6 (1.2-3.4); LYMPH % 6.7 % (22.0-35.0); MEAN CELL VOLUME 94.7 fl (80.0-105.0); MEAN CORPUSCULAR HEMOGLOBIN 30.7 pg (25.0-35.0); MEAN CORPUSCULAR HGB CONC 32.4 g/dl (31.0-37.0); MONO # 0.8 (0.1-0.6); MONO % 9.4 % (1.0-6.0); RBC 3.23 10^6/uL (3.5-6.1); RED CELL DISTRIBUTION WIDTH 15.3 % (11.5-14.5); WHITE BLOOD COUNT 8.4 10^3/ul (4.5-11.0)
[2018-06-18 07:36] LABS: INR 1.22; PROTHROMBIN TIME 14.1 SECONDS (9.4-12.5)
[2018-06-18 07:53] LABS: ALB/GLOB RATIO 0.8 (1.1-1.8); ALBUMIN 2.5 g/dL (3.0-4.8); ALT/SGPT 43 U/L (7-56); AST/SGOT 41 U/L (14-36); BLOOD UREA NITROGEN 32 mg/dL (7-21); CALCIUM 7.9 mg/dL (8.4-10.5); GFR NON-AFRICAN AMERICAN > 60
[2018-06-18] MEDS: Furosemide 40 mg/5 mL Oral Soln UD PEG SCH (09:55)
[2018-06-18] MEDS: Linezolid 600 mg in D5W 300 ml 600 MG/300 ML BAG IVPB SCH ×2 (09:56→21:21)
[2018-06-18] MEDS: Pantoprazole 40 mg Susp UD PEG SCH (09:56)
[2018-06-18] MEDS: Prostat 15 g packet GT SCH (09:57)
--- NOTE | 2018-06-18 13:35 | CP.PCM.PN ---
<Sabino Pathak - Last Filed: 06/18/18 17:41> Subjective - Date & Time of Evaluation Date of Evaluation: 06/18/18 Time of Evaluation: 13:31 - Subjective Subjective: PGY-2 GI progress note for Dr Brown. No acute events noted overnight. Patient denied pain and appeared comfortable. She was AAOx3. The feeding tube was clamped when I saw her. She is aphasic at baseline. 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 Per complex case manager note, she will go to [facility] when medically clear. Objective - Vital Signs/Intake and Output Vital Signs (last 24 hours): Temp Pulse Resp BP Pulse Ox 98.6 F 90 20 125/77 98 06/17/18 22:56 06/18/18 09:55 06/17/18 22:56 06/18/18 09:55 06/17/18 22:56 Intake and Output: 06/18/18 06/18/18 06:59 18:59 Output Total 2 Balance -2 - Medications Medications: Current Medications Acetaminophen (Tylenol 650mg/20.3ml Solution Ud) 650 mg PO Q4 PRN PRN Reason: Temperature Last Admin: 06/16/18 18:24 Dose: 650 mg Amino Acid Protein (Prostat 15 G Packet) 15 gm GT DAILY SUNNY Last Admin: 06/18/18 09:57 Dose: 15 gm Atorvastatin Calcium (Lipitor) 40 mg PEG DIN SUNNY Last Admin: 06/17/18 18:36 Dose: 40 mg Docusate Sodium (Colace Liquid) 100 mg GT BID PRN PRN Reason: Constipation Furosemide (Lasix) 20 mg PEG MWF [facility] Last Admin: 06/18/18 09:55 Dose: 20 mg Meropenem (Merrem Iv 1 Gm Premix) 1 gm in 50 mls @ 12.5 mls/hr IVPB Q8 SUNNY; Protocol Stop: 06/25/18 19:27 Last Admin: 06/18/18 06:13 Dose: 12.5 mls/hr Linezolid (Zyvox 600mg/300ml D5w) 600 mg in 300 mls @ 200 mls/hr IVPB Q12 SUNNY; Protocol Stop: 06/24/18 22:01 Last Admin: 06/18/18 09:56 Dose: 200 mls/hr Levalbuterol HCl (Xopenex) 0.63 mg IH [id number] PRN PRN Reason: Wheezing Metoprolol Tartrate (Lopressor) 25 mg PO BID [facility] Last Admin: 06/18/18 09:55 Dose: 25 mg Pantoprazole Sodium (Protonix Susp) 40 mg PEG DAILY [facility] Last Admin: 06/18/18 09:56 Dose: 40 mg Warfarin Sodium (Coumadin) 2 mg PO 1800 SUNNY; Protocol Last Admin: 06/17/18 18:36 Dose: 2 mg - Labs Labs: 06/18/18 07:00 06/18/18 07:00 PT 14.1 SECONDS (9.4-12.5) H 06/18/18 07:00 INR 1.22 06/18/18 07:00 APTT 25.1 Seconds (25.1-36.5) 06/13/18 18:13 - Additional Findings Additional findings: - Constitutional Appears: No Acute Distress - Head Exam Head Exam: ATRAUMATIC Additional comments: right facial droop - Eye Exam Eye Exam: EOMI, PERRL - ENT Exam ENT Exam: Mucous Membranes Moist - Cardiovascular Exam Cardiovascular Exam: Irregular Rhythm, Murmur Additional comments: afib with murmurs of and MR - GI/Abdominal Exam GI & Abdominal Exam: Soft Additional comments: G-tube in place - Neurological Exam Neurological Exam: Alert Neuro motor strength exam: Left Upper Extremity: 4, Right Upper Extremity: 0, Left Lower Extremity: 4, Right Lower Extremity: 0 Additional comments: right-sided hemiparesis - Skin Skin Exam: Normal Color, Warm Assessment and Plan - Assessment and Plan (Free Text) Plan: 88 year old female with a PMHx of esophageal carcinoma s/p chemo and radiation, afib on coumadin complicated by GI bleed - coumadin had to be stopped and patient subsequently developed a CVA and now with right-sided hemiparesis was sent to the ER for low hemoglobin: Anemia -s/p 2u pRBCs and now hgb stable at 10.2 (7.9 on admission) -bleed most likely from her esophageal cancer -primary team and oncology agreed to begin low dose coumadin (currently receiving 2mg po qd) and aim for PT/INR in rage of 1.7-1.8 - although considered subtherapeutic, this can provide the patient with some protection given she just had a CVA and is at risk for another -agree with primary and oncology on coumadin as it can be easily monitored compared to eliquis -continue PPI low dose -continue g-tube feeding * monitor closely of tolerance with bolus feeding * if concern about tolerance with bolus feeding - would consider switching to continuous pump feeding -per case management note, she will go to [facility] when medically clear Case discussed with Dr Brown. <Elba Brown V - Last Filed: 06/18/18 21:23> Objective - Vital Signs/Intake and Output Vital Signs (last 24 hours): Temp Pulse Resp BP Pulse Ox 98.6 F 90 20 125/77 98 06/17/18 22:56 06/18/18 09:55 06/17/18 22:56 06/18/18 09:55 06/17/18 22:56 Intake and Output: 06/18/18 06/19/18 18:59 06:59 Intake Total 875 Balance 875 - Medications Medications: Current Medications Acetaminophen (Tylenol 650mg/20.3ml Solution Ud) 650 mg PO Q4 PRN PRN Reason: Temperature Last Admin: 06/16/18 18:24 Dose: 650 mg Amino Acid Protein (Prostat 15 G Packet) 15 gm GT DAILY [facility] Last Admin: 06/18/18 09:57 Dose: 15 gm Atorvastatin Calcium (Lipitor) 40 mg PEG DIN [facility] Last Admin: 06/18/18 17:57 Dose: 40 mg Docusate Sodium (Colace Liquid) 100 mg GT BID PRN PRN Reason: Constipation Furosemide (Lasix) 20 mg PEG MWF [facility] Last Admin: 06/18/18 09:55 Dose: 20 mg Meropenem (Merrem Iv 1 Gm Premix) 1 gm in 50 mls @ 12.5 mls/hr IVPB Q8 [facility]; Protocol Stop: 06/25/18 19:27 Last Admin: 06/18/18 15:33 Dose: 12.5 mls/hr Linezolid (Zyvox 600mg/300ml D5w) 600 mg in 300 mls @ 200 mls/hr IVPB Q12 SUNNY; Protocol Stop: 06/24/18 22:01 Last Admin: 06/18/18 09:56 Dose: 200 mls/hr Levalbuterol HCl (Xopenex) 0.63 mg IH [id number] PRN PRN Reason: Wheezing Metoprolol Tartrate (Lopressor) 25 mg PO BID [facility] Last Admin: 06/18/18 17:57 Dose: 25 mg Pantoprazole Sodium (Protonix Susp) 40 mg PEG DAILY [facility] Last Admin: 06/18/18 09:56 Dose: 40 mg Warfarin Sodium (Coumadin) 2 mg PO 1800 SUNNY; Protocol Last Admin: 06/18/18 17:57 Dose: 2 mg - Labs Labs: 06/18/18 07:00 06/18/18 07:00 PT 14.1 SECONDS (9.4-12.5) H 06/18/18 07:00 INR 1.22 06/18/18 07:00 APTT 25.1 Seconds (25.1-36.5) 06/13/18 18:13 Attending/Attestation - Attestation I have personally seen and examined this patient.: Yes I have fully participated in the care of the patient.: Yes I have reviewed all pertinent clinical information, including history, physical exam and plan: Yes Notes (Text): This is an addendum to GI followup report dictated by the Php Website Developer. The patient was seen and evaluated earlier. Medical records, lab studies, imagings were reviewed. Last 24 hours events reviewed. 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 fib status post CVA Close follow-up of INR and hemoglobin and transfuse as needed discussed with the nursing staff regding feeding bolus versus continuous 06/18/18 21:22
--- NOTE | 2018-06-18 14:15 | CP.PCM.PN ---
<Sridhar Jeronimo - Last Filed: 06/18/18 14:15> Subjective - Date & Time of Evaluation Date of Evaluation: 06/18/18 Time of Evaluation: 14:14 - Subjective Subjective: Hematology/Oncology Progress Note (Dr. Coello's Service) Patient seen and assessed at bedside. No acute events noted overnight. Patient is noted to be aphasic and complete ROS unavailable at this time. She is awake and alert with appropriate visual tracking and limited communication via nodding. Objective - Vital Signs/Intake and Output Vital Signs (last 24 hours): Temp Pulse Resp BP Pulse Ox 98.6 F 90 20 125/77 98 06/17/18 22:56 06/18/18 09:55 06/17/18 22:56 06/18/18 09:55 06/17/18 22:56 Intake and Output: 06/18/18 06/18/18 06:59 18:59 Output Total 2 Balance -2 - Medications Medications: Current Medications Acetaminophen (Tylenol 650mg/20.3ml Solution Ud) 650 mg PO Q4 PRN PRN Reason: Temperature Last Admin: 06/16/18 18:24 Dose: 650 mg Amino Acid Protein (Prostat 15 G Packet) 15 gm GT DAILY [facility] Last Admin: 06/18/18 09:57 Dose: 15 gm Atorvastatin Calcium (Lipitor) 40 mg PEG DIN [facility] Last Admin: 06/17/18 18:36 Dose: 40 mg Docusate Sodium (Colace Liquid) 100 mg GT BID PRN PRN Reason: Constipation Furosemide (Lasix) 20 mg PEG MWF [facility] Last Admin: 06/18/18 09:55 Dose: 20 mg Meropenem (Merrem Iv 1 Gm Premix) 1 gm in 50 mls @ 12.5 mls/hr IVPB Q8 [facility]; Protocol Stop: 06/25/18 19:27 Last Admin: 06/18/18 06:13 Dose: 12.5 mls/hr Linezolid (Zyvox 600mg/300ml D5w) 600 mg in 300 mls @ 200 mls/hr IVPB Q12 SUNNY; Protocol Stop: 06/24/18 22:01 Last Admin: 06/18/18 09:56 Dose: 200 mls/hr Levalbuterol HCl (Xopenex) 0.63 mg IH [id number] PRN PRN Reason: Wheezing Metoprolol Tartrate (Lopressor) 25 mg PO BID [facility] Last Admin: 06/18/18 09:55 Dose: 25 mg Pantoprazole Sodium (Protonix Susp) 40 mg PEG DAILY [facility] Last Admin: 06/18/18 09:56 Dose: 40 mg Warfarin Sodium (Coumadin) 2 mg PO 1800 [facility]; Protocol Last Admin: 06/17/18 18:36 Dose: 2 mg - Labs Labs: 06/18/18 07:00 06/18/18 07:00 PT 14.1 SECONDS (9.4-12.5) H 06/18/18 07:00 INR 1.22 06/18/18 07:00 APTT 25.1 Seconds (25.1-36.5) 06/13/18 18:13 - Constitutional Appears: Non-toxic, No Acute Distress - Head Exam Head Exam: ATRAUMATIC, NORMOCEPHALIC - Eye Exam Eye Exam: EOMI, Normal appearance - ENT Exam ENT Exam: Mucous Membranes Moist - Neck Exam Neck Exam: Full ROM - Respiratory Exam Respiratory Exam: Clear to Ausculation Bilateral, NORMAL BREATHING PATTERN. absent: Accessory Muscle Use, Rales, Rhonchi, Wheezes, Respiratory Distress - Cardiovascular Exam Cardiovascular Exam: RRR, +S1, +S2 Additional comments: II/ systolic ejection murmur - GI/Abdominal Exam GI & Abdominal Exam: Soft, Normal Bowel Sounds. absent: Tenderness Additional comments: g-tube in place without signs of clinical infection of the surrounding soft tissues - Extremities Exam Extremities Exam: absent: Calf Tenderness, Joint Swelling, Pedal Edema, Tenderness - Neurological Exam Neurological Exam: Alert, Awake Neuro motor strength exam: Left Upper Extremity: 4, Right Upper Extremity: 0, Left Lower Extremity: 4, Right Lower Extremity: 0 - Psychiatric Exam Psychiatric exam: Normal Affect, Normal Mood - Skin Skin Exam: Dry, Intact, Normal Color, Warm Assessment and Plan - Assessment and Plan (Free Text) Assessment: 88 year old female with a significant for 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 Patient was transfused two units of pRBC's and is currently with stable H/H. After GI consultation, patient was cleared to be restarted on Coumadin and we will shoot for INR to be between 1.7 and 1.8. 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 ID was consulted for further recommendations regarding this as well as infiltrates on chest x-ray. She is currently on Merrem and Zyvox treatment. Plan: -Hemoglobin/Hematocrit currently stable s/p two units of pRBC's; Will continue to monitor with daily CBC's -Continue low dose Coumadin with daily INR checks while inpatient; Can be done at [facility] upon discharge if patient medically cleared for DC -Continue tube feeding as ordered with caloric goals currently being met -Will continue XRT and chemotherapy at [facility] after discharge -ID was consulted, all recommendations appreciated; Continue Merrem and Zyvox (day 2) -Repeat urine culture pending -Further recommendations per Dr. Coello Patient seen and case discussed with attending, Dr. Coello. Sridhar Jeronimo PGY2 <Elba Brown V - Last Filed: 06/18/18 21:16> Objective - Vital Signs/Intake and Output Vital Signs (last 24 hours): Temp Pulse Resp BP Pulse Ox 98.6 F 90 20 125/77 98 06/17/18 22:56 06/18/18 09:55 06/17/18 22:56 06/18/18 09:55 06/17/18 22:56 Intake and Output: 06/18/18 06/19/18 18:59 06:59 Intake Total 875 Balance 875 - Medications Medications: Current Medications Acetaminophen (Tylenol 650mg/20.3ml Solution Ud) 650 mg PO Q4 PRN PRN Reason: Temperature Last Admin: 06/16/18 18:24 Dose: 650 mg Amino Acid Protein (Prostat 15 G Packet) 15 gm GT DAILY [facility] Last Admin: 06/18/18 09:57 Dose: 15 gm Atorvastatin Calcium (Lipitor) 40 mg PEG DIN [facility] Last Admin: 06/18/18 17:57 Dose: 40 mg Docusate Sodium (Colace Liquid) 100 mg GT BID PRN PRN Reason: Constipation Furosemide (Lasix) 20 mg PEG MWF [facility] Last Admin: 06/18/18 09:55 Dose: 20 mg Meropenem (Merrem Iv 1 Gm Premix) 1 gm in 50 mls @ 12.5 mls/hr IVPB Q8 [facility]; Protocol Stop: 06/25/18 19:27 Last Admin: 06/18/18 15:33 Dose: 12.5 mls/hr Linezolid (Zyvox 600mg/300ml D5w) 600 mg in 300 mls @ 200 mls/hr IVPB Q12 [facility]NY; Protocol Stop: 06/24/18 22:01 Last Admin: 06/18/18 09:56 Dose: 200 mls/hr Levalbuterol HCl (Xopenex) 0.63 mg IH [id number] PRN PRN Reason: Wheezing Metoprolol Tartrate (Lopressor) 25 mg PO BID [facility] Last Admin: 06/18/18 17:57 Dose: 25 mg Pantoprazole Sodium (Protonix Susp) 40 mg PEG DAILY [facility] Last Admin: 06/18/18 09:56 Dose: 40 mg Warfarin Sodium (Coumadin) 2 mg PO 1800 [facility]; Protocol Last Admin: 06/18/18 17:57 Dose: 2 mg - Labs Labs: 06/18/18 07:00 06/18/18 07:00 PT 14.1 SECONDS (9.4-12.5) H 06/18/18 07:00 INR 1.22 06/18/18 07:00 APTT 25.1 Seconds (25.1-36.5) 06/13/18 18:13 Attending/Attestation - Attestation I have personally seen and examined this patient.: Yes I have fully participated in the care of the patient.: Yes I have reviewed all pertinent clinical information, including history, physical exam and plan: Yes Notes (Text): This is an addendum to GI followup report dictated by the Aligner. The patient was seen and evaluated earlier. Medical records, lab studies, imagings were reviewed. Last 24 hours events reviewed. 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 fib status post CVA Close follow-up of INR and hemoglobin and transfuse as needed 06/18/18 21:14
--- NOTE | 2018-06-19 01:06 | PN ---
DATE: 06/18/2018 SUBJECTIVE: The patient seen in bed in no acute distress. PHYSICAL EXAMINATION: VITAL SIGNS: On exam, temperature is 98, blood pressure is 130/80 and respiratory rate 20. HEENT: Unremarkable. NECK: Supple. LUNGS: Have decreased breath sounds. HEART: Normal S1 and S2. ABDOMEN: Soft. LABORATORY DATA: Reveals a white count of 8.4 and hemoglobin of 9. BUN of 32 and creatinine 0.8. Microbiology has revealed a VRE in the urine. The blood cultures are negative. ASSESSMENT AND PLAN: This is an 88-year-old female, was seen earlier with esophageal cancer, achalasia, gastroesophageal reflux disease, cataract, atrial fibrillation, sepsis with healthcare-associated pneumonia and which is bilateral. 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 Today is day #3 of Zyvox and meropenem and would complete 4-7 days. Of note the patient's procalcitonin is 0.07. Overall prognosis poor. Ambrocio Ballesteros MD
[2018-06-19] MEDS: Meropenem IV 1 gm in NS 1 GM/50 ML BAG IVPB SCH (05:03)
--- NOTE | 2018-06-19 08:16 | CP.PCM.PN ---
<Sabino Pathak - Last Filed: 06/19/18 11:05> Subjective - Date & Time of Evaluation Date of Evaluation: 06/19/18 Time of Evaluation: 08:15 - Subjective Subjective: PGY-2 GI progress note for Dr Brown. No acute events noted overnight. Patient denied pain and appeared comfortable. She was AAOx3. The feeding tube was clamped when I saw her. She is aphasic at baseline. 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 Per director case management note, she will go to [facility] when medically clear. Objective - Vital Signs/Intake and Output Vital Signs (last 24 hours): Temp Pulse Resp BP Pulse Ox 99.1 F 83 20 105/77 95 06/18/18 22:00 06/18/18 22:00 06/18/18 22:00 06/18/18 22:00 06/18/18 22:00 Intake and Output: 06/19/18 06/19/18 06:59 18:59 Intake Total 680 Output Total 2 Balance 678 - Medications Medications: Current Medications Acetaminophen (Tylenol 650mg/20.3ml Solution Ud) 650 mg PO Q4 PRN PRN Reason: Temperature Last Admin: 06/16/18 18:24 Dose: 650 mg Amino Acid Protein (Prostat 15 G Packet) 15 gm GT DAILY [facility] Last Admin: 06/18/18 09:57 Dose: 15 gm Atorvastatin Calcium (Lipitor) 40 mg PEG DIN [facility] Last Admin: 06/18/18 17:57 Dose: 40 mg Docusate Sodium (Colace Liquid) 100 mg GT BID PRN PRN Reason: Constipation Furosemide (Lasix) 20 mg PEG MWF [facility] Last Admin: 06/18/18 09:55 Dose: 20 mg Meropenem (Merrem Iv 1 Gm Premix) 1 gm in 50 mls @ 12.5 mls/hr IVPB Q8 [facility]; Protocol Stop: 06/25/18 19:27 Last Admin: 06/19/18 05:03 Dose: 12.5 mls/hr Linezolid (Zyvox 600mg/300ml D5w) 600 mg in 300 mls @ 200 mls/hr IVPB Q12 [facility]; Protocol Stop: 06/24/18 22:01 Last Admin: 06/18/18 21:21 Dose: 200 mls/hr Levalbuterol HCl (Xopenex) 0.63 mg IH [id number] PRN PRN Reason: Wheezing Metoprolol Tartrate (Lopressor) 25 mg PO BID [facility] Last Admin: 06/18/18 17:57 Dose: 25 mg Pantoprazole Sodium (Protonix Susp) 40 mg PEG DAILY [facility] Last Admin: 06/18/18 09:56 Dose: 40 mg Warfarin Sodium (Coumadin) 2 mg PO 1800 [facility]; Protocol Last Admin: 06/18/18 17:57 Dose: 2 mg - Labs Labs: 06/18/18 07:00 06/18/18 07:00 PT 14.1 SECONDS (9.4-12.5) H 06/18/18 07:00 INR 1.22 06/18/18 07:00 APTT 25.1 Seconds (25.1-36.5) 06/13/18 18:13 - Additional Findings Additional findings: - Constitutional Appears: No Acute Distress - Head Exam Head Exam: ATRAUMATIC Additional comments: right facial droop - Eye Exam Eye Exam: EOMI, PERRL - ENT Exam ENT Exam: Mucous Membranes Moist - Cardiovascular Exam Cardiovascular Exam: Irregular Rhythm, Murmur Additional comments: afib with murmurs of and MR - GI/Abdominal Exam GI & Abdominal Exam: Soft Additional comments: G-tube in place - Neurological Exam Neurological Exam: Alert Neuro motor strength exam: Left Upper Extremity: 4, Right Upper Extremity: 0, Left Lower Extremity: 4, Right Lower Extremity: 0 Additional comments: right-sided hemiparesis - Skin Skin Exam: Normal Color, Warm Assessment and Plan - Assessment and Plan (Free Text) Plan: 88 year old female with a PMHx of esophageal carcinoma s/p chemo and radiation, afib on coumadin complicated by GI bleed - coumadin had to be stopped and p atient subsequently developed a CVA and now with right-sided hemiparesis was sent to the ER for low hemoglobin: Anemia -s/p 2u pRBCs and now hgb stable at 10.2 (7.9 on admission) -bleed most likely from her esophageal cancer -primary team and oncology agreed to begin low dose coumadin (currently receiving 2mg po qd) and aim for PT/INR in rage of 1.7-1.8 - although considered subtherapeutic, this can provide the patient with some protection given she just had a CVA and is at risk for another -agree with primary and oncology on coumadin as it can be easily monitored com pared to nae -continue PPI low dose -continue g-tube feeding * monitor closely of tolerance with bolus feeding * if concern about tolerance with bolus feeding - would consider switching to continuous pump feeding -per case management note, she will go to [facility] when medically clear GI will sign off this case. Please re-consult as necessary. Case discussed with Dr Brown. <Elba Brown V - Last Filed: 06/20/18 00:05> Objective - Vital Signs/Intake and Output Vital Signs (last 24 hours): Temp Pulse Resp BP Pulse Ox 97.9 F 80 16 136/73 97 06/19/18 06:00 06/19/18 17:21 06/19/18 06:00 06/19/18 17:21 06/19/18 06:00 Intake and Output: 06/19/18 06/20/18 18:59 06:59 Intake Total 1040 Output Total 300 Balance 740 - Labs Labs: 06/18/18 07:00 06/18/18 07:00 PT 15.2 SECONDS (9.4-12.5) H 06/19/18 09:00 INR 1.31 06/19/18 09:00 APTT 29.8 Seconds (25.1-36.5) 06/19/18 09:00 Attending/Attestation - Attestation I have personally seen and examined this patient.: Yes I have fully participated in the care of the patient.: Yes I have reviewed all pertinent clinical information, including history, physical exam and plan: Yes Notes (Text): This is a delayedaddendum to GI followup report dictated by the Cto. The patient was seen and evaluated earlier. Medical records, lab studies, imagings were reviewed. Last 24 hours events reviewed. Agreed with the above treatment plan as outlined in Cto 's notes with the addition of the following continue low-dose anticoagula and keep INR therapeutic range Follow-up hemoglobin Continue PPI Patient is tolerating bolus feeding 06/20/18 00:04
--- NOTE | 2018-06-19 08:56 | CP.PCM.PN ---
Subjective - Date & Time of Evaluation Date of Evaluation: 06/19/18 Time of Evaluation: 08:55 - Subjective Subjective: Hematology/Oncology Progress Note (Dr. Coello's Service) Patient seen and assessed at bedside. No acute events noted overnight. Patient is noted to be aphasic and complete ROS unavailable. However, she is awake and alert with appropriate visual tracking and limited communication via nodding. Objective - Vital Signs/Intake and Output Vital Signs (last 24 hours): Temp Pulse Resp BP Pulse Ox 99.1 F 83 20 105/77 95 06/18/18 22:00 06/18/18 22:00 06/18/18 22:00 06/18/18 22:00 06/18/18 22:00 Intake and Output: 06/19/18 06/19/18 06:59 18:59 Intake Total 680 Output Total 2 Balance 678 - Medications Medications: Current Medications Acetaminophen (Tylenol 650mg/20.3ml Solution Ud) 650 mg PO Q4 PRN PRN Reason: Temperature Last Admin: 06/16/18 18:24 Dose: 650 mg Amino Acid Protein (Prostat 15 G Packet) 15 gm GT DAILY [facility] Last Admin: 06/18/18 09:57 Dose: 15 gm Atorvastatin Calcium (Lipitor) 40 mg PEG DIN [facility] Last Admin: 06/18/18 17:57 Dose: 40 mg Docusate Sodium (Colace Liquid) 100 mg GT BID PRN PRN Reason: Constipation Furosemide (Lasix) 20 mg PEG MWF [facility] Last Admin: 06/18/18 09:55 Dose: 20 mg Meropenem (Merrem Iv 1 Gm Premix) 1 gm in 50 mls @ 12.5 mls/hr IVPB Q8 [facility]; Protocol Stop: 06/25/18 19:27 Last Admin: 06/19/18 05:03 Dose: 12.5 mls/hr Linezolid (Zyvox 600mg/300ml D5w) 600 mg in 300 mls @ 200 mls/hr IVPB Q12 [facility]; Protocol Stop: 06/24/18 22:01 Last Admin: 06/18/18 21:21 Dose: 200 mls/hr Levalbuterol HCl (Xopenex) 0.63 mg IH [id number] PRN PRN Reason: Wheezing Metoprolol Tartrate (Lopressor) 25 mg PO BID [facility] Last Admin: 06/18/18 17:57 Dose: 25 mg Pantoprazole Sodium (Protonix Susp) 40 mg PEG DAILY [facility] Last Admin: 06/18/18 09:56 Dose: 40 mg Warfarin Sodium (Coumadin) 2 mg PO 1800 [facility]; Protocol Last Admin: 06/18/18 17:57 Dose: 2 mg - Labs Labs: 06/18/18 07:00 06/18/18 07:00 PT 14.1 SECONDS (9.4-12.5) H 06/18/18 07:00 INR 1.22 06/18/18 07:00 APTT 25.1 Seconds (25.1-36.5) 06/13/18 18:13 - Constitutional Appears: Non-toxic, No Acute Distress - Head Exam Head Exam: ATRAUMATIC, NORMOCEPHALIC - Eye Exam Eye Exam: EOMI, Normal appearance - ENT Exam ENT Exam: Mucous Membranes Moist - Respiratory Exam Respiratory Exam: Clear to Ausculation Bilateral, NORMAL BREATHING PATTERN. absent: Rales, Rhonchi, Wheezes - Cardiovascular Exam Cardiovascular Exam: RRR, +S1, +S2 - GI/Abdominal Exam GI & Abdominal Exam: Soft, Normal Bowel Sounds. 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 after an acute drop in hemoglobin from 9.7 to 7.8. Patient was transfused two units of pRBC's and is currently with stable H/H. After GI consultation, patient was cleared to be restarted on Coumadin and we will shoot for INR to be between 1.7 and 1.8. 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 ID was consulted for further recommendations regarding this as well as infiltrates on chest x-ray. She is to be discharged today back to [facility] where she will continue treatment and rehabilitation. Plan: -Hemoglobin/Hematocrit currently stable s/p two units of pRBC's -Continue low dose Coumadin with daily INR checks while inpatient; Can be done at [facility] upon discharge if patient medically cleared for DC -Continue tube feeding as ordered with caloric goals currently being met -Will continue XRT and chemotherapy at [facility] after discharge -ID was consulted, all recommendations appreciated; Continue antibiotics at [facility] as ordered -Further recommendations per Dr. Coello Patient seen and case discussed with attending, Dr. Coello. Sridhar Jeronimo PGY2
[2018-06-19 09:01] VITALS: RESP 16; TEMP 97.9; O2SAT 97
[2018-06-19] MEDS ORDERED: levoFLOXacin 500 MG TAB PO STA (09:34)
[2018-06-19 09:42] LABS: INR 1.31; PARTIAL THROMBOPLASTIN TIME 29.8 Seconds (25.1-36.5); PROTHROMBIN TIME 15.2 SECONDS (9.4-12.5)
[2018-06-19] MEDS: Pantoprazole 40 mg Susp UD PEG SCH (10:09)
[2018-06-19] MEDS: Prostat 15 g packet GT SCH (10:10)
--- NOTE | 2018-06-19 10:51 | PN ---
DATE: 06/19/2018 SUBJECTIVE: The patient was seen earlier this morning. Her status is unchanged. Had an uneventful night. There were no fevers. PHYSICAL EXAMINATION: VITAL SIGNS: Temperature is 99, blood pressure is 130/80, respiratory rate of 20, heart rate of 90. HEENT: Unremarkable. NECK: Supple. LUNGS: Have decreased breath sounds. HEART: Normal S1, S2. ABDOMEN: Soft, nontender. LABORATORY DATA: Reveals a white count of 8.4, hemoglobin of 9. Chemistries reveal a BUN of 32, creatinine of 0.8. Urinalysis is noted and microbiology reveals VRE in the urine. The blood cultures have no growth. 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 Maybe able to discontinue the Zyvox and switch to p.o. Levaquin 500 mg once daily x5 days. Ambrocio Ballesteros MD
--- NOTE | 2018-06-19 13:20 | PQF ---
PROVIDER RESPONSE TEXT: Provider was unable to determine a response for this query. REVIEWER QUERY TEXT: Anemia Type Anemia is documented in the Medical Record. Please specify the cause (includes suspected or probable cause) Such as: -- Due to acute blood loss -- Due to chronic blood loss -- Due to iron deficiency -- Due to postoperative blood loss -- Due to chronic disease -- Other, please specify The patient's Clinical Indicators include: Patient admitted with anemia with bleeding most likely from esophageal cancer. Please specify type and acuity of anemia (see below). Query created by: Kaley Bridges 06/17/2018 2:31 PM Electronically signed by: Sridhar Jeronimo 06/19/2018 1:16 PM
[2018-06-19 17:27] VITALS: BP 136/73; PULSE 80
== END 2018-06-19 21:15 | DRG 374 ==
LOC: ED 16:10 → ERH 19:10 → 2RNO 21:51 → 5RNO 06-17 15:14
PROVIDERS: ADMIT Internal Medicine; ATTEND Internal Medicine
PROC: 30233N1 Transfusion of Nonautologous Red Blood Cells into Peripheral Vein, Percutaneous Approach (ICD-10-PCS; principal; 2018-06-13)
PROC: 3E03328 Introduction of Oxazolidinones into Peripheral Vein, Percutaneous Approach (ICD-10-PCS; 2018-06-16)
DX: C15.5 Malignant neoplasm of lower third of esophagus (principal); D63.0 Anemia in neoplastic disease; A41.9 Sepsis, unspecified organism; J69.0 Pneumonitis due to inhalation of food and vomit; K92.2 Gastrointestinal hemorrhage, unspecified; I50.22 Chronic systolic (congestive) heart failure; I69.351 Hemiplegia and hemiparesis following cerebral infarction affecting right dominant side; I69.320 Aphasia following cerebral infarction; J44.9 Chronic obstructive pulmonary disease, unspecified; E11.9 Type 2 diabetes mellitus without complications; I11.0 Hypertensive heart disease with heart failure; I48.0 Paroxysmal atrial fibrillation; K22.0 Achalasia of cardia; K21.9 Gastro-esophageal reflux disease without esophagitis; I34.1 Nonrheumatic mitral (valve) prolapse; Z92.21 Personal history of antineoplastic chemotherapy; Z92.3 Personal history of irradiation; Z93.1 Gastrostomy status